=== PATIENT | female | born 1975 | race Hispanic/Latino ===

== ENCOUNTER 2018-05-03 17:24 | Observation (INO) | payer OTHER, SELFPAY ==
--- OUTSIDE RECORDS SUMMARY | 2018-05-03 17:26 | XMS REPORT | Clinical Summary ---
:1975 Author Organization [facility] Address [address] [place] [address] Phone Care Team Providers Name Role Phone Unavailable Primary Care Provider Unavailable Allergies No Known Allergies Current Medications Prescription Sig. Disp. Refills Start Date End Date Status metFORMIN Take 1,000 mg by Active (GLUCOPHAGE) 1000 mouth 2 (two) times MG tablet daily with breakfast and dinner. glyBURIDE (DIABETA) Take 1.25 mg by Active 1.25 MG tablet mouth 2 (two) times daily with breakfast and dinner. lisinopril Take 10 mg by mouth Active (PRINIVIL,ZESTRIL) daily. 10 MG tablet liraglutide 0.6 Inject 1.5 mg Active mg/0.1 mL (18 mg/3 subcutaneously daily mL) PnIj with breakfast. topiramate Take 1 tablet (25 mg 30 tablet 2 09/11/2017 09/11/2018 Active (TOPAMAX) 25 MG total) by mouth tablet nightly. Active Problems Problem Noted Date Left sided numbness 09/10/2017 Diabetes mellitus type 2 in nonobese ([facility]) 09/10/2017 Essential hypertension 09/10/2017 Headache 09/10/2017 Encounters Date Type Specialty Care Team Description 09/10/2017 - Hospital Encounter General Internal [facility], Diabetes mellitus type 09/11/2017 Medicine MD [place] 2 in nonobese [place], ([facility]);Essential Delphine Duenas MD hypertension;Acute nonintractable headache, unspecified headache type;Left sided numbness;Hemiplegic migraine without status migrainosus, not intractable after 05/02/2017 Social History Tobacco Use Types Packs/Day Years Used Date Never Smoker Sex Assigned at Date Recorded Not on file Last Filed Vital Signs Vital Sign Reading Time Taken Blood Pressure 158/72 09/11/2017 11:00 AM [employer] Pulse 87 09/11/2017 11:00 AM [employer] Temperature 36.3 C (97.4 F) 09/11/2017 11:00 AM [employer] Respiratory Rate 18 09/11/2017 11:00 AM [employer] Oxygen Saturation 95% 09/11/2017 11:00 AM [employer] Inhaled Oxygen Concentration - - Weight 81.2 kg (178 lb 15.9 oz) 09/10/2017 3:00 AM [employer] Height 162.6 cm (5' 4") 09/10/2017 3:00 AM [employer] Body Mass Index 30.72 09/10/2017 3:00 AM [employer] Plan of Treatment Not on file Results EKG-SCANNED (09/13/2017 10:10 AM)RHYTHM STRIP - SCAN (09/13/2017 10:10 AM)POC- Glucose meter (09/11/2017 11:28 AM)Only the most recent of6 resultswithin the time period is included. Component Value Ref Range POC-Glucose Meter 330 (H)Comment: TESTED AT [address] 70 - 110 mg/[place] [address] Specimen Performing Laboratory Blood [address] [address] Screen, urine (09/11/2017 10:02 AM) Component Value Ref Range Preg Test, Ur Negative Specimen Performing Laboratory Urine - Urine, Clean Catch [address] [address] ECG 12 lead (09/11/2017 4:26 AM) Specimen Performing Laboratory GE MUSE Narrative Ventricular Rate 81 BPM Atrial Rate 81 BPM P-R Interval 136 ms QRS Duration 88 ms Q-T Interval 384 ms QTC Calculation(Bazett) 446 ms P [place] 55 degrees R [place] 43 degrees T [place] 61 degrees Normal sinus rhythm Normal ECG No previous ECGs available Confirmed by MD STAFFORD YOCHAI ([id number]) on 09/12/2017 6:28:57 AM Procedure Note Interface, External Ris In - 09/12/2017 6:29 AM [employer] Ventricular Rate 81 BPM Atrial Rate 81 BPM P-R Interval 136 ms QRS Duration 88 ms Q-T Interval 384 ms QTC Calculation(Bazett) 446 ms P [place] 55 degrees R [place] 43 degrees T [place] 61 degrees Normal sinus rhythm Normal ECG No previous ECGs available Confirmed by MD STAFFORD YOCHAI ([id number]) on 09/12/2017 6:28:57 AM MR brain without IV contrast (09/10/2017 10:45 AM) Specimen Performing Laboratory RIS Narrative FINAL REPORT MRI brain without contrast INDICATION: Acute onset headache and left hemiparesis, hemianesthesia. TECHNIQUE: Multiplanar, multisequence MR imaging of the brain was performed utilizing the following imaging sequences: Axial T2, FLAIR, GRE, and DWI; sagittal and coronal T1 COMPARISON: None available FINDINGS: There is no acute infarct, hematoma, extra axial collection, hydrocephalus, or mass effect. No suspicious white matter disease pattern is evident. The left [place] A1 segment is likely hypoplastic. The major vascular flow voids are otherwise maintained. The sella and craniocervical junction are unremarkable. There is minimal chronic sinus mucosal disease with well aerated mastoid air cells. Anterior globe region artifacts suggest cosmetics. Diminished marrow T1 signal likely reflects red marrow reconversion. IMPRESSION: No evidence of acute infarct, hemorrhage, or hydrocephalus. Signed: Mark Mathur MD Report Verified Date/Time:09/10/2017 11:17:54 Reading Location: [address] Neuro Reading Room Procedure Note Interface, External Ris In - 09/10/2017 12:09 PM [employer] FINAL REPORT MRI brain without contrast INDICATION: Acute onset headache and left hemiparesis, hemianesthesia. TECHNIQUE: Multiplanar, multisequence MR imaging of the brain was performed utilizing the following imaging sequences: Axial T2, FLAIR, GRE, and DWI; sagittal and coronal T1 COMPARISON: None available FINDINGS: There is no acute infarct, hematoma, extra axial collection, hydrocephalus, or mass effect. No suspicious white matter disease pattern is evident. The left CLARITZA A1 segment is likely hypoplastic. The major vascular flow voids are otherwise maintained. The sella and craniocervical junction are unremarkable. There is minimal chronic sinus mucosal disease with well aerated mastoid air cells. Anterior globe region artifacts suggest cosmetics. Diminished marrow T1 signal likely reflects red marrow reconversion. IMPRESSION: No evidence of acute infarct, hemorrhage, or hydrocephalus. Signed: Mark Mathur MD Report Verified Date/Time: 09/10/2017 11:17:54 Reading Location: [address] Neuro Reading Room neck without IV contrast (09/10/2017 10:45 AM) Specimen Performing Laboratory RIS Narrative FINAL REPORT MRA head and neck without contrast INDICATION: Headache, left hemianesthesia, left sided weakness TECHNIQUE: 2-D and 3-D [id number] MRA images of the intra- and extracranial carotid and vertebral artery circulations were obtained, from which maximal intensity projection reconstructions were generated. COMPARISON: None available FINDINGS: MRA neck: The common and internal carotid arteries demonstrate no significant stenosis. Specifically, no measurable cervical ICA stenosis is seen by NASCET criteria. There is antegrade flow in the cervical vertebral arteries without flow limitation. The proximal common carotid and vertebral arteries are not imaged. MRA [place]: The left CLARITZA A1 segment is hypoplastic. There is no major branch occlusion or significant stenosis in the [place] vessels. There is no specific MRA evidence of saccular aneurysm. IMPRESSION: 1. No hemodynamically significant carotid stenosis by NASCET criteria. 2. No significant stenosis in the imaged cervical vertebral arteries. 3. No major branch occlusion, significant stenosis, or evident aneurysm in the [place] vessels. Signed: Mark Mathur MD Report Verified Date/Time:09/10/2017 11:16:49 Reading Location: [address] Neuro Reading Room Procedure Note Interface, External Ris In - 09/10/2017 12:09 PM [employer] FINAL REPORT MRA head and neck without contrast INDICATION: Headache, left hemianesthesia, left sided weakness TECHNIQUE: 2-D and 3-D [id number] MRA images of the intra- and extracranial carotid and vertebral artery circulations were obtained, from which maximal intensity projection reconstructions were generated. COMPARISON: None available FINDINGS: MRA neck: The common and internal carotid arteries demonstrate no significant stenosis. Specifically, no measurable cervical ICA stenosis is seen by NASCET criteria. There is antegrade flow in the cervical vertebral arteries without flow limitation. The proximal common carotid and vertebral arteries are not imaged. MRA [place]: The left CLARITZA A1 segment is hypoplastic. There is no major branch occlusion or significant stenosis in the [place] vessels. There is no specific MRA evidence of saccular aneurysm. IMPRESSION: 1. No hemodynamically significant carotid stenosis by NASCET criteria. 2. No significant stenosis in the imaged cervical vertebral arteries. 3. No major branch occlusion, significant stenosis, or evident aneurysm in the [place] vessels. Signed: Mark Mathur MD Report Verified Date/Time: 09/10/2017 11:16:49 Reading Location: [address] Neuro Reading Room head without IV contrast (09/10/2017 10:45 AM) Specimen Performing Laboratory GE RIS Narrative FINAL REPORT MRA head and neck without contrast INDICATION: Headache, left hemianesthesia, left sided weakness TECHNIQUE: 2-D and 3-D [id number] MRA images of the intra- and extracranial carotid and vertebral artery circulations were obtained, from which maximal intensity projection reconstructions were generated. COMPARISON: None available FINDINGS: MRA neck: The common and internal carotid arteries demonstrate no significant stenosis. Specifically, no measurable cervical ICA stenosis is seen by NASCET criteria. There is antegrade flow in the cervical vertebral arteries without flow limitation. The proximal common carotid and vertebral arteries are not imaged. MRA [place]: The left CLARITZA A1 segment is hypoplastic. There is no major branch occlusion or significant stenosis in the [place] vessels. There is no specific MRA evidence of saccular aneurysm. IMPRESSION: 1. No hemodynamically significant carotid stenosis by NASCET criteria. 2. No significant stenosis in the imaged cervical vertebral arteries. 3. No major branch occlusion, significant stenosis, or evident aneurysm in the [place] vessels. Signed: Mark Mathur MD Report Verified Date/Time:09/10/2017 11:16:49 Reading Location: [facility] Neuro Reading Room Procedure Note Interface, External Ris In - 09/10/2017 12:09 PM [employer] FINAL REPORT MRA head and neck without contrast INDICATION: Headache, left hemianesthesia, left sided weakness TECHNIQUE: 2-D and 3-D [id number] MRA images of the intra- and extracranial carotid and vertebral artery circulations were obtained, from which maximal intensity projection reconstructions were generated. COMPARISON: None available FINDINGS: MRA neck: The common and internal carotid arteries demonstrate no significant stenosis. Specifically, no measurable cervical ICA stenosis is seen by NASCET criteria. There is antegrade flow in the cervical vertebral arteries without flow limitation. The proximal common carotid and vertebral arteries are not imaged. MRA [place]: The left CLARITZA A1 segment is hypoplastic. There is no major branch occlusion or significant stenosis in the [place] vessels. There is no specific MRA evidence of saccular aneurysm. IMPRESSION: 1. No hemodynamically significant carotid stenosis by NASCET criteria. 2. No significant stenosis in the imaged cervical vertebral arteries. 3. No major branch occlusion, significant stenosis, or evident aneurysm in the [place] vessels. Signed: Mark Mathur MD Report Verified Date/Time: 09/10/2017 11:16:49 Reading Location: [address] Neuro Reading Room Vitamin B12 and Folate (09/10/2017 5:05 AM) Component Value Ref Range Vitamin B12 413 213 - 816 pg/mL Folate 14.8 >=7.0 ng/mL Specimen Performing Laboratory Blood [address] [address] TSH/Free T4 If Indicated (09/10/2017 5:05 AM) Component Value Ref Range TSH 2.42 0.35 - 4.94 uIU/mL Specimen Performing Laboratory Blood [address] [address] C-Reactive Protein (09/10/2017 5:05 AM) Component Value Ref Range CRP 1.82 (H) 0.00 - 0.50 mg/dL Specimen Performing Laboratory Blood [address] [address] Narrative Fasting CBC with platelet count + automated diff (09/10/2017 5:05 AM) Component Value Ref Range WBC 10.5 3.5 - 10.5 K/L RBC 4.13 3.93 - 5.22 M/L Hemoglobin 10.9 (L) 11.2 - 15.7 GM/DL Hematocrit 33.9 (L) 34.1 - 44.9 % MCV 82.1 79.4 - 94.8 fL MCH 26.4 25.6 - 32.2 pg MCHC 32.2 32.2 - 35.5 GM/DL RDW 13.6 11.7 - 14.4 % Platelets 220 150 - 450 K/CU MM MPV 11.5 9.4 - 12.3 fL nRBC 0 0 - 0 /100 WBC % Neutros 56 % % Lymphs 35 % % Monos 6 % % Eos 3 % % Baso 0 % # Neutros 5.87 1.56 - 6.13 K/L # Lymphs 3.71 1.18 - 3.74 K/L # Monos 0.58 (H) 0.24 - 0.36 K/L # Eos 0.28 0.04 - 0.36 K/L # Baso 0.04 0.01 - 0.08 K/L Immature Granulocytes-Relative 0 0 - 1 % Specimen Performing Laboratory [address] [address] Troponin I (09/10/2017 5:05 AM) Component Value Ref Range Troponin I <0.01 0.00 - 0.03 ng/mL Specimen Performing Laboratory [address] [address] Narrative Troponin I (TnI) levels must be interpreted in the context of the presenting symptoms and the clinical findings. Elevated TnI levels indicate myocardial damage, but are not specific for ischemic heart disease. Elevated TnI levels are seen in patients with other cardiac conditions (including myocarditis and congestive heart failure), and slight TnI elevations occur in patients with other conditions, including sepsis, renal failure, acidosis, acute neurological disease, and persistent tachyarrhythmia. Fasting RPR (09/10/2017 5:05 AM) Component Value Ref Range RPR Nonreactive Nonreactive Specimen Performing Laboratory [address] [address] Sedimentation rate (09/10/2017 5:05 AM) Component Value Ref Range Sed Rate 25 (H) 0 - 20 mm/HR Specimen Performing Laboratory Blood [facility] [address] [address] CBC with platelet count + automated diff (09/10/2017 5:05 AM) Specimen Performing Laboratory Blood Narrative The following orders were created for panel order CBC with platelet count + automated diff. Procedure Abnormality Status --------- ------ CBC with platelet count ...[[id number]]AbnormalFinal result Please view results for these tests on the individual orders. Homocysteine (09/10/2017 5:05 AM) Component Value Ref Range Homocysteine 4.1 (L) 5.1 - 15.4 umol/L Specimen Performing Laboratory Blood [address] [address] Hemoglobin A1c (09/10/2017 5:05 AM) Component Value Ref Range Hemoglobin A1C 8.2 (H) 4.3 - 6.1 % Specimen Performing Laboratory Blood [address] [address] Fasting lipid panel (09/10/2017 5:05 AM) Component Value Ref Range Triglycerides 116 mg/dL Cholesterol 99 mg/dL HDL 25 mg/dL LDL Calculated 51 mg/dL Specimen Performing Laboratory Blood [address] [address] Narrative Triglyceride Reference Range: Low Risk <150 [id number] High Risk 200-499 Very High Risk>=500 Cholesterol Reference Range: Low Risk <200 [id number] High Risk>240 HDL Cholesterol Reference Range: Low Risk >=60 High Risk <40 LDL Cholesterol Reference Range: Optimal<100 Near [id number] Very High >=190 Fasting Basic Metabolic Panel (09/10/2017 5:05 AM) Component Value Ref Range Sodium 138 136 - 145 meq/L Potassium 4.0 3.5 - 5.1 meq/L Chloride 109 (H) 98 - 107 meq/L CO2 21 (L) 22 - 29 meq/L BUN 7 7 - 21 mg/dL Creatinine 0.53 (L) 0.57 - 1.25 mg/dL Glucose 161 (H) 70 - 105 mg/dL Calcium 8.0 (L) 8.4 - 10.2 mg/dL EGFR Comment: INSUFFICIENT CLINICAL DATA TO CALCULATE mL/min/1.73 sq m ESTIMATED GFR. Specimen Performing Laboratory Blood [facility] [address] [place] [address] Narrative Fasting after 05/02/2017
--- OUTSIDE RECORDS SUMMARY | 2018-05-03 17:26 | XMS REPORT ---
:1975 [facility] Address [address] [place] [address] [address] [place] [address] Care Team Providers Name Role Phone SAÚL LOMBARDO Unavailable Unavailable Problems This patient has no known problems. Allergies, Adverse Reactions, Alerts This patient has no known allergies or adverse reactions. Medications This patient has no known medications. Results Test Description Test Time Test Comments Text Results Atomic Results Result Comments POCT-GLUCOSE METER 2017-09-11 11:54:00 Test Item Value Reference Range Comments POC-GLUCOSE METER (BEAKER) (test 330 mg/dL 70-110 TESTED AT [address] wvye=3578) [place] [address] SCREEN, [id number] 11:13:00 Test Item Value Reference Range Comments TEST URINE (BEAKER) (test oxtj=488) Negative POCT-GLUCOSE [id number] 08:33:00 Test Item Value Reference Range Comments POC-GLUCOSE METER (BEAKER) 226 mg/dL 70-110 TESTED AT [address] (test nylb=3570) [place] [address] POCT-GLUCOSE [id number] 21:48:00 Test Item Value Reference Range Comments POC-GLUCOSE METER (BEAKER) 219 mg/dL 70-110 TESTED AT [address] (test wfan=3990) [place] [address] POCT-GLUCOSE [id number] 17:48:00 Test Item Value Reference Range Comments POC-GLUCOSE METER (BEAKER) 225 mg/dL 70-110 TESTED AT [address] (test fzuf=0179) [place] [address] [id number] 16:39:00 Test Item Value Reference Range Comments RPR SCREEN (BEAKER) (test isjf=678) Nonreactive Nonreactive SEDIMENTATION [id number] 15:02:00 Test Item Value Reference Range Comments SEDIMENTATION RATE, ERYTHROCYTE (BEAKER) (test 25 mm/HR 0-20 fguc=021) POCT-GLUCOSE [id number] 12:40:00 Test Item Value Reference Range Comments POC-GLUCOSE METER (BEAKER) 188 mg/dL 70-110 TESTED AT [facility] [address] (test wiqm=8271) [facility] [address] HEMOGLOBIN [id number] 11:42:00 Test Item Value Reference Range Comments HEMOGLOBIN A1C (BEAKER) (test snug=263) 8.2 % 4.3-6.1 MR, BRAIN, WITHOUT [id number] 11:17:00Reason for exam:->Ischemic Stroke EvaluationFINAL REPORT MRI brain without contrast INDICATION: Acute onset headache and left hemiparesis, hemianesthesia. TECHNIQUE : Multiplanar, multisequence MR imaging of the brain was performed utilizing the following imaging sequences: Axial T2, FLAIR, GRE, and DWI; sagittal and coronal T1 COMPARISON: None available FINDINGS:There is no acute infarct, hematoma, extra axial collection, hydrocephalus, or mass effect. No suspicious white matter disease pattern is evident. The left CLARITZA A1 segment is likely hypoplastic. The major vascular flow voids are otherwise maintained. The sella and craniocervical junction are unremarkable. There is minimal chronic sinus mucosal disease with wellaerated mastoid air cells. Anterior globe region artifacts suggest cosmetics. Diminished marrow T1 signal likely reflects red marrow reconversion. IMPRESSION: No evidence of acute infarct, hemorrhage, or hydrocephalus. Signed: Mark Mathur [facility] Verified Date/Time: 2016 11:17:54 Reading Location: [address] Neuro Reading Room MR, MRA, BRAIN, WITHOUT [id number] 11:16:00Reason for exam:->Ischemic Stroke EvaluationFINAL REPORT MRA head and neck without contrast INDICATION: Headache, left hemianesthesia, left sided weakness TECHNIQUE: 2-D and 3-D [id number]-rx-nlgctu MRA images of the intra- and extracranial carotid and vertebral artery circulations were obtained, from which maximal intensity projection reconstructions were generated. COMPARISON: None available FINDINGS: MRA neck:The common andinternal carotid arteries demonstrate no significant stenosis. Specifically, no measurable cervical ICA stenosis is seen by NASCET criteria. There is antegrade flow in the cervical vertebral arteries without flow limitation. The proximal common carotid and vertebral arteries are not imaged. MRA [place]:The left CLARITZA A1 segment is hypoplastic. There is no major branch occlusion or significant stenosis in the [place] vessels. There is no specific MRA evidence of saccular aneurysm. IMPRESSION: 1. No hemodynamically significant carotid stenosis by NASCET criteria. 2. No significant stenosis in the imaged cervical vertebral arteries. 3. No major branch occlusion, significant stenosis,or evident aneurysm in the [place] vessels. Signed: Mark Mathur [facility] Verified Date/Time: 09/10 11:16:49 Reading Location: [facility] C013 Neuro Reading Room MR, MRA, NECK, WITHOUT IV [id number] 11:16:00Reason for exam:->Ischemic Stroke EvaluationFINAL REPORT MRA head and neck without contrast INDICATION: Headache, left hemianesthesia, left sided weakness TECHNIQUE: 2-D and 3-D dluj-cy-acdurl MRA images of the intra- and extracranial carotid and vertebral artery circulations were obtained, from which maximal intensity projection reconstructions were generated. COMPARISON: None available FINDINGS: MRA neck:The common andinternal carotid arteries demonstrate no significant stenosis. Specifically, no measurable cervical ICA stenosis is seen by NASCET criteria. There is antegrade flow in the cervical vertebral arteries without flow limitation. The proximal common carotid and vertebral arteries are not imaged. MRA circle[place]:The left CLARITZA A1 segment is hypoplastic. There is no major branch occlusion or significant stenosis in the [place] vessels. There is no specific MRA evidence of saccular aneurysm. IMPRESSION: 1. No hemodynamically significant carotid stenosis by NASCET criteria. 2. No significant stenosis in the imaged cervical vertebral arteries. 3. No major branch occlusion, significant stenosis,or evident aneurysm in the [place] vessels. Signed: Mark Mathur [facility] Verified Date/Time: 09/10 11:16:49 Reading Location: [facility] C013V Neuro Reading Room TSH/ FREE T4 IF [id number] 09:44:00 Test Item Value Reference Range Comments THYROID STIMULATING HORMONE (BEAKER) (test 2.42 uIU/mL 0.35-4.94 iabw=664) VITAMIN B12 AND [id number] 09:44:00 Test Item Value Reference Range Comments VITAMIN B12 (BEAKER) (test kjya=942) 413 pg/mL 213-816 FOLATE (BEAKER) (test plka=939) 14.8 ng/mL >=7.0 POCT-GLUCOSE [id number] 08:35:00 Test Item Value Reference Range Comments POC-GLUCOSE METER (BEAKER) 156 mg/dL 70-110 TESTED AT [facility] [address] [facility] (test mvcf=4393) [facility] [address] [id number] 06:56:00 Test Item Value Reference Range Comments HOMOCYSTEINE (BEAKER) (test lanh=075) 4.1 umol/L 5.1-15.4 BASIC METABOLIC [id number] 06:32:00 Test Item Value Reference Range Comments SODIUM (BEAKER) (test 138 meq/L 136-145 moyx=843) POTASSIUM (BEAKER) (test 4.0 meq/L 3.5-5.1 mzxe=081) CHLORIDE (BEAKER) (test 109 meq/L 98-107 hyjo=819) CO2 (BEAKER) (test 21 meq/L 22-29 xkin=731) BLOOD UREA NITROGEN 7 mg/dL 7-21 (BEAKER) (test sclv=067) CREATININE (BEAKER) (test 0.53 mg/dL 0.57-1.25 zccz=194) GLUCOSE RANDOM (BEAKER) 161 mg/dL 70-105 (test kxuv=020) CALCIUM (BEAKER) (test 8.0 mg/dL 8.4-10.2 wjlb=771) EGFR (BEAKER) (test mL/min/1.73 sq m INSUFFICIENT CLINICAL DATA eqct=2605) TO CALCULATE ESTIMATED GFR. FastingLIPID [id number] 06:31:00 Test Item Value Reference Range Comments TRIGLYCERIDES (BEAKER) (test cjyc=927) 116 mg/dL CHOLESTEROL (BEAKER) (test kxwi=516) 99 mg/dL HDL CHOLESTEROL (BEAKER) (test qskf=447) 25 mg/dL LDL CHOLESTEROL CALCULATED (BEAKER) (test 51 mg/dL wvjk=440) Triglyceride Reference Range: Low Risk <150 Borderline 150- 199 High Risk 200-499 Very High Risk >=500Cholesterol Reference Range: Low Risk <200 Borderline 200-239 High Risk > 240HDL Cholesterol Reference Range: Low Risk >=60 High Risk <40LDL Cholesterol Reference Range: Optimal <100 Near Optimal 100-129 Borderline 130-159 High 160-189 Very High >=190 FastingC-REACTIVE [id number] 06:31:00 Test Item Value Reference Range Comments C-REACTIVE PROTEIN (BEAKER) (test fudj=392) 1.82 mg/dL 0.00-0.50 FastingTROPONIN [id number] 06:29:00 Test Item Value Reference Range Comments TROPONIN I (BEAKER) (test erxj=722) < ng/mL 0.00-0.03 Troponin I (TnI) levels must be interpreted [...] failure, acidosis, acute neurological disease, and persistent tachyarrhythmia.FastingCBC W/PLT COUNT & AUTO [id number] 06:02:00 Test Item Value Reference Range Comments WHITE BLOOD CELL COUNT (BEAKER) (test fqlt=881) 10.5 K/ L 3.5-10.5 RED BLOOD CELL COUNT (BEAKER) (test iacv=821) 4.13 M/ L 3.93-5.22 HEMOGLOBIN (BEAKER) (test ncwu=804) 10.9 GM/DL 11.2-15.7 HEMATOCRIT (BEAKER) (test kmdg=857) 33.9 % 34.1-44.9 MEAN CORPUSCULAR VOLUME (BEAKER) (test zuzc=928) 82.1 fL 79.4-94.8 MEAN CORPUSCULAR HEMOGLOBIN (BEAKER) (test 26.4 pg 25.6-32.2 dirc=612) MEAN CORPUSCULAR HEMOGLOBIN CONC (BEAKER) (test 32.2 GM/DL 32.2-35.5 wrvs=562) RED CELL DISTRIBUTION WIDTH (BEAKER) (test 13.6 % 11.7-14.4 jlns=052) PLATELET COUNT (BEAKER) (test ebpe=346) 220 K/CU MM 150-450 MEAN PLATELET VOLUME (BEAKER) (test fybv=592) 11.5 fL 9.4-12.3 NUCLEATED RED BLOOD CELLS (BEAKER) (test 0 /100 WBC 0-0 ukgg=000) NEUTROPHILS RELATIVE PERCENT (BEAKER) (test 56 % hxgi=910) LYMPHOCYTES RELATIVE PERCENT (BEAKER) (test 35 % ptuo=383) MONOCYTES RELATIVE PERCENT (BEAKER) (test 6 % rmhk=279) EOSINOPHILS RELATIVE PERCENT (BEAKER) (test 3 % tzib=965) BASOPHILS RELATIVE PERCENT (BEAKER) (test 0 % khzc=228) NEUTROPHILS ABSOLUTE COUNT (BEAKER) (test 5.87 K/ L 1.56-6.13 ruez=297) LYMPHOCYTES ABSOLUTE COUNT (BEAKER) (test 3.71 K/ L 1.18-3.74 wggi=257) MONOCYTES ABSOLUTE COUNT (BEAKER) (test 0.58 K/ L 0.24-0.36 pfjn=095) EOSINOPHILS ABSOLUTE COUNT (BEAKER) (test 0.28 K/ L 0.04-0.36 trps=769) BASOPHILS ABSOLUTE COUNT (BEAKER) (test 0.04 K/ L 0.01-0.08 opve=872) IMMATURE GRANULOCYTES-RELATIVE PERCENT (BEAKER) 0 % 0-1 (test ajmq=7246)
[2018-05-03] MEDS ORDERED: NITROGLYCERIN 0.4 MG/TAB SL ONE ×2 (18:24→19:24)
[2018-05-03] MEDS ORDERED: ASPIRIN 81 MG CHEWABLE TABLET ONE ×2 (18:24→19:24)
[2018-05-03] MEDS ORDERED: NA CHLORIDE 0.9% 1,000 ML ONE ×2 (18:25→19:24)
[2018-05-03 18:28] LABS: Absolute Lymphocytes (CBC) 2.5 K/uL (0.7-4.9); Absolute Monocytes 0.6 K/uL (0.1-1.3); Absolute Neutrophil 6.1 K/uL (1.8-8.0); Basophils % 0.9 % (0-1.3); Eosinophils % 2.9 % (0-4.4); Hematocrit 38.1 % (36.0-45.0); Lymphocytes % 26.1 % (15.3-44.8); MCH 25.2 pg (27.0-35.0); MCV 77.1 fL (80-100); MPV 8.9 fL (7.6-11.3); Monocytes % 6.3 % (3.3-12.3); RBC Red Blood Cell Count 4.94 M/uL (3.86-4.86)
[2018-05-03 18:50] LABS: ALT/SGPT 29 U/L (12-78); AST/SGOT 16 U/L (15-37); Albumin 3.2 g/dL (3.4-5.0); Alkaline Phosphatase 86 U/L (45-117); BUN Blood Urea Nitrogen 7 mg/dL (7-18); Bicarbonate 24 mmol/L (21-32); Bilirubin Direct < 0.1 mg/dL (0-0.2); Bilirubin Total 0.2 mg/dL (0.2-1.0); CKMB Creatine Kinase MB 1.1 ng/mL (0.3-3.6); Creatine Phosphokinase 40 U/L (26-192); Glucose Level 314 mg/dL (74-106); Magnesium 1.9 mg/dL (1.8-2.4); NT PRO-BNP 11 pg/mL (<125); Potassium 4.1 mmol/L (3.5-5.1); Protein, Total 7.3 g/dL (6.4-8.2); Protime INR 0.96; Sodium Level 136 mmol/L (136-145)
--- NOTE | 2018-05-03 18:58 | RAD REPORT ---
EXAM DESCRIPTION: RAD - Chest Single View - 05/03/2018 6:46 pm CLINICAL HISTORY: Left-sided chest pain, left arm numbness COMPARISON: November 2017 TECHNIQUE: AP portable chest image was obtained 1834 hours . FINDINGS: Lung volumes are low. No peripheral mass or consolidation. No significant failure or volum e overload. Trachea is midline. Heart and vasculature are normal. No measurable pleural effusion and no pneumothorax. No gross bony abnormality seen. No acute aortic findings suspected. IMPRESSION: Shallow inspiration film showing no acute cardiopulmonary finding. No significant change from comparison.
[2018-05-03] MEDS ORDERED: INSULIN -REGULAR HUMAN 50 UNIT/0.5 ML ML ONE (19:24)
[2018-05-03 20:14] LABS: Urine Blood NEGATIVE (NEG); Urine Glucose 2+ (NEG); Urine Protein NEGATIVE (NEG); Urine pH 5.5 (5.0-7.0)
--- NOTE | 2018-05-03 20:30 | EKG ---
Test Date: 2018-05-03 Test Time: 17:35:18 Chocolate Temperer: DANUTA MEASUREMENT RESULTS: Intervals: Rate: 92 GA: 122 QRSD: 82 QT: 352 QTc: 435 [place]: P: 55 GA: 122 QRS: 48 T: 71 INTERPRETIVE STATEMENTS: Normal sinus rhythm Normal ECG Compared to ECG 11/17/2017 22:40:07 T-wave abnormality no longer present Electronically Signed On 05-03-18 20:29:55 CDT by Nikhil Burrows
[2018-05-03] MEDS ORDERED: MORPHINE 4 MG/ML SYR ONE (20:47)
--- NOTE | 2018-05-03 21:39 | RAD REPORT ---
EXAM DESCRIPTION: CT - Head Brain Wo Cont - 05/03/2018 9:33 pm CLINICAL HISTORY: Left arm numbness COMPARISON: CT head September 2017 TECHNIQUE: Axial 5 mm thick images of the head were obtained without IV contrast. All CT scans are performed using dose optimization technique as appropriate and may include automated exposure control or mA/KV adjustment according to patient size. FINDINGS: No intracranial hemorrhage, mass, edema or shift of mid-line structures. No acute cortical based infarction. No cortical edema or sulcal effacement. No abnormal extra-axial fluid collections. Ventricles are normal. Mastoid air cells and visualized portions of the paranasal sinuses are clear. No acute bony findings. IMPRESSION: Negative non-contrast CT head examination for acute finding. No significant change from September 2017.
--- NOTE | 2018-05-03 21:56 | EDPHYS ---
Physician Documentation [facility] Name: Carol Mclaughlin Age: 43 yrs Sex: Female : 1975 Arrival Date: 05/03/2018 Time: 17:26 Bed 7 Private MD: ED Physician Miguel Angel Aviles HPI: 05/03 18:05 This 43 yrs old Female presents to ER via Ambulatory with complaints of cp Numbness Of Arm. 18:05 The patient or guardian reports chest pain that is located primarily in the anterior cp chest wall, left. Onset: this morning. 18:05 The pain radiates to the left shoulder. Associated signs and symptoms: Pertinent cp positives: paresthesias of left hand, Pertinent negatives: abdominal pain, cough, headache, lower extremity pain, lower extremity swelling. The chest pain is described as constant. 18:05 Duration: The patient or guardian reports a single episode, that is still ongoing, and cp unchanged. Modifying factors: The symptoms are alleviated by nothing. Historical: - Allergies: 17:33 No Known Allergies; sv - Home Meds: 17:33 glipizide 5 mg Oral tab 1 tab 2 times per day [Active]; metformin 1,000 mg Oral tab 1 sv tab 2 times per day [Active]; - PMHx: 17:33 Diabetes - NIDDM; Hypertension; sv - PSHx: 17:33 Cholecystectomy; ; ankle; sv - Immunization history:: Adult Immunizations up to date. - Social history:: Smoking status: Patient/guardian denies using tobacco. - Ebola Screening: : No symptoms or risks identified at this time. ROS: 18:10 Constitutional: Negative for body aches, chills, fever, poor PO intake. cp 18:10 Eyes: Negative for injury, pain, redness, and discharge. cp 18:10 ENT: Negative for drainage from ear(s), ear pain, sore throat, difficulty swallowing, difficulty handling secretions. 18:10 Cardiovascular: Positive for chest pain, Negative for edema, palpitations. 18:10 Respiratory: Negative for cough, shortness of breath, wheezing. 18:10 Abdomen/GI: Negative for abdominal pain, nausea, vomiting, and diarrhea, black/tarry stool, rectal bleeding. 18:10 MS/extremity: Positive for paresthesias, of the left hand. 18:10 Skin: Negative for cellulitis, rash. 18:10 Neuro: Negative for altered mental status, headache, syncope, near syncope, weakness. 18:10 All other systems are negative. Exam: 17:42 ECG was reviewed by the Attending Physician. cp 18:18 Constitutional: The patient appears in no acute distress, alert, awake, non-toxic, well cp developed, well nourished, uncomfortable. 18:18 Head/Face: Normocephalic, atraumatic. Eyes: Pupils equal round and reactive to light, cp extra-ocular motions intact. Lids and lashes normal. Conjunctiva and sclera are non-icteric and not injected. Cornea within normal limits. Periorbital areas with no swelling, redness, or edema. ENT: Nares patent. No nasal discharge, no septal abnormalities noted. Tympanic membranes are normal and external auditory canals are clear. Oropharynx with no redness, swelling, or masses, exudates, or evidence of obstruction, uvula midline. Mucous membranes moist. Neck: Trachea midline, no thyromegaly or masses palpated, and no cervical lymphadenopathy. Supple, full range of motion without nuchal rigidity, or vertebral point tenderness. No Meningismus. Chest/axilla: Normal chest wall appearance and motion. Nontender with no deformity. No lesions are appreciated. Cardiovascular: Regular rate and rhythm with a normal S1 and S2. No gallops, murmurs, or rubs. Normal PMI, no JVD. No pulse deficits. Respiratory: Lungs have equal breath sounds bilaterally, clear to auscultation and percussion. No rales, rhonchi or wheezes noted. No increased work of breathing, no retractions or nasal flaring. Abdomen/GI: Soft, non-tender, with normal bowel sounds. No distension or tympany. No guarding or rebound. No evidence of tenderness throughout. Skin: Warm, dry with normal turgor. Normal color with no rashes, no lesions, and no evidence of cellulitis. 18:18 Neuro: Orientation: to person, place \T\ time. Mentation: lucid, able to follow commands, Cerebellar function: is grossly normal, Motor: moves all fours, strength is normal, Sensation: tingling, that is mild, of the left hand. Vital Signs: 17:33 BP 137 / 84; Pulse 91; Resp 18; Temp 98.4; Pulse Ox 96% ; Weight 81.65 kg; Height 5 ft. sv 4 in. (162.56 cm); Pain 7/10; 19:07 BP 134 / 76; Pulse 82; Resp 18; Pulse Ox 100% on R/A; aa1 19:26 BP 140 / 78 RA; Pulse 92; jw5 19:26 BP 131 / 79 LA; Pulse 92; jw5 20:10 BP 119 / 76; Pulse 82; Resp 16; Pulse Ox 99% on R/A; Pain 7/10; aa1 21:00 BP 125 / 75; Pulse 84; Resp 16; Pulse Ox 98% on R/A; aa1 23:20 BP 147 / 75; Pulse 99; Resp 18; Pulse Ox 100% on R/A; Pain 2/10; aa1 17:33 Body Mass Index 30.90 (81.65 kg, 162.56 cm) sv MDM: 18:08 Patient medically screened. 21:42 Data reviewed: vital signs, nurses notes, lab test result(s), EKG, radiologic studies, cp CT scan, plain films. 21:42 Differential diagnosis: abnormal EKG, acute myocardial infarction, gastroesophageal cp reflux disease (GERD), pleurisy, pneumonia, pneumothorax, pulmonary embolus, stable angina, thoracic aortic disection, unstable angina. The patient was given aspirin in the Emergency Department. Physician consultation: Rosey Davis MD was called at 21:40, was contacted at 21:40, regarding admission, to the telemetry unit. patient's condition. 05/03 18:12 Order name: Basic Metabolic Panel; Complete Time: 19: 05/03 19:08 Interpretation: Normal except: GLUC 314; CRE 0.50; CA 8.4. 05/03 18:12 Order name: CBC with Diff; Complete Time: 19: 05/03 19:09 Interpretation: Normal except: RBC 4.94; MCV 77.1; MCH 25.2; RDW 16.5. 05/03 18:12 Order name: Ckmb; Complete Time: 19: 05/03 18:12 Order name: CPK; Complete Time: 19: 05/03 18:12 Order name: LFT's; Complete Time: 19: 05/03 18:12 Order name: Magnesium; Complete Time: 19: 05/03 18:12 Order name: NT PRO-BNP; Complete Time: 19:08 cp 05/03 18:12 Order name: PT-INR; Complete Time: 19:08 cp 05/03 18:12 Order name: Ptt, Activated; Complete Time: 19:08 cp 05/03 18:12 Order name: Troponin (emerg Dept Use Only); Complete Time: 19:08 05/03 19:08 Interpretation: Within normal limits: TROPED < 0.02. 05/03 18:12 Order name: XRAY Chest (1 view); Complete Time: 19:08 cp 05/03 20:23 Interpretation: Report review. 05/03 19:25 Order name: Urine Dipstick--Ancillary (enter results); Complete Time: 20:21 [email or web address] 05/03 20:21 Interpretation: Normal except: UGLUC 2+. 05/03 19:25 Order name: Urine --Ancillary (enter results); Complete Time: 20:21 [email or web address] 05/03 20:39 Order name: CT Head Brain wo Cont; Complete Time: 21:40 05/03 21:40 Interpretation: Report reviewed. 05/03 17:42 Order name: EKG; Complete Time: 17:43 sv 05/03 17:42 Order name: EKG - Nurse/Tech; Complete Time: 17:42 sv 05/03 18:12 Order name: Urine Dipstick-Ancillary (obtain specimen); Complete Time: 19:30 cp 05/03 18:12 Order name: Urine Test (obtain specimen); Complete Time: 19:30 05/03 18:12 Order name: Cardiac monitoring; Complete Time: 18:15 cp 05/03 18:12 Order name: IV Saline Lock; Complete Time: 18:15 cp 05/03 18:12 Order name: Labs collected and sent; Complete Time: 18:15 cp 05/03 18:12 Order name: O2 Per Protocol; Complete Time: 18:15 cp 05/03 18:12 Order name: O2 Sat Monitoring; Complete Time: 18:15 cp 05/03 19:12 Order name: Blood Pressure Recheck: bilateral upper extremities; Complete Time: 19:24 cp EC:42 Rate is 92 beats/min. Rhythm is regular. HI interval is normal. QRS interval is normal. cp QT interval is normal. T waves are Inverted in lead aVL. Interpreted by me. Reviewed by me. Administered Medications: 18:25 Drug: NS 0.9% 1000 ml Route: IV; Rate: 1 bolus; Site: left antecubital; sg 19:29 Follow up: IV Status: Completed infusion aa1 : Drug: Insulin Regular Human 10 units {Co-Signature: bp (Marciano Mahmood RN).} Route: aa1 Sub-Q; Site: right upper arm; 20:27 Follow up: Response: Blood sugar is lowered aa1 19:30 Drug: Aspirin Chewable Tablet 324 mg Route: PO; aa1 20:27 Follow up: Response: No adverse reaction; No change in condition aa1 19:30 Drug: Nitroglycerin 0.4 mg Route: Sublingual; aa1 : Follow up: Response: No adverse reaction; No change in condition aa1 :30 Drug: NS 0.9% 1000 ml Route: IV; Rate: 125 ml/hr; Site: left antecubital; aa1 05/04 00:00 Follow up: IV Status: Infusion continued upon admission aa1 05/03 20:48 Drug: morphine 2 mg Route: IVP; Site: left antecubital; aa1 21:30 Follow up: Response: No adverse reaction; Pain is decreased aa1 Point of Care Testing: Blood Glucose: 18:23 Blood Glucose: 284 mg/dL; jb1 20:28 Blood Glucose: 151 mg/dL; aa1 Ranges: Critical Glucose Levels:Adult <50 mg/dl or >400 mg/dl <40 mg/dl or >180 mg/dl Disposition: 05/03/18 21:55 Hospitalization ordered by Rosey Davis for Observation. Preliminary diagnosis are Chest pain, unspecified, Paresthesia of skin. - Bed requested for Telemetry/MedSurg (observation). - Status is Observation. aa1 - Condition is Stable. - Problem is new. - Symptoms have improved. UTI on Admission? No Addendum: 05/12/2018 21:11 Co-signature as Attending Physician, Miguel Angel Aviles MD. r n Signatures: Dispatcher [employer] Flaca Monterroso RN RN kl Verde, Stephanie, RN RN sv Gay, Steven, RN RN sg Kern, Alissa, RN RN aa1 Miguel Angel Aviles MD MD rn Page, Vicente, PA PA cp Marciano Mahmood RN bp Corrections: (The following items were deleted from the chart) 05/03 19:08 19:08 Normal except: GLUC 314; CRE 0.50. cp cp 22:44 21:55 Hospitalization Ordered by Rosey Davis MD for Observation. Preliminary cp diagnosis is Chest pain, unspecified. Bed requested for Telemetry/MedSurg (observation). Status is Observation. Condition is Stable. Problem is new. Symptoms have improved. UTI on Admission? No. cp 22:55 22:44 05/03/2018 21:55 Hospitalization Ordered by Rosey Davis MD for Observation. kl Preliminary diagnosis is Chest pain, unspecified; Paresthesia of skin. Bed requested for Telemetry/MedSurg (observation). Status is Observation. Condition is Stable. Problem is new. Symptoms have improved. UTI on Admission? No. cp 05/04 00:06 05/03 22:55 05/03/2018 21:55 Hospitalization Ordered by Rosey Davis MD for aa1 Observation. Preliminary diagnosis is Chest pain, unspecified; Paresthesia of skin. Bed requested for Telemetry/MedSurg (observation). Status is Observation. Condition is Stable. Problem is new. Symptoms have improved. UTI on Admission? No. kl
--- NOTE | 2018-05-03 21:56 | ER ---
Nurse's Notes [facility] Name: Carol Mclaughlin Age: 43 yrs Sex: Female : 1975 Arrival Date: 05/03/2018 Time: 17:26 Bed 7 Private MD: Diagnosis: Chest pain, unspecified;Paresthesia of skin Presentation: 05/03 17:31 Presenting complaint: Patient states: left sided chest pain and left arm numbness that sv started today. Pt also reports right thumb numbness that started 5 days ago. c/o nausea. Transition of care: patient was not received from another setting of care. Onset of symptoms was May 03, 2018. Care prior to arrival: None. 17:31 Method Of Arrival: Ambulatory sv 17:31 Acuity: GORGE 3 sv 19:10 Risk Assessment: Do you want to hurt yourself or someone else? Patient reports no aa1 desire to harm self or others. 19:10 Initial Sepsis Screen: Does the patient meet any 2 criteria? No. Patient's initial aa1 sepsis screen is negative. Does the patient have a suspected source of infection? No. Patient's initial sepsis screen is negative. Historical: - Allergies: 17:33 No Known Allergies; sv - Home Meds: 17:33 glipizide 5 mg Oral tab 1 tab 2 times per day [Active]; metformin 1,000 mg Oral tab 1 sv tab 2 times per day [Active]; - PMHx: 17:33 Diabetes - NIDDM; Hypertension; sv - PSHx: 17:33 Cholecystectomy; ; ankle; sv - Immunization history:: Adult Immunizations up to date. - Social history:: Smoking status: Patient/guardian denies using tobacco. - Ebola Screening: : No symptoms or risks identified at this time. Screenin:00 Abuse screen: Denies threats or abuse. Denies injuries from another. Nutritional sg screening: No deficits noted. Tuberculosis screening: No symptoms or risk factors identified. Never had TB. Fall Risk None identified. Assessment: 18:00 General: Appears in no apparent distress. comfortable, well groomed, well developed, sg well nourished, Behavior is calm, cooperative, appropriate for age. Pain: Denies pain. Neuro: Level of Consciousness is awake, alert, obeys commands, Oriented to person, place, time, situation, Sound Effects Manager are equal bilaterally Moves all extremities. Full function Speech is normal, Facial symmetry appears normal, Reports numbness in right arm began in her right thumb, starting Tuesday. Cardiovascular: Heart tones S1 S2 present Capillary refill is brisk in bilateral fingers Patient's skin is warm and dry. Chest pain is denied. Respiratory: Airway is patent Respiratory effort is even, unlabored, Respiratory pattern is regular, symmetrical, Breath sounds are clear bilaterally. GI: No signs and/or symptoms were reported involving the gastrointestinal system. : No signs and/or symptoms were reported regarding the genitourinary system. EENT: No signs and/or symptoms were reported regarding the EENT system. Derm: Skin is pink, warm \T\ dry. Musculoskeletal: Circulation, motion, and sensation intact. Range of motion: intact in all extremities, Swelling absent. 19:05 Reassessment: Patient appears in no apparent distress at this time. Patient and/or aa1 family updated on plan of care and expected duration. Pain level reassessed. Patient is alert, oriented x 3, equal unlabored respirations, skin warm/dry/pink. Awaiting lab results. 19:45 Reassessment: Patient appears in no apparent distress at this time. Patient and/or aa1 family updated on plan of care and expected duration. Pain level reassessed. Patient is alert, oriented x 3, equal unlabored respirations, skin warm/dry/pink. Awaiting provider reassessment. 20:49 Reassessment: Patient appears in no apparent distress at this time. Patient and/or aa1 family updated on plan of care and expected duration. Pain level reassessed. Patient is alert, oriented x 3, equal unlabored respirations, skin warm/dry/pink. Awaiting CT scan. 21:29 Reassessment: Patient appears in no apparent distress at this time. Patient and/or aa1 family updated on plan of care and expected duration. Pain level reassessed. Patient is alert, oriented x 3, equal unlabored respirations, skin warm/dry/pink. Pt taken to CT at this time. 22:30 Reassessment: Patient appears in no apparent distress at this time. Patient and/or aa1 family updated on plan of care and expected duration. Pain level reassessed. Patient is alert, oriented x 3, equal unlabored respirations, skin warm/dry/pink. Awaiting bed assisgnment. 05/04 00:04 Reassessment: Patient appears in no apparent distress at this time. Patient is alert, aa1 oriented x 3, equal unlabored respirations, skin warm/dry/pink. Report given to Oliver on 2nd floor. Vital Signs: 05/03 17:33 BP 137 / 84; Pulse 91; Resp 18; Temp 98.4; Pulse Ox 96% ; Weight 81.65 kg; Height 5 ft. sv 4 in. (162.56 cm); Pain 7/10; 19:07 BP 134 / 76; Pulse 82; Resp 18; Pulse Ox 100% on R/A; aa1 19:26 BP 140 / 78 RA; Pulse 92; jw5 19:26 BP 131 / 79 LA; Pulse 92; jw5 20:10 BP 119 / 76; Pulse 82; Resp 16; Pulse Ox 99% on R/A; Pain 7/10; aa1 21:00 BP 125 / 75; Pulse 84; Resp 16; Pulse Ox 98% on R/A; aa1 23:20 BP 147 / 75; Pulse 99; Resp 18; Pulse Ox 100% on R/A; Pain 2/10; aa1 17:33 Body Mass Index 30.90 (81.65 kg, 162.56 cm) sv ED Course: 17:26 Patient arrived in ED. mr 17:32 Triage completed. sv 17:33 Arm band placed on right wrist. sv 17:39 Mark Anand, RN is Primary Nurse. sg 17:46 EKG done, by senior technical specialist. reviewed by Miguel Angel Aviles MD. sm3 18:08 Vicente Trotter PA is PHCP. cp 18:08 Miguel Angel Aviles MD is Attending Physician. cp 18:15 Initial lab(s) drawn, by va. Inserted saline lock: 22 gauge in left antecubital area, jb1 using aseptic technique. Blood collected. 18:45 X-ray completed. Portable x-ray completed in exam room. Patient tolerated procedure ml well. 18:46 XRAY Chest (1 view) In Process Unspecified. EDMS 19:05 Patient has correct armband on for positive identification. Bed in low position. Call aa1 light in reach. Pulse ox on. NIBP on. Warm blanket given. 19:16 Primary Nurse role handed off by Mark Anand, MARTIN sg 19:23 Dalia Veras, MARTIN is Primary Nurse. aa1 21:33 CT Head Brain wo Cont In Process Unspecified. EDMS 21:33 CT completed. Patient tolerated procedure well. Patient moved back from CT. wa 21:55 Rosey Davis MD is Hospitalizing Provider. cp 23:57 No provider procedures requiring assistance completed. Patient admitted, IV remains in aa1 place. Administered Medications: 18:25 Drug: NS 0.9% 1000 ml Route: IV; Rate: 1 bolus; Site: left antecubital; 19:29 Follow up: IV Status: Completed infusion aa1 19:29 Drug: Insulin Regular Human 10 units {Co-Signature: bp (Marciano Mahmood RN).} Route: aa1 Sub-Q; Site: right upper arm; 20:27 Follow up: Response: Blood sugar is lowered aa1 19:30 Drug: Aspirin Chewable Tablet 324 mg Route: PO; aa1 20:27 Follow up: Response: No adverse reaction; No change in condition aa1 19:30 Drug: Nitroglycerin 0.4 mg Route: Sublingual; aa1 20:27 Follow up: Response: No adverse reaction; No change in condition aa1 19:30 Drug: NS 0.9% 1000 ml Route: IV; Rate: 125 ml/hr; Site: left antecubital; aa1 05/04 00:00 Follow up: IV Status: Infusion continued upon admission aa1 05/03 20:48 Drug: morphine 2 mg Route: IVP; Site: left antecubital; aa1 21:30 Follow up: Response: No adverse reaction; Pain is decreased aa1 Point of Care Testing: Blood Glucose: 18:23 Blood Glucose: 284 mg/dL; jb1 20:28 Blood Glucose: 151 mg/dL; aa1 Ranges: Outcome: 21:55 Decision to Hospitalize by Provider. cp 05/04 00:04 Admitted to Tele accompanied by tech, family with patient, via wheelchair, room 224, on aa1 monitor, Report called to MARTIN Boyd Condition: stable Instructed on the need for admit, Demonstrated understanding of instructions. 00:06 Patient left the ED. aa1 Signatures: Dispatcher [employer] EDMS Catrachito Oreilly jb Roxy Diggs RN RN sv Gay, Steven, RN RN sg Kern, Alissa, RN RN [facility] Louise Amaral Melissa ml Page Vicente, PA PA cp Juan, Clovis Monahan, Stefanie jw5 Chantal Crockett sm3 Marciano Mahmood RN bp Corrections: (The following items were deleted from the chart) 05/03 17:55 17:53 Inserted saline lock: 22 gauge in left antecubital area, using aseptic technique. jb1 Blood collected. [facility] 17:53 Initial lab(s) drawn, by va, abby jb 05/04 00:09 05/03 23:54 Risk Assessment: Do you want to hurt yourself or someone else? aa1 aa1
--- NOTE | 2018-05-03 22:42 | P.HP ---
Certification for Inpatient Patient admitted to: Observation With expected LOS: <2 Midnights Practitioner: I am a practitioner with admitting privileges, knowledge of patient current condition, hospital course, and medical plan of care. Services: Services provided to patient in accordance with Admission requirements found in Title 42 Section 412.3 of the Code of Federal Regulations Patient History Date of Service: 05/03/18 Reason for admission: chest pain History of Present Illness: Ms Mclaughlin is a 43 years old woman with history of HTN, DM II, tobacco abuse, who about 5 days ago started with numbness in her right tumb. Today she was had chest pain, substernal, radiated to left arm and neck, associated with nausea. Her left and is numb as well. She was not able to describe the pain, just said constant, not worsening with palpation or breathing movements. intensity of the pain 8/10. She denied dizziness or SOB. Initial troponin I negative, EKG SR without ST-T abnormalities. She has never had this kind of pain before. Allergies No Known Drug Allergies Allergy (Unverified 02/14/15 16:29) Unknown No Known Allergies Allergy (Uncoded 02/21/16 00:44) Unknown Home medications list reviewed: Yes - Past Medical/Surgical History -: HTN -: DM II -: tobacco abuse -: cholecystectomy -: -: ankle - Family History Family History: Reviewed- Non-Contributory - Social History Smoking Status: Current every day smoker Counseled patient to stop smoking for: less than 10 minutes CD- Drugs: No Place of Residence: Home Review of Systems 10-point ROS is otherwise unremarkable Physical Examination - Physical Exam General: Alert, In no apparent distress HEENT: Atraumatic, PERRLA, Mucous membr. moist/pink, EOMI, Sclerae nonicteric Neck: Supple, 2+ carotid pulse no bruit, No LAD, Without JVD or thyroid abnormality Respiratory: Clear to auscultation bilaterally, Normal air movement Cardiovascular: Regular rate/rhythm, Normal S1 S2 Gastrointestinal: Normal bowel sounds, No tenderness Musculoskeletal: No tenderness Integumentary: No rashes Neurological: Normal speech, Normal strength at 5/5 x4 extr, Normal tone, Normal affect Lymphatics: No axilla or inguinal lymphadenopathy - Studies Laboratory Data (last 24 hrs) 05/03/18 18:05: PT 11.3, INR 0.96, APTT 26.5 05/03/18 18:05: WBC 9.6, Hgb 12.5, Hct 38.1, Plt Count 247 05/03/18 18:05: Sodium 136, Potassium 4.1, BUN 7, Creatinine 0.50 L, Glucose 314 H, Magnesium 1.9, Total Bilirubin 0.2, AST 16, ALT 29, Alkaline Phosphatase 86 Assessment and Plan - Problems (Diagnosis) (1) Chest pain Current Visit: Yes Status: Acute Qualifiers: Chest pain type: precordial pain Qualified Code(s): R07.2 - Precordial pain (2) Diabetes mellitus Current Visit: Yes Status: Acute Qualifiers: Diabetes mellitus type: type 2 Diabetes mellitus sports photographer insulin use: without mcfp use Diabetes mellitus complication status: with unspecified complications Qualified Code(s): E11.8 - Type 2 diabetes mellitus with unspecified complications (3) HTN (hypertension) Current Visit: Yes Status: Acute Qualifiers: Hypertension type: essential hypertension Qualified Code(s): I10 - Essential (primary) hypertension (4) Tobacco abuse Current Visit: Yes Status: Acute - Plan Ms Mclaughlin will be admitted to the hospital due to chest pain. She young but has several risk factors for CAD. Will order serial troponin I, EKG and consult cardiology for evaluation and recommendations. ECHO ordered as well. - Advance Directives Does patient have a Living Will: No Does patient have a Durable POA for Healthcare: No - Code Status/Comfort Care Code Status Assessed: Yes Code Status: Full Code
[2018-05-04] MEDS: KETOROLAC 30 MG/ML INJ IV PRN ×2 (01:06→07:07)
[2018-05-04 05:14] LABS: Absolute Lymphocytes (CBC) 3.3 K/uL (0.7-4.9); Absolute Monocytes 0.6 K/uL (0.1-1.3); Absolute Neutrophil 8.1 K/uL (1.8-8.0); Basophils % 0.3 % (0-1.3); Eosinophils % 1.7 % (0-4.4); Hematocrit 33.4 % (36.0-45.0); Lymphocytes % 27.1 % (15.3-44.8); MCH 25.7 pg (27.0-35.0); MCV 75.9 fL (80-100); MPV 8.5 fL (7.6-11.3); Monocytes % 4.7 % (3.3-12.3)
[2018-05-04 05:53] LABS: BUN Blood Urea Nitrogen 9 mg/dL (7-18); Bicarbonate 24 mmol/L (21-32); Glucose Level 197 mg/dL (74-106); Potassium 4.1 mmol/L (3.5-5.1); Sodium Level 141 mmol/L (136-145)
[2018-05-04] MEDS: INSULIN -REGULAR HUMAN 50 UNIT/0.5 ML ML SQ SCH ×5 (05:53→23:43)
[2018-05-04] MEDS: ENOXAPARIN 40 MG/0.4 ML SQ SCH (09:28)
[2018-05-04] MEDS: ASPIRIN EC 81 MG TAB PO SCH (09:29)
[2018-05-04] MEDS: ACETAMINOPHEN 500 MG TAB PO PRN ×2 (12:15→18:03)
--- NOTE | 2018-05-04 12:37 | ECHO ---
HEIGHT: 5 ft 4 in WEIGHT: 184 lb 14.4 oz DATE OF STUDY: 05/04/[address]: Rosey Randhawa MD 2-DIMENSIONAL: YES M.MODE: YES DOPPLER: YES COLOR FLOW: YES TDS: NO PORTABLE: NO DEFINITY: NO BUBBLE STUDY: NO DIAGNOSIS: CHEST PAIN CARDIAC HISTORY: CATHERIZATION: NO SURGERY: NO PROSTHETIC VALVE: NO PACEMAKER: NO MEASUREMENTS (cm) DIASTOLIC (NORMALS) SYSTOLIC (NORMALS) IVSd 1.2 (0.6-1.2) LA Diam 3.5 (1.9-4.0) LVEF 60% LVIDd 4.2 (3.5-5.7) LVIDs 2.9 (2.0-3.5) %FS 31% LVPWd 1.2 (0.6-1.2) Ao Diam 2.5 (2.0-3.7) 2 DIMENSIONAL ASSESSMENT: RIGHT ATRIUM: NORMAL LEFT ATRIUM: NORMAL RIGHT VENTRICLE: NORMAL LEFT VENTRICLE: NORMAL TRICUSPID VALVE: NORMAL MITRAL VALVE: NORMAL PULMONIC VALVE: NORMAL AORTIC VALVE: NORMAL PERICARDIAL EFFUSION: NONE AORTIC ROOT: NORMAL LEFT VENTRICULAR WALL MOTION: NORMAL DOPPLER/COLOR FLOW: MILD TRICUSPID REGURGITATION. COMMENTS: MILD TRICUSPID REGURGITATION. NORMAL LEFT VENTRICULAR SIZE AND FUNCTION. NO WALL MOTION ABNORMALITY. NO EFFUSION. TECHNOLOGIST: Luis Fernando SWARTZ
--- NOTE | 2018-05-04 14:43 | P.PN ---
Subjective Date of Service: 05/04/18 Chief Complaint: chest pain Examined at bedside with RN. Chart reviewed. Patient continues to complain about having chest pain and heaviness this morning. Still states that she has been having some numbness and tingling in both her arms. Patient admits with uncontrolled diabetes. Patient was recently all seen at [facility] for CVA and was diagnosed with migraine with aura in head CT and MRI of the brain were negative for any acute abnormalities. No other complaints to offer overnight states that she has been having some stress at home due to her son being in senior living but no other complaints Review of Systems General: As per HPI Physical Examination - Vital Signs Temperature: 98.5 F Blood Pressure: 150/80 Pulse: 86 Respirations: 18 Pulse Ox (%): 96 - Physical Exam General: Alert, In no apparent distress HEENT: Atraumatic, PERRLA, EOMI Neck: Supple, JVD not distended Respiratory: Clear to auscultation bilaterally, Normal air movement Cardiovascular: Regular rate/rhythm, Normal S1 S2 Gastrointestinal: Normal bowel sounds, No tenderness Musculoskeletal: No tenderness Integumentary: No rashes Neurological: Normal speech, Normal tone, Normal affect Lymphatics: No axilla or inguinal lymphadenopathy - Studies Laboratory Data (last 24 hrs) 05/03/18 18:05: PT 11.3, INR 0.96, APTT 26.5 05/03/18 18:05: WBC 9.6, Hgb 12.5, Hct 38.1, Plt Count 247 05/03/18 18:05: Sodium 136, Potassium 4.1, BUN 7, Creatinine 0.50 L, Glucose 314 H, Magnesium 1.9, Total Bilirubin 0.2, AST 16, ALT 29, Alkaline Phosphatase 86 Medications List Reviewed: Yes Assessment & Plan - Problems (Diagnosis) (1) Chest pain Onset Date: 05/04/18 Current Visit: Yes Status: Acute Plan: Atypical chest pain most likely secondary to GERD versus anxiety -cardiology consulted. Appreciated recommendation -echocardiogram pending at this time. Stress test has been ordered for tomorrow morning. -troponin x2 negative EKG with sinus rhythm at this time. Qualifiers: Chest pain type: precordial pain Qualified Code(s): R07.2 - Precordial pain (2) Numbness and tingling in both hands Current Visit: Yes Status: Acute Plan: Most likely secondary to neuropathy from uncontrolled diabetes. -will start patient on gabapentin at this time (3) Diabetes mellitus Onset Date: 05/04/18 Current Visit: Yes Status: Chronic Qualifiers: Diabetes mellitus type: type 2 Diabetes mellitus assisted insulin use: without extermination supervisor use Diabetes mellitus complication status: with unspecified complications Qualified Code(s): E11.8 - Type 2 diabetes mellitus with unspecified complications (4) HTN (hypertension) Onset Date: 05/04/18 Current Visit: Yes Status: Chronic Qualifiers: Hypertension type: essential hypertension Qualified Code(s): I10 - Essential (primary) hypertension (5) Tobacco abuse Onset Date: 05/04/18 Current Visit: Yes Status: Chronic Discharge Plan: Home Plan to discharge in: 24 Hours - Code Status/Comfort Care Code Status Assessed: Yes Critical Care: No
--- NOTE | 2018-05-04 19:03 | EKG ---
Test Date: 2018-05-04 Test Time: 14:27:50 Financial Aid Advisor: NATHANIEL MEASUREMENT RESULTS: Intervals: Rate: 74 UT: 134 QRSD: 80 QT: 372 QTc: 412 [place]: P: 59 UT: 134 QRS: 59 T: 70 INTERPRETIVE STATEMENTS: Normal sinus rhythm Normal ECG Compared to ECG 05/03/2018 17:35:18 No significant changes Electronically Signed On 05-04-18 19:02:40 CDT by Nikhil Burrows
[2018-05-04] MEDS: TOPIRAMATE 25 MG TAB PO SCH (20:31)
[2018-05-04] MEDS: GABAPENTIN 100 MG CAP PO SCH (20:31)
[2018-05-05] MEDS: INSULIN -REGULAR HUMAN 50 UNIT/0.5 ML ML SQ SCH (06:00)
[2018-05-05] MEDS ORDERED: PANTOPRAZOLE 40MG TABLET PO SCH (06:30)
[2018-05-05] MEDS ORDERED: REGADENOSON 0.4 MG/5 ML SYR IV ONE (08:00)
[2018-05-05] MEDS ORDERED: FLUOXETINE 20 MG CAP PO SCH (09:00)
--- NOTE | 2018-05-05 09:29 | TREADPHA ---
DX: CHEST PAIN Date of Study: 05/05/2018 Ht: 5 4 Wt: 184 lb 14.4 oz Consulting Physician: SUHAIL MEDICATIONS: TYLENOL, ASPIRIN, LOVENOX, PROZAC, NEURONTIN, NOVOLIN-R, PROTONIX HISTORY: 43 YEAR OLD FEMALE WITH COMPLAINTS OF CHEST PAIN. HISTORY OF DIABETES MELLITUS AND SMOKES HALF A PACK A DAY. PHYSICIAL EXAMINATION: RESTING B.P.: 134/92 RESTING H.R.: 72 RESTING EKG: VOLTAGE FOR LEFT VENTRICULAR HYPERTROPHY, OTHERWISE NORMAL. PROTOCOL: EXERCISE TIME: 3:30 B.P. AT [place]AK STRESS: 123/64 IMPRESSION: LEXISCAN INJECTED. CARDIOLITE INJECTED PER PROTOCOL, SEE NUCLEAR MEDICINE REPORT. COMPLAINTS OF CHEST PAIN, SIX OUT OF TEN AFTER LEXISCAN ADMINISTRATION. NO VENTRICULAR TACHYCARDIA. NO SUPRAVENTRICULAR TACHYCARDIA. NON-DIAGNOSTIC ELECTROCARDIOGRAM WITH LEXISCAN STRESS.
[2018-05-05] MEDS: ENOXAPARIN 40 MG/0.4 ML SQ SCH (09:51)
[2018-05-05] MEDS: TOPIRAMATE 25 MG TAB PO SCH (09:52)
[2018-05-05] MEDS: ACETAMINOPHEN 500 MG TAB PO PRN (09:53)
[2018-05-05] MEDS: ASPIRIN EC 81 MG TAB PO SCH (09:55)
[2018-05-05] MEDS: GABAPENTIN 100 MG CAP PO SCH (09:59)
--- NOTE | 2018-05-05 10:25 | RAD REPORT ---
EXAM DESCRIPTION: NM - Rest Stress Cardiac Imaging - 05/05/2018 9:34 am CLINICAL HISTORY: Chest pain COMPARISON: None. TECHNIQUE: The patient was administered 10.4 mCi of Tc 99m Sestamibi prior to resting SPECT imaging of the heart. The patient was then administered 31.8 mCi of Tc 99m Sestamibi following exercise or ph armacologic stress. Multiplanar SPECT images were reviewed. FINDINGS: The end diastolic volume is 95 ml, the end systolic volume is 42 ml, and the ejection frac tion is 56 %. No stress-induced ischemic changes identifiable. Slightly decreased activity along the inferior wall has the appearance of diaphragmatic attenuation artifact. Inferior wall scarring is not suspected. IMPRESSION: No stress-induced ischemia or other significant finding. Ventricular volumes and ejection fraction are normal range.
--- NOTE | 2018-05-05 11:52 | P.DS ---
Admission Date: 05/03/18 Discharge Date: 05/05/18 Disposition: ROUTINE DISCHARGE Discharge Condition: GOOD Reason for Admission: chest pain Consultations: Cardiology - Problems (1) Chest pain Onset Date: 05/04/18 Current Visit: Yes Status: Acute Qualifiers: Chest pain type: precordial pain Qualified Code(s): R07.2 - Precordial pain (2) Numbness and tingling in both hands Current Visit: Yes Status: Acute (3) Diabetes mellitus Onset Date: 05/04/18 Current Visit: Yes Status: Chronic Qualifiers: Diabetes mellitus type: type 2 Diabetes mellitus chcf insulin use: without terminal gauger supervisor use Diabetes mellitus complication status: with unspecified complications Qualified Code(s): E11.8 - Type 2 diabetes mellitus with unspecified complications (4) HTN (hypertension) Onset Date: 05/04/18 Current Visit: Yes Status: Chronic Qualifiers: Hypertension type: essential hypertension Qualified Code(s): I10 - Essential (primary) hypertension (5) Tobacco abuse Onset Date: 05/04/18 Current Visit: Yes Status: Chronic Brief History of Present Illness: Ms Mclaughlin is a 43 years old woman with history of HTN, DM II, tobacco abuse, who about 5 days ago started with numbness in her right tumb. Today she was had chest pain, substernal, radiated to left arm and neck, associated with nausea. Her left and is numb as well. She was not able to describe the pain, just said constant, not worsening with palpation or breathing movements. intensity of the pain 8/10. She denied dizziness or SOB. Initial troponin I negative, EKG SR without ST-T abnormalities. She has never had this kind of pain before. Hospital Course: Overall during the hospital stay patient remained stable Patient was initially admitted to the hospital for chest pain on the left side with numbness and tingling in bilateral upper extremity. Patient had cardiology consulted and had extensive workup to rule out ACS. Patient's echocardiogram and stress test were both negative. Patient had to have numbness and tingling on bilateral upper extremity. Patient has uncontrolled diabetes and most likely charting to get peripheral neuropathy from the uncontrolled diabetes and was started on gabapentin. Patient had mild improvement in her numbness and tingling and was asked to follow up with her primary care provider regarding it tighter control for her diabetes and prescription for gabapentin. Patient was offered a prescription of gabapentin here however stated that she will follow up with her primary care doctor discussed the new medication and take it further. Patient also complained of having a lot of stress at the house which is causing her to have emotional distress that her son is not a residential. Stress relief exercises were shown to the patient and patient was asked to participate in stress relief therapy as well to avoid any further adverse effect from anxiety or panic attack. Patient was recently seen at [facility] for similar symptoms and was diagnosed with migraine headaches as well and was prescribed fluoxetine along with Topamax. Patient however had not filled up the prescription and thus was educated extensively on filling of the prescription and importance of taking the medication as prescribed to ensure the patient does not have another migraine attacks or panic attack. Patient was also asked to follow up with a psychiatrist if needed for further care for her anxiety or stress Bethany patient then was discharged home under stable condition was asked to follow up with her primary care doctor. Patient and family at bedside was agreeable with the plan and thus was discharged home under stable condition Vital Signs/Physical Exam: Temp Pulse Resp BP Pulse Ox 98 F 69 20 127/66 97 05/05/18 08:00 05/05/18 08:00 05/05/18 08:00 05/05/18 08:00 05/05/18 08:00 General: Alert, In no apparent distress HEENT: Atraumatic, PERRLA, EOMI Neck: Supple, JVD not distended Respiratory: Clear to auscultation bilaterally, Normal air movement Cardiovascular: Regular rate/rhythm, Normal S1 S2 Gastrointestinal: Normal bowel sounds, No tenderness Musculoskeletal: No tenderness Integumentary: No rashes Neurological: Normal speech, Normal tone, Normal affect Lymphatics: No axilla or inguinal lymphadenopathy Laboratory Data at Discharge: WBC 12.2 K/uL (4.3-10.9) H D 05/04/18 04:45 Hgb 11.3 g/dL (12.0-15.0) L 05/04/18 04:45 Hct 33.4 % (36.0-45.0) L 05/04/18 04:45 Plt Count 211 K/uL (152-406) 05/04/18 04:45 PT 11.3 SECONDS (9.5-12.5) 05/03/18 18:05 INR 0.96 05/03/18 18:05 APTT 26.5 SECONDS (24.3-36.9) 05/03/18 18:05 Sodium 141 mmol/L (136-145) 05/04/18 04:45 Potassium 4.1 mmol/L (3.5-5.1) 05/04/18 04:45 BUN 9 mg/dL (7-18) 05/04/18 04:45 Creatinine 0.40 mg/dL (0.55-1.3) L 05/04/18 04:45 Glucose 197 mg/dL (74-106) H 05/04/18 04:45 Magnesium 1.9 mg/dL (1.8-2.4) 05/03/18 18:05 Total Bilirubin 0.2 mg/dL (0.2-1.0) 05/03/18 18:05 AST 16 U/L (15-37) 05/03/18 18:05 ALT 29 U/L (12-78) 05/03/18 18:05 Alkaline Phosphatase 86 U/L (45-117) 05/03/18 18:05 Troponin I < 0.02 ng/mL (0.0-0.045) 05/04/18 16:07 Triglycerides 141 mg/dL (<150) 05/04/18 00:00 Cholesterol 134 mg/dL (<200) 05/04/18 00:00 HDL Cholesterol 32 mg/dL (40-60) L 05/04/18 00:00 Cholesterol/HDL Ratio 4.19 05/04/18 00:00 Home Medications: Fluoxetine HCl [Prozac] 40 mg PO DAILY 05/04/18 Glipizide [Glucotrol] 5 mg PO BID 05/04/18 Metformin HCl 1,000 mg PO BID 05/04/18 Gabapentin [Neurontin*] 100 mg PO BID #60 cap 05/05/18 Topiramate [Topamax*] 25 mg PO BID #60 tab 05/05/18 New Medications: Gabapentin [Neurontin*] 100 mg PO BID #60 cap Topiramate [Topamax*] 25 mg PO BID #60 tab Patient Discharge Instructions: Please f.u with pcp in 1 to 2 days post discharge. You were seen here in the hospital for Chest Pain and had negative Stress test and ECHO cardiogram. Your chest pain is most likely 2.2 to Stress. Diet: Regular Activity: Ad sima
--- NOTE | 2018-05-07 19:42 | CON ---
Date of Consultation: 05/04/[address] Miranda's service on 05/03/2018. The patient seen on 05/04/2018. Reason For Consultation: Chest pain and arm numbness. History Of Present Illness: Ms. Mclaughlin is a 43-year-old woman without any significa nt past cardiac history. She does take diabetes medicine, Glucotrol, and metformin. Takes anxiety m edicine with Prozac. She has a history of hypertension that is controlled with diet. Came in with b ilateral arm numbness that is from her pain. Her pain feels like pressure and stays 4 hours. No mali sea, vomiting, diaphoresis, PND, orthopnea, pedal edema, palpitations, or syncope. By the time I saw her, she had a normal EKG, normal chest x-ray, normal labs, normal CT of her head. Allergies: NONE. Review of Systems: Negative. Social History: Negative for tobacco, drugs, or alcohol. Family History: Negative for heart disease. Medications: Listed earlier. Physical Examination: Vital Signs: Stable. She was afebrile. HEENT: Negative. Neck: Supple with no bruit, lymphadenopathy, JVD, or thyromegaly. Chest: Clear to auscultation and percussion. Cardiac: Revealed regular rhythm and rate without any murmurs, gallops, or rubs. Abdomen: Benign. Extremities: Revealed no clubbing, cyanosis, or edema. Diagnostic Data: As stated earlier. Impression And Plan: Chest pain, atypical, most likely secondary to gastroesophageal reflux disease. I think her numbness in the arm may be hyperventilation and certainly could be secondary to cervica l spondylosis. Nevertheless, she is 43, diabetic, hypertensive. I do not think a stress test and ec hocardiogram are indicated. She will have pharmacological stress test and echo, and we will see what those shows prior to making final decisions. STARR/GARETH Voice ID: [id number] Report ID: [id number]
== END 2018-05-05 11:50 | disposition home or self-care (01) ==
LOC: ER 17:24 → ERHOLD 22:22 → 2ND 23:02
PROVIDERS: ADMIT Internal Medicine; ATTEND Internal Medicine
DX: R07.2 Precordial pain (principal); R20.0 Anesthesia of skin; E11.65 Type 2 diabetes mellitus with hyperglycemia; I10 Essential (primary) hypertension; F41.9 Anxiety disorder, unspecified; F17.210 Nicotine dependence, cigarettes, uncomplicated
CPT/HCPCS: 36415; 70450; 71045; 78452; 80048; 80061; 80076; 81003; 81025; 82550; 82553; 82962; 83735; 83880; 84484; 85025; 85610; 85730; 93005; 93017; 93306; 96361; 96372; 96374; 99285; A9500; G0378; J1650; J2785; J7030

== ENCOUNTER 2018-05-29 18:52 | Emergency (ER) | payer SELFPAY ==
--- OUTSIDE RECORDS SUMMARY | 2018-05-29 19:58 | XMS REPORT ---
:1975 Author Organization [facility] Address [address] [place] [address] Dr. Lebron [address] [place] [address] Care Team Providers Name Role Phone SAÚL [...] (BEAKER) (test 330 mg/dL 70-110 TESTED AT [address] crrh=[id number]) [place] [address] SCREEN, [id number] 11:13:00 Test Item Value Reference Range Comments TEST URINE (BEAKER) (test yncx=993) Negative POCT-GLUCOSE [id number] 08:33:00 Test Item Value Reference Range Comments POC-GLUCOSE METER (BEAKER) 226 mg/dL 70-110 TESTED AT [address] (test jfvf=7448) [place] [address] POCT-GLUCOSE [id number] 21:48:00 Test Item Value Reference Range Comments POC-GLUCOSE METER (BEAKER) 219 mg/dL 70-110 TESTED AT [address] (test xgwu=0258) [place] [address] POCT-GLUCOSE [id number] 17:48:00 Test Item Value Reference Range Comments POC-GLUCOSE METER (BEAKER) 225 mg/dL 70-110 TESTED AT [address] (test bjvn=9861) [place] [address] [id number] 16:39:00 Test Item Value Reference Range Comments RPR SCREEN (BEAKER) (test ssbt=914) Nonreactive Nonreactive SEDIMENTATION [id number] 15:02:00 Test Item Value Reference Range Comments SEDIMENTATION RATE, ERYTHROCYTE (BEAKER) (test 25 mm/HR 0-20 fnaw=899) POCT-GLUCOSE [id number] 12:40:00 Test Item Value Reference Range Comments POC-GLUCOSE METER (BEAKER) 188 mg/dL 70-110 TESTED AT [facility] [address] (test htci=5820) [facility] [address] HEMOGLOBIN [id number] 11:42:00 Test Item Value Reference Range Comments HEMOGLOBIN A1C (BEAKER) (test atcu=938) 8.2 % 4.3-6.1 MR, BRAIN, WITHOUT [id number] 11:17:00Reason for exam:->Ischemic Stroke EvaluationFINAL REPORT MRI [...] infarct, hemorrhage, or hydrocephalus. Signed: Mark Mathur [facility] Verified Date/Time: 2016 11:17:54 Reading Location: [address] Neuro Reading Room MR, MRA, BRAIN, WITHOUT [id number] 11:16:00Reason for exam:->Ischemic Stroke EvaluationFINAL REPORT MRA head and neck without contrast INDICATION: Headache, left hemianesthesia, left sided weakness TECHNIQUE: 2-D and 3-D [id number] MRA images of the intra- and extracranial [...] branch occlusion or significant stenosis in the [place] vessels. There is no specific MRA evidence of saccular aneurysm. IMPRESSION: 1. No hemodynamically significant carotid stenosis by NASCET criteria. 2. No significant stenosis in the imaged cervical vertebral arteries. 3. No major branch occlusion, significant stenosis,or evident aneurysm in the [place] vessels. Signed: Mark Mathur MDReport Verified Date/Time: 09/10 11:16:49 Reading Location: [facility] C013 Neuro Reading Room MR, MRA, NECK, WITHOUT IV [id number] 11:16:00Reason for exam:->Ischemic Stroke EvaluationFINAL REPORT MRA head and neck without contrast INDICATION: Headache, left hemianesthesia, left sided weakness TECHNIQUE: 2-D and 3-D [id number] MRA images of the intra- and extracranial [...] branch occlusion or significant stenosis in the [place] vessels. There is no specific MRA evidence of saccular aneurysm. IMPRESSION: 1. No hemodynamically significant carotid stenosis by NASCET criteria. 2. No significant stenosis in the imaged cervical vertebral arteries. 3. No major branch occlusion, significant stenosis,or evident aneurysm in the [place] vessels. Signed: Mark Mathur MDReport Verified Date/Time: 09/10 11:16:49 Reading Location: [facility] C013V Neuro Reading Room TSH/ FREE T4 IF [id number] 09:44:00 Test Item Value Reference Range Comments THYROID STIMULATING HORMONE (BEAKER) (test 2.42 uIU/mL 0.35-4.94 gtzn=298) VITAMIN B12 AND [id number] 09:44:00 Test Item Value Reference Range Comments VITAMIN B12 (BEAKER) (test orbr=438) 413 pg/mL 213-816 FOLATE (BEAKER) (test mcdj=645) 14.8 ng/mL >=7.0 POCT-GLUCOSE [id number] 08:35:00 Test Item Value Reference Range Comments POC-GLUCOSE METER (BEAKER) 156 mg/dL 70-110 TESTED AT [facility] [address] [facility] (test psxv=1704) [facility] [address] [id number] 06:56:00 Test Item Value Reference Range Comments HOMOCYSTEINE (BEAKER) (test zaet=143) 4.1 umol/L 5.1-15.4 BASIC METABOLIC [id number] 06:32:00 Test Item Value Reference Range Comments SODIUM (BEAKER) (test 138 meq/L 136-145 fbnp=933) POTASSIUM (BEAKER) (test 4.0 meq/L 3.5-5.1 ofbr=954) CHLORIDE (BEAKER) (test 109 meq/L 98-107 nilr=814) CO2 (BEAKER) (test 21 meq/L 22-29 inho=611) BLOOD UREA NITROGEN 7 mg/dL 7-21 (BEAKER) (test vugy=752) CREATININE (BEAKER) (test 0.53 mg/dL 0.57-1.25 dyml=813) GLUCOSE RANDOM (BEAKER) 161 mg/dL 70-105 (test ncjc=569) CALCIUM (BEAKER) (test 8.0 mg/dL 8.4-10.2 dzef=741) EGFR (BEAKER) (test mL/min/1.73 sq m INSUFFICIENT CLINICAL DATA mxwm=1358) TO CALCULATE ESTIMATED GFR. FastingLIPID [id number] 06:31:00 Test Item Value Reference Range Comments TRIGLYCERIDES (BEAKER) (test dxwh=127) 116 mg/dL CHOLESTEROL (BEAKER) (test apcd=055) 99 mg/dL HDL CHOLESTEROL (BEAKER) (test xwiv=915) 25 mg/dL LDL CHOLESTEROL CALCULATED (BEAKER) (test 51 mg/dL gslq=614) Triglyceride Reference Range: Low Risk <150 Borderline 150- 199 High Risk 200-499 Very High Risk >=500Cholesterol Reference Range: Low Risk <200 Borderline 200-239 High Risk > 240HDL Cholesterol Reference Range: Low Risk >=60 High Risk <40LDL Cholesterol Reference Range: Optimal <100 Near Optimal 100-129 Borderline 130-159 High 160-189 Very High >=190 FastingC-REACTIVE [id number] 06:31:00 Test Item Value Reference Range Comments C-REACTIVE PROTEIN (BEAKER) (test sezz=755) 1.82 mg/dL 0.00-0.50 FastingTROPONIN [id number] 06:29:00 Test Item Value Reference Range Comments TROPONIN I (BEAKER) (test rfvp=207) < ng/mL 0.00-0.03 Troponin I (TnI) levels [...] and persistent tachyarrhythmia.FastingCBC W/PLT COUNT & AUTO [id number] 06:02:00 Test Item Value Reference Range Comments WHITE BLOOD CELL COUNT (BEAKER) (test vnrm=059) 10.5 K/ L 3.5-10.5 RED BLOOD CELL COUNT (BEAKER) (test gquz=378) 4.13 M/ L 3.93-5.22 HEMOGLOBIN (BEAKER) (test jyzu=602) 10.9 GM/DL 11.2-15.7 HEMATOCRIT (BEAKER) (test nsxh=457) 33.9 % 34.1-44.9 MEAN CORPUSCULAR VOLUME (BEAKER) (test izpi=592) 82.1 fL 79.4-94.8 MEAN CORPUSCULAR HEMOGLOBIN (BEAKER) (test 26.4 pg 25.6-32.2 daey=251) MEAN CORPUSCULAR HEMOGLOBIN CONC (BEAKER) (test 32.2 GM/DL 32.2-35.5 nvnf=400) RED CELL DISTRIBUTION WIDTH (BEAKER) (test 13.6 % 11.7-14.4 fugz=865) PLATELET COUNT (BEAKER) (test mnos=788) 220 K/CU MM 150-450 MEAN PLATELET VOLUME (BEAKER) (test xlgc=405) 11.5 fL 9.4-12.3 NUCLEATED RED BLOOD CELLS (BEAKER) (test 0 /100 WBC 0-0 eglj=683) NEUTROPHILS RELATIVE PERCENT (BEAKER) (test 56 % htny=284) LYMPHOCYTES RELATIVE PERCENT (BEAKER) (test 35 % osdq=306) MONOCYTES RELATIVE PERCENT (BEAKER) (test 6 % rijh=221) EOSINOPHILS RELATIVE PERCENT (BEAKER) (test 3 % uuru=311) BASOPHILS RELATIVE PERCENT (BEAKER) (test 0 % uxvi=573) NEUTROPHILS ABSOLUTE COUNT (BEAKER) (test 5.87 K/ L 1.56-6.13 yoqe=891) LYMPHOCYTES ABSOLUTE COUNT (BEAKER) (test 3.71 K/ L 1.18-3.74 qipv=793) MONOCYTES ABSOLUTE COUNT (BEAKER) (test 0.58 K/ L 0.24-0.36 neav=937) EOSINOPHILS ABSOLUTE COUNT (BEAKER) (test 0.28 K/ L 0.04-0.36 orme=781) BASOPHILS ABSOLUTE COUNT (BEAKER) (test 0.04 K/ L 0.01-0.08 snpj=291) IMMATURE GRANULOCYTES-RELATIVE PERCENT (BEAKER) 0 % 0-1 (test xhje=4879)
--- OUTSIDE RECORDS SUMMARY | 2018-05-29 19:58 | XMS REPORT | Clinical Summary ---
:1975 Author Organization [facility] Address [address] [place] [address] Phone Care Team Providers Name Role Phone [...] 09/10/2017 Diabetes mellitus type 2 in nonobese ([facility]) 09/10/2017 Essential hypertension 09/10/2017 Headache 09/10/2017 Encounters Date Type Specialty Care Team Description 09/10/2017 - Hospital Encounter General Internal Hall, Diabetes mellitus type 09/11/2017 Medicine MD [place] 2 in nonobese [place], ([facility]);Essential Delphine Duenas MD hypertension;Acute nonintractable headache, unspecified headache type;Left sided numbness;Hemiplegic migraine without status migrainosus, not intractable after 05/28/2017 Social History Tobacco Use Types Packs/Day Years Used Date Never Smoker Sex Assigned at Date Recorded Not on file Last Filed Vital Signs Vital Sign Reading Time Taken Blood Pressure 158/72 09/11/2017 11:00 AM [employer] Pulse 87 09/11/2017 11:00 AM SEAT [employer]ER Temperature 36.3 C (97.4 F) 09/11/2017 11:00 AM SEAT COVERER Respiratory Rate 18 09/11/2017 11:00 AM SEAT COVERER Oxygen Saturation 95% 09/11/2017 11:00 AM SEAT COVERER Inhaled Oxygen Concentration - - Weight 81.2 kg (178 lb 15.9 oz) 09/10/2017 3:00 AM SEAT COVERER Height 162.6 cm (5' 4") 09/10/2017 3:00 AM SEAT COVERER Body Mass Index 30.72 09/10/2017 3:00 AM SEAT COVERER Plan of Treatment Not on file Results EKG-SCANNED (09/13/2017 10:10 AM)RHYTHM STRIP - SCAN (09/13/2017 10:10 AM)POC- Glucose meter (09/11/2017 11:28 AM)Only the most recent of6 resultswithin the time period is included. Component Value Ref Range POC-Glucose Meter 330 (H)Comment: TESTED AT [address] 70 - 110 mg/[place] [address] Specimen Performing Laboratory Blood [address] [address] Screen, urine (09/11/2017 10:02 AM) Component Value Ref Range Preg Test, Ur Negative Specimen Performing Laboratory Urine - Urine, Clean Catch [address] [address] ECG 12 lead (09/11/2017 4:26 AM) Specimen Performing Laboratory GE MUSE Narrative Ventricular Rate 81 BPM Atrial Rate 81 BPM P-R Interval 136 ms QRS Duration 88 ms Q-T Interval 384 ms QTC Calculation(Bazett) 446 ms P [place] 55 degrees R [place] 43 degrees T [place] 61 degrees Normal sinus rhythm Normal ECG No previous ECGs available Confirmed by MD STAFFORD YOCHAI ([id number]) on 09/12/2017 6:28:57 AM Procedure Note Interface, External Ris In - 09/12/2017 6:29 AM SEAT COVERER Ventricular Rate 81 BPM Atrial Rate 81 BPM P-R Interval 136 ms QRS Duration 88 ms Q-T Interval 384 ms QTC Calculation(Bazett) 446 ms P [place] 55 degrees R [place] 43 degrees T [place] 61 degrees Normal sinus rhythm Normal ECG [...] of acute infarct, hemorrhage, or hydrocephalus. Signed: aMrk Mathur MD Report Verified Date/Time:09/10/2017 11:17:54 Reading Location: [address] Neuro Reading Room Procedure Note Interface, External Ris In - 09/10/2017 12:09 PM SEAT COVERER FINAL REPORT MRI brain without contrast INDICATION: [...] Report Verified Date/Time: 09/10/2017 11:17:54 Reading Location: [address] Neuro Reading Room neck without IV contrast (09/10/2017 10:45 AM) Specimen Performing Laboratory RIS Narrative FINAL REPORT MRA head and neck without contrast INDICATION: Headache, left hemianesthesia, left sided weakness TECHNIQUE: 2-D and 3-D [id number] MRA images of the intra- and extracranial [...] and vertebral arteries are not imaged. 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 There is no major branch occlusion or significant stenosis in the [place] vessels. There is no specific MRA evidence of saccular aneurysm. IMPRESSION: 1. No hemodynamically significant carotid stenosis by NASCET criteria. 2. No significant stenosis in the imaged cervical vertebral arteries. 3. No major branch occlusion, significant stenosis, or evident aneurysm in the [place] vessels. Signed: Mark Mathur MD Report Verified Date/Time:09/10/2017 11:16:49 Reading Location: [address] Neuro Reading Room Procedure Note Interface, External Ris In - 09/10/2017 12:09 PM SEAT COVERER FINAL REPORT MRA head and neck without contrast INDICATION: Headache, left hemianesthesia, left sided weakness TECHNIQUE: 2-D and 3-D [id number] MRA images of the intra- and extracranial [...] and vertebral arteries are not imaged. 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 There is no major branch occlusion or significant stenosis in the [place] vessels. There is no specific MRA evidence of saccular aneurysm. IMPRESSION: 1. No hemodynamically significant carotid stenosis by NASCET criteria. 2. No significant stenosis in the imaged cervical vertebral arteries. 3. No major branch occlusion, significant stenosis, or evident aneurysm in the [place] vessels. Signed: Mark Mathur MD Report Verified Date/Time: 09/10/2017 11:16:49 Reading Location: [address] Neuro Reading Room head without IV contrast (09/10/2017 10:45 AM) Specimen Performing Laboratory GE RIS Narrative FINAL REPORT MRA head and neck without contrast INDICATION: Headache, left hemianesthesia, left sided weakness TECHNIQUE: 2-D and 3-D [id number] MRA images of the intra- and extracranial [...] and vertebral arteries are not imaged. 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 There is no major branch occlusion or significant stenosis in the [place] vessels. There is no specific MRA evidence of saccular aneurysm. IMPRESSION: 1. No hemodynamically significant carotid stenosis by NASCET criteria. 2. No significant stenosis in the imaged cervical vertebral arteries. 3. No major branch occlusion, significant stenosis, or evident aneurysm in the [place] vessels. Signed: Mark Mathur MD Report Verified Date/Time:09/10/2017 11:16:49 Reading Location: [facility] C[facility] Neuro Reading Room Procedure Note Interface, External Ris In - 09/10/2017 12:09 PM SEAT COVERER FINAL REPORT MRA head and neck without contrast INDICATION: Headache, left hemianesthesia, left sided weakness TECHNIQUE: 2-D and 3-D [id number] MRA images of the intra- and extracranial [...] and vertebral arteries are not imaged. 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 There is no major branch occlusion or significant stenosis in the [place] vessels. There is no specific MRA evidence of saccular aneurysm. IMPRESSION: 1. No hemodynamically significant carotid stenosis by NASCET criteria. 2. No significant stenosis in the imaged cervical vertebral arteries. 3. No major branch occlusion, significant stenosis, or evident aneurysm in the [place] vessels. Signed: Mark Mathur MD Report Verified Date/Time: 09/10/2017 11:16:49 Reading Location: [address] Neuro Reading Room Vitamin B12 and Folate (09/10/2017 5:05 AM) Component Value Ref Range Vitamin B12 413 213 - 816 pg/mL Folate 14.8 >=7.0 ng/mL Specimen Performing Laboratory Blood [address] [address] TSH/Free T4 If Indicated (09/10/2017 5:05 AM) Component Value Ref Range TSH 2.42 0.35 - 4.94 uIU/mL Specimen Performing Laboratory Blood [address] [address] C-Reactive Protein (09/10/2017 5:05 AM) Component Value Ref Range CRP 1.82 (H) 0.00 - 0.50 mg/dL Specimen Performing Laboratory Blood [address] [address] Narrative Fasting CBC with platelet count + [...] 0 - 1 % Specimen Performing Laboratory [address] [address] Troponin I (09/10/2017 5:05 AM) Component Value Ref Range Troponin I <0.01 0.00 - 0.03 ng/mL Specimen Performing Laboratory [address] [address] Narrative Troponin I (TnI) levels must be [...] Range RPR Nonreactive Nonreactive Specimen Performing Laboratory [address] [address] Sedimentation rate (09/10/2017 5:05 AM) Component Value Ref Range Sed Rate 25 (H) 0 - 20 mm/HR Specimen Performing Laboratory Blood [facility] [address] CBC with platelet count + automated diff (09/10/2017 5:05 AM) Specimen Performing Laboratory Blood Narrative The following orders were created for panel order CBC with platelet count + automated diff. Procedure Abnormality Status --------- ------ CBC with platelet count ...[[id number]]AbnormalFinal result Please view results for these tests on the individual orders. Homocysteine (09/10/2017 5:05 AM) Component Value Ref Range Homocysteine 4.1 (L) 5.1 - 15.4 umol/L Specimen Performing Laboratory Blood [address] [address] Hemoglobin A1c (09/10/2017 5:05 AM) Component Value Ref Range Hemoglobin A1C 8.2 (H) 4.3 - 6.1 % Specimen Performing Laboratory Blood [address] [address] Fasting lipid panel (09/10/2017 5:05 AM) Component Value Ref Range Triglycerides 116 mg/dL Cholesterol 99 mg/dL HDL 25 mg/dL LDL Calculated 51 mg/dL Specimen Performing Laboratory Blood [address] [address] Narrative Triglyceride Reference Range: Low Risk <150 [id number] High Risk 200-499 Very High Risk>=500 Cholesterol Reference Range: Low Risk <200 [id number] High Risk>240 HDL Cholesterol Reference Range: Low Risk >=60 High Risk <40 LDL Cholesterol Reference Range: Optimal<100 Near Qxiwerj006-402 Oewaxlydhi319-917 Msos986-270 Very High >=190 Fasting Basic Metabolic Panel [...] ESTIMATED GFR. Specimen Performing Laboratory Blood [facility] [address] [place] [address] Narrative Fasting after 05/28/2017
[2018-05-29 20:20] LABS: Absolute Lymphocytes (CBC) 3.2 K/uL (0.7-4.9); Absolute Monocytes 0.6 K/uL (0.1-1.3); Absolute Neutrophil 5.8 K/uL (1.8-8.0); Basophils % 0.3 % (0-1.3); Eosinophils % 3.7 % (0-4.4); Lymphocytes % 32.2 % (15.3-44.8); MCH 25.7 pg (27.0-35.0); MCV 77.7 fL (80-100); MPV 8.7 fL (7.6-11.3); Monocytes % 5.9 % (3.3-12.3); RBC Red Blood Cell Count 4.37 M/uL (3.86-4.86)
[2018-05-29 20:42] LABS: ALT/SGPT 22 U/L (12-78); AST/SGOT 10 U/L (15-37); Albumin 3.1 g/dL (3.4-5.0); Alkaline Phosphatase 88 U/L (45-117); BUN Blood Urea Nitrogen 10 mg/dL (7-18); Bicarbonate 28 mmol/L (21-32); Bilirubin Total 0.1 mg/dL (0.2-1.0); Glucose Level 268 mg/dL (74-106); NT PRO-BNP 21 pg/mL (<125); Protein, Total 6.7 g/dL (6.4-8.2); Sodium Level 139 mmol/L (136-145); T3 Free 1.75 pg/mL (2.18-3.98); T4,Total 7.6 ug/dL (4.8-13.9)
--- NOTE | 2018-05-29 21:24 | ER ---
Nurse's Notes [facility] Name: Carol Mclaughlin Age: 43 yrs Sex: Female : 1975 Arrival Date: 05/29/2018 Time: 18:56 Bed 8 Private MD: out of town, doctor Diagnosis: peripheral edema Presentation: 05/29 19:11 Presenting complaint: Patient states: bilat leg swelling started around 3pm, after sr5 taking "diclofenaco and amoxil for a throat infection". Now also complaining of throat swelling. Clear speech, no drool noted. Normal skin color noted. Transition of care: patient was not received from another setting of care. Onset of symptoms was May 29, 2018. Risk Assessment: Do you want to hurt yourself or someone else? Patient reports no desire to harm self or others. Initial Sepsis Screen: Does the patient meet any 2 criteria? No. Patient's initial sepsis screen is negative. Does the patient have a suspected source of infection? No. Patient's initial sepsis screen is negative. Care prior to arrival: None. 19:11 Method Of Arrival: Wheelchair sr5 19:11 Acuity: GORGE 3 sr5 Triage Assessment: 19:15 General: Appears in no apparent distress. Behavior is calm, cooperative. Pain: Denies sr5 pain. Neuro: No deficits noted. Cardiovascular: Reports swelling bilat lower extremities. Respiratory: Respiratory effort is even, unlabored, Respiratory pattern is regular, symmetrical. 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 - Social history:: Smoking status: Patient uses tobacco products, denies chronic smoking, but will smoke occasionally. - Ebola Screening: : Patient negative for fever greater than or equal to 101.5 degrees Fahrenheit, and additional compatible Ebola Virus Disease symptoms. Screenin:07 Abuse screen: Denies threats or abuse. Denies injuries from another. Nutritional ao screening: No deficits noted. Tuberculosis screening: No symptoms or risk factors identified. Fall Risk None identified. Assessment: 20:04 General: Appears in no apparent distress. comfortable, Behavior is calm, cooperative, ao appropriate for age. Pain: Denies pain. Pain does not radiate. Pain currently is 0 out of 10 on a pain scale. Neuro: Level of Consciousness is awake, alert, obeys commands, Oriented to person, place, time, situation, Appropriate for age Moves all extremities. Full function Speech is normal, Facial symmetry appears normal. Cardiovascular: Capillary refill < 3 seconds Patient's skin is warm and dry. Respiratory: Airway is patent Respiratory effort is even, unlabored, Respiratory pattern is regular, symmetrical, Breath sounds are clear bilaterally. GI: Abdomen is obese, Bowel sounds present X 4 quads. : No signs and/or symptoms were reported regarding the genitourinary system. EENT: Throat is pink Reports Throat pain and swelling. Derm: Skin is intact, Skin is pink, warm \\T\\ dry. normal, Skin temperature is warm. Musculoskeletal: Circulation, motion, and sensation intact. Range of motion:. 21:15 Reassessment: Patient appears in no apparent distress at this time. Patient and/or ao family updated on plan of care and expected duration. Pain level reassessed. Patient is alert, oriented x 3, equal unlabored respirations, skin warm/dry/pink. Waiting on dispo orders. 21:45 Reassessment: DR Ortega at bedside talking to patient. ao 21:56 Reassessment: DC instructions given to patient. Patient agree with POC and to follow up ao with PCP. Patient has no questions at this time. Vital Signs: 19:15 BP 137 / 79; Pulse 87; Resp 18; Temp 98.4; Pulse Ox 99% on R/A; Weight 79.83 kg (R); sr5 Height 5 ft. 4 in. (162.56 cm); Pain 0/10; 20:15 BP 149 / 89; Pulse 87; Resp 16; Pulse Ox 99% on R/A; Pain 0/10; ao 21:50 BP 152 / 91; Pulse 76; Resp 16; Pulse Ox 100% on R/A; ao 19:15 Body Mass Index 30.21 (79.83 kg, 162.56 cm) sr5 ED Course: 18:56 Patient arrived in ED. sb2 18:57 out of town, doctor is Private Physician. sb2 19:14 Triage completed. sr5 19:15 Arm band placed on right wrist. Patient placed in an exam room. sr5 19:22 Zacarias Sanabria MD is Attending Physician. tw4 19:42 Noe Tran, RN is Primary Nurse. ao 20:07 Patient has correct armband on for positive identification. Pulse ox on. NIBP on. ao 20:30 Inserted saline lock: 22 gauge in right forearm, using aseptic technique. Blood ao collected. 21:53 No provider procedures requiring assistance completed. IV discontinued, intact, ao bleeding controlled, No redness/swelling at site. Pressure dressing applied. Administered Medications: 21:35 Drug: TORadol 30 mg Route: IVP; Site: right forearm; ao 22:10 Follow up: Response: No adverse reaction; Temperature is decreased ao Outcome: 21:23 Discharge ordered by . tw4 21:54 Discharged to home ambulatory. ao 21:54 Condition: stable 21:54 Discharge instructions given to patient, family, significant other, Instructed on discharge instructions, follow up and referral plans. Demonstrated understanding of instructions, follow-up care. 21:58 Patient left the ED. ao Signatures: Noe Tran, RN RN Josué Roberson RN RN sr5 Zacarias Sanabria MD MD tw4 Мария Samson sb2 Corrections: (The following items were deleted from the chart) 19:19 19:11 Presenting complaint: Patient states: bilat leg swelling started around 3pm, now sr5 also complaining of throat swelling. Clear speech, no drool noted. No recent trauma to lower extremities, normal color noted sr5
--- NOTE | 2018-05-29 21:24 | EDPHYS ---
Physician Documentation [facility] Name: Carol Mclaughlin Age: 43 yrs Sex: Female : 1975 Arrival Date: 05/29/2018 Time: 18:56 Bed 8 Private MD: out of town, doctor ED Physician Zacarias Sanabria HPI: 05/29 21:24 This 43 yrs old Female presents to ER via Wheelchair with complaints of THROAT tw4 SWELLING, Leg Swelling. 21:24 The patient presents with swelling. The complaints affect the lateral aspect of left tw4 calf, left calf, medial aspect of left calf and left darnell, lateral aspect of right calf, right calf, medial aspect of right calf and right darnell. Context: The problem was sustained at home, resulted from an unknown cause, the patient can fully bear weight, the patient is able to ambulate, Problem is a result from a previous injury: No. Onset: The symptoms/episode began/occurred today. Modifying factors: The symptoms are alleviated by nothing. the symptoms are aggravated by nothing. Associated signs and symptoms: The patient has no apparent associated signs or symptoms. Severity of symptoms: At their worst the symptoms were mild, in the emergency department the symptoms are unchanged. The patient has not experienced similar symptoms in the past. 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 - Social history:: Smoking status: Patient uses tobacco products, denies chronic smoking, but will smoke occasionally. - Ebola Screening: : Patient negative for fever greater than or equal to 101.5 degrees Fahrenheit, and additional compatible Ebola Virus Disease symptoms. ROS: 21:24 Constitutional: Negative for fever, chills, and weight loss, Cardiovascular: Negative tw4 for chest pain, palpitations, and edema, Respiratory: Negative for shortness of breath, cough, wheezing, and pleuritic chest pain, Abdomen/GI: Negative for abdominal pain, nausea, vomiting, diarrhea, and constipation, Back: Negative for injury and pain. 21:24 MS/extremity: Positive for swelling, Negative for deformity. Exam: 21:24 Constitutional: This is a well developed, well nourished patient who is awake, alert, tw4 and in no acute distress. Chest/axilla: Normal chest wall appearance and motion. Nontender with no deformity. No lesions are appreciated. Cardiovascular: Regular rate and rhythm with a normal S1 and S2. No gallops, murmurs, or rubs. Normal PMI, no JVD. No pulse deficits. Respiratory: Lungs have equal breath sounds bilaterally, clear to auscultation and percussion. No rales, rhonchi or wheezes noted. No increased work of breathing, no retractions or nasal flaring. Abdomen/GI: Soft, non-tender, with normal bowel sounds. No distension or tympany. No guarding or rebound. No evidence of tenderness throughout. 21:24 Musculoskeletal/extremity: Extremities: grossly normal except: noted in the lateral aspect of left calf, left calf, medial aspect of left calf and left darnell: swelling, noted in the lateral aspect of right calf, right calf, medial aspect of right calf and right darnell: swelling. Vital Signs: 19:15 BP 137 / 79; Pulse 87; Resp 18; Temp 98.4; Pulse Ox 99% on R/A; Weight 79.83 kg (R); sr5 Height 5 ft. 4 in. (162.56 cm); Pain 0/10; 20:15 BP 149 / 89; Pulse 87; Resp 16; Pulse Ox 99% on R/A; Pain 0/10; ao 21:50 BP 152 / 91; Pulse 76; Resp 16; Pulse Ox 100% on R/A; ao 19:15 Body Mass Index 30.21 (79.83 kg, 162.56 cm) sr5 MDM: 19:22 Patient medically screened. tw4 21:24 Differential diagnosis: contusion, abrasion. Data reviewed: vital signs, nurses notes. tw4 Counseling: I had a detailed discussion with the patient and/or guardian regarding: the historical points, exam findings, and any diagnostic results supporting the discharge/admit diagnosis. Special discussion: I discussed with the patient/guardian in detail that at this point there is no indication for admission to the hospital. It is understood, however, that if the symptoms persist or worsen the patient needs to return immediately for re-evaluation. 05/29 19:40 Order name: CBC with Diff; Complete Time: 20:30 tw4 05/29 21:21 Interpretation: HCT 34.0; MCV 77.7; MCH 25.7; HGB 11.2; RDW 16.3. tw05/29 19:40 Order name: CMP; Complete Time: 21:21 4 05/29 21:21 Interpretation: Abnormal: GLUC 268. 05/29 19:40 Order name: TSH; Complete Time: 21:21 tw4 05/29 21: Interpretation: Within normal limits: TSH 0.860. 05/29 19:40 Order name: BNP; Complete Time: 21:21 tw4 05/29 19:40 Order name: T3 Free; Complete Time: 21:21 tw4 05/29 21:21 Interpretation: Normal except: T3F 1.75. 05/29 19:40 Order name: T4 Free; Complete Time: 21:21 tw4 05/29 21:21 Interpretation: Within normal limits: T4F 0.82. 05/29 19:40 Order name: T4,Total; Complete Time: : tw 05/29 21:21 Interpretation: Within normal limits: T4 7.6. tw05/29 19:40 Order name: Saline Lock; Complete Time: 20:08 4 Administered Medications: 21:35 Drug: TORadol 30 mg Route: IVP; Site: right forearm; ao 22:10 Follow up: Response: No adverse reaction; Temperature is decreased ao Disposition: 05/29/18 21:23 Discharged to Home. Impression: peripheral edema. - Condition is Stable. - Discharge Instructions: Peripheral Edema. - Medication Reconciliation Form, Thank You Letter, Antibiotic Education, Prescription Opioid Use form. - Follow up: Private Physician; When: As needed; Reason: Further diagnostic work-up, Recheck today's complaints, Continuance of care. - Problem is new. - Symptoms have improved. Signatures: [facility] Noe Bowman RN RN ao Resecker, Josué RN RN sr5 Zacarias Sanabria MD MD tw4 Corrections: (The following items were deleted from the chart) 21:58 21:23 05/29/2018 21:23 Discharged to Home. Impression: peripheral edema. Condition is ao Stable. Forms are Medication Reconciliation Form, Thank You Letter, Antibiotic Education, Prescription Opioid Use. Follow up: Private Physician; When: As needed; Reason: Further diagnostic work-up, Recheck today's complaints, Continuance of care. Problem is new. Symptoms have improved. tw4
[2018-05-29] MEDS ORDERED: KETOROLAC 30 MG/ML INJ ONE (21:36)
== END 2018-05-29 21:58 | disposition home or self-care (01) ==
LOC: ER 18:52
DX: R60.9 Edema, unspecified (principal); I10 Essential (primary) hypertension; E11.9 Type 2 diabetes mellitus without complications; Z72.0 Tobacco use
CPT/HCPCS: 36415; 80053; 83880; 84436; 84439; 84443; 84481; 85025; 96374; 99284

== ENCOUNTER 2018-12-22 21:28 | Inpatient (IN) | payer BC, SELFPAY ==
--- OUTSIDE RECORDS SUMMARY | 2018-12-22 21:31 | XMS REPORT ---
:1975 [facility] Address [address] [place] [address] Dr. Lebron [address] [place] [id number] Care Team Providers Name Role Phone SAÚL [...] (BEAKER) (test 330 mg/dL 70-110 TESTED AT [address] yrfs=8504) [place] [address] SCREEN, [id number] 11:13:00 Test Item Value Reference Range Comments TEST URINE (BEAKER) (test umnr=730) Negative POCT-GLUCOSE [id number] 08:33:00 Test Item Value Reference Range Comments POC-GLUCOSE METER (BEAKER) 226 mg/dL 70-110 TESTED AT [address] (test ttpe=2090) [place] [address] POCT-GLUCOSE [id number] 21:48:00 Test Item Value Reference Range Comments POC-GLUCOSE METER (BEAKER) 219 mg/dL 70-110 TESTED AT [address] (test icxb=1462) [place] [address] POCT-GLUCOSE [id number] 17:48:00 Test Item Value Reference Range Comments POC-GLUCOSE METER (BEAKER) 225 mg/dL 70-110 TESTED AT [address] (test mknd=5570) [place] [address] [id number] 16:39:00 Test Item Value Reference Range Comments RPR SCREEN (BEAKER) (test axux=401) Nonreactive Nonreactive SEDIMENTATION [id number] 15:02:00 Test Item Value Reference Range Comments SEDIMENTATION RATE, ERYTHROCYTE (BEAKER) (test 25 mm/HR 0-20 gbuz=369) POCT-GLUCOSE [id number] 12:40:00 Test Item Value Reference Range Comments POC-GLUCOSE METER (BEAKER) 188 mg/dL 70-110 TESTED AT [facility] [address] (test cjxh=7015) [facility] [address] HEMOGLOBIN [id number] 11:42:00 Test Item Value Reference Range Comments HEMOGLOBIN A1C (BEAKER) (test llch=611) 8.2 % 4.3-6.1 MR, BRAIN, WITHOUT [id number] 11:17:00Reason for exam:->Ischemic Stroke EvaluationFINAL REPORT MRI [...] infarct, hemorrhage, or hydrocephalus. Signed: Mark Mathur [facility] Verified Date/Time: 2016 11:17:54 Reading Location: [address] Neuro Reading Room MR, MRA, BRAIN, WITHOUT [id number] 11:16:00Reason for exam:->Ischemic Stroke EvaluationFINAL REPORT MRA head and neck without contrast INDICATION: Headache, left hemianesthesia, left sided weakness TECHNIQUE: 2-D and 3-D [id number] MRA images of the intra- and extracranial [...] branch occlusion or significant stenosis in the [place] vessels. There is no specific MRA evidence of saccular aneurysm. IMPRESSION: 1. No hemodynamically significant carotid stenosis by NASCET criteria. 2. No significant stenosis in the imaged cervical vertebral arteries. 3. No major branch occlusion, significant stenosis,or evident aneurysm in the [place] of Chang vessels. Signed: Mark Mathur [facility] Verified Date/Time: 09/10 11:16:49 Reading Location: [address] Neuro Reading Room MR, MRA, NECK, WITHOUT IV [id number] 11:16:00Reason for exam:->Ischemic Stroke EvaluationFINAL REPORT MRA head and neck without contrast INDICATION: Headache, left hemianesthesia, left sided weakness TECHNIQUE: 2-D and 3-D [id number]-[id number] MRA images of the intra- and extracranial [...] vertebral arteries are not imaged. MRA circleof Hcang:The left CLARITZA A1 segment is hypoplastic. There is no major branch occlusion or significant stenosis in the [place] vessels. There is no specific MRA evidence of saccular aneurysm. IMPRESSION: 1. No hemodynamically significant carotid stenosis by NASCET criteria. 2. No significant stenosis in the imaged cervical vertebral arteries. 3. No major branch occlusion, significant stenosis,or evident aneurysm in the [place] of Chang vessels. Signed: Mark Mathur [facility] Verified Date/Time: 09/10 11:16:49 Reading Location: [address] Neuro Reading Room TSH/ FREE T4 IF [id number] 09:44:00 Test Item Value Reference Range Comments THYROID STIMULATING HORMONE (BEAKER) (test 2.42 uIU/mL 0.35-4.94 faao=067) VITAMIN B12 AND [id number] 09:44:00 Test Item Value Reference Range Comments VITAMIN B12 (BEAKER) (test xzvj=976) 413 pg/mL 213-816 FOLATE (BEAKER) (test kupq=115) 14.8 ng/mL >=7.0 POCT-GLUCOSE [id number] 08:35:00 Test Item Value Reference Range Comments POC-GLUCOSE METER (BEAKER) 156 mg/dL 70-110 TESTED AT [facility] [address] [facility] (test acnf=1712) [facility] [address] [id number] 06:56:00 Test Item Value Reference Range Comments HOMOCYSTEINE (BEAKER) (test gsjt=292) 4.1 umol/L 5.1-15.4 BASIC METABOLIC [id number] 06:32:00 Test Item Value Reference Range Comments SODIUM (BEAKER) (test 138 meq/L 136-145 lauf=573) POTASSIUM (BEAKER) (test 4.0 meq/L 3.5-5.1 ceoh=528) CHLORIDE (BEAKER) (test 109 meq/L 98-107 bunt=929) CO2 (BEAKER) (test 21 meq/L 22-29 vuef=557) BLOOD UREA NITROGEN 7 mg/dL 7-21 (BEAKER) (test gntp=818) CREATININE (BEAKER) (test 0.53 mg/dL 0.57-1.25 pjbr=677) GLUCOSE RANDOM (BEAKER) 161 mg/dL 70-105 (test awsh=579) CALCIUM (BEAKER) (test 8.0 mg/dL 8.4-10.2 woma=858) EGFR (BEAKER) (test mL/min/1.73 sq m INSUFFICIENT CLINICAL DATA gzqp=5151) TO CALCULATE ESTIMATED GFR. FastingLIPID [id number] 06:31:00 Test Item Value Reference Range Comments TRIGLYCERIDES (BEAKER) (test qwey=837) 116 mg/dL CHOLESTEROL (BEAKER) (test ojhj=101) 99 mg/dL HDL CHOLESTEROL (BEAKER) (test wuan=460) 25 mg/dL LDL CHOLESTEROL CALCULATED (BEAKER) (test 51 mg/dL gssp=386) Triglyceride Reference Range: Low Risk <150 Borderline 150- 199 High Risk 200-499 Very High Risk >=500Cholesterol Reference Range: Low Risk <200 Borderline 200-239 High Risk > 240HDL Cholesterol Reference Range: Low Risk >=60 High Risk <40LDL Cholesterol Reference Range: Optimal <100 Near Optimal 100-129 Borderline 130-159 High 160-189 Very High >=190 FastingC-REACTIVE [id number] 06:31:00 Test Item Value Reference Range Comments C-REACTIVE PROTEIN (BEAKER) (test rimf=899) 1.82 mg/dL 0.00-0.50 FastingTROPONIN [id number] 06:29:00 Test Item Value Reference Range Comments TROPONIN I (BEAKER) (test nqkb=774) < ng/mL 0.00-0.03 Troponin I (TnI) levels [...] and persistent tachyarrhythmia.FastingCBC W/PLT COUNT & AUTO [id number] 06:02:00 Test Item Value Reference Range Comments WHITE BLOOD CELL COUNT (BEAKER) (test aktg=857) 10.5 K/ L 3.5-10.5 RED BLOOD CELL COUNT (BEAKER) (test hjmc=010) 4.13 M/ L 3.93-5.22 HEMOGLOBIN (BEAKER) (test xtqe=404) 10.9 GM/DL 11.2-15.7 HEMATOCRIT (BEAKER) (test fvpa=687) 33.9 % 34.1-44.9 MEAN CORPUSCULAR VOLUME (BEAKER) (test atcl=612) 82.1 fL 79.4-94.8 MEAN CORPUSCULAR HEMOGLOBIN (BEAKER) (test 26.4 pg 25.6-32.2 kvgk=610) MEAN CORPUSCULAR HEMOGLOBIN CONC (BEAKER) (test 32.2 GM/DL 32.2-35.5 bywn=684) RED CELL DISTRIBUTION WIDTH (BEAKER) (test 13.6 % 11.7-14.4 blqy=820) PLATELET COUNT (BEAKER) (test pskr=836) 220 K/CU MM 150-450 MEAN PLATELET VOLUME (BEAKER) (test vamd=326) 11.5 fL 9.4-12.3 NUCLEATED RED BLOOD CELLS (BEAKER) (test 0 /100 WBC 0-0 vpka=493) NEUTROPHILS RELATIVE PERCENT (BEAKER) (test 56 % btby=613) LYMPHOCYTES RELATIVE PERCENT (BEAKER) (test 35 % drgp=364) MONOCYTES RELATIVE PERCENT (BEAKER) (test 6 % rwtc=984) EOSINOPHILS RELATIVE PERCENT (BEAKER) (test 3 % dadz=702) BASOPHILS RELATIVE PERCENT (BEAKER) (test 0 % fgej=498) NEUTROPHILS ABSOLUTE COUNT (BEAKER) (test 5.87 K/ L 1.56-6.13 eukf=162) LYMPHOCYTES ABSOLUTE COUNT (BEAKER) (test 3.71 K/ L 1.18-3.74 xncz=051) MONOCYTES ABSOLUTE COUNT (BEAKER) (test 0.58 K/ L 0.24-0.36 jaui=617) EOSINOPHILS ABSOLUTE COUNT (BEAKER) (test 0.28 K/ L 0.04-0.36 ajwm=964) BASOPHILS ABSOLUTE COUNT (BEAKER) (test 0.04 K/ L 0.01-0.08 jlkj=711) IMMATURE GRANULOCYTES-RELATIVE PERCENT (BEAKER) 0 % 0-1 (test kfbj=7546)
--- OUTSIDE RECORDS SUMMARY | 2018-12-22 21:31 | XMS REPORT | Clinical Summary ---
:1975 Author Organization [facility] Address [address] [place] [address] Care Team Providers Name Role Phone Unavailable Primary Care Provider Unavailable Allergies No Known Allergies Medications Medication Sig Dispensed Refills Start Date End Date Status metFORMIN Take 1,000 mg by 0 Active (GLUCOPHAGE) 1000 mouth 2 (two) times MG tablet daily with breakfast and dinner. glyBURIDE Take 1.25 mg by 0 Active (DIABETA) 1.25 MG mouth 2 (two) times tablet daily with breakfast and dinner. lisinopril Take 10 mg by mouth 0 Active (PRINIVIL,ZESTRIL) daily. 10 MG tablet liraglutide 0.6 Inject 1.5 mg 0 Active mg/0.1 mL (18 mg/3 subcutaneously daily mL) PnIj with breakfast. topiramate Take 1 tablet (25 mg 30 tablet 2 09/11/2017 09/11/2018 (TOPAMAX) 25 MG total) by mouth tablet nightly. Active Problems Problem Noted Date Left sided numbness 09/10/2017 Diabetes mellitus type 2 in nonobese 09/10/2017 Essential hypertension 09/10/2017 Headache 09/10/2017 Social History Tobacco Use Types Packs/Day Years Used Date Never Smoker Sex Assigned at Date Recorded Not on file Job Start Date Occupation Industry Not on file Not on file Not on file Travel History Travel Start Travel End No recent travel history available. Last Filed Vital Signs Not on file Plan of Treatment Not on file Results Not on fileafter 12/21/2017 Insurance Payer Benefit Plan / Group Subscriber ID Type Phone Address [employer] - [employer] PPO OPEN [employer] NAP xxxxxxxxxx PPO Advance Directives For more information, please contact:[address] [phone] Code Status Date Activated Date Inactivated Comments Full Code 09/10/2017 4:00 AM 09/11/2017 4:55 PM This code status was determined by: Patient
[2018-12-22] MEDS ORDERED: NA CHLORIDE 0.9% 1,000 ML ONE (22:52)
[2018-12-22 23:09] LABS: Absolute Lymphocytes (CBC) 2.1 K/uL (0.7-4.9); Absolute Monocytes 0.6 K/uL (0.1-1.3); Absolute Neutrophil 7.8 K/uL (1.8-8.0); Basophils % 0.3 % (0-1.3); Eosinophils % 2.6 % (0-4.4); Hematocrit 40.3 % (36.0-45.0); Lymphocytes % 19.3 % (15.3-44.8); MPV 8.3 fL (7.6-11.3); Monocytes % 5.4 % (3.3-12.3); RBC Red Blood Cell Count 4.86 M/uL (3.86-4.86)
[2018-12-22 23:15] LABS: Urine Blood NEGATIVE (NEG); Urine Glucose 2+ (NEG); Urine Protein NEGATIVE (NEG); Urine Specific Gravity <1.005 (1.005-1.030); Urine pH 5.5 (5.0-7.0)
[2018-12-22 23:16] LABS: BUN Blood Urea Nitrogen 9 mg/dL (7-18); Bicarbonate 29 mmol/L (21-32); Glucose Level 233 mg/dL (74-106); Potassium 3.8 mmol/L (3.5-5.1); Sodium Level 137 mmol/L (136-145)
[2018-12-23] MEDS ORDERED: KETOROLAC 30 MG/ML INJ ONE (00:35)
[2018-12-23] MEDS ORDERED: ONDANSETRON 4 MG/2 ML VIAL ONE ×3 (01:35→09:40)
[2018-12-23] MEDS ORDERED: MORPHINE 4 MG/ML SYR ONE ×3 (01:35→09:40)
[2018-12-23] MEDS ORDERED: LIDOCAINE 1% MPF 5 ML VIAL ONE (03:46)
[2018-12-23 04:51] LABS: CSF Glucose 112 mg/dL (40-70)
[2018-12-23 05:23] LABS: Appearance CLEAR (CLEAR); Body Fluid Source CSF; Body Fluid WBC 1 /mm^3; Body Fluid WBC 2 /mm^3; Color of fluid Colorless (COLORLESS); Fluid Total Volume 7 ml
[2018-12-23] MEDS ORDERED: FENTANYL CITR 100 MCG/2 ML ONE (05:39)
--- NOTE | 2018-12-23 05:56 | ER ---
Nurse's Notes [facility] Name: Carol Mclaughlin Age: 43 yrs Sex: Female : 1975 Arrival Date: 12/22/2018 Time: 21:30 Bed 15 Private MD: Kristy Bates C Diagnosis: Headache Presentation: 12/22 21:32 Presenting complaint: Patient states: "I have a migraine for about 3-4 weeks, and I aj1 have a pinching in my chest, and I have a fever, coughing, congestion" Reports that she has been feeling ill for the past 2 to 3 days, and the chest pain has been there for the past 4 days. Transition of care: patient was not received from another setting of care. Onset of symptoms was December 22, 2018. Risk Assessment: Do you want to hurt yourself or someone else? Patient reports no desire to harm self or others. Initial Sepsis Screen: Does the patient meet any 2 criteria? HR > 90 bpm. No. Patient's initial sepsis screen is negative. Does the patient have a suspected source of infection? Yes: Productive cough/pneumonia. Care prior to arrival: None. 21:32 Method Of Arrival: Ambulatory [facility] 21:32 Acuity: GORGE 3 aj1 Triage Assessment: 21:35 Headache History: The patient has had previous headaches and this one is similar to aj1 previous episodes. General: Appears in no apparent distress. comfortable, Behavior is calm, cooperative, appropriate for age. Pain: Complains of pain in face Pain currently is 10 out of 10 on a pain scale. Pain began weeks ago. Neuro: Level of Consciousness is awake, alert, obeys commands. Cardiovascular: Patient's skin is warm and dry. Respiratory: Airway is patent Respiratory effort is even, unlabored, Respiratory pattern is regular, symmetrical. 12/23 07:00 Pain: Also complains of no other associated symptoms. 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 tw2 Historical: - Allergies: 12/22 21:35 No Known Allergies; aj1 - Home Meds: 21:35 metformin 1,000 mg Oral tab 1 tab 2 times per day [Active]; glipizide 5 mg Oral tab 1 aj1 tab 2 times per day [Active]; insulin- patient is unsure what type [Active]; - PMHx: 21:35 Diabetes - NIDDM; Hypertension; aj1 - Immunization history:: Flu vaccine is not up to date. - Social history:: Smoking status: Patient uses tobacco products, denies chronic smoking, but will smoke occasionally. - Ebola Screening: : Patient denies travel to an Ebola-affected area in the 21 days before illness onset. Screenin:03 Abuse screen: Denies threats or abuse. Nutritional screening: No deficits noted. jb4 Tuberculosis screening: No symptoms or risk factors identified. Fall Risk None identified. Assessment: 22:03 General: Appears in no apparent distress. uncomfortable, Behavior is calm, cooperative, jb4 appropriate for age. Pain: Complains of pain in chest, headache Pain does not radiate. Pain currently is 10 out of 10 on a pain scale. Quality of pain is described as pressure, pinching. Neuro: Level of Consciousness is awake, alert, obeys commands, Oriented to person, place, time, situation. Cardiovascular: Reports chest pain, Heart tones S1 S2 present Patient's skin is warm and dry. Rhythm is sinus rhythm. Respiratory: Reports cough that is productive, Airway is patent Respiratory effort is even, unlabored, Respiratory pattern is regular, symmetrical, Breath sounds are clear bilaterally. Denies shortness of breath labored breathing. GI: Reports diarrhea. : No signs and/or symptoms were reported regarding the genitourinary system. EENT: No signs and/or symptoms were reported regarding the EENT system. Derm: Skin is intact, Skin is. Musculoskeletal: Circulation, motion, and sensation intact. 23:00 Reassessment: Patient appears in no apparent distress at this time. Patient and/or jb4 family updated on plan of care and expected duration. Pain level reassessed. Patient is alert, oriented x 3, equal unlabored respirations, skin warm/dry/pink. 12/23 00:00 Reassessment: Patient appears in no apparent distress at this time. Patient and/or jb4 family updated on plan of care and expected duration. Pain level reassessed. Patient is alert, oriented x 3, equal unlabored respirations, skin warm/dry/pink. 01:20 Reassessment: Patient appears in no apparent distress at this time. Patient and/or jb4 family updated on plan of care and expected duration. Pain level reassessed. Patient is alert, oriented x 3, equal unlabored respirations, skin warm/dry/pink. Pain is unchanged after Toradol administration. Provider notified see MAR for order.s. 01:52 Reassessment: Patient appears in no apparent distress at this time. Patient and/or jb4 family updated on plan of care and expected duration. Pain level reassessed. Patient is alert, oriented x 3, equal unlabored respirations, skin warm/dry/pink. Patient states feeling better. 03:00 Reassessment: Patient appears in no apparent distress at this time. Patient and/or jb4 family updated on plan of care and expected duration. Pain level reassessed. Patient is alert, oriented x 3, equal unlabored respirations, skin warm/dry/pink. 04:00 Reassessment: Patient appears in no apparent distress at this time. Patient and/or jb4 family updated on plan of care and expected duration. Pain level reassessed. Patient is alert, oriented x 3, equal unlabored respirations, skin warm/dry/pink. 05:23 Reassessment: Patient appears in no apparent distress at this time. Patient and/or jb4 family updated on plan of care and expected duration. Pain level reassessed. Patient is alert, oriented x 3, equal unlabored respirations, skin warm/dry/pink. Pt reports increase in pain, provider notified, see MAR for orders. 06:24 Reassessment: Patient appears in no apparent distress at this time. Patient and/or jb4 family updated on plan of care and expected duration. Pain level reassessed. Patient is alert, oriented x 3, equal unlabored respirations, skin warm/dry/pink. Patient states feeling better. 06:57 Reassessment: Patient appears in no apparent distress at this time. Patient and/or jb4 family updated on plan of care and expected duration. Pain level reassessed. Patient is alert, oriented x 3, equal unlabored respirations, skin warm/dry/pink. Patient states feeling better. Vital Signs: 12/22 21:35 BP 147 / 78; Pulse 99; Resp 18; Temp 98.3; Pulse Ox 98% on R/A; Weight 89.81 kg (R); aj1 Height 5 ft. 4 in. (162.56 cm) (R); Pain 10/10; 22:30 BP 126 / 77; Pulse 94; Resp 16; Pulse Ox 97% on R/A; jb4 12/23 00:00 BP 129 / 77; Pulse 90; Resp 16; Pulse Ox 99% on R/A; jb4 01:00 BP 122 / 080; Pulse 88; Resp 16; Pulse Ox 98% on R/A; jb4 02:00 BP 124 / 79; Pulse 87; Resp 16; Pulse Ox 98% on R/A; jb4 03:00 BP 128 / 82; Pulse 91; Resp 14; Pulse Ox 98% ; jb4 04:00 BP 103 / 71; Pulse 83; Resp 16; Pulse Ox 97% on R/A; jb4 05:00 BP 103 / 66; Pulse 85; Resp 16; Pulse Ox 96% on R/A; jb4 06:15 BP 107 / 64; Pulse 84; Resp 13; Pulse Ox 95% on R/A; jb4 06:45 BP 104 / 64; Pulse 89; Resp 18; Pulse Ox 97% on R/A; jb4 12/22 21:35 Body Mass Index 33.99 (89.81 kg, 162.56 cm) aj1 ED Course: 12/22 21:30 Patient arrived in ED. am2 21:30 Kristy Bates FNP is Private Physician. am2 21:34 Triage completed. aj1 21:35 Arm band placed on Patient placed in an exam room. aj1 21:37 Paul Holt MD is Attending Physician. kdr 21:45 Jaskaran Lo, MARTIN is Primary Nurse. jb4 22:03 Patient has correct armband on for positive identification. Placed in gown. Bed in low jb4 position. Call light in reach. Pulse ox on. NIBP on. 22:[address] vm2 22:50 Missed attempt(s): 20 gauge Bleeding controlled, band aid applied, catheter tip intact. vd2 22:52 Initial lab(s) drawn, by wi, sent to lab. Inserted saline lock: 22 gauge in left vd2 forearm, using aseptic technique. Blood collected. 22:55 CT completed. Patient tolerated procedure well. Patient moved back from CT. vm2 23:04 CT Head Brain wo Cont In Process Unspecified. EDMS 23:59 Flu Sent. jb4 12/23 04:10 Assist provider with lumbar puncture: Set up LP tray. Performed by Paul Holt MD CSF jb4 is clear. Puncture site dressed with band aid, Procedure was successful. Patient tolerated well. 05:55 Kia Engle MD is Hospitalizing Provider. kdr 06:58 Report given to MARTIN Infante. jb4 07:00 Patient admitted, IV remains in place. tw2 13:14 Awaiting: attempted to call report at this time. tw2 Administered Medications: 12/22 23:11 Drug: NS 0.9% 1000 ml Route: IV; Rate: 1 bolus; Site: right forearm; jb4 12/23 00:00 Follow up: Response: No adverse reaction; IV Status: Completed infusion; IV Intake: jb4 1000ml 00:31 Drug: TORadol 30 mg Route: IVP; Site: right forearm; jb4 01:49 Follow up: Response: No adverse reaction; Pain is unchanged, physician notified jb4 01:33 Drug: Zofran 4 mg Route: IVP; Site: right forearm; jb4 04:30 Follow up: Response: No adverse reaction; Nausea is decreased jb4 01:38 Drug: morphine 4 mg Route: IVP; Site: right forearm; jb4 02:00 Follow up: Response: No adverse reaction; Pain is decreased jb4 02:48 Drug: Zofran 4 mg Route: IVP; Site: right forearm; jb4 03:00 Follow up: Response: No adverse reaction; Nausea is decreased jb4 02:50 Drug: morphine 4 mg Route: IVP; Site: right forearm; jb4 03:00 Follow up: Response: No adverse reaction; Pain is decreased jb4 03:35 Drug: Zofran 4 mg Route: IVP; Site: right forearm; jb4 04:35 Follow up: Response: No adverse reaction; Nausea is decreased jb4 03:35 Drug: Lidocaine (1 %) 1 application {Note: Administered by ER Provider..} Volume: 5 ml; jb4 Route: Infiltration; 04:35 Follow up: Response: No adverse reaction jb4 05:30 Drug: fentaNYL (PF) 50 mcg Route: IVP; Site: right forearm; jb4 06:00 Follow up: Response: No adverse reaction; Pain is decreased jb4 Intake: 00:00 IV: 1000ml; Total: 1000ml. jb4 Outcome: 05:55 Decision to Hospitalize by Provider. kdr 07:00 Admitted to ER Hold. Please see [employer] for further documentation. tw2 07:00 Condition: stable 07:00 Instructed on the need for admit. 13:27 Patient left the ED. tw2 Signatures: Dispatcher [employer] Maria Isabel Dimas, MARTIN RN aj1 Paul Holt MD MD [facility] Fariba Brantley 2 Gagan Crockett em2 Arelis Chandra RN RN tw2 Jaskaran Lo RN RN jb4 Shiela Oakes 2 Radha Leyva 2 Corrections: (The following items were deleted from the chart) 12/22 22:38 22:[address] em2 em2
--- NOTE | 2018-12-23 05:57 | EDPHYS ---
Physician Documentation [facility] Name: Carol Mclaughlin Age: 43 yrs Sex: Female : 1975 Arrival Date: 12/22/2018 Time: 21:30 Bed 15 Private MD: Kristy Bates C ED Physician Paul Holt HPI: 12/22 23:07 This 43 yrs old Female presents to ER via Ambulatory with complaints of kdr Headache, Chest Pain, Flu Symptoms. 23:07 The patient has had a frontal CABALLERO for about three weeks and chest "pinching" pain for kdr about four days. She has also had congestion and non-productive cough. She generally feels poorly. Denies a fever but generally has flu like s/s. Severity of symptoms: At their worst the symptoms were mild moderate just prior to arrival, in the emergency department the symptoms are unchanged. The patient has not experienced similar symptoms in the past. The patient has not experienced similar symptoms in the past. The patient has not recently seen a physician. 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 tw2 Historical: - Allergies: 12/22 21:35 No Known Allergies; aj1 - Home Meds: 21:35 metformin 1,000 mg Oral tab 1 tab 2 times per day [Active]; glipizide 5 mg Oral tab 1 aj1 tab 2 times per day [Active]; insulin- patient is unsure what type [Active]; - PMHx: 21:35 Diabetes - NIDDM; Hypertension; aj1 - Immunization history:: Flu vaccine is not up to date. - Social history:: Smoking status: Patient uses tobacco products, denies chronic smoking, but will smoke occasionally. - Ebola Screening: : Patient denies travel to an Ebola-affected area in the 21 days before illness onset. ROS: 23:07 Constitutional: Negative for fever, chills, and weight loss, Eyes: Negative for injury, kdr pain, redness, and discharge, Neck: Negative for injury, pain, and swelling, Cardiovascular: Negative for chest pain, palpitations, and edema, Abdomen/GI: Negative for abdominal pain, nausea, vomiting, diarrhea, and constipation, Back: Negative for injury and pain, : Negative for injury, bleeding, discharge, and swelling, MS/Extremity: Negative for injury and deformity, Skin: Negative for injury, rash, and discoloration, Psych: Negative for depression, anxiety, suicide ideation, homicidal ideation, and hallucinations, Allergy/Immunology: Negative for hives, rash, and allergies, Endocrine: Negative for neck swelling, polydipsia, polyuria, polyphagia, and marked weight changes, Hematologic/Lymphatic: Negative for swollen nodes, abnormal bleeding, and unusual bruising. 23:07 ENT: Positive for sinus congestion, sinus pain. 23:07 Respiratory: Positive for cough, with no reported sputum, dyspnea on exertion, shortness of breath, on exertion. Negative for hemoptysis, orthopnea, pleurisy. 23:07 Neuro: Positive for headache. Exam: 12/23 00:12 Constitutional: This is a well developed, well nourished patient who is awake, alert, kdr and in no acute distress. Head/Face: Normocephalic, atraumatic. Eyes: Pupils equal round and reactive to light, extra-ocular motions intact. Lids and lashes normal. Conjunctiva and sclera are non-icteric and not injected. Cornea within normal limits. Periorbital areas with no swelling, redness, or edema. Neck: Trachea midline, no thyromegaly or masses palpated, and no cervical lymphadenopathy. Supple, full range of motion without nuchal rigidity, or vertebral point tenderness. No Meningismus. Chest/axilla: Normal chest wall appearance and motion. Nontender with no deformity. No lesions are appreciated. Cardiovascular: Regular rate and rhythm with a normal S1 and S2. No gallops, murmurs, or rubs. Normal PMI, no JVD. No pulse deficits. Respiratory: Lungs have equal breath sounds bilaterally, clear to auscultation and percussion. No rales, rhonchi or wheezes noted. No increased work of breathing, no retractions or nasal flaring. Abdomen/GI: Soft, non-tender, with normal bowel sounds. No distension or tympany. No guarding or rebound. No evidence of tenderness throughout. Back: No spinal tenderness. No costovertebral tenderness. Full range of motion. Skin: Warm, dry with normal turgor. Normal color with no rashes, no lesions, and no evidence of cellulitis. MS/ Extremity: Pulses equal, no cyanosis. Neurovascular intact. Full, normal range of motion. Neuro: Awake and alert, GCS 15, oriented to person, place, time, and situation. Cranial nerves II-XII grossly intact. Motor strength 5/5 in all extremities. Sensory grossly intact. Cerebellar exam normal. Normal gait. Psych: Awake, alert, with orientation to person, place and time. Behavior, mood, and affect are within normal limits. Vital Signs: 12/22 21:35 BP 147 / 78; Pulse 99; Resp 18; Temp 98.3; Pulse Ox 98% on R/A; Weight 89.81 kg (R); aj1 Height 5 ft. 4 in. (162.56 cm) (R); Pain 10/10; 22:30 BP 126 / 77; Pulse 94; Resp 16; Pulse Ox 97% on R/A; jb4 12/23 00:00 BP 129 / 77; Pulse 90; Resp 16; Pulse Ox 99% on R/A; jb4 01:00 BP 122 / 080; Pulse 88; Resp 16; Pulse Ox 98% on R/A; jb4 02:00 BP 124 / 79; Pulse 87; Resp 16; Pulse Ox 98% on R/A; jb4 03:00 BP 128 / 82; Pulse 91; Resp 14; Pulse Ox 98% ; jb4 04:00 BP 103 / 71; Pulse 83; Resp 16; Pulse Ox 97% on R/A; jb4 05:00 BP 103 / 66; Pulse 85; Resp 16; Pulse Ox 96% on R/A; jb4 06:15 BP 107 / 64; Pulse 84; Resp 13; Pulse Ox 95% on R/A; jb4 06:45 BP 104 / 64; Pulse 89; Resp 18; Pulse Ox 97% on R/A; jb4 12/22 21:35 Body Mass Index 33.99 (89.81 kg, 162.56 cm) aj1 MDM: 05:55 Patient medically screened. kdr 05:55 Data reviewed: vital signs, nurses notes, lab test result(s), radiologic studies. kdr Counseling: I had a detailed discussion with the patient and/or guardian regarding: the historical points, exam findings, and any diagnostic results supporting the discharge/admit diagnosis, lab results, radiology results, the need for outpatient follow up. 12/22 22:33 Order name: CBC with Diff; Complete Time: 00:06 kdr 12/22 22:33 Order name: Chem 7; Complete Time: 00:06 kdr 12/22 23:10 Order name: Urine Dipstick--Ancillary (enter results); Complete Time: 00:06 mt 12/22 23:11 Order name: Test, Serum; Complete Time: 00:23 jb4 12/22 23:37 Order name: Flu; Complete Time: 02:00 kdr 12/23 04:34 Order name: CSF Glucose; Complete Time: 05:23 EDMS 12/23 04:34 Order name: CSF Total Protein; Complete Time: 05:23 EDMS 12/23 04:34 Order name: CSF SPECIMEN; Complete Time: 05:45 EDMS 12/23 04:34 Order name: Cell Count Profile; Complete Time: 05:45 EDMS 12/23 04:34 Order name: Body Fluid Cell Count; Complete Time: 05:45 EDMS 12/23 04:34 Order name: CSF Culture EDMS 12/23 04:34 Order name: CSF Bacterial Antigens (Tube 1 EDMS 12/23 06:17 Order name: CBC with Automated Diff EDMS 12/23 06:17 Order name: CBC with Automated Diff EDMS 12/22 22:33 Order name: CT Head Brain wo Cont kdr 12/22 22:33 Order name: Urine Dipstick-Ancillary (obtain specimen); Complete Time: 23:12 kdr 12/22 22:33 Order name: Urine Test (obtain specimen); Complete Time: 00:34 kdr 12/23 06:17 Order name: CONS Pharmacy Consult EDMS 12/23 06:17 Order name: Regular EDMS 12/23 06:17 Order name: Comprehensive Metabolic Panel EDFL 12/23 06:17 Order name: Comprehensive Metabolic Panel EDFL Administered Medications: 12/22 23:11 Drug: NS 0.9% 1000 ml Route: IV; Rate: 1 bolus; Site: right forearm; jb4 12/23 00:00 Follow up: Response: No adverse reaction; IV Status: Completed infusion; IV Intake: jb4 1000ml 00:31 Drug: TORadol 30 mg Route: IVP; Site: right forearm; jb4 01:49 Follow up: Response: No adverse reaction; Pain is unchanged, physician notified jb4 01:33 Drug: Zofran 4 mg Route: IVP; Site: right forearm; jb4 04:30 Follow up: Response: No adverse reaction; Nausea is decreased jb4 01:38 Drug: morphine 4 mg Route: IVP; Site: right forearm; jb4 02:00 Follow up: Response: No adverse reaction; Pain is decreased jb4 02:48 Drug: Zofran 4 mg Route: IVP; Site: right forearm; jb4 03:00 Follow up: Response: No adverse reaction; Nausea is decreased jb4 02:50 Drug: morphine 4 mg Route: IVP; Site: right forearm; jb4 03:00 Follow up: Response: No adverse reaction; Pain is decreased jb4 03:35 Drug: Zofran 4 mg Route: IVP; Site: right forearm; jb4 04:35 Follow up: Response: No adverse reaction; Nausea is decreased jb4 03:35 Drug: Lidocaine (1 %) 1 application {Note: Administered by ER Provider..} Volume: 5 ml; jb4 Route: Infiltration; 04:35 Follow up: Response: No adverse reaction jb4 05:30 Drug: fentaNYL (PF) 50 mcg Route: IVP; Site: right forearm; jb4 06:00 Follow up: Response: No adverse reaction; Pain is decreased jb4 Disposition: 12/23/18 05:55 Hospitalization ordered by Kia Engle for Observation. Preliminary diagnosis is Headache. - Bed requested for Telemetry/MedSurg (observation). - Status is Observation. tw2 - Condition is Fair. - Problem is an ongoing problem. - Symptoms have improved. UTI on Admission? No Signatures: Dispatcher [employer] EDMS Maria Isabel Jurado RN RN aj1 Coby Venegas RN RN mw Woody, Diana RN Paul Grant MD MD kdr Wise, Tara, RN RN tw2 Jaskaran Lo RN RN jb4 Corrections: (The following items were deleted from the chart) 06:44 05:55 Hospitalization Ordered by Kia Engle MD for Observation. Preliminary diagnosis is Headache. Bed requested for Telemetry/MedSurg (observation). Status is Observation. Condition is Fair. Problem is an ongoing problem. Symptoms have improved. UTI on Admission? No. kdr 13:14 06:44 12/23/2018 05:55 Hospitalization Ordered by Kia Engle MD for Observation. josr Preliminary diagnosis is Headache. Bed requested for [facility] ER HOLD. Status is Observation. Condition is Fair. Problem is an ongoing problem. Symptoms have improved. UTI on Admission? No. mw 13:27 13:14 12/23/2018 05:55 Hospitalization Ordered by Kia Engle MD for Observation. tw2 Preliminary diagnosis is Headache. Bed requested for Telemetry/MedSurg (observation). Status is Observation. Condition is Fair. Problem is an ongoing problem. Symptoms have improved. UTI on Admission? No. dw
[2018-12-23] MEDS ORDERED: ONDANSETRON 4 MG/2 ML VIAL IV PRN (06:13)
[2018-12-23] MEDS ORDERED: ACETAMINOPHEN 500 MG TAB PO PRN (06:13)
[2018-12-23] MEDS: NA CHLORIDE 0.9% 1,000 ML IV SCH ×2 (07:00→17:51)
[2018-12-23] MEDS ORDERED: ACETAMIN/CAFFEINE/BUTALB TAB PO ONE ×2 (07:48→08:00)
[2018-12-23] MEDS ORDERED: PROMETHAZINE 25 MG TABLET ONE (07:48)
[2018-12-23] MEDS ORDERED: NA CHLORIDE 0.9% 1,000 ML ONE (07:48)
[2018-12-23] MEDS: TOPIRAMATE 25 MG TAB PO SCH ×3 (08:00→20:15)
[2018-12-23] MEDS ORDERED: PROMETHAZINE 25 MG TABLET PO ONE (08:00)
[2018-12-23] MEDS ORDERED: HOME MED 1 EA UNK (Fluoxetine Hcl [Prozac] 40 MG) PO SCH (09:00)
[2018-12-23] MEDS ORDERED: GABAPENTIN 100 MG CAP PO SCH ×2 (09:00)
[2018-12-23] MEDS ORDERED: HOME MED 1 EA UNK (Metformin Hcl [Metformin Hcl] 1,000 MG) PO SCH (09:00)
[2018-12-23] MEDS ORDERED: TOPIRAMATE 25 MG TAB PO SCH (09:00)
--- NOTE | 2018-12-23 09:22 | EKG ---
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
[2018-12-23] MEDS: METFORMIN HCL 500 MG TAB PO SCH ×2 (09:35→20:15)
[2018-12-23] MEDS: GABAPENTIN 300 MG CAP PO SCH ×2 (09:35→20:16)
[2018-12-23] MEDS: glipiZIDE 5 MG TAB PO SCH ×2 (09:35→20:15)
[2018-12-23] MEDS: MORPHINE 2 MG/ML SYR IV PRN ×4 (09:36→23:27)
[2018-12-23] MEDS ORDERED: GABAPENTIN 300 MG CAP ONE (09:40)
[2018-12-23] MEDS ORDERED: METFORMIN HCL 500 MG TAB ONE (09:40)
[2018-12-23] MEDS: FLUOXETINE 20 MG CAP PO SCH (09:54)
--- NOTE | 2018-12-23 12:14 | RAD REPORT ---
EXAM DESCRIPTION: Head Brain Wo Cont CLINICAL HISTORY: 43 years Female Fever;Headache COMPARISON: None TECHNIQUE: Images were obtained in axial, sagittal, and coronal planes. This exam was performed according to our departmental dose-optimization program which includes use of Automated Exposure Control, adjustment of the mA and/or kV according to patient size and/or use of i terative reconstruction technique. FINDINGS: Ventricular system appears normal. No abnormal areas of increased or decreased attenuation are seen involving the brain parenchyma. No e xtra-axial fluid collections noted. No evidence for skull fracture. Symmetric aeration of mastoid air cells bilaterally. Mild mucosal thi ckening ethmoid sinuses bilaterally. IMPRESSION: No acute intracranial abnormality. No evidence for hemorrhage, mass lesion, or large acu te infarction. Electronically signed by: Tangela Mg MD 12/22/2018 11:09 PM CDT Due to temporary technical issues with the PACS/Fluency reporting system, reports are being signed by the in house radiologist as a courtesy to ensure prompt reporting. The interpreting radiologist is f ully responsible for the content of the report.
--- NOTE | 2018-12-23 17:18 | HP ---
Date of Admission: 12/23/2018 Chief Complaint: Headache. History Of Present Illness: The patient is a 43-year-old female with past medical history of diabete s mellitus type 2, hypertension, nicotine dependence, who comes in with sudden onset of headache and chest pinching type pain that has been ongoing for 4 days. Her headache started about 3 weeks ago. The patient denies any blurry vision. No loss of consciousness. No trauma. The patient does have h istory of migraines from previous stay in the hospital. The patient does report some congestion and nonproductive cough and some generalized weakness. The patient's symptoms are constant, moderate, pr ogressively worsening. The patient came into the ER for further evaluation. Upon arrival, her vital signs were stable, she was afebrile. Head CT scan was done, which was negative for any acute change s. The patient had an LP done, which was negative. The patient was also given Imitrex and referred for admission. When seen in the ER, she was awake, alert, oriented x3, somewhat drowsy. Past Medical History: Diabetes mellitus type 2, insulin requiring; hypertension. Past Surgical History: Cholecystectomy, , ankle surgery on the left. Allergies: NO KNOWN DRUG ALLERGIES. Medications: List reviewed. Social History: The patient smokes cigarettes, about 3 cigarettes per day. Denies any significant a lcohol use. No illicit drug use. The patient is . Family History: Denies any premature coronary artery disease in the family. Review of Systems: An 11-point system reviewed, negative except as per HPI. Physical Examination: Vital Signs: Blood pressure 147/78, respirations 18, O2 98% on room air, temperature 98.3, respirati ons 18, pulse 99, BMI 33.99. HEENT: Normocephalic, atraumatic. PERRLA. EOMI. Moist mucous membranes. Oropharynx is clear. Co njunctivae anicteric. Neck: Supple. No JVD. Trachea midline. No nuchal rigidity. CV: S1, S2. Regular rate and rhythm. Peripheral pulses present. No murmurs. Respiratory: Clear to auscultation bilaterally. No wheezing or stridor. No use of accessory muscle s. Gastrointestinal: Abdomen is soft, nontender, nondistended. Positive bowel sounds. No guarding or rigidity. Extremities: No clubbing, cyanosis, or edema. No calf tenderness. Neurologic: Cranial nerves II through XII intact grossly. No focal neurological deficits. Speech i s normal. Strength is 5/5 bilateral upper and lower extremities. Sensation intact to light touch. Skin: No rashes. Normal skin turgor. Psychiatric: Mood is okay. Affect is flat. Insight and judgment are good. Laboratory Data: CSF fluid is colorless, not xanthochromic, 1 WBC, no RBCs, no neutrophils. Glucose is 112. Total protein is 27. UA is negative. Sodium 137, potassium 3.8, chloride 102, CO2 29, BUN 9, creatinine 0.62, glucose 233, calcium 8.5. Serum test is negative. WBC 10.8, H and H 13.3/40.3, platelets 289, neutrophils 72%. Head CT scan personally reviewed, shows no acute intracra nial abnormality no hemorrhage, mass lesion or large acute infarction. Assessment: A 43-year-old female with: 1.Headache, unclear etiology. Head CT scan is negative for any acute hemorrhage or mass. Lumbar pu ncture has been done to rule out meningitis, is negative. It may be migraine. The patient has recei ramesh subcu Imitrex. We will continue to monitor. We will provide analgesia. Consider neurology eval uation. 2.Diabetes mellitus type 2 with long-term use of insulin with hyperglycemia. We will continue slidi ng scale insulin and monitor Accu-Cheks. 3.Essential hypertension, stable. 4.Nicotine dependence with cigarette smoking. Counseled. 5.Obesity with BMI 33. Plan: Admit the patient to Med-Surg, place as observation. We will follow up with CSF culture. Flu screen was negative. If the patient continues to improve, we will discharge in a.m. /MODL Voice ID: [id number]
[2018-12-24] MEDS: MORPHINE 2 MG/ML SYR IV PRN ×4 (04:08→21:43)
[2018-12-24] MEDS: NA CHLORIDE 0.9% 1,000 ML IV SCH ×3 (04:09→21:42)
[2018-12-24 06:35] LABS: Absolute Lymphocytes (CBC) 2.6 K/uL (0.7-4.9); Absolute Monocytes 0.5 K/uL (0.1-1.3); Basophils % 0.5 % (0-1.3); Eosinophils % 3.9 % (0-4.4); Hematocrit 33.8 % (36.0-45.0); Lymphocytes % 41.2 % (15.3-44.8); MPV 8.3 fL (7.6-11.3); Monocytes % 7.5 % (3.3-12.3); RBC Red Blood Cell Count 4.01 M/uL (3.86-4.86)
[2018-12-24 06:50] LABS: ALT/SGPT 22 U/L (12-78); AST/SGOT 15 U/L (15-37); Albumin 2.7 g/dL (3.4-5.0); Alkaline Phosphatase 73 U/L (45-117); BUN Blood Urea Nitrogen 10 mg/dL (7-18); Bicarbonate 27 mmol/L (21-32); Bilirubin Total 0.1 mg/dL (0.2-1.0); Glucose Level 102 mg/dL (74-106); Potassium 3.9 mmol/L (3.5-5.1); Sodium Level 143 mmol/L (136-145)
[2018-12-24] MEDS: TOPIRAMATE 25 MG TAB PO SCH ×2 (08:42→21:42)
[2018-12-24] MEDS: METFORMIN HCL 500 MG TAB PO SCH ×2 (08:43→21:42)
[2018-12-24] MEDS: FLUOXETINE 20 MG CAP PO SCH (08:43)
[2018-12-24] MEDS: glipiZIDE 5 MG TAB PO SCH ×2 (08:44→21:42)
[2018-12-24] MEDS: GABAPENTIN 300 MG CAP PO SCH ×2 (08:44→21:42)
[2018-12-24] MEDS: SUMATRIPTAN SUCCI 50 MG TAB PO PRN ×2 (11:30→15:12)
--- NOTE | 2018-12-24 18:14 | PN ---
Date of Progress Note: 12/24/2018 Subjective: The patient is seen and examined, chart reviewed and case discussed with RN. The patien t is still having significant amount of headache, sensitive to light and loud noises, appears to be i n status migrainosus. Medications have not helped, requiring IV pain medications around the clock. Physical Examination: Vital Signs: Temperature 98.4, heart rate 88, blood pressure 136/75, respirations 18, O2 95% on room air. General: Awake, alert, oriented x3. Some mild distress due to pain. Obese female. BMI 32. CV: S1, S2. Regular rate and rhythm. Peripheral pulses present. Respiratory: Moving air well bilaterally. No wheezing or stridor. Gastrointestinal: Abdomen is soft, nontender, nondistended. Positive bowel sounds. Extremities: No clubbing, cyanosis, or edema. Neurologic: Nonfocal. Neck: No nuchal rigidity. Laboratory Data: Sodium 143, potassium 3.9, chloride 110, CO2 of 27, BUN 10, creatinine 0.43, glucos e 102, calcium 7.3, albumin 2.7. WBC 6.4, H and H 10.9 and 33.8, platelets 236. CSF; Gram stain neg ative. Antigens, bacterial antigens are also negative. Culture shows no growth. Assessment: A 43-year-old female with: 1.Status migrainosus. We will continue with IV analgesia. The patient has been started on Topamax. We will add Imitrex as needed. The patient will need Neurology consultation, currently unavailable . 2.Diabetes mellitus type 2 with long-term use of insulin with hyperglycemia. Continue sliding scale insulin and monitor blood glucose levels. 3.Essential hypertension, stable. Resume home medications as appropriate. 4.Nicotine dependence with cigarette smoking. Counseled. We will provide nicotine patch. 5.Obesity. Body mass index 33. Plan: We will continue with medications. Neurology consultation. Add Imitrex. Plan, discharge onc e migraine has resolved. SA/MODL Voice ID: [id number] Report ID: [id number]
[2018-12-25] MEDS: MORPHINE 2 MG/ML SYR IV PRN ×2 (02:03→05:27)
[2018-12-25] MEDS: NA CHLORIDE 0.9% 1,000 ML IV SCH (04:45)
[2018-12-25 04:53] LABS: Absolute Lymphocytes (CBC) 3.1 K/uL (0.7-4.9); Absolute Monocytes 0.5 K/uL (0.1-1.3); Absolute Neutrophil 3.5 K/uL (1.8-8.0); Basophils % 0.4 % (0-1.3); Eosinophils % 3.4 % (0-4.4); Hematocrit 34.6 % (36.0-45.0); Lymphocytes % 42.1 % (15.3-44.8); MPV 8.6 fL (7.6-11.3); Monocytes % 6.2 % (3.3-12.3); RBC Red Blood Cell Count 4.13 M/uL (3.86-4.86)
[2018-12-25 05:36] LABS: BUN Blood Urea Nitrogen 9 mg/dL (7-18); Bicarbonate 29 mmol/L (21-32); Glucose Level 95 mg/dL (74-106); Magnesium 1.9 mg/dL (1.8-2.4); Potassium 3.9 mmol/L (3.5-5.1); Sodium Level 143 mmol/L (136-145)
--- NOTE | 2018-12-25 08:00 | RAD REPORT ---
EXAM DESCRIPTION: USCarotid Artery Bilateral12/24/2018 11:16 pm CLINICAL HISTORY: TIA COMPARISON: None FINDINGS: The velocity of the right internal carotid artery equals 67 cm/sec. The right ICA/CCA rati o 0.9 The velocity of the left internal carotid artery equals 69 cm/sec. The left ICA/CCA ratio 0.9 Plaque is not visualized within the carotid arteries The vertebral arteries demonstrate antegrade flow IMPRESSION: Unremarkable exam NASCET criteria used. Mild 0-49% stenosis Moderate 50-69% stenosis Severe 70-99% stenosis
[2018-12-25] MEDS: glipiZIDE 5 MG TAB PO SCH (09:00)
[2018-12-25] MEDS ORDERED: TRAMADOL HCL 50 MG TAB PO PRN (09:08)
[2018-12-25] MEDS ORDERED: SUMATRIPTAN SUCCI 50 MG TAB PO PRN (09:09)
[2018-12-25] MEDS: METFORMIN HCL 500 MG TAB PO SCH (09:28)
[2018-12-25] MEDS: GABAPENTIN 300 MG CAP PO SCH (09:28)
[2018-12-25] MEDS: TOPIRAMATE 25 MG TAB PO SCH (09:28)
[2018-12-25] MEDS: FLUOXETINE 20 MG CAP PO SCH (09:28)
[2018-12-25] MEDS: HYDROCODONE/APAP 7.5/325 MG TAB PO PRN ×2 (09:42→16:00)
--- NOTE | 2018-12-25 10:06 | RAD REPORT ---
EXAM DESCRIPTION: MRI - Brain W/Wo Cont - 12/25/2018 8:39 am CLINICAL HISTORY: TIA COMPARISON: December 22, [address] TECHNIQUE: Axial, sagittal, and coronal magnetic images of the brain were obtained. Nineteen cc Mult iHance administered intravenously FINDINGS: No abnormal signal within the brain is noted. The ventricles are normal in caliber. Diffusion-weighted sequences do not demonstrate evidence of an acute infarction. No abnormal enhancement within the brain is seen. An extra-axial fluid collection is not noted. Fluid within the sinuses/mastoids is not seen. Moderate chronic ethmoid sinusitis is present Adenoids are mildly prominent IMPRESSION: No acute intracranial abnormality is seen Moderate chronic ethmoid sinusitis Mildly prominent adenoids
--- NOTE | 2018-12-25 10:08 | RAD REPORT ---
EXAM DESCRIPTION: MRI - MRA Head Wo Cont - 12/25/2018 8:39 am CLINICAL HISTORY: TIA COMPARISON: None. TECHNIQUE: Magnetic resonance angiogram was performed. 3D MIPS reconstruction performed FINDINGS: The anterior cerebral, middle cerebral, posterior cerebral, distal internal carotid and ba silar arteries do not demonstrate a significant stenosis. A1 segment of the left anterior cerebral ar [place]asta is hypoplastic which is a normal variant An aneurysm is not displayed. IMPRESSION: Unremarkable MRA brain.
--- NOTE | 2018-12-25 10:11 | RAD REPORT ---
EXAM DESCRIPTION: MRI - MRA Neck W/Wo Cont - 12/25/2018 8:39 am CLINICAL HISTORY: TIA COMPARISON: None. TECHNIQUE: Magnetic resonance angiogram of the neck was performed. 19 cc MultiHance was administered intravenously. 3D MIPS reconstruction performed FINDINGS: The common carotid, internal carotid and external carotid arteries do not demonstrate a si gnificant stenosis. An aneurysm is not seen. The left vertebral artery is little bit more dominant than the right. No abnormality is seen. IMPRESSION: Unremarkable MRA neck NASCET criteria used. Mild 0-49% stenosis Moderate 50-69% stenosis Severe 70-99% stenosis
[2018-12-25] MEDS ORDERED: METHYLPREDNISOLONE 125 MG INJ IV ONE (12:22)
--- NOTE | 2018-12-25 16:03 | ECHO ---
HEIGHT: 5 ft 4 in WEIGHT: 190 lb 0 oz DATE OF STUDY: 12/25/[address]: Joe Gr DO 2-DIMENSIONAL: YES M.MODE: YES DOPPLER: YES COLOR FLOW: YES TDS: PORTABLE: DEFINITY: BUBBLE STUDY: DIAGNOSIS: MIGRAINE CARDIAC HISTORY: CATHERIZATION: NO SURGERY: NO PROSTHETIC VALVE: NO PACEMAKER: NO MEASUREMENTS (cm) DIASTOLIC (NORMALS) SYSTOLIC (NORMALS) IVSd 1.0 (0.6-1.2) LA Diam 3.9 (1.9-4.0) LVEF 69% LVIDd 4.6 (3.5-5.7) LVIDs 2.8 (2.0-3.5) %FS 38% LVPWd 0.8 (0.6-1.2) Ao Diam 2.2 (2.0-3.7) 2 DIMENSIONAL ASSESSMENT: RIGHT ATRIUM: NORMAL LEFT ATRIUM: NORMAL RIGHT VENTRICLE: NORMAL LEFT VENTRICLE: NORMAL TRICUSPID VALVE: NORMAL MITRAL VALVE: NORMAL PULMONIC VALVE: NORMAL AORTIC VALVE: NORMAL PERICARDIAL EFFUSION: NONE AORTIC ROOT: NORMAL LEFT VENTRICULAR WALL MOTION: NORMAL DOPPLER/COLOR FLOW: MILD MITRAL REGURGITATION. COMMENTS: NORMAL TWO DIMENSIONAL ECHOCARDIOGRAM. MILD MITRAL REGURGITATION. TECHNOLOGIST: RODERICK ZACARIAS
--- NOTE | 2018-12-25 17:36 | P.DS ---
Admission Date: 12/23/18 Discharge Date: 12/25/18 Primary Care Provider: Jaswant Bates NP Disposition: ROUTINE DISCHARGE Discharge Condition: GOOD Reason for Admission: Headache Consultations: Neurology-Dr. Albright Procedures: CT head: FINDINGS: Ventricular system appears normal. No abnormal areas of increased or decreased attenuation are seen involving the brain parenchyma. No extra-axial fluid collections noted. No evidence for skull fracture. Symmetric aeration of mastoid air cells bilaterally. Mild mucosal thickening ethmoid sinuses bilaterally. IMPRESSION: No acute intracranial abnormality. No evidence for hemorrhage, mass lesion, or large acute infarction. MRI Brain: FINDINGS: No abnormal signal within the brain is noted. The ventricles are normal in caliber. Diffusion-weighted sequences do not demonstrate evidence of an acute infarction. No abnormal enhancement within the brain is seen. An extra-axial fluid collection is not noted. Fluid within the sinuses/mastoids is not seen. Moderate chronic ethmoid sinusitis is present Adenoids are mildly prominent IMPRESSION: No acute intracranial abnormality is seen Moderate chronic ethmoid sinusitis Mildly prominent adenoids MRA Brain: FINDINGS: The anterior cerebral, middle cerebral, posterior cerebral, distal internal carotid and basilar arteries do not demonstrate a significant stenosis. A1 segment of the left anterior cerebral artery is hypoplastic which is a normal variant An aneurysm is not displayed. IMPRESSION: Unremarkable MRA brain. MRA Neck: FINDINGS: The common carotid, internal carotid and external carotid arteries do not demonstrate a significant stenosis. An aneurysm is not seen. The left vertebral artery is little bit more dominant than the right. No abnormality is seen. IMPRESSION: Unremarkable MRA neck ECHO: EF 69% LEFT VENTRICULAR WALL MOTION: NORMAL DOPPLER/COLOR FLOW: MILD MITRAL REGURGITATION. COMMENTS: NORMAL TWO DIMENSIONAL ECHOCARDIOGRAM. MILD MITRAL REGURGITATION. Carotid doppler: FINDINGS: The velocity of the right internal carotid artery equals 67 cm/sec. The right ICA/CCA ratio 0.9 The velocity of the left internal carotid artery equals 69 cm/sec. The left ICA/ CCA ratio 0.9 Plaque is not visualized within the carotid arteries The vertebral arteries demonstrate antegrade flow IMPRESSION: Unremarkable exam Medical Problem list: Acute on chronic headache likely migraine complicated with moderate chronic ethmoid sinusitis Diabetes mellitus type 2 Elevated blood pressure without hypertension Depression Brief History of Present Illness: 43-year-old female presented to the emergency room with severe headache. This has been ongoing for several days. Headache started about a month ago. Patient with history of migraines. Patient reports some congestion and nonproductive cough. Patient came to the ER for further evaluation. CT head unremarkable. Lumbar puncture done which was unremarkable as well. Patient admitted for treatment. Hospital Course: Patient presents with acute on chronic headache likely migraine type complicated with chronic moderate ethmoid sinusitis. Patient was admitted for evaluation and treatment. This included MRI brain, MRA brain/neck, carotid Doppler, echocardiogram. All unremarkable except MRI showing chronic moderate ethmoid sinusitis. Patient was given Solu-Medrol x1. At discharge patient will continue with Augmentin 875 mg 1 pill twice daily for 10 days along with Flonase 1 spray per nostril twice daily. Recommend to follow up with ENT to further monitor and address. Case discussed at length with Neurology. Patient has had multiple CT scans of the head. She has had over 7 CT scans of the head over the past 5 years. All negative. Patient likely has chronic migraines. Education on chronic migraines will be provided. She is to keep a migraine diary. Patient may continue with Topamax 25 mg 1 pill twice daily and Neurontin 100 mg 1 pill twice daily as needed for pain. Patient may also take Imitrex 25 mg upon onset of migraine. Recommend to follow up with neurology within 1-2 weeks to further address. Patient may require new were injectable medication for her migraines. Patient with diabetes mellitus type 2. Patient will continue with metformin at 1000 mg 1 pill twice daily and glipizide 5 mg 1 pill twice daily. Patient with depression. Patient will continue with Prozac 40 mg daily. Patient with elevated blood pressure without hypertension. Recommend to monitor blood pressure daily. If blood pressure remains above 140/90 consistently patient may require medication. This can be further addressed by her PCP. Vital Signs/Physical Exam: Temp Pulse Resp BP Pulse Ox 97.7 F 84 20 152/75 H 99 12/25/18 16:00 12/25/18 16:00 12/25/18 16:00 12/25/18 16:00 12/25/18 16:00 General: Alert, In no apparent distress, Oriented x3, Cooperative HEENT: Atraumatic, Normocephalic, Mucous membr. moist/pink Neck: Supple Respiratory: Clear to auscultation bilaterally, Normal air movement Cardiovascular: Normal pulses, Regular rate/rhythm Gastrointestinal: Normal bowel sounds, Soft and benign, Non-distended, No tenderness, No masses, No rebound, No guarding Musculoskeletal: No erythema, No tenderness, No warmth Integumentary: No tenderness/swelling, No erythema, No warmth, No cyanosis Neurological: Normal speech, Normal strength at 5/5 x4 extr, Normal tone, Normal affect Laboratory Data at Discharge: WBC 7.3 K/uL (4.3-10.9) D 12/25/18 03:41 Hgb 11.4 g/dL (12.0-15.0) L 12/25/18 03:41 Hct 34.6 % (36.0-45.0) L 12/25/18 03:41 Plt Count 235 K/uL (152-406) 12/25/18 03:41 Sodium 143 mmol/L (136-145) 12/25/18 03:41 Potassium 3.9 mmol/L (3.5-5.1) 12/25/18 03:41 BUN 9 mg/dL (7-18) 12/25/18 03:41 Creatinine 0.48 mg/dL (0.55-1.3) L 12/25/18 03:41 Glucose 95 mg/dL (74-106) 12/25/18 03:41 Magnesium 1.9 mg/dL (1.8-2.4) 12/25/18 03:41 Total Bilirubin 0.1 mg/dL (0.2-1.0) L 12/24/18 05:57 AST 15 U/L (15-37) 12/24/18 05:57 ALT 22 U/L (12-78) 12/24/18 05:57 Alkaline Phosphatase 73 U/L (45-117) 12/24/18 05:57 Home Medications: Fluoxetine HCl [Prozac] 40 mg PO DAILY 05/04/18 Glipizide [Glucotrol] 5 mg PO BID 05/04/18 Metformin HCl 1,000 mg PO BID 05/04/18 Gabapentin [Neurontin*] 100 mg PO BID #60 cap 05/05/18 Topiramate [Topamax*] 25 mg PO BID #60 tab 05/05/18 Amox/Clavulanate [Augmentin 875-125 Tab*] 875 mg PO BID #20 tab 12/25/18 Fluticasone [Flonase 50MCG Nasal [place]*] 1 sprays FEMI BID #1 btl 12/25/18 Sumatriptan [Imitrex*] 50 mg PO PRN PRN #10 tab 12/25/18 traMADol HCL [Ultram*] 50 mg PO TID PRN #10 tab 12/25/18 New Medications: Amox/Clavulanate [Augmentin 875-125 Tab*] 875 mg PO BID #20 tab Fluticasone [Flonase 50MCG Nasal [place]*] 1 sprays FEMI BID #1 btl Sumatriptan [Imitrex*] 50 mg PO PRN PRN #10 tab PRN Reason: MIGRAINE HEADHACHE traMADol HCL [Ultram*] 50 mg PO TID PRN #10 tab PRN Reason: Pain Scale 2-4 (Mild) Patient Discharge Instructions: 1. Follow up with her PCP within 1 week. 2. Patient presents with acute on chronic headache likely migraine type complicated with chronic moderate ethmoid sinusitis. Patient was admitted for evaluation and treatment. This included MRI brain, MRA brain/neck, carotid Doppler, echocardiogram. All unremarkable except MRI showing chronic moderate ethmoid sinusitis. Patient was given Solu-Medrol x1. At discharge patient will continue with Augmentin 875 mg 1 pill twice daily for 10 days along with Flonase 1 spray per nostril twice daily. Recommend to follow up with ENT to further monitor and address. Case discussed at length with Neurology. Patient has had multiple CT scans of the head. She has had over 7 CT scans of the head over the past 5 years. All negative. Patient likely has chronic migraines. Education on chronic migraines will be provided. She is to keep a migraine diary. Patient may continue with Topamax 25 mg 1 pill twice daily and Neurontin 100 mg 1 pill twice daily as needed for pain. Patient may also take Imitrex 25 mg upon onset of migraine. Recommend to follow up with neurology within 1-2 weeks to further address. Patient may require new were injectable medication for her migraines. 3. Patient with diabetes mellitus type 2. Patient will continue with metformin at 1000 mg 1 pill twice daily and glipizide 5 mg 1 pill twice daily. 4. Patient with depression. Patient will continue with Prozac 40 mg daily. 5. Patient with elevated blood pressure without hypertension. Recommend to monitor blood pressure daily. If blood pressure remains above 140/90 consistently patient may require medication. This can be further addressed by her PCP. Diet: ADA Activity: Fall precautions Time spent managing pt's care (in minutes): 55
[2018-12-25] MEDS ORDERED: AMOX/K CLAV 875 MG TAB PO SCH (21:00)
[2018-12-25] MEDS ORDERED: FLUTICASONE 50MCG NASAL SPRAY NAS SCH (21:00)
[2018-12-25] MEDS ORDERED: predniSONE 20 MG TAB PO SCH (21:00)
== END 2018-12-25 19:40 | disposition home or self-care (01) | DRG 103 ==
LOC: ER 21:28 → ERHOLD 12-23 06:13 → OBSVTOIN 12-23 06:13 → 4TH 12-23 13:19
PROVIDERS: ADMIT Hospitalist; ATTEND Family Medicine
PROC: 009U3ZX Drainage of Spinal Canal, Percutaneous Approach, Diagnostic (ICD-10-PCS; principal; 2018-12-23)
DX: G43.001 Migraine without aura, not intractable, with status migrainosus (principal); J32.2 Chronic ethmoidal sinusitis; F32.9 Major depressive disorder, single episode, unspecified; Z79.84 Long term (current) use of oral hypoglycemic drugs; F17.210 Nicotine dependence, cigarettes, uncomplicated; E11.65 Type 2 diabetes mellitus with hyperglycemia; Z79.4 Long term (current) use of insulin; I10 Essential (primary) hypertension; E66.9 Obesity, unspecified; Z68.33 Body mass index [BMI] 33.0-33.9, adult
CPT/HCPCS: 36415; 62270; 70450; 70544; 70549; 70553; 80048; 80053; 81003; 82945; 82962; 83735; 84157; 84439; 84443; 84703; 85025; 86403; 87070; 87804; 89050; 93005; 93306; 93880; 96361; 96374; 96375; 99285; A9577; J2270; J2405; J2930; J3010; J7030

== ENCOUNTER 2019-04-02 05:00 | Emergency (ER) | payer BC ==
--- OUTSIDE RECORDS SUMMARY | 2019-04-02 05:03 | XMS REPORT ---
:1975 [facility] Address [address] [place] [address] Dr. Lebron [address] [place] [id number] Care Team Providers Name Role Phone SAÚL [...] (BEAKER) (test 330 mg/dL 70-110 TESTED AT [address] zxil=0330) [place] [address] SCREEN, [id number] 11:13:00 Test Item Value Reference Range Comments TEST URINE (BEAKER) (test gkef=972) Negative POCT-GLUCOSE [id number] 08:33:00 Test Item Value Reference Range Comments POC-GLUCOSE METER (BEAKER) 226 mg/dL 70-110 TESTED AT [address] (test etxl=1003) [place] [address] POCT-GLUCOSE [id number] 21:48:00 Test Item Value Reference Range Comments POC-GLUCOSE METER (BEAKER) 219 mg/dL 70-110 TESTED AT [address] (test dxsw=1273) [place] [address] POCT-GLUCOSE [id number] 17:48:00 Test Item Value Reference Range Comments POC-GLUCOSE METER (BEAKER) 225 mg/dL 70-110 TESTED AT [address] (test rxnb=9262) [place] [address] [id number] 16:39:00 Test Item Value Reference Range Comments RPR SCREEN (BEAKER) (test oscp=246) Nonreactive Nonreactive SEDIMENTATION [id number] 15:02:00 Test Item Value Reference Range Comments SEDIMENTATION RATE, ERYTHROCYTE (BEAKER) (test 25 mm/HR 0-20 pmjk=572) POCT-GLUCOSE [id number] 12:40:00 Test Item Value Reference Range Comments POC-GLUCOSE METER (BEAKER) 188 mg/dL 70-[address] [facility] [address] (test ntry=3897) [facility] [address] HEMOGLOBIN [id number] 11:42:00 Test Item Value Reference Range Comments HEMOGLOBIN A1C (BEAKER) (test aiys=264) 8.2 % 4.3-6.1 MR, BRAIN, WITHOUT [id number] 11:17:00Reason for exam:->Ischemic Stroke EvaluationFINAL REPORT MRI [...] infarct, hemorrhage, or hydrocephalus. Signed: Mark Mathur [facility] Verified Date/Time: 2016 11:17:54 Reading Location: [address] Neuro Reading Room MR, MRA, BRAIN, WITHOUT [id number] 11:16:00Reason for exam:->Ischemic Stroke EvaluationFINAL REPORT MRA head and neck without contrast INDICATION: Headache, left hemianesthesia, left sided weakness TECHNIQUE: 2-D and 3-D [id number] MRA images of the intra- and extracranial [...] branch occlusion or significant stenosis in the [place] vessels. There is no specific MRA evidence of saccular aneurysm. IMPRESSION: 1. No hemodynamically significant carotid stenosis by NASCET criteria. 2. No significant stenosis in the imaged cervical vertebral arteries. 3. No major branch occlusion, significant stenosis,or evident aneurysm in the [place] vessels. Signed: Mark Mathur [facility] Verified Date/Time: 09/10 11:16:49 Reading Location: [address] Neuro Reading Room MR, MRA, NECK, WITHOUT IV [id number] 11:16:00Reason for exam:->Ischemic Stroke EvaluationFINAL REPORT MRA head and neck without contrast INDICATION: Headache, left hemianesthesia, left sided weakness TECHNIQUE: 2-D and 3-D [id number] MRA images of the intra- and extracranial [...] branch occlusion or significant stenosis in the [place] vessels. There is no specific MRA evidence of saccular aneurysm. IMPRESSION: 1. No hemodynamically significant carotid stenosis by NASCET criteria. 2. No significant stenosis in the imaged cervical vertebral arteries. 3. No major branch occlusion, significant stenosis,or evident aneurysm in the [place] vessels. Signed: Mark Mathur [facility] Verified Date/Time: 09/10 11:16:49 Reading Location: [address] Neuro Reading Room TSH/ FREE T4 IF [id number] 09:44:00 Test Item Value Reference Range Comments THYROID STIMULATING HORMONE (BEAKER) (test 2.42 uIU/mL 0.35-4.94 qwfm=769) VITAMIN B12 AND [id number] 09:44:00 Test Item Value Reference Range Comments VITAMIN B12 (BEAKER) (test lpqj=490) 413 pg/mL 213-816 FOLATE (BEAKER) (test jiah=847) 14.8 ng/mL >=7.0 POCT-GLUCOSE [id number] 08:35:00 Test Item Value Reference Range Comments POC-GLUCOSE METER (BEAKER) 156 mg/dL 70-[address] [facility] [address] [facility] (test ppwt=9277) [facility] [address] [id number] 06:56:00 Test Item Value Reference Range Comments HOMOCYSTEINE (BEAKER) (test vpso=149) 4.1 umol/L 5.1-15.4 BASIC METABOLIC [id number] 06:32:00 Test Item Value Reference Range Comments SODIUM (BEAKER) (test 138 meq/L 136-145 naql=491) POTASSIUM (BEAKER) (test 4.0 meq/L 3.5-5.1 lsom=551) CHLORIDE (BEAKER) (test 109 meq/L 98-107 hsvv=270) CO2 (BEAKER) (test 21 meq/L 22-29 liui=763) BLOOD UREA NITROGEN 7 mg/dL 7-21 (BEAKER) (test fude=343) CREATININE (BEAKER) (test 0.53 mg/dL 0.57-1.25 fhhv=384) GLUCOSE RANDOM (BEAKER) 161 mg/dL 70-105 (test gycs=866) CALCIUM (BEAKER) (test 8.0 mg/dL 8.4-10.2 ftfu=890) EGFR (BEAKER) (test mL/min/1.73 sq m INSUFFICIENT CLINICAL DATA xcwz=5369) TO CALCULATE ESTIMATED GFR. FastingLIPID [id number] 06:31:00 Test Item Value Reference Range Comments TRIGLYCERIDES (BEAKER) (test tofb=371) 116 mg/dL CHOLESTEROL (BEAKER) (test drch=547) 99 mg/dL HDL CHOLESTEROL (BEAKER) (test ehix=741) 25 mg/dL LDL CHOLESTEROL CALCULATED (BEAKER) (test 51 mg/dL rhdd=325) Triglyceride Reference Range: Low Risk <150 Borderline 150- 199 High Risk 200-499 Very High Risk >=500Cholesterol Reference Range: Low Risk <200 Borderline 200-239 High Risk > 240HDL Cholesterol Reference Range: Low Risk >=60 High Risk <40LDL Cholesterol Reference Range: Optimal <100 Near Optimal 100-129 Borderline 130-159 High 160-189 Very High >=190 FastingC-REACTIVE [id number] 06:31:00 Test Item Value Reference Range Comments C-REACTIVE PROTEIN (BEAKER) (test iqoa=604) 1.82 mg/dL 0.00-0.50 FastingTROPONIN [id number] 06:29:00 Test Item Value Reference Range Comments TROPONIN I (BEAKER) (test ekqi=196) < ng/mL 0.00-0.03 Troponin I (TnI) levels [...] and persistent tachyarrhythmia.FastingCBC W/PLT COUNT & AUTO [id number] 06:02:00 Test Item Value Reference Range Comments WHITE BLOOD CELL COUNT (BEAKER) (test ztsq=332) 10.5 K/ L 3.5-10.5 RED BLOOD CELL COUNT (BEAKER) (test mshu=080) 4.13 M/ L 3.93-5.22 HEMOGLOBIN (BEAKER) (test tayo=289) 10.9 GM/DL 11.2-15.7 HEMATOCRIT (BEAKER) (test qrtg=141) 33.9 % 34.1-44.9 MEAN CORPUSCULAR VOLUME (BEAKER) (test ntpc=850) 82.1 fL 79.4-94.8 MEAN CORPUSCULAR HEMOGLOBIN (BEAKER) (test 26.4 pg 25.6-32.2 ufny=028) MEAN CORPUSCULAR HEMOGLOBIN CONC (BEAKER) (test 32.2 GM/DL 32.2-35.5 xzva=976) RED CELL DISTRIBUTION WIDTH (BEAKER) (test 13.6 % 11.7-14.4 ruir=040) PLATELET COUNT (BEAKER) (test dzge=735) 220 K/CU MM 150-450 MEAN PLATELET VOLUME (BEAKER) (test ephs=131) 11.5 fL 9.4-12.3 NUCLEATED RED BLOOD CELLS (BEAKER) (test 0 /100 WBC 0-0 gsul=265) NEUTROPHILS RELATIVE PERCENT (BEAKER) (test 56 % izef=620) LYMPHOCYTES RELATIVE PERCENT (BEAKER) (test 35 % sioy=826) MONOCYTES RELATIVE PERCENT (BEAKER) (test 6 % oizs=976) EOSINOPHILS RELATIVE PERCENT (BEAKER) (test 3 % illw=990) BASOPHILS RELATIVE PERCENT (BEAKER) (test 0 % ujqe=692) NEUTROPHILS ABSOLUTE COUNT (BEAKER) (test 5.87 K/ L 1.56-6.13 jmkk=027) LYMPHOCYTES ABSOLUTE COUNT (BEAKER) (test 3.71 K/ L 1.18-3.74 tmxy=001) MONOCYTES ABSOLUTE COUNT (BEAKER) (test 0.58 K/ L 0.24-0.36 gttq=231) EOSINOPHILS ABSOLUTE COUNT (BEAKER) (test 0.28 K/ L 0.04-0.36 locs=842) BASOPHILS ABSOLUTE COUNT (BEAKER) (test 0.04 K/ L 0.01-0.08 wezn=573) IMMATURE GRANULOCYTES-RELATIVE PERCENT (BEAKER) 0 % 0-1 (test visx=9675)
--- OUTSIDE RECORDS SUMMARY | 2019-04-02 05:03 | XMS REPORT | Clinical Summary ---
:1975 Author Organization [facility] Address [address] [place] [address] Care Team Providers Name Role Phone Unavailable [...] Not on file Results Not on fileafter 04/01/2018 Insurance Payer Benefit Plan / Group Subscriber ID Type Phone Address [employer] - [employer] C[employer] PPO OPEN [employer] xxxxxxxxxx PPO Advance Directives For more information, please contact:[address] [phone] Code Status Date Activated Date Inactivated Comments Full Code 09/10/2017 4:00 AM 09/11/2017 4:55 PM This code status was determined by: Patient
[2019-04-02] MEDS ORDERED: DIAZEPAM 5 MG TABLET ONE (06:28)
[2019-04-02] MEDS ORDERED: IBUPROFEN 200 MG TAB PO ONE (06:28)
[2019-04-02] MEDS ORDERED: IBUPROFEN 400 MG TAB ONE (06:28)
--- NOTE | 2019-04-02 07:11 | ER ---
Nurse's Notes [facility] Name: Carol Mclaughlin Age: 43 yrs Sex: Female : 1975 Arrival Date: 04/02/2019 Time: 05:03 Bed 3 Private MD: Diagnosis: Right arm pain ;acute radiculopathy Presentation: 04/02 05:08 Presenting complaint: Patient states: R arm pain x 2 weeks, limited ROM. Transition of tl2 care: patient was not received from another setting of care. Onset of symptoms was March 19, 2019. Risk Assessment: Do you want to hurt yourself or someone else? Patient reports no desire to harm self or others. Initial Sepsis Screen: Does the patient meet any 2 criteria? No. Patient's initial sepsis screen is negative. Does the patient have a suspected source of infection? No. Patient's initial sepsis screen is negative. Care prior to arrival: None. 05:08 Method Of Arrival: Ambulatory tl2 05:08 Acuity: GORGE 4 tl2 Triage Assessment: 05:10 General: Appears in no apparent distress. Behavior is calm, cooperative, appropriate tl2 for age. Pain: Complains of pain in right arm. Neuro: Level of Consciousness is awake, alert, obeys commands, Oriented to person, place, time, situation. Cardiovascular: Denies chest pain. Respiratory: Airway is patent Respiratory effort is even, unlabored, Respiratory pattern is regular, symmetrical. GI: No signs and/or symptoms were reported involving the gastrointestinal system. : No signs and/or symptoms were reported regarding the genitourinary system. Musculoskeletal: Circulation, motion, and sensation intact. Range of motion: limited in right shoulder and right elbow. Historical: - Allergies: 05:10 No Known Allergies; tl2 - Home Meds: 05:10 glipizide 5 mg Oral tab 1 tab 2 times per day [Active]; metformin 1,000 mg Oral tab 1 tl2 tab 2 times per day [Active]; insulin- patient is unsure what type [Active]; - PMHx: 05:10 Diabetes - NIDDM; Hypertension; tl2 - PSHx: 05:10 ; Cholecystectomy; tl2 - Immunization history:: Adult Immunizations up to date. - Social history:: Smoking status: Patient/guardian denies using tobacco. - Ebola Screening: : No symptoms or risks identified at this time. - Family history:: not pertinent. - Hospitalizations: : No recent hospitalization is reported. Screenin:12 Abuse screen: Denies threats or abuse. Nutritional screening: No deficits noted. tl2 Tuberculosis screening: No symptoms or risk factors identified. Fall Risk None identified. Assessment: 05:10 General: see triage assessment. tl2 06:53 Reassessment: Patient appears in no apparent distress at this time. Patient and/or tl2 family updated on plan of care and expected duration. Pain level reassessed. Patient is alert, oriented x 3, equal unlabored respirations, skin warm/dry/pink. Vital Signs: 05:10 BP 121 / 68; Pulse 85; Resp 18; Temp 98.4(A); Pulse Ox 98% on R/A; Weight 89.36 kg; tl2 Height 5 ft. 4 in. (162.56 cm); Pain 4/10; 06:40 BP 122 / 69; Pulse 82; Resp 16; Pulse Ox 99% on R/A; rr5 05:10 Body Mass Index 33.81 (89.36 kg, 162.56 cm) tl2 ED Course: 05:03 Patient arrived in ED. do 05:08 Roula Zaidi, MARTIN is Primary Nurse. tl2 05:09 Triage completed. tl2 05:10 Arm band placed on right wrist. tl2 05:12 Patient has correct armband on for positive identification. Bed in low position. Call tl2 light in reach. Side rails up X 1. Adult w/ patient. 05:48 Cuauhtemoc Urbano MD is Attending Physician. wa 06:34 X-ray completed. Patient tolerated procedure well. kw 06:48 Shoulder Right (2 View) XRAY In Process Unspecified. EDMS 07:07 Primary Nurse role handed off by Roula Zaidi RN sg 07:07 Mark Anand, MARTIN is Primary Nurse. sg 07:09 Loi Albright MD is Referral Physician. wa Administered Medications: 06:18 Drug: Motrin 600 mg Route: PO; rr5 07:07 Follow up: Response: No adverse reaction rr5 06:18 Drug: Valium 5 mg Route: PO; rr5 07:07 Follow up: Response: No adverse reaction rr5 Outcome: 07:10 Discharge ordered by . wa 07:28 Patient left the ED. ss Signatures: Dispatcher [employer] EDMS Mark Anand, RN RN Marti Brenner RN RN Peggy Draper Danielle do Knox, Taylor, RN RN tl2 Cuauhtemoc Urbano MD MD wa Roque, Raymond, RN RN rr5
--- NOTE | 2019-04-02 07:11 | EDPHYS ---
Physician Documentation [facility] Name: Carol Mclaughlin Age: 43 yrs Sex: Female : 1975 Arrival Date: 04/02/2019 Time: 05:03 Bed 3 Private MD: ED Physician Cuauhtemoc Urbano HPI: 04/02 07:19 This 43 yrs old Female presents to ER via Ambulatory with complaints of Arm wa Pain. 07:19 The patient or guardian complains of pain, that is acute. The complaints affect the wa right shoulder. Context: The problem was sustained at an unknown location, resulted from unknown cause. Onset: The symptoms/episode began/occurred 3 week(s) ago. Treatment prior to arrival includes: no previous treatment. Modifying factors: The symptoms are alleviated by nothing. the symptoms are aggravated by movement, lifting weight, bending arm. Associated signs and symptoms: The patient has no apparent associated signs or symptoms. Severity of symptoms: At their worst the symptoms were moderate, in the emergency department the symptoms are unchanged. The patient has not experienced similar symptoms in the past. The patient has not recently seen a physician. Historical: - Allergies: 05:10 No Known Allergies; tl2 - Home Meds: 05:10 glipizide 5 mg Oral tab 1 tab 2 times per day [Active]; metformin 1,000 mg Oral tab 1 tl2 tab 2 times per day [Active]; insulin- patient is unsure what type [Active]; - PMHx: 05:10 Diabetes - NIDDM; Hypertension; tl2 - PSHx: 05:10 ; Cholecystectomy; tl2 - Immunization history:: Adult Immunizations up to date. - Social history:: Smoking status: Patient/guardian denies using tobacco. - Ebola Screening: : No symptoms or risks identified at this time. - Family history:: not pertinent. - Hospitalizations: : No recent hospitalization is reported. ROS: 07:21 Constitutional: Negative for fever, chills, and weight loss, Eyes: Negative for injury, wa pain, redness, and discharge, ENT: Negative for injury, pain, and discharge, Neck: Negative for injury, pain, and swelling, Cardiovascular: Negative for chest pain, palpitations, and edema, Respiratory: Negative for shortness of breath, cough, wheezing, and pleuritic chest pain, Abdomen/GI: Negative for abdominal pain, nausea, vomiting, diarrhea, and constipation, Back: Negative for injury and pain, : Negative for injury, bleeding, discharge, and swelling, Skin: Negative for injury, rash, and discoloration, Neuro: Negative for headache, weakness, numbness, tingling, and seizure, Psych: Negative for depression, anxiety, suicide ideation, homicidal ideation, and hallucinations. 07:21 MS/extremity: Positive for pain, tenderness, of the right shoulder. 07:21 All other systems are negative. Exam: 07:21 Constitutional: This is a well developed, well nourished patient who is awake, alert, wa and in no acute distress. Head/Face: Normocephalic, atraumatic. Eyes: Pupils equal round and reactive to light, extra-ocular motions intact. Lids and lashes normal. Conjunctiva and sclera are non-icteric and not injected. Cornea within normal limits. Periorbital areas with no swelling, redness, or edema. ENT: Nares patent. No nasal discharge, no septal abnormalities noted. Tympanic membranes are normal and external auditory canals are clear. Oropharynx with no redness, swelling, or masses, exudates, or evidence of obstruction, uvula midline. Mucous membranes moist. Neck: Trachea midline, no thyromegaly or masses palpated, and no cervical lymphadenopathy. Supple, full range of motion without nuchal rigidity, or vertebral point tenderness. No Meningismus. Chest/axilla: Normal chest wall appearance and motion. Nontender with no deformity. No lesions are appreciated. Cardiovascular: Regular rate and rhythm with a normal S1 and S2. No gallops, murmurs, or rubs. Normal PMI, no JVD. No pulse deficits. Respiratory: Lungs have equal breath sounds bilaterally, clear to auscultation and percussion. No rales, rhonchi or wheezes noted. No increased work of breathing, no retractions or nasal flaring. Abdomen/GI: Soft, non-tender, with normal bowel sounds. No distension or tympany. No guarding or rebound. No evidence of tenderness throughout. Back: No spinal tenderness. No costovertebral tenderness. Full range of motion. Skin: Warm, dry with normal turgor. Normal color with no rashes, no lesions, and no evidence of cellulitis. Neuro: Awake and alert, GCS 15, oriented to person, place, time, and situation. Cranial nerves II-XII grossly intact. Motor strength 5/5 in all extremities. Sensory grossly intact. Cerebellar exam normal. Normal gait. Psych: Awake, alert, with orientation to person, place and time. Behavior, mood, and affect are within normal limits. 07:21 Musculoskeletal/extremity: Extremities: grossly normal except: tenderness, diffuse tender over trapezius and area of scapular. mild tender over c-spine. no crepitus or step-offs. non-tender Shoulder joint. Vital Signs: 05:10 BP 121 / 68; Pulse 85; Resp 18; Temp 98.4(A); Pulse Ox 98% on R/A; Weight 89.36 kg; tl2 Height 5 ft. 4 in. (162.56 cm); Pain 4/10; 06:40 BP 122 / 69; Pulse 82; Resp 16; Pulse Ox 99% on R/A; rr5 05:10 Body Mass Index 33.81 (89.36 kg, 162.56 cm) tl2 MDM: 05:48 Patient medically screened. wa 07:23 Differential diagnosis: contusion, tendonitis, suspect radiculopathy. will check x-ray wa r/o alternative dx. Data reviewed: vital signs, nurses notes. Test interpretation: by ED physician or midlevel provider: R shoulder x-ray: no acute process. Response to treatment: the patient's symptoms have markedly improved after treatment. 04/02 06:08 Order name: Shoulder Right (2 View) XRAY az Administered Medications: 06:18 Drug: Motrin 600 mg Route: PO; rr5 07:07 Follow up: Response: No adverse reaction rr5 06:18 Drug: Valium 5 mg Route: PO; rr5 07:07 Follow up: Response: No adverse reaction rr5 Disposition: 04/02/19 07:10 Discharged to Home. Impression: Right arm pain , acute radiculopathy. - Condition is Stable. - Discharge Instructions: Radicular Pain. - Prescriptions for Ibuprofen 600 mg Oral Tablet - take 1 tablet by ORAL route every 8 hours As needed take with food; 30 tablet. Valium 2 mg Oral Tablet - take 1 tablet by ORAL route At bedtime As needed; 4 tablet. - Medication Reconciliation Form, Thank You Letter, Antibiotic Education, Prescription Opioid Use form. - Follow up: Natalee, England, MD; When: 2 - 3 days; Reason: Recheck today's complaints. - Problem is new. - Symptoms have improved. - Notes: take medication as prescribed. follow up for MRI of your spine as your pain could be related to a pinch nerve Signatures: Dispatcher [employer] EDMS Marti Brenner RN RN ss Roula Zaidi RN RN tl2 Cuauhtemoc Urbano MD MD wa Roque, Raymond RN RN rr5 Corrections: (The following items were deleted from the chart) 07:28 07:10 04/02/2019 07:10 Discharged to Home. Impression: Right arm pain ; acute ss radiculopathy. Condition is Stable. Forms are Medication Reconciliation Form, Thank You Letter, Antibiotic Education, Prescription Opioid Use. Follow up: Loi Albright; When: 2 - 3 days; Reason: Recheck today's complaints. Problem is new. Symptoms have improved. wa
--- NOTE | 2019-04-02 08:49 | RAD REPORT ---
EXAM DESCRIPTION: RAD - Shoulder Right 2 View - 04/02/2019 6:47 am CLINICAL HISTORY: PAIN COMPARISON: No comparisons FINDINGS: No bone or joint abnormality is detected.
== END 2019-04-02 07:28 | disposition home or self-care (01) ==
LOC: ER 05:00
DX: M54.10 Radiculopathy, site unspecified (principal); I10 Essential (primary) hypertension; E11.9 Type 2 diabetes mellitus without complications; Z79.4 Long term (current) use of insulin
CPT/HCPCS: 99283

== ENCOUNTER 2019-04-17 19:12 | Inpatient (IN) | payer BC ==
--- OUTSIDE RECORDS SUMMARY | 2019-04-17 19:15 | XMS REPORT | Clinical Summary ---
:1975 Author Organization [facility] Address [address] [place] [address] Care Team Providers Name Role Phone Unavailable [...] Not on file Results Not on fileafter 04/16/2018 Insurance Payer Benefit Plan / Group Subscriber ID Type Phone Address [employer] - [place] PPO OPEN [employer] [place] xxxxxxxxxx PPO Advance Directives For more information, please contact:[address] [phone] Code Status Date Activated Date Inactivated Comments Full Code 09/10/2017 4:00 AM 09/11/2017 4:55 PM This code status was determined by: Patient
--- OUTSIDE RECORDS SUMMARY | 2019-04-17 19:16 | XMS REPORT ---
:1975 [facility] Address [address] [place] [address] Dr. Lebron [address] [place] [id number] Care Team Providers Name Role Phone SAÚL [...] (BEAKER) (test 330 mg/dL 70-110 TESTED AT [address] trpa=[id number]) [place] [address] SCREEN, [id number] 11:13:00 Test Item Value Reference Range Comments TEST URINE (BEAKER) (test ibgq=370) Negative POCT-GLUCOSE [id number] 08:33:00 Test Item Value Reference Range Comments POC-GLUCOSE METER (BEAKER) 226 mg/dL 70-110 TESTED AT [address] (test tmij=4237) [place] [address] POCT-GLUCOSE [id number] 21:48:00 Test Item Value Reference Range Comments POC-GLUCOSE METER (BEAKER) 219 mg/dL 70-110 TESTED AT [address] (test drgv=6370) [place] [address] POCT-GLUCOSE [id number] 17:48:00 Test Item Value Reference Range Comments POC-GLUCOSE METER (BEAKER) 225 mg/dL 70-110 TESTED AT [address] (test bemc=3148) [place] [address] [id number] 16:39:00 Test Item Value Reference Range Comments RPR SCREEN (BEAKER) (test tlkp=932) Nonreactive Nonreactive SEDIMENTATION [id number] 15:02:00 Test Item Value Reference Range Comments SEDIMENTATION RATE, ERYTHROCYTE (BEAKER) (test 25 mm/HR 0-20 wzal=895) POCT-GLUCOSE [id number] 12:40:00 Test Item Value Reference Range Comments POC-GLUCOSE METER (BEAKER) 188 mg/dL 70-110 TESTED AT [facility] [address] (test bkrx=9588) [facility] [address] HEMOGLOBIN [id number] 11:42:00 Test Item Value Reference Range Comments HEMOGLOBIN A1C (BEAKER) (test dubz=955) 8.2 % 4.3-6.1 MR, BRAIN, WITHOUT [id number] 11:17:00Reason for exam:->Ischemic Stroke EvaluationFINAL REPORT MRI [...] infarct, hemorrhage, or hydrocephalus. Signed: Mark Mathur [facility] Verified Date/Time: 2016 11:17:54 Reading Location: [address] Neuro Reading Room MR, MRA, BRAIN, WITHOUT [id number] 11:16:00Reason for exam:->Ischemic Stroke EvaluationFINAL REPORT MRA head and neck without contrast INDICATION: Headache, left hemianesthesia, left sided weakness TECHNIQUE: 2-D and 3-D [id number] MRA images of the intra- and extracranial [...] occlusion or significant stenosis in the [place] vessels. There is no specific MRA evidence of saccular aneurysm. IMPRESSION: 1. No hemodynamically significant carotid stenosis by NASCET criteria. 2. No significant stenosis in the imaged cervical vertebral arteries. 3. No major branch occlusion, significant stenosis,or evident aneurysm in the [place] vessels. Signed: Mark Mathur [facility] Verified Date/Time: 09/10 11:16:49 Reading Location: [address] Neuro Reading Room MR, MRA, NECK, WITHOUT IV [id number] 11:16:00Reason for exam:->Ischemic Stroke EvaluationFINAL REPORT MRA head and neck without contrast INDICATION: Headache, left hemianesthesia, left sided weakness TECHNIQUE: 2-D and 3-D [id number] MRA images of the intra- and extracranial [...] occlusion or significant stenosis in the [place] vessels. There is no specific MRA evidence of saccular aneurysm. IMPRESSION: 1. No hemodynamically significant carotid stenosis by NASCET criteria. 2. No significant stenosis in the imaged cervical vertebral arteries. 3. No major branch occlusion, significant stenosis,or evident aneurysm in the [place] vessels. Signed: Mark Mathur [facility] Verified Date/Time: 09/10 11:16:49 Reading Location: [address] Neuro Reading Room TSH/ FREE T4 IF [id number] 09:44:00 Test Item Value Reference Range Comments THYROID STIMULATING HORMONE (BEAKER) (test 2.42 uIU/mL 0.35-4.94 tvzv=857) VITAMIN B12 AND [id number] 09:44:00 Test Item Value Reference Range Comments VITAMIN B12 (BEAKER) (test pslz=520) 413 pg/mL 213-816 FOLATE (BEAKER) (test tuni=410) 14.8 ng/mL >=7.0 POCT-GLUCOSE [id number] 08:35:00 Test Item Value Reference Range Comments POC-GLUCOSE METER (BEAKER) 156 mg/dL 70-110 TESTED AT [facility] [address] [facility] (test tjvd=5603) [facility] [address] [id number] 06:56:00 Test Item Value Reference Range Comments HOMOCYSTEINE (BEAKER) (test etck=102) 4.1 umol/L 5.1-15.4 BASIC METABOLIC [id number] 06:32:00 Test Item Value Reference Range Comments SODIUM (BEAKER) (test 138 meq/L 136-145 hlmi=188) POTASSIUM (BEAKER) (test 4.0 meq/L 3.5-5.1 atsz=502) CHLORIDE (BEAKER) (test 109 meq/L 98-107 mvfn=465) CO2 (BEAKER) (test 21 meq/L 22-29 csnf=809) BLOOD UREA NITROGEN 7 mg/dL 7-21 (BEAKER) (test xplw=413) CREATININE (BEAKER) (test 0.53 mg/dL 0.57-1.25 ifvt=198) GLUCOSE RANDOM (BEAKER) 161 mg/dL 70-105 (test mygc=105) CALCIUM (BEAKER) (test 8.0 mg/dL 8.4-10.2 wwaa=352) EGFR (BEAKER) (test mL/min/1.73 sq m INSUFFICIENT CLINICAL DATA togf=5890) TO CALCULATE ESTIMATED GFR. FastingLIPID [id number] 06:31:00 Test Item Value Reference Range Comments TRIGLYCERIDES (BEAKER) (test bfeb=801) 116 mg/dL CHOLESTEROL (BEAKER) (test klik=771) 99 mg/dL HDL CHOLESTEROL (BEAKER) (test plvo=303) 25 mg/dL LDL CHOLESTEROL CALCULATED (BEAKER) (test 51 mg/dL kcln=338) Triglyceride Reference Range: Low Risk <150 Borderline 150- 199 High Risk 200-499 Very High Risk >=500Cholesterol Reference Range: Low Risk <200 Borderline 200-239 High Risk > 240HDL Cholesterol Reference Range: Low Risk >=60 High Risk <40LDL Cholesterol Reference Range: Optimal <100 Near Optimal 100-129 Borderline 130-159 High 160-189 Very High >=190 FastingC-REACTIVE [id number] 06:31:00 Test Item Value Reference Range Comments C-REACTIVE PROTEIN (BEAKER) (test sbjm=822) 1.82 mg/dL 0.00-0.50 FastingTROPONIN [id number] 06:29:00 Test Item Value Reference Range Comments TROPONIN I (BEAKER) (test ytyk=505) < ng/mL 0.00-0.03 Troponin I (TnI) levels [...] and persistent tachyarrhythmia.FastingCBC W/PLT COUNT & AUTO [id number] 06:02:00 Test Item Value Reference Range Comments WHITE BLOOD CELL COUNT (BEAKER) (test ymfa=775) 10.5 K/ L 3.5-10.5 RED BLOOD CELL COUNT (BEAKER) (test oztu=985) 4.13 M/ L 3.93-5.22 HEMOGLOBIN (BEAKER) (test vgjr=938) 10.9 GM/DL 11.2-15.7 HEMATOCRIT (BEAKER) (test cnum=764) 33.9 % 34.1-44.9 MEAN CORPUSCULAR VOLUME (BEAKER) (test ckiu=144) 82.1 fL 79.4-94.8 MEAN CORPUSCULAR HEMOGLOBIN (BEAKER) (test 26.4 pg 25.6-32.2 inzb=968) MEAN CORPUSCULAR HEMOGLOBIN CONC (BEAKER) (test 32.2 GM/DL 32.2-35.5 fhba=910) RED CELL DISTRIBUTION WIDTH (BEAKER) (test 13.6 % 11.7-14.4 voys=261) PLATELET COUNT (BEAKER) (test yoyy=345) 220 K/CU MM 150-450 MEAN PLATELET VOLUME (BEAKER) (test ovuv=897) 11.5 fL 9.4-12.3 NUCLEATED RED BLOOD CELLS (BEAKER) (test 0 /100 WBC 0-0 mwwn=458) NEUTROPHILS RELATIVE PERCENT (BEAKER) (test 56 % hyoz=010) LYMPHOCYTES RELATIVE PERCENT (BEAKER) (test 35 % xnnn=704) MONOCYTES RELATIVE PERCENT (BEAKER) (test 6 % xenm=041) EOSINOPHILS RELATIVE PERCENT (BEAKER) (test 3 % bzww=871) BASOPHILS RELATIVE PERCENT (BEAKER) (test 0 % vhjf=827) NEUTROPHILS ABSOLUTE COUNT (BEAKER) (test 5.87 K/ L 1.56-6.13 scmd=354) LYMPHOCYTES ABSOLUTE COUNT (BEAKER) (test 3.71 K/ L 1.18-3.74 oant=599) MONOCYTES ABSOLUTE COUNT (BEAKER) (test 0.58 K/ L 0.24-0.36 myuw=242) EOSINOPHILS ABSOLUTE COUNT (BEAKER) (test 0.28 K/ L 0.04-0.36 seoc=249) BASOPHILS ABSOLUTE COUNT (BEAKER) (test 0.04 K/ L 0.01-0.08 ohjf=533) IMMATURE GRANULOCYTES-RELATIVE PERCENT (BEAKER) 0 % 0-1 (test azbg=4735)
[2019-04-17 19:59] LABS: Absolute Lymphocytes (CBC) 3.1 K/uL (0.7-4.9); Basophils % 0.7 % (0-1.3); Eosinophils % 1.4 % (0-4.4); Hematocrit 40.7 % (36.0-45.0); MPV 8.5 fL (7.6-11.3); Monocytes % 3.7 % (3.3-12.3); RBC Red Blood Cell Count 5.13 M/uL (3.86-4.86)
[2019-04-17 20:18] LABS: ALT/SGPT 37 U/L (12-78); AST/SGOT 22 U/L (15-37); Albumin 3.4 g/dL (3.4-5.0); Alkaline Phosphatase 96 U/L (45-117); BUN Blood Urea Nitrogen 10 mg/dL (7-18); Bicarbonate 23 mmol/L (21-32); Bilirubin Direct < 0.1 mg/dL (0-0.2); Bilirubin Total 0.3 mg/dL (0.2-1.0); Glucose Level 241 mg/dL (74-106); Lipase 94 U/L (73-393); Potassium 3.5 mmol/L (3.5-5.1); Protein, Total 7.6 g/dL (6.4-8.2); Sodium Level 139 mmol/L (136-145)
[2019-04-17] MEDS ORDERED: METOCLOPRAMIDE 10 MG/2mL INJ ONE (20:32)
[2019-04-17] MEDS ORDERED: DIPHENHYDRAMINE 50 MG/ML VIAL ONE (20:33)
[2019-04-17] MEDS ORDERED: NA CHLORIDE 0.9% 1,000 ML ONE ×2 (20:33→23:16)
[2019-04-17] MEDS ORDERED: METRONIDAZOLE 500mg IVPB 500 MG/100 ML BAG IV ONE (22:35)
[2019-04-17] MEDS ORDERED: CIPROFLOXACIN 400mg IV 400 MG/200 ML BAG IV ONE (22:35)
--- NOTE | 2019-04-17 22:59 | EDPHYS ---
Physician Documentation [facility] Name: Carol Mclaughlin Age: 43 yrs Sex: Female : 1975 Arrival Date: 04/17/2019 Time: 19:17 Bed 7 Private MD: ED Physician Miguel Angel Aviles HPI: 04/17 19:43 This 43 yrs old Female presents to ER via Ambulatory with complaints of Rectal jr8 Bleeding, Headache, R half body numbness. 19:43 The patient presents to the emergency department with bleeding from the rectum/anus, jr8 that is moderate. Onset: The symptoms/episode began/occurred acutely, today. Context: the patient has no known special context relating to the rectal area complaint(s). Modifying factors: The symptoms are alleviated by nothing, The symptoms are aggravated by nothing. Associate signs and symptoms: Pertinent positives: headache, Pertinent negatives: abdominal pain, constipation, dysuria, fever, vomiting. The patient has not experienced similar symptoms in the past. The patient has not recently seen a physician. reports 2 episodes of rectal bleeding today with generalized abdominal cramping and headache. Reports numbness to right side yesterday that has resolved.. 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 - Social history:: Smoking status: Patient/guardian denies using tobacco. - Ebola Screening: : No symptoms or risks identified at this time. ROS: 19:43 Constitutional: Negative for fever, chills, and weight loss, Eyes: Negative for injury, jr8 pain, redness, and discharge, ENT: Negative for injury, pain, and discharge, Neck: Negative for injury, pain, and swelling, Cardiovascular: Negative for chest pain, palpitations, and edema, Respiratory: Negative for shortness of breath, cough, wheezing, and pleuritic chest pain, Back: Negative for injury and pain, MS/Extremity: Negative for injury and deformity, Skin: Negative for injury, rash, and discoloration. 19:43 Abdomen/GI: Positive for diarrhea, abdominal cramps, rectal bleeding, Negative for abdominal pain, nausea and vomiting, constipation, abdominal distension, anorexia, black/tarry stool, rectal pain, bowel incontinence. 19:43 Neuro: Positive for headache, Negative for altered mental status, dizziness, gait disturbance, syncope, visual changes, weakness. Exam: 19:43 Constitutional: This is a well developed, well nourished patient who is awake, alert, jr8 and in no acute distress. Head/Face: Normocephalic, atraumatic. Eyes: Pupils equal round and reactive to light, extra-ocular motions intact. Lids and lashes normal. Conjunctiva and sclera are non-icteric and not injected. Cornea within normal limits. Periorbital areas with no swelling, redness, or edema. ENT: Nares patent. No nasal discharge, no septal abnormalities noted. Tympanic membranes are normal and external auditory canals are clear. Oropharynx with no redness, swelling, or masses, exudates, or evidence of obstruction, uvula midline. Mucous membranes moist. Neck: Trachea midline, no thyromegaly or masses palpated, and no cervical lymphadenopathy. Supple, full range of motion without nuchal rigidity, or vertebral point tenderness. No Meningismus. Chest/axilla: Normal chest wall appearance and motion. Nontender with no deformity. No lesions are appreciated. Cardiovascular: Regular rate and rhythm with a normal S1 and S2. No gallops, murmurs, or rubs. Normal PMI, no JVD. No pulse deficits. Respiratory: Lungs have equal breath sounds bilaterally, clear to auscultation and percussion. No rales, rhonchi or wheezes noted. No increased work of breathing, no retractions or nasal flaring. Back: No spinal tenderness. No costovertebral tenderness. Full range of motion. Skin: Warm, dry with normal turgor. Normal color with no rashes, no lesions, and no evidence of cellulitis. MS/ Extremity: Pulses equal, no cyanosis. Neurovascular intact. Full, normal range of motion. Neuro: Awake and alert, GCS 15, oriented to person, place, time, and situation. Cranial nerves II-XII grossly intact. Motor strength 5/5 in all extremities. Sensory grossly intact. Cerebellar exam normal. Normal gait. 19:43 Abdomen/GI: Inspection: abdomen appears normal, Bowel sounds: normal, Palpation: abdomen is soft and non-tender, in all quadrants, no appreciated organomegaly. 19:49 Cardiovascular: Rate: tachycardic, actual rate is 115 bpm, Rhythm: regular, Pulses: jr8 Pulses are 2+ in right radial artery and left radial artery. Heart sounds: normal, normal S1and S2, Edema: is not appreciated, JVD: is not appreciated. 20:06 Abdomen/GI: Rectal exam: rectal tone normal, Stool: brown, guaiac negative, jr8 hemorrhoid(s), external, without bleeding, without inflammation, without thrombosis, without pain, mass, is not appreciated, swelling, is not appreciated, tenderness, is not appreciated, fecal impaction, is not appreciated, the exam is chaperoned by the nurse. Vital Signs: 19:22 BP 155 / 88 RA Sitting (auto/lg); Pulse 116; Resp 16; Temp 98; Pulse Ox 97% on R/A; ak1 Weight 86.18 kg (R); Height 5 ft. 4 in. (162.56 cm) (R); Pain 10/10; 19:27 BP 153 / 86 RA Standing (auto/lg); Pulse 120; Resp 16; Temp 98; Pulse Ox 98% on R/A; ak1 20:22 BP 148 / 88; Pulse 104; Resp 18; Pulse Ox 99% on R/A; tl2 21:32 BP 150 / 85; Pulse 106; Resp 18; Pulse Ox 96% on R/A; tl2 22:27 BP 148 / 80; Pulse 114; Resp 16 S; Temp 99.3; Pulse Ox 97% on R/A; Pain 10/10; bb 23:07 BP 136 / 87; Pulse 108; Resp 18; Temp 98.8(O); Pulse Ox 99% on R/A; tl2 19:22 Body Mass Index 32.61 (86.18 kg, 162.56 cm) ak1 MDM: 19:35 Patient medically screened. jr8 22:56 Data reviewed: vital signs, nurses notes, lab test result(s), radiologic studies, CT jr8 scan, and as a result, I will admit patient. Data interpreted: Pulse oximetry: on room air is 97 %. Interpretation: normal. Counseling: I had a detailed discussion with the patient and/or guardian regarding: the historical points, exam findings, and any diagnostic results supporting the discharge/admit diagnosis, lab results, radiology results, the need for further work-up and treatment in the hospital. Physician consultation: Rosey Davis MD was called at 22:57, was contacted at 22:57, regarding admission, to the medical/surgical unit. consult, patient's condition, and will see patient in ED. 04/17 19:35 Order name: Basic Metabolic Panel; Complete Time: 20:41 04/17 19:35 Order name: CBC with Diff; Complete Time: 20:07 [facility] 04/17 19:35 Order name: Creatinine for Radiology; Complete Time: 20:41 [facility] 04/17 19:35 Order name: Hepatic Function; Complete Time: 20:41 [facility] 04/17 19:35 Order name: Lipase; Complete Time: 20:41 [facility] 04/17 23:33 Order name: Clostridium difficile DNA [facility] 04/17 20:08 Order name: CT Abd/Pelvis - IV Contrast Only [facility] 04/17 19:35 Order name: IV Saline Lock; Complete Time: 20:05 [facility] 04/17 19:35 Order name: Labs collected and sent; Complete Time: 20:05 Administered Medications: 20:23 Drug: NS 0.9% 1000 ml Route: IV; Rate: 1000 ml; Site: right wrist; tl2 22:34 Follow up: IV Status: Completed infusion; IV Intake: 1000ml bb 20:23 Drug: Reglan 10 mg Route: IVP; Site: right wrist; tl2 21:00 Follow up: Response: No adverse reaction; No change in condition tl2 20:23 Drug: Benadryl 25 mg Route: IVP; Site: right wrist; tl2 21:00 Follow up: Response: No adverse reaction; No change in condition tl2 22:25 Drug: Flagyl 500 mg Volume: 100 ml; Route: IVPB; Rate: 200 ml/hr; Infused Over: 30 bb mins; Site: right forearm; 22:58 Follow up: IV Status: Completed infusion; IV Intake: 100ml tl2 22:58 Drug: Cipro 400 mg Volume: 200 ml; Route: IVPB; Infused Over: 60 mins; Site: right tl2 wrist; 04/18 00:00 Follow up: IV Status: Completed infusion; IV Intake: 200ml tl2 04/17 23:07 Drug: Decadron - Dexamethasone 10 mg Route: IVP; Site: right wrist; tl2 04/18 00:00 Follow up: Response: No adverse reaction; Pain is decreased tl2 04/17 23:07 Drug: NS 0.9% 1000 ml Route: IV; Rate: 100 ml/hr; Site: right wrist; tl2 04/18 00:19 Follow up: IV Status: Infusion continued upon admission tl2 04/17 23:08 Drug: Demerol 25 mg Route: IVP; Site: right wrist; tl2 04/18 00:00 Follow up: Response: No adverse reaction; Pain is decreased tl2 Disposition: 02:53 Co-signature as Attending Physician, Miguel Angel Aviles MD. rn Disposition: 04/17/19 22:58 Hospitalization ordered by Rosey Davis for Inpatient Admission. Preliminary diagnosis are Colitis, Elevated white blood cell count. - Bed requested for Telemetry/MedSurg (Inpatient). - Status is Inpatient Admission. bb - Condition is Stable. - Problem is new. - Symptoms have improved. UTI on Admission? No Signatures: Dispatcher [employer] EDMS Coby Venegas RN RN Lisandra Fonseca RN RN Miguel Angel Hobbs MD MD rn Roszak, Josh, PA PA jr8 Chloé Jacobs RN RN ak1 Roula Zaidi RN RN tl2 Corrections: (The following items were deleted from the chart) 04/17 23:32 22:58 Hospitalization Ordered by Rosey Davis MD for Inpatient Admission. Preliminary diagnosis is Colitis; Elevated white blood cell count. Bed requested for Telemetry/MedSurg (Inpatient). Status is Inpatient Admission. Condition is Stable. Problem is new. Symptoms have improved. UTI on Admission? No. jr8 04/18 00:47 04/17 23:32 04/17/2019 22:58 Hospitalization Ordered by Rosey Davis MD for Inpatient bb Admission. Preliminary diagnosis is Colitis; Elevated white blood cell count. Bed requested for Telemetry/MedSurg (Inpatient). Status is Inpatient Admission. Condition is Stable. Problem is new. Symptoms have improved. UTI on Admission? No. mw
--- NOTE | 2019-04-17 22:59 | ER ---
Nurse's Notes [facility] Name: Carol Mclaughlin Age: 43 yrs Sex: Female : 1975 Arrival Date: 04/17/2019 Time: 19:17 Bed 7 Private MD: Diagnosis: Colitis;Elevated white blood cell count Presentation: 04/17 19:27 Presenting complaint: Patient states: abd pain with diarrhea since 0900 today, pt c/o ak1 bright red blood in her BM. pt c/o dizziness, nausea. pt c/o headache, stated she "always has a headache" pt stated FSBG at home at 0900 140. Transition of care: patient was not received from another setting of care. Onset of symptoms was April 17, 2019. Risk Assessment: Do you want to hurt yourself or someone else? Patient reports no desire to harm self or others. Initial Sepsis Screen: Does the patient meet any 2 criteria? No. Patient's initial sepsis screen is negative. Does the patient have a suspected source of infection? No. Patient's initial sepsis screen is negative. Care prior to arrival: None. 19:27 Method Of Arrival: Ambulatory ak1 19:27 Acuity: GORGE 3 ak1 Triage Assessment: 19:45 Headache History: The patient has had previous headaches and this one is more severe tl2 than previous episodes. 22:29 Pain: Pain currently is 10 out of 10 on a pain scale. 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 - Social history:: Smoking status: Patient/guardian denies using tobacco. - Ebola Screening: : No symptoms or risks identified at this time. Screenin:42 Abuse screen: Denies threats or abuse. Nutritional screening: No deficits noted. tl2 Tuberculosis screening: No symptoms or risk factors identified. Fall Risk Gait- Weak (10 pts.). Assessment: 19:42 General: Appears in no apparent distress. uncomfortable, Behavior is cooperative, tl2 appropriate for age, anxious. Pain: Complains of pain in headache, abdomen. Neuro: Level of Consciousness is awake, alert, obeys commands, Oriented to person, place, time, situation, Speech is normal, Facial symmetry appears normal, Reports headache numbness right side of body that started yesterday, has improved but is still present. Cardiovascular: Denies chest pain. Respiratory: Airway is patent Respiratory effort is even, unlabored, Respiratory pattern is regular, symmetrical. GI: Reports cramping, rectal bleeding, Patient currently denies vomiting. : No signs and/or symptoms were reported regarding the genitourinary system. Derm: Skin is pink, warm \\T\\ dry. 21:34 Reassessment: Patient appears in no apparent distress at this time. Patient and/or tl2 family updated on plan of care and expected duration. Pain level reassessed. Patient is alert, oriented x 3, equal unlabored respirations, skin warm/dry/pink. pt was ambulatory to restroom without assistance Patient states feeling better. 22:05 Reassessment: pt c/o headache pain returning, will notify PA. tl2 22:26 Reassessment: Natali THOMAS at bedside for discussion of findings and recommendations pt bb to be admitted for further evaluation and treatment pt verbalized understanding of and agrees to plan of care. IV site intact, patent with fluids infusing, family at bedside. 23:07 Reassessment: Patient appears in no apparent distress at this time. Patient and/or tl2 family updated on plan of care and expected duration. Pain level reassessed. Patient is alert, oriented x 3, equal unlabored respirations, skin warm/dry/pink. awaiting admission orders. 04/18 00:17 Reassessment: Patient appears in no apparent distress at this time. Patient and/or tl2 family updated on plan of care and expected duration. Pain level reassessed. Patient is alert, oriented x 3, equal unlabored respirations, skin warm/dry/pink. Patient states feeling better. Vital Signs: 04/17 19:22 BP 155 / 88 RA Sitting (auto/lg); Pulse 116; Resp 16; Temp 98; Pulse Ox 97% on R/A; ak1 Weight 86.18 kg (R); Height 5 ft. 4 in. (162.56 cm) (R); Pain 10/10; 19:27 BP 153 / 86 RA Standing (auto/lg); Pulse 120; Resp 16; Temp 98; Pulse Ox 98% on R/A; ak1 20:22 BP 148 / 88; Pulse 104; Resp 18; Pulse Ox 99% on R/A; tl2 21:32 BP 150 / 85; Pulse 106; Resp 18; Pulse Ox 96% on R/A; tl2 22:27 BP 148 / 80; Pulse 114; Resp 16 S; Temp 99.3; Pulse Ox 97% on R/A; Pain 10/10; bb 23:07 BP 136 / 87; Pulse 108; Resp 18; Temp 98.8(O); Pulse Ox 99% on R/A; tl2 19:22 Body Mass Index 32.61 (86.18 kg, 162.56 cm) ak1 ED Course: 19:17 Patient arrived in ED. do 19:28 Triage completed. ak1 19:29 Arm band placed on Patient placed in an exam room, on a stretcher, Patient notified of ak1 wait time. 19:35 Shmuel Boswell PA is PHCP. jr8 19:35 Miguel Angel Aviles MD is Attending Physician. jr8 19:38 Roula Zaidi, MARTIN is Primary Nurse. tl2 19:42 Patient has correct armband on for positive identification. Placed in gown. Bed in low tl2 position. Call light in reach. Side rails up X2. Adult w/ patient. 19:51 Inserted saline lock: 22 gauge in right wrist, using aseptic technique. Blood collected.tl2 20:11 Radiology exam delayed due to lab results not completed at this time. (BUN/Creatinine). sj 20:12 Radiology exam delayed due to test not completed at this time. sj 20:24 Radiology exam delayed due to test not completed at this time. sj 21:18 CT Abd/Pelvis - IV Contrast Only In Process Unspecified. EDMS 22:29 No provider procedures requiring assistance completed. bb 22:57 Rosey Davis MD is Hospitalizing Provider. jr8 04/18 00:17 Patient admitted, IV remains in place. tl2 Administered Medications: 04/17 20:23 Drug: NS 0.9% 1000 ml Route: IV; Rate: 1000 ml; Site: right wrist; tl2 22:34 Follow up: IV Status: Completed infusion; IV Intake: 1000ml bb 20:23 Drug: Reglan 10 mg Route: IVP; Site: right wrist; tl2 21:00 Follow up: Response: No adverse reaction; No change in condition tl2 20:23 Drug: Benadryl 25 mg Route: IVP; Site: right wrist; tl2 21:00 Follow up: Response: No adverse reaction; No change in condition tl2 22:25 Drug: Flagyl 500 mg Volume: 100 ml; Route: IVPB; Rate: 200 ml/hr; Infused Over: 30 bb mins; Site: right forearm; 22:58 Follow up: IV Status: Completed infusion; IV Intake: 100ml tl2 22:58 Drug: Cipro 400 mg Volume: 200 ml; Route: IVPB; Infused Over: 60 mins; Site: right tl2 wrist; 04/18 00:00 Follow up: IV Status: Completed infusion; IV Intake: 200ml tl2 04/17 23:07 Drug: Decadron - Dexamethasone 10 mg Route: IVP; Site: right wrist; tl2 04/18 00:00 Follow up: Response: No adverse reaction; Pain is decreased tl2 04/17 23:07 Drug: NS 0.9% 1000 ml Route: IV; Rate: 100 ml/hr; Site: right wrist; tl2 04/18 00:19 Follow up: IV Status: Infusion continued upon admission tl2 04/17 23:08 Drug: Demerol 25 mg Route: IVP; Site: right wrist; tl2 04/18 00:00 Follow up: Response: No adverse reaction; Pain is decreased tl2 Intake: 04/17 22:34 IV: 1000ml; Total: 1000ml. bb 22:58 IV: 100ml; Total: 1100ml. tl2 04/18 00:00 IV: 200ml; Total: 1300ml. tl2 Outcome: 04/17 22:29 Instructed on the need for admit. bb 22:58 Decision to Hospitalize by Provider. jr8 04/18 00:17 Admitted to Tele accompanied by nurse, family with patient, via stretcher, room 418, tl2 with chart, Report called to MARTIN Jimenez Condition: stable 00:47 Patient left the ED. bb Signatures: Dispatcher [employer] Jennifer Giordano Brenda RN RN bb Shmuel Boswell PA PA jr8 Chloé Jacobs RN RN ak1 Lisa Gutierrez Taylor RN RN tl2
[2019-04-17] MEDS ORDERED: dexAMETHasone 10 MG/ML VIAL ONE (23:16)
[2019-04-17] MEDS ORDERED: MEPERIDINE HCL 25 MG/0.5 ML ONE (23:16)
--- NOTE | 2019-04-17 23:39 | P.HP ---
Certification for Inpatient Patient admitted to: Inpatient With expected LOS: >2 Midnights Practitioner: I am a practitioner with admitting privileges, knowledge of patient current condition, hospital course, and medical plan of care. Services: Services provided to patient in accordance with Admission requirements found in Title 42 Section 412.3 of the Code of Federal Regulations Patient History Date of Service: 04/17/19 Reason for admission: colitis History of Present Illness: Ms Mclaughlin is a 43 years old woman with history of DM II, HTN, who start this morning with abdominal pain, diffuse, constant, 8/10 of intensity, associated with nausea but not vomiting. She has had diarrhea as well, some episodes were bloody. She has never had similar symptoms in the past. Lab work, remarkable for leukocytosis, 19.1K, no fever or chills. At arrival she was tachycardic, afebrile, BP 155/88. CT abdomen and pelvis shows sigmoid colitis. Allergies No Known Drug Allergies Allergy (Verified 12/23/18 14:27) Unknown Home Medications: Fluoxetine HCl [Prozac] 40 mg PO DAILY 05/04/18 Glipizide [Glucotrol] 5 mg PO BID 05/04/18 Metformin HCl 1,000 mg PO BID 05/04/18 Gabapentin [Neurontin*] 100 mg PO BID #60 cap 05/05/18 Topiramate [Topamax*] 25 mg PO BID #60 tab 05/05/18 Amox/Clavulanate [Augmentin 875-125 Tab*] 875 mg PO BID #20 tab 12/25/18 Fluticasone [Flonase 50MCG Nasal [place]*] 1 sprays FEMI BID #1 btl 12/25/18 Sumatriptan [Imitrex*] 50 mg PO PRN PRN #10 tab 12/25/18 traMADol HCL [Ultram*] 50 mg PO TID PRN #10 tab 12/25/18 - Past Medical/Surgical History Diabetic: Yes -: HTN -: DM II -: cholecystectomy -: -: ankle, left - Family History Father -: Heart disease Mother -: Diabetes Brother -: Diabetes - Social History Smoking Status: Former smoker Alcohol use: No CD- Drugs: No Caffeine use: No Place of Residence: Home Review of Systems 10-point ROS is otherwise unremarkable Physical Examination - Physical Exam General: Alert, In no apparent distress HEENT: Atraumatic, PERRLA, Mucous membr. moist/pink, EOMI, Sclerae nonicteric Neck: Supple, 2+ carotid pulse no bruit, No LAD, Without JVD or thyroid abnormality Respiratory: Clear to auscultation bilaterally, Normal air movement Cardiovascular: Regular rate/rhythm, Normal S1 S2 Gastrointestinal: Normal bowel sounds, Tenderness (diffuse) Musculoskeletal: No tenderness Integumentary: No rashes Neurological: Normal speech, Normal strength at 5/5 x4 extr, Normal tone, Normal affect Lymphatics: No axilla or inguinal lymphadenopathy - Studies Laboratory Data (last 24 hrs) 04/17/19 19:51: Creatinine 0.57 04/17/19 19:51: WBC 19.1 H, Hgb 13.6, Hct 40.7, Plt Count 307 04/17/19 19:51: Sodium 139, Potassium 3.5, BUN 10, Creatinine 0.54 L, Glucose 241 H, Total Bilirubin 0.3, AST 22, ALT 37, Alkaline Phosphatase 96, Lipase 94 Assessment and Plan - Problems (Diagnosis) (1) Colitis Current Visit: Yes Status: Acute (2) Diabetes mellitus Onset Date: 05/04/18 Current Visit: No Status: Chronic Qualifiers: Diabetes mellitus type: type 2 Diabetes mellitus moth exterminator insulin use: without moth exterminator use Diabetes mellitus complication status: with unspecified complications (3) HTN (hypertension) Onset Date: 05/04/18 Current Visit: No Status: Chronic Qualifiers: Hypertension type: essential hypertension Qualified Code(s): I10 - Essential (primary) hypertension - Plan Will admit the patient due to sigmoid colitis. Differential diagnosis, include diverticulitis, infectious or inflammatory etiology. Will start empiric IV antibiotics. She will need a colonoscopy done once acute process resolved. C.diff screening pending. - Advance Directives Does patient have a Living Will: Yes Does patient have a Durable POA for Healthcare: No - Code Status/Comfort Care Code Status Assessed: Yes Code Status: Full Code
[2019-04-18] MEDS: NA CHLORIDE 0.9% 1,000 ML IV SCH ×3 (02:00→20:45)
[2019-04-18] MEDS ORDERED: MORPHINE 2 MG/ML SYR ONE (03:33)
[2019-04-18] MEDS ORDERED: MORPHINE 2 MG/ML SYR IV PRN (04:33)
[2019-04-18 05:10] LABS: Absolute Lymphocytes (CBC) 1.2 K/uL (0.7-4.9); Basophils % 0.1 % (0-1.3); Eosinophils % 0.1 % (0-4.4); Hematocrit 40.4 % (36.0-45.0); Lymphocytes % 8.6 % (15.3-44.8); MPV 8.8 fL (7.6-11.3)
[2019-04-18 05:25] LABS: BUN Blood Urea Nitrogen 8 mg/dL (7-18); Bicarbonate 26 mmol/L (21-32); Glucose Level 375 mg/dL (74-106); Potassium 4.4 mmol/L (3.5-5.1); Sodium Level 138 mmol/L (136-145)
[2019-04-18 05:30] LABS: Blood Morphology Comment NOT SEEN (NOT SEEN); Platelet Estimate ADEQ; Urine White Blood Cell Casts OK
[2019-04-18] MEDS: METRONIDAZOLE 500mg IVPB 500 MG/100 ML BAG IV SCH ×3 (06:39→21:45)
[2019-04-18 06:42] LABS: Magnesium 1.8 mg/dL (1.8-2.4)
[2019-04-18 08:52] LABS: Urine Appearance CLEAR; Urine Bilirubin NEGATIVE (NEG); Urine Blood NEGATIVE (NEG); Urine Color YELLOW; Urine Glucose 3+ (NEG); Urine Protein NEGATIVE (NEG); Urine Specific Gravity 1.025 (1.005-1.030); Urine Urobilinogen 0.2 mg/dL (0.2-1.0); Urine pH 5.5 (5.0-7.0)
[2019-04-18] MEDS: INSULIN -REGULAR HUMAN 50 UNIT/0.5 ML ML SQ SCH ×5 (08:55→20:46)
[2019-04-18] MEDS: CIPROFLOXACIN 400mg IV 400 MG/200 ML BAG IV SCH ×2 (08:55→20:45)
[2019-04-18 08:58] LABS: Urine Microscopic Reflex NO UMIC
[2019-04-18] MEDS: MORPHINE 2 MG/ML SYR IV PRN ×3 (09:03→20:45)
--- NOTE | 2019-04-18 11:16 | RAD REPORT ---
EXAM DESCRIPTION: CT Abdomen Pelvis W Contrast CLINICAL HISTORY: 43 years Female ABD PAIN TECHNIQUE: Contiguous axial images obtained through the abdomen and pelvis following IV contrast. Coronal and sagittal reformatted images provided. This CT exam was performed according to our departmental dose-optimization program, which includes on e or more of the following dose reduction techniques: automated exposure control, adjustment of the m A and/or kV according to patient size, and/or use of iterative reconstruction technique. COMPARISON: No prior exams provided for comparison. FINDINGS: There is moderate diffuse inflammation of the sigmoid colon without inflamed diverticulum, visualized mass, or obstruction. No other bowel inflammation. No bowel obstruction, pneumatosis, pelon e intraperitoneal air, or abscess. Normal appendix. Minimal bibasilar atelectasis. Steatosis of the liver, which is enlarged without focal lesion. Mild s plenomegaly without focal lesion. Prior cholecystectomy without biliary dilatation. The pancreas, adrenal glands, kidneys, uterus, adnexa, and urinary bladder are normal. Chronic bilateral spondylolysis at L5. No acute fracture or aggressive osseous lesion. IMPRESSION: Moderate diffuse inflammation of the sigmoid colon could be infectious or inflammatory. No bowel obstruction or perforation. Steatosis of the liver, which is enlarged. Mild splenomegaly. Chronic bilateral spondylolysis at L5. Electronically signed by: Payton Lewis MD 04/17/2019 9:37 PM CDT Due to temporary technical issues with the PACS/Fluency reporting system, reports are being signed by the in house radiologist as a courtesy to ensure prompt reporting. The interpreting radiologist is f ully responsible for the content of the report.
[2019-04-18] MEDS ORDERED: PNEUMOCOCCAL VACCINE 0.5 ML IMVAC ONE (13:00)
--- NOTE | 2019-04-18 20:51 | PN ---
Date of Progress Note: 04/18/2019 Subjective: The patient seen and examined. Chart reviewed and case discussed with RN. The patient complaining of pain, appears ill. Did report some episodes of diarrhea. Medications: List reviewed. Physical Examination: Vital Signs: Temperature 97.9, heart rate 86, blood pressure 139/77, respirations 19, and O2 of 96% on room air. General: Awake, alert, oriented x3, ill-appearing, obese female. CV: S1 and S2. Regular rate and rhythm. Peripheral pulses present. Respiratory: Moving air well bilaterally. No wheezing or stridor. Gastrointestinal: Abdomen is soft. Tenderness to palpation. No rebound or guarding. Positive mey l sounds. Extremities: No clubbing, cyanosis, or edema. Neurologic: Nonfocal. Laboratory Data: Sodium 138, potassium 4.4, chloride 106, CO2 26, BUN 8, creatinine 0.6, glucose 375 , calcium 8.3, magnesium 1.8. CRP 42.6. Blood glucose levels ranging from 405 to 255. WBC 14.2, H and H 13.3 and 40.4, platelets 264, neutrophils 90%. C diff assay is pending. Assessment And Plan: A 43-year-old female with: 1.Acute colitis. We will continue with IV antibiotics. Keep n.p.o. and continue IV fluids. C. dif f is pending. CT scan reviewed personally. 2.Diabetes mellitus type 2 without long-term use of insulin with hyperglycemia. We will adjust slid ing scale insulin. Continue monitoring Accu-Cheks. 3.Essential hypertension, stable. We will resume home medications as appropriate. 4.Diabetic neuropathy, on gabapentin. 5.History of migraine headaches. Imitrex as needed. 6.Obesity, BMI 33. 7.Fatty liver disease. Plan: Continue above treatment and likely discharge in the next 24-48 hours depending on clinical response. The patient will need outpatient GI workup including colonosco py. /GARETH Voice ID: [id number] Report ID: [id number]
[2019-04-18] MEDS: ONDANSETRON 4 MG/2 ML VIAL IV PRN (21:52)
[2019-04-19] MEDS: METRONIDAZOLE 500mg IVPB 500 MG/100 ML BAG IV SCH ×3 (05:12→21:54)
[2019-04-19] MEDS: NA CHLORIDE 0.9% 1,000 ML IV SCH ×5 (05:13→23:53)
[2019-04-19] MEDS: MORPHINE 2 MG/ML SYR IV PRN ×4 (05:29→20:07)
[2019-04-19] MEDS: ONDANSETRON 4 MG/2 ML VIAL IV PRN (05:29)
[2019-04-19] MEDS: CIPROFLOXACIN 400mg IV 400 MG/200 ML BAG IV SCH ×2 (09:39→20:06)
[2019-04-19] MEDS: INSULIN -REGULAR HUMAN 50 UNIT/0.5 ML ML SQ SCH ×4 (09:40→21:54)
--- NOTE | 2019-04-19 16:18 | PN ---
Date of Progress Note: 04/19/2019 Subjective: The patient seen and examined. Chart reviewed and case discussed with RN. The patient states she is doing better, abdominal pain has improved, still having multiple episodes of diarrhea. Medications: List reviewed. Physical Examination: Vital Signs: Temperature 98, heart rate 87, blood pressure 118/57, respirations 18, O2 95% on room a ir. General: Awake, alert, and oriented x3, not in any acute distress, obese female. CV: S1 and S2. Regular rate and rhythm. Peripheral pulses present. Respiratory: Moving air well bilaterally. No wheezing or stridor. Gastrointestinal: Abdomen is soft. Tenderness to palpation. No rebound or guarding. Positive mey l sounds. Extremities: No clubbing, cyanosis, or edema. Neurologic: Nonfocal. Laboratory Data: Blood sugar levels 356, magnesium 2. Assessment And Plan: A 43-year-old female with: 1.Acute colitis, improving, still having diarrhea. We will continue with IV antibiotics. C. diff a ssay is pending. 2.Diabetes mellitus type 2 without long-term use of insulin with hyperglycemia. We will continue Accu-Cheks. 3.Essential hypertension, stable. 4.Diabetic neuropathy. Continue gabapentin. 5.History of migraine headaches. No acute episode currently. 6.Obesity, BMI 33. 7.Fatty liver disease. Plan: Advance diet as tolerated. Follow up on C diff results. /GARETH Voice ID: [id number] Report ID: [id number]
[2019-04-20] MEDS: MORPHINE 2 MG/ML SYR IV PRN ×5 (01:07→21:22)
[2019-04-20] MEDS: NA CHLORIDE 0.9% 1,000 ML IV SCH ×3 (04:33→12:54)
[2019-04-20] MEDS: METRONIDAZOLE 500mg IVPB 500 MG/100 ML BAG IV SCH ×3 (05:20→21:21)
[2019-04-20 07:06] LABS: Absolute Lymphocytes (CBC) 2.6 K/uL (0.7-4.9); Basophils % 0.5 % (0-1.3); Eosinophils % 2.1 % (0-4.4); Hematocrit 36.5 % (36.0-45.0); Lymphocytes % 27.7 % (15.3-44.8); MPV 8.6 fL (7.6-11.3); Monocytes % 5.6 % (3.3-12.3); RBC Red Blood Cell Count 4.58 M/uL (3.86-4.86)
[2019-04-20 07:15] LABS: BUN Blood Urea Nitrogen 2 mg/dL (7-18); Bicarbonate 27 mmol/L (21-32); Glucose Level 218 mg/dL (74-106); Sodium Level 141 mmol/L (136-145)
[2019-04-20] MEDS ORDERED: POTASSIUM 25 MEQ EFFERV TAB PO ONE ×2 (09:00→21:00)
[2019-04-20] MEDS: INSULIN -REGULAR HUMAN 50 UNIT/0.5 ML ML SQ SCH ×4 (10:12→21:22)
[2019-04-20] MEDS: CIPROFLOXACIN 400mg IV 400 MG/200 ML BAG IV SCH ×2 (10:12→21:20)
--- NOTE | 2019-04-20 15:56 | PN ---
Date of Progress Note: 04/20/2019 Subjective: The patient seen and examined. Chart reviewed and case discussed with RN. The patient was started on GI soft diet yesterday. The patient states her abdominal pain worsened slightly and h ad loose watery stool afterwards. Medications: Reviewed. Physical Examination: Vital Signs: Temperature 98.5, heart rate 94, blood pressure 130/72, respirations 18, O2 97% on room air. General: Awake, alert, oriented x3. Some mild distress. Obese female. CV: S1, S2. No murmurs. Respiratory: Moving air well bilaterally. Abdomen: Soft. Mild tenderness to palpation. No rebound or guarding. No distention. Extremities: No clubbing, cyanosis, or edema. Neurologic: Nonfocal. Laboratory Data: Sodium 141, potassium 3, chloride 107, CO2 27, BUN 2, creatinine 0.38, glucose 218, calcium 7.3. WBC 9.5, H and H 12.2 and 36.5, platelets 215, neutrophils 64%. Assessment And Plan: A 43-year-old female with: 1.Acute colitis. Continues to have diarrhea, was able to tolerate the GI soft diet, no nausea but c ontinues to have abdominal pain. 2.Diabetes mellitus type 2 without long-term use of insulin with hyperglycemia. Continue Accu-Cheks and sliding scale insulin, not well controlled. 3.Hypokalemia. We will replace and monitor. 4.Essential hypertension, stable. 5.Diabetic neuropathy. Continue gabapentin. 6.History of migraine headaches, stable. 7.Obesity, BMI 33. 8.Fatty liver disease. 9.Deep venous thrombosis prophylaxis with Lovenox. Plan: Follow up on C. diff results. /GARETH Voice ID: [id number] Report ID: [id number]
[2019-04-20] MEDS ORDERED: ENOXAPARIN 40 MG/0.4 ML SQ SCH (17:00)
[2019-04-21] MEDS: NA CHLORIDE 0.9% 1,000 ML IV SCH ×2 (01:20→04:45)
[2019-04-21] MEDS: MORPHINE 2 MG/ML SYR IV PRN ×2 (04:41→08:49)
[2019-04-21] MEDS: METRONIDAZOLE 500mg IVPB 500 MG/100 ML BAG IV SCH ×2 (05:08→13:59)
[2019-04-21 06:06] LABS: Absolute Lymphocytes (CBC) 2.7 K/uL (0.7-4.9); Basophils % 0.4 % (0-1.3); Eosinophils % 2.5 % (0-4.4); Hematocrit 37.8 % (36.0-45.0); Lymphocytes % 26.9 % (15.3-44.8); MPV 8.6 fL (7.6-11.3); Monocytes % 4.6 % (3.3-12.3); RBC Red Blood Cell Count 4.73 M/uL (3.86-4.86)
[2019-04-21 06:17] LABS: BUN Blood Urea Nitrogen 4 mg/dL (7-18); Bicarbonate 28 mmol/L (21-32); Glucose Level 252 mg/dL (74-106); Potassium 3.3 mmol/L (3.5-5.1); Sodium Level 139 mmol/L (136-145)
[2019-04-21] MEDS: INSULIN -REGULAR HUMAN 50 UNIT/0.5 ML ML SQ SCH ×2 (08:30→12:13)
[2019-04-21] MEDS: CIPROFLOXACIN 400mg IV 400 MG/200 ML BAG IV SCH (08:32)
[2019-04-21] MEDS ORDERED: POTASSIUM CL SA 10 MEQ TAB PO ONE (09:00)
--- NOTE | 2019-04-21 11:37 | RAD REPORT ---
EXAM DESCRIPTION: RAD - Abdomen Acute Series - 04/21/2019 9:32 am CLINICAL HISTORY: abdominal pain COMPARISON: Chest Single View dated 05/03/2018; Chest Single View dated 11/17/2017; Chest Single View d ated 09/09/2017; Chest Single View dated 08/30/2017; Abdomen Pelvis W Contrast dated 04/17/2019 FINDINGS: The lungs are clear. The heart is normal in size. No subdiaphragmatic free air. Multiple n onobstructive bowel loops are present. Moderate stool is present in the colon. No pathologic calcific ations are seen.
[2019-04-21] MEDS ORDERED: PNEUMOCOCCAL VACCINE 0.5 ML IMVAC ONE (15:00)
--- NOTE | 2019-04-21 21:57 | DS ---
Date of Discharge: 04/21/2019 Consultants: None. Admitting Diagnoses: 1.Colitis. 2.Diabetes mellitus type 2 without long-term use of insulin. 3.Essential hypertension. Discharge Diagnoses: 1.Acute sigmoid colitis, improved. 2.Diabetes mellitus type 2 without long-term use of insulin with hyperglycemia. 3.Hypokalemia, replaced. 4.Essential hypertension, stable. 5.Diabetic neuropathy. 6.History of migraine headaches, stable. 7.Obesity, BMI 33. 8.Fatty liver disease. Hospital Course: The patient is a 43-year-old female with past medical history of diabetes, hyperten rachael, comes in with abdominal pain, loose stools. The patient was found to have elevated white blood cell count, tachycardic. CT scan was done, which showed sigmoid colitis. The patient was started o n IV antibiotics. She was made n.p.o. and IV fluids were continued. C. diff was checked, which was negative. The patient responded well to IV antibiotics. Her WBC count normalized. Her pain improve d. She still has some residual pain, which improved over the course of the hospital stay. Her blood sugars were not well controlled. Her insulin was adjusted. She did have some mild electrolyte abno rmalities, which were corrected. Repeat abdominal series was done, which did not show any acute muse ges. The patient was unable to ambulate. She was able to tolerate a GI soft diet. Her pain had sub sided. Her diarrhea also resolved. She was then discharged home in a stable condition. She is to f ollow up with her primary care physician in 2-3 days. She is to establish care with GI doctor in 4-6 weeks for outpatient colonoscopy once her diverticulitis has resolved to rule out any sort of malign lori, however, she is to return to ER for worsening condition. Medications: As per medication reconciliation list. Physical Examination: General: Awake, alert, oriented x3. No acute distress. Obese female. CV: S1, S2. No murmurs. Respiratory: Moving air well bilaterally. No wheezing or stridor. Gastrointestinal: Abdomen is soft. No tenderness. No distention. Positive bowel sounds. Extremities: No clubbing, cyanosis, or edema. Neurologic: Nonfocal. Total time spent discharging the patient was 33 minutes. MITZI Voice ID: [id number] Report ID: [id number]
== END 2019-04-21 15:31 | disposition home or self-care (01) | DRG 392 ==
LOC: ER 19:12 → ERHOLD 23:59 → 4TH 04-18 04:03
PROVIDERS: ADMIT Internal Medicine; ATTEND Internal Medicine
DX: K52.9 Noninfective gastroenteritis and colitis, unspecified (principal); E11.65 Type 2 diabetes mellitus with hyperglycemia; E11.40 Type 2 diabetes mellitus with diabetic neuropathy, unspecified; E87.6 Hypokalemia; I10 Essential (primary) hypertension; E66.9 Obesity, unspecified; Z68.33 Body mass index [BMI] 33.0-33.9, adult; K76.0 Fatty (change of) liver, not elsewhere classified; Z23 Encounter for immunization
CPT/HCPCS: 36415; 74022; 74177; 80048; 80076; 81003; 82962; 83690; 83735; 84132; 85025; 85652; 86140; 87493; 90471; 90670; 99285; J0744; J1100; J1650; J2175; J2270; J2405; J2765; J7030; Q9967

== ENCOUNTER 2019-06-20 18:40 | Emergency (ER) | payer BC, SELFPAY ==
--- OUTSIDE RECORDS SUMMARY | 2019-06-20 18:42 | XMS REPORT | Clinical Summary ---
:1975 Author Organization [facility] Address [address] [place] [address] Care Team Providers Name Role Phone Unavailable [...] Not on file Results Not on fileafter 06/19/2018 Insurance Payer Benefit Plan / Group Subscriber ID Type Phone Address [employer] - [employer] PPO OPEN [employer] xxxxxxxxxx PPO Advance Directives For more information, please contact:[address] [phone] Code Status Date Activated Date Inactivated Comments Full Code 09/10/2017 4:00 AM 09/11/2017 4:55 PM This code status was determined by: Patient
--- OUTSIDE RECORDS SUMMARY | 2019-06-20 18:42 | XMS REPORT ---
:1975 Author Organization [facility] Address [address] [place] [address] Dr. Lebron [address] [place] [id number] Care Team Providers Name Role Phone SAÚL [...] (BEAKER) (test 330 mg/dL 70-110 TESTED AT [address] epzo=0733) [place] [address] SCREEN, [id number] 11:13:00 Test Item Value Reference Range Comments TEST URINE (BEAKER) (test eggu=804) Negative POCT-GLUCOSE [id number] 08:33:00 Test Item Value Reference Range Comments POC-GLUCOSE METER (BEAKER) 226 mg/dL 70-110 TESTED AT [address] (test cdyg=5895) [place] [address] POCT-GLUCOSE [id number] 21:48:00 Test Item Value Reference Range Comments POC-GLUCOSE METER (BEAKER) 219 mg/dL 70-110 TESTED AT [address] (test chdg=4298) [place] [address] POCT-GLUCOSE [id number] 17:48:00 Test Item Value Reference Range Comments POC-GLUCOSE METER (BEAKER) 225 mg/dL 70-110 TESTED AT [address] (test sytg=9416) [place] [address] [id number] 16:39:00 Test Item Value Reference Range Comments RPR SCREEN (BEAKER) (test lqzj=790) Nonreactive Nonreactive SEDIMENTATION [id number] 15:02:00 Test Item Value Reference Range Comments SEDIMENTATION RATE, ERYTHROCYTE (BEAKER) (test 25 mm/HR 0-20 edxy=686) POCT-GLUCOSE [id number] 12:40:00 Test Item Value Reference Range Comments POC-GLUCOSE METER (BEAKER) 188 mg/dL 70-110 TESTED AT [facility] [address] (test rxsu=2518) [facility] [address] HEMOGLOBIN [id number] 11:42:00 Test Item Value Reference Range Comments HEMOGLOBIN A1C (BEAKER) (test xezd=081) 8.2 % 4.3-6.1 MR, BRAIN, WITHOUT [id number] 11:17:00Reason for exam:->Ischemic Stroke EvaluationFINAL REPORT MRI [...] infarct, hemorrhage, or hydrocephalus. Signed: Mark Mathur [facility] Verified Date/Time: 2016 11:17:54 Reading Location: [address] Neuro Reading Room MR, MRA, BRAIN, WITHOUT [id number] 11:16:00Reason for exam:->Ischemic Stroke EvaluationFINAL REPORT MRA head and neck without contrast INDICATION: Headache, left hemianesthesia, left sided weakness TECHNIQUE: 2-D and 3-D [id number] MRA images of the intra- and extracranial [...] branch occlusion or significant stenosis in the [place] vessels. There is no specific MRA evidence of saccular aneurysm. IMPRESSION: 1. No hemodynamically significant carotid stenosis by NASCET criteria. 2. No significant stenosis in the imaged cervical vertebral arteries. 3. No major branch occlusion, significant stenosis,or evident aneurysm in the [place] vessels. Signed: Mark Mathur [facility] Verified Date/Time: 09/10 11:16:49 Reading Location: [address] Neuro Reading Room MR, MRA, NECK, WITHOUT IV [id number] 11:16:00Reason for exam:->Ischemic Stroke EvaluationFINAL REPORT MRA head and neck without contrast INDICATION: Headache, left hemianesthesia, left sided weakness TECHNIQUE: 2-D and 3-D [id number]-[id number] MRA images of the intra- and extracranial [...] branch occlusion or significant stenosis in the [place] vessels. There is no specific MRA evidence of saccular aneurysm. IMPRESSION: 1. No hemodynamically significant carotid stenosis by NASCET criteria. 2. No significant stenosis in the imaged cervical vertebral arteries. 3. No major branch occlusion, significant stenosis,or evident aneurysm in the [place] vessels. Signed: Mark Mathur [facility] Verified Date/Time: 09/10 11:16:49 Reading Location: [address] Neuro Reading Room TSH/ FREE T4 IF [id number] 09:44:00 Test Item Value Reference Range Comments THYROID STIMULATING HORMONE (BEAKER) (test 2.42 uIU/mL 0.35-4.94 oapc=632) VITAMIN B12 AND [id number] 09:44:00 Test Item Value Reference Range Comments VITAMIN B12 (BEAKER) (test uyua=418) 413 pg/mL 213-816 FOLATE (BEAKER) (test trsx=635) 14.8 ng/mL >=7.0 POCT-GLUCOSE [id number] 08:35:00 Test Item Value Reference Range Comments POC-GLUCOSE METER (BEAKER) 156 mg/dL 70-110 TESTED AT [facility] [address] [facility] (test qyid=4298) [facility] [address] [id number] 06:56:00 Test Item Value Reference Range Comments HOMOCYSTEINE (BEAKER) (test mspm=037) 4.1 umol/L 5.1-15.4 BASIC METABOLIC [id number] 06:32:00 Test Item Value Reference Range Comments SODIUM (BEAKER) (test 138 meq/L 136-145 aytv=361) POTASSIUM (BEAKER) (test 4.0 meq/L 3.5-5.1 tqtj=731) CHLORIDE (BEAKER) (test 109 meq/L 98-107 zbqa=771) CO2 (BEAKER) (test 21 meq/L 22-29 nyqa=278) BLOOD UREA NITROGEN 7 mg/dL 7-21 (BEAKER) (test dycr=577) CREATININE (BEAKER) (test 0.53 mg/dL 0.57-1.25 tfnc=768) GLUCOSE RANDOM (BEAKER) 161 mg/dL 70-105 (test yqrg=174) CALCIUM (BEAKER) (test 8.0 mg/dL 8.4-10.2 xfyc=057) EGFR (BEAKER) (test mL/min/1.73 sq m INSUFFICIENT CLINICAL DATA wktr=0158) TO CALCULATE ESTIMATED GFR. FastingLIPID [id number] 06:31:00 Test Item Value Reference Range Comments TRIGLYCERIDES (BEAKER) (test hlev=991) 116 mg/dL CHOLESTEROL (BEAKER) (test hjuq=031) 99 mg/dL HDL CHOLESTEROL (BEAKER) (test rutp=685) 25 mg/dL LDL CHOLESTEROL CALCULATED (BEAKER) (test 51 mg/dL mved=536) Triglyceride Reference Range: Low Risk <150 Borderline 150- 199 High Risk 200-499 Very High Risk >=500Cholesterol Reference Range: Low Risk <200 Borderline 200-239 High Risk > 240HDL Cholesterol Reference Range: Low Risk >=60 High Risk <40LDL Cholesterol Reference Range: Optimal <100 Near Optimal 100-129 Borderline 130-159 High 160-189 Very High >=190 FastingC-REACTIVE [id number] 06:31:00 Test Item Value Reference Range Comments C-REACTIVE PROTEIN (BEAKER) (test pdsf=005) 1.82 mg/dL 0.00-0.50 FastingTROPONIN [id number] 06:29:00 Test Item Value Reference Range Comments TROPONIN I (BEAKER) (test bbas=350) < ng/mL 0.00-0.03 Troponin I (TnI) levels [...] and persistent tachyarrhythmia.FastingCBC W/PLT COUNT & AUTO [id number] 06:02:00 Test Item Value Reference Range Comments WHITE BLOOD CELL COUNT (BEAKER) (test wcyh=126) 10.5 K/ L 3.5-10.5 RED BLOOD CELL COUNT (BEAKER) (test jgze=267) 4.13 M/ L 3.93-5.22 HEMOGLOBIN (BEAKER) (test qbno=893) 10.9 GM/DL 11.2-15.7 HEMATOCRIT (BEAKER) (test fsgg=522) 33.9 % 34.1-44.9 MEAN CORPUSCULAR VOLUME (BEAKER) (test yutr=770) 82.1 fL 79.4-94.8 MEAN CORPUSCULAR HEMOGLOBIN (BEAKER) (test 26.4 pg 25.6-32.2 azwh=910) MEAN CORPUSCULAR HEMOGLOBIN CONC (BEAKER) (test 32.2 GM/DL 32.2-35.5 sfsw=698) RED CELL DISTRIBUTION WIDTH (BEAKER) (test 13.6 % 11.7-14.4 oqfh=993) PLATELET COUNT (BEAKER) (test xxbu=517) 220 K/CU MM 150-450 MEAN PLATELET VOLUME (BEAKER) (test qhkt=720) 11.5 fL 9.4-12.3 NUCLEATED RED BLOOD CELLS (BEAKER) (test 0 /100 WBC 0-0 nids=439) NEUTROPHILS RELATIVE PERCENT (BEAKER) (test 56 % rvdq=183) LYMPHOCYTES RELATIVE PERCENT (BEAKER) (test 35 % aozw=239) MONOCYTES RELATIVE PERCENT (BEAKER) (test 6 % kpbj=330) EOSINOPHILS RELATIVE PERCENT (BEAKER) (test 3 % duzx=466) BASOPHILS RELATIVE PERCENT (BEAKER) (test 0 % dhin=123) NEUTROPHILS ABSOLUTE COUNT (BEAKER) (test 5.87 K/ L 1.56-6.13 jgay=514) LYMPHOCYTES ABSOLUTE COUNT (BEAKER) (test 3.71 K/ L 1.18-3.74 onep=370) MONOCYTES ABSOLUTE COUNT (BEAKER) (test 0.58 K/ L 0.24-0.36 qgdy=539) EOSINOPHILS ABSOLUTE COUNT (BEAKER) (test 0.28 K/ L 0.04-0.36 wixz=350) BASOPHILS ABSOLUTE COUNT (BEAKER) (test 0.04 K/ L 0.01-0.08 jcai=130) IMMATURE GRANULOCYTES-RELATIVE PERCENT (BEAKER) 0 % 0-1 (test mizi=6143)
--- NOTE | 2019-06-20 20:50 | RAD REPORT ---
EXAM DESCRIPTION: CT - CTHCSPWOC - 06/20/2019 8:39 pm CLINICAL HISTORY: Trauma, head and neck injury. PAIN COMPARISON: <Comparisons> TECHNIQUE: Axial 5 mm thick images of the head were obtained. Axial 2 mm thick images of the cervical spine were obtained with sagittal and coronal reconstruction images generated and reviewed. All CT scans are performed using dose optimization technique as appropriate and may include automated exposure control or mA/KV adjustment according to patient size. FINDINGS: CT HEAD WITHOUT CONTRAST: No acute hemorrhage, hydrocephalus or extra-axial collection is identified.No areas of brain edema or midline shift. The paranasal sinuses and mastoids are clear.The calvarium is intact. CT CERVICAL SPINE WITHOUT CONTRAST: No fracture or subluxation.No prevertebral soft tissues swelling is identified. IMPRESSION: No acute intracranial or cervical spine findings.
--- NOTE | 2019-06-20 20:53 | RAD REPORT ---
EXAM DESCRIPTION: RAD - Chest Single View - 06/20/2019 8:46 pm CLINICAL HISTORY: COUGH Chest pain. COMPARISON: Abdomen Acute Series dated 04/21/2019; Chest Single View dated 05/03/2018; Chest Single Vi ew dated 11/17/2017; Chest Single View dated 09/09/2017 FINDINGS: Portable technique limits examination quality. The lungs are grossly clear. The heart is normal in size. No displaced fractures. IMPRESSION: No acute intrathoracic process suspected.
[2019-06-20] MEDS ORDERED: TOBRAMYCIN SULF 0.3% OPTH OINT ONE (21:10)
[2019-06-20] MEDS ORDERED: NA CHLORIDE 0.9% 1,000 ML ONE (21:10)
[2019-06-20 21:25] LABS: Absolute Lymphocytes (CBC) 3.3 K/uL (0.7-4.9); Hematocrit 40.2 % (36.0-45.0); Lymphocytes % 28.8 % (15.3-44.8); MPV 8.7 fL (7.6-11.3); RBC Red Blood Cell Count 5.07 M/uL (3.86-4.86)
[2019-06-20 21:36] LABS: Protime INR 1.01
[2019-06-20 21:47] LABS: ALT/SGPT 36 U/L (12-78); AST/SGOT 16 U/L (15-37); Albumin 3.5 g/dL (3.4-5.0); Alkaline Phosphatase 114 U/L (45-117); BUN Blood Urea Nitrogen 12 mg/dL (7-18); Bicarbonate 25 mmol/L (21-32); Bilirubin Direct < 0.1 mg/dL (0-0.2); Bilirubin Total 0.2 mg/dL (0.2-1.0); Glucose Level 331 mg/dL (74-106); Lipase 151 U/L (73-393); Magnesium 1.9 mg/dL (1.8-2.4); NT PRO-BNP 13 pg/mL (<125); Potassium 3.7 mmol/L (3.5-5.1); Protein, Total 7.5 g/dL (6.4-8.2); Sodium Level 138 mmol/L (136-145); Troponin (Emerg Dept Use Only) < 0.02 ng/mL (0.0-0.045)
[2019-06-20] MEDS ORDERED: MORPHINE 4 MG/ML SYR ONE (21:59)
[2019-06-20] MEDS ORDERED: ONDANSETRON 4 MG/2 ML VIAL ONE (21:59)
[2019-06-20] MEDS ORDERED: INSULIN -REGULAR HUMAN 50 UNIT/0.5 ML ML ONE (22:01)
[2019-06-20] MEDS ORDERED: INSULIN GLARGINE 100 UNITS/ML SQ ONE (22:15)
--- NOTE | 2019-06-20 22:18 | ER ---
Nurse's Notes [facility] Name: Carol Mclaughlin Age: 44 yrs Sex: Female : 1975 Arrival Date: 06/20/2019 Time: 18:42 Bed 20 Private MD: Diagnosis: Strain of muscle, fascia and tendon at neck level;Episcleritis;Type 2 diabetes mellitus Presentation: 06/20 19:04 Presenting complaint: Patient states: "I ran out of my metformin and victoza yesterday aa5 so I think my blood sugar is high". Pt states "I also have a headache on the right side of my head radiating down my right shoulder and right arm that started months ago" . Pt also c/o burning with urination and reports redness to right eye. 19:04 Transition of care: patient was not received from another setting of care. Onset of aa5 symptoms was 2019. Risk Assessment: Do you want to hurt yourself or someone else? Patient reports no desire to harm self or others. Initial Sepsis Screen: Does the patient meet any 2 criteria? No. Patient's initial sepsis screen is negative. Does the patient have a suspected source of infection? No. Patient's initial sepsis screen is negative. Care prior to arrival: None. 19:04 Acuity: GORGE 3 aa5 19:04 Method Of Arrival: Ambulatory aa5 Triage Assessment: 19:32 Headache History: Denies prior headaches. 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 - Social history:: Smoking status: Patient/guardian denies using tobacco. - Ebola Screening: : No symptoms or risks identified at this time. Screenin:31 Abuse screen: Denies threats or abuse. Nutritional screening: No deficits noted. jd3 Tuberculosis screening: No symptoms or risk factors identified. Fall Risk Ambulatory Aid- None/Bed Rest/Nurse Assist (0 pts). Gait- Normal/Bed Rest/Wheelchair (0 pts) Mental Status- Oriented to own ability (0 pts). Total Barton Fall Scale indicates No Risk (0-24 pts). Assessment: 19:28 General: Appears in no apparent distress. uncomfortable, Behavior is calm, cooperative, jd3 appropriate for age. Pain: Complains of pain in head, anterior aspect of right shoulder, back of neck and right eye Quality of pain is described as aching, pressure. Neuro: Level of Consciousness is awake, alert, obeys commands, Oriented to person, place, time, situation, Reports headache Denies weakness blurred vision diplopia. Cardiovascular: Denies chest pain, Capillary refill < 3 seconds Patient's skin is warm and dry. Respiratory: Airway is patent Respiratory effort is even, unlabored, Respiratory pattern is regular, symmetrical, Denies cough, shortness of breath. GI: Abdomen is round non-distended, Patient currently denies nausea, vomiting. : Reports burning with urination. EENT: Sclera/Cornea are reddened in right eye. Derm: Skin is intact, Skin is dry, Skin is normal, Skin temperature is warm. Musculoskeletal: Circulation, motion, and sensation intact. Range of motion: limited in right shoulder. 20:18 Reassessment: Patient appears in no apparent distress at this time. No changes from jd3 previously documented assessment. Patient and/or family updated on plan of care and expected duration. Pain level reassessed. Patient is alert, oriented x 3, equal unlabored respirations, skin warm/dry/pink. provider at bedside. 22:22 Reassessment: Patient appears in no apparent distress at this time. Patient and/or jd3 family updated on plan of care and expected duration. Pain level reassessed. Patient is alert, oriented x 3, equal unlabored respirations, skin warm/dry/pink. 23:18 Reassessment: Patient appears in no apparent distress at this time. Patient and/or jd3 family updated on plan of care and expected duration. Pain level reassessed. Patient is alert, oriented x 3, equal unlabored respirations, skin warm/dry/pink. awaiting provider followup before discharge. Patient states feeling better. Vital Signs: 19:10 BP 160 / 97; Pulse 110; Resp 18 S; Temp 98.6(O); Pulse Ox 96% on R/A; Weight 81.65 kg aa5 (R); Height 5 ft. 4 in. (162.56 cm) (R); Pain 10/10; 22:22 BP 131 / 67; Pulse 67; Resp 18 S; Pulse Ox 99% on R/A; jd3 23:17 BP 137 / 68; Pulse 69; Resp 18 S; Pulse Ox 100% on R/A; jd3 19:10 Body Mass Index 30.90 (81.65 kg, 162.56 cm) aa5 ED Course: 18:42 Patient arrived in ED. as 19:05 Arm band placed on. aa5 19:10 Triage completed. aa5 19:15 Kelvin Ramsey, RN is Primary Nurse. jd3 19:31 Patient has correct armband on for positive identification. Bed in low position. Call jd3 light in reach. Side rails up X 1. Adult w/ patient. 19:45 Vicente Ratliff MD is Attending Physician. nay 20:39 CT completed. Patient tolerated procedure well. Patient moved to CT via wheelchair. eh Patient moved to radiology via wheelchair. 21:06 EKG done, by ED staff, reviewed by Vicente Ratliff MD. em1 21:14 Inserted saline lock: 22 gauge in right forearm, using aseptic technique. Blood jd3 collected. 22:18 Maxime Slade MD is Referral Physician. nay 23:30 No provider procedures requiring assistance completed. IV discontinued, intact, jd3 bleeding controlled, No redness/swelling at site. Pressure dressing applied. Administered Medications: 21:13 Drug: NS 0.9% 1000 ml Route: IV; Rate: 1 bolus; Site: right forearm; jd3 22:00 Follow up: Response: No adverse reaction; IV Status: Completed infusion; IV Intake: jd3 1000ml 21:14 Drug: Tobramycin Ointment (0.3 %) 1 application Route: Ophthalmic; Site: right eye; jd3 22:10 Follow up: Response: No adverse reaction jd3 22:07 Drug: morphine 4 mg Route: IVP; Site: right forearm; jd3 23:00 Follow up: Response: No adverse reaction jd3 22:07 Drug: Zofran 4 mg Route: IVP; Site: right forearm; jd3 23:00 Follow up: Response: No adverse reaction jd3 22:08 Drug: Insulin Regular Human 8 units {Co-Signature: jb4 (Jaskaran Lo RN).} Route: IVP; jd3 Site: right forearm; 23:00 Follow up: Response: No adverse reaction jd3 22:30 Drug: LanTUS 20 units Route: Sub-Q; Site: abdomen; jd3 23:21 Follow up: Response: No adverse reaction jd3 Point of Care Testing: Blood Glucose: 19:10 Blood Glucose: 330 mg/dL; aa5 22:44 Blood Glucose: 267 mg/dL; jd3 Ranges: Intake: 22:00 IV: 1000ml; Total: 1000ml. jd3 Outcome: 22:18 Discharge ordered by MD. tee 23:30 Discharged to home via wheelchair, with family. jd3 23:30 Condition: stable 23:30 Discharge instructions given to patient, family, Instructed on discharge instructions, follow up and referral plans. medication usage, Demonstrated understanding of instructions, follow-up care, medications, Prescriptions given X 4. 23:31 Patient left the ED. jd3 Signatures: Vicente Ratliff MD MD cha Hagler, Wilian Love, Caleb Read em1 Fiordaliza Cervantes RN RN aa5 Kelvin Ramsey RN RN jd3 Jaskaran Lo RN jb4 Corrections: (The following items were deleted from the chart) 19:31 19:28 Musculoskeletal: Circulation, motion, and sensation intact. Range of motion: jd3 intact in all extremities, jd3 19:32 19:32 Pain: Pain jd3 jd3
--- NOTE | 2019-06-20 22:19 | EDPHYS ---
Physician Documentation [facility] Name: Carol Mclaughlin Age: 44 yrs Sex: Female : 1975 Arrival Date: 06/20/2019 Time: 18:42 Bed 20 Private MD: ED Physician Vicente Ratliff HPI: 06/20 20:25 This 44 yrs old Female presents to ER via Ambulatory with complaints of High nay Blood Sugar, Redness of Eye, Headache. 20:25 The patient or guardian reports hyperglycemia. 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 - Social history:: Smoking status: Patient/guardian denies using tobacco. - Ebola Screening: : No symptoms or risks identified at this time. ROS: 20:25 Constitutional: Negative for fever, chills, and weight loss, ENT: Negative for injury, nay pain, and discharge, Neck: Negative for injury, pain, and swelling, Cardiovascular: Negative for chest pain, palpitations, and edema, Respiratory: Negative for shortness of breath, cough, wheezing, and pleuritic chest pain, Back: Negative for injury and pain, MS/Extremity: Negative for injury and deformity, Skin: Negative for injury, rash, and discoloration, Neuro: Negative for headache, weakness, numbness, tingling, and seizure, Psych: Negative for depression, anxiety, suicide ideation, homicidal ideation, and hallucinations, Allergy/Immunology: Negative for hives, rash, and allergies, Endocrine: Negative for neck swelling, polydipsia, polyuria, polyphagia, and marked weight changes, Hematologic/Lymphatic: Negative for swollen nodes, abnormal bleeding, and unusual bruising. 20:25 Eyes: Positive for redness, of the inner aspect of conjuctiva of right eye. Exam: 20:25 Constitutional: This is a well developed, well nourished patient who is awake, alert, nay and in no acute distress. Head/Face: Normocephalic, atraumatic. ENT: Nares patent. No nasal discharge, no septal abnormalities noted. Tympanic membranes are normal and external auditory canals are clear. Oropharynx with no redness, swelling, or masses, exudates, or evidence of obstruction, uvula midline. Mucous membranes moist. Neck: Trachea midline, no thyromegaly or masses palpated, and no cervical lymphadenopathy. Supple, full range of motion without nuchal rigidity, or vertebral point tenderness. No Meningismus. Chest/axilla: Normal chest wall appearance and motion. Nontender with no deformity. No lesions are appreciated. Cardiovascular: Regular rate and rhythm with a normal S1 and S2. No gallops, murmurs, or rubs. Normal PMI, no JVD. No pulse deficits. Respiratory: Lungs have equal breath sounds bilaterally, clear to auscultation and percussion. No rales, rhonchi or wheezes noted. No increased work of breathing, no retractions or nasal flaring. Abdomen/GI: Soft, non-tender, with normal bowel sounds. No distension or tympany. No guarding or rebound. No evidence of tenderness throughout. Back: No spinal tenderness. No costovertebral tenderness. Full range of motion. Skin: Warm, dry with normal turgor. Normal color with no rashes, no lesions, and no evidence of cellulitis. MS/ Extremity: Pulses equal, no cyanosis. Neurovascular intact. Full, normal range of motion. Neuro: Awake and alert, GCS 15, oriented to person, place, time, and situation. Cranial nerves II-XII grossly intact. Motor strength 5/5 in all extremities. Sensory grossly intact. Cerebellar exam normal. Normal gait. Psych: Awake, alert, with orientation to person, place and time. Behavior, mood, and affect are within normal limits. 20:25 Eyes: Periorbital structures: appear normal, no acute changes, Pupils: no acute changes, equal, round, and reactive to light and accomodation, Extraocular movements: no acute changes, Conjunctiva: normal, Corneas: are normal, Sclera: no appreciated abnormality, Nystagmus: is not appreciated. 21:46 Neck: ROM/movement: is normal, no range of motions limitations, no meningismus, no nay nuchal rigidity, negative Brudzinski's sign, negative Kernig's sign, Meningeal signs: are not present, Kernig's sign is negative, Brudzinski's sign is negative. Vital Signs: 19:10 BP 160 / 97; Pulse 110; Resp 18 S; Temp 98.6(O); Pulse Ox 96% on R/A; Weight 81.65 kg aa5 (R); Height 5 ft. 4 in. (162.56 cm) (R); Pain 10/10; 22:22 BP 131 / 67; Pulse 67; Resp 18 S; Pulse Ox 99% on R/A; jd3 23:17 BP 137 / 68; Pulse 69; Resp 18 S; Pulse Ox 100% on R/A; jd3 19:10 Body Mass Index 30.90 (81.65 kg, 162.56 cm) aa5 MDM: 19:45 Patient medically screened. [facility] 20:26 Data reviewed: vital signs, nurses notes, lab test result(s), EKG, radiologic studies, [facility] CT scan, plain films. 06/20 20:24 Order name: Basic Metabolic Panel; Complete Time: 21:52 [facility] 06/20 20:24 Order name: CBC with Diff; Complete Time: 21:46 [facility] 06/20 20:24 Order name: LFT's; Complete Time: 21:52 [facility] 06/20 20:24 Order name: Magnesium; Complete Time: 21:52 [facility] 06/20 20:24 Order name: NT PRO-BNP; Complete Time: 21:52 [facility] 06/20 20:24 Order name: PT-INR; Complete Time: 21:52 [facility] 06/20 20:24 Order name: Troponin (emerg Dept Use Only); Complete Time: 21:52 [facility] 06/20 20:24 Order name: XRAY Chest (1 view) [facility] 06/20 20:25 Order name: Lipase; Complete Time: 21:52 [facility] 06/20 20:25 Order name: CT Head C Spine [facility] 06/20 20:25 Order name: Urine Culture [facility] 06/20 21:23 Order name: CT; Complete Time: 21:46 EDMS 06/20 21:23 Order name: RAD; Complete Time: 21:46 EDWY 06/20 21:59 Order name: D-Dimer; Complete Time: 22:17 [facility] 06/20 20:24 Order name: EKG; Complete Time: 20:29 [facility] 06/20 20:24 Order name: Cardiac monitoring; Complete Time: 21:13 [facility] 06/20 20:24 Order name: EKG - Nurse/Tech; Complete Time: 21:06 [facility] 06/20 20:24 Order name: IV Saline Lock; Complete Time: 21:13 [facility] 06/20 20:24 Order name: Labs collected and sent; Complete Time: 21:13 [facility] 06/20 20:24 Order name: O2 Per Protocol; Complete Time: 20:54 [facility] 06/20 20:25 Order name: O2 Sat Monitoring; Complete Time: 20:54 [facility] 06/20 20:25 Order name: Urine Dipstick-Ancillary (obtain specimen); Complete Time: 20:29 [facility] 06/20 20:25 Order name: Urine Test (obtain specimen); Complete Time: 20:29 [facility] Administered Medications: 21:13 Drug: NS 0.9% 1000 ml Route: IV; Rate: 1 bolus; Site: right forearm; jd3 22:00 Follow up: Response: No adverse reaction; IV Status: Completed infusion; IV Intake: jd3 1000ml 21:14 Drug: Tobramycin Ointment (0.3 %) 1 application Route: Ophthalmic; Site: right eye; jd3 22:10 Follow up: Response: No adverse reaction jd3 22:07 Drug: morphine 4 mg Route: IVP; Site: right forearm; jd3 23:00 Follow up: Response: No adverse reaction jd3 22:07 Drug: Zofran 4 mg Route: IVP; Site: right forearm; jd3 23:00 Follow up: Response: No adverse reaction jd3 22:08 Drug: Insulin Regular Human 8 units {Co-Signature: jb4 (Jaskaran Lo RN).} Route: IVP; jd3 Site: right forearm; 23:00 Follow up: Response: No adverse reaction jd3 22:30 Drug: LanTUS 20 units Route: Sub-Q; Site: abdomen; jd3 23:21 Follow up: Response: No adverse reaction jd3 Point of Care Testing: Blood Glucose: 19:10 Blood Glucose: 330 mg/dL; aa5 22:44 Blood Glucose: 267 mg/dL; jd3 Ranges: Critical Glucose Levels:Adult <50 mg/dl or >400 mg/dl <40 mg/dl or >180 mg/dl Disposition: 06/20/19 22:18 Discharged to Home. Impression: Strain of muscle, fascia and tendon at neck level, Episcleritis, Type 2 diabetes mellitus. - Condition is Stable. - Discharge Instructions: Type 2 Diabetes Mellitus, Diagnosis, Adult, Muscle Strain, Cervical Sprain, [id number], Type 2 Diabetes Mellitus, Diagnosis, Adult, Nyok-fn-[id number], Type 2 Diabetes Mellitus, Self Care, Adult. - Prescriptions for Tobrex 0.3 % Ophthalmic ointment - apply 1 inch ribbon by OPHTHALMIC route 3 times per day; 3.5 gram. Tylenol- Codeine #3 300-30 mg Oral Tablet - take 2 tablet by ORAL route every 6 hours As needed; 30 tablet. Motrin IB 200 mg Oral Tablet - take 2 tablet by ORAL route every 6 hours As needed as needed with food; 30 tablet. Cyclobenzaprine 5 mg Oral Tablet - take 1 tablet by ORAL route 3 times per day As needed; 15 tablet. - Medication Reconciliation Form, Thank You Letter, Antibiotic Education, Prescription Opioid Use form. - Follow up: Private Physician; When: 2 - 3 days; Reason: Recheck today's complaints, Continuance of care, Re-evaluation by your physician. Follow up: Maxime Slade; When: 2 - 3 days; Reason: Recheck today's complaints, Continuance of care, Re-evaluation by your physician. - Problem is new. - Symptoms have improved. Signatures: Dispatcher [employer] EDMS Vicente Ratliff MD MD cha Calderon, Audri, RN RN aa5 Kelvin Ramsey RN RN jd3 Jaskaran Lo RN jb4 Corrections: (The following items were deleted from the chart) 23:31 22:18 06/20/2019 22:18 Discharged to Home. Impression: Strain of muscle, fascia and jd3 tendon at neck level; Episcleritis; Type 2 diabetes mellitus. Condition is Stable. Discharge Instructions: Type 2 Diabetes Mellitus, Diagnosis, Adult, Muscle Strain, Cervical Sprain, Xmma-rn-[id number], Type 2 Diabetes Mellitus, Diagnosis, Adult, Fcmi-wa-Zwvf, Type 2 Diabetes Mellitus, Self Care, Adult. Prescriptions for Tobrex 0.3 % Ophthalmic ointment - apply 1 inch ribbon by OPHTHALMIC route 3 times per day; 3.5 gram, Tylenol-Codeine #3 300-30 mg Oral Tablet - take 2 tablet by ORAL route every 6 hours As needed; 30 tablet, Motrin IB 200 mg Oral Tablet - take 2 tablet by ORAL route every 6 hours As needed as needed with food; 30 tablet, Cyclobenzaprine 5 mg Oral Tablet - take 1 tablet by ORAL route 3 times per day As needed; 15 tablet. and Forms are Medication Reconciliation Form, Thank You Letter, Antibiotic Education, Prescription Opioid Use. Follow up: Private Physician; When: 2 - 3 days; Reason: Recheck today's complaints, Continuance of care, Re-evaluation by your physician. Follow up: Maxime Slade; When: 2 - 3 days; Reason: Recheck today's complaints, Continuance of care, Re-evaluation by your physician. Problem is new. Symptoms have improved. nay
[2019-06-20 23:37] VITALS: TEMP 98.6
[2019-06-20 23:39] VITALS: BP 137/68; O2SAT 100
--- NOTE | 2019-06-21 11:09 | EKG ---
Test Date: 2019-06-20 Test Time: 20:56:19 End User Consultant: AJ MEASUREMENT RESULTS: Intervals: Rate: 103 OK: 122 QRSD: 80 QT: 342 QTc: 448 [place]: P: 61 OK: 122 QRS: 52 T: 72 INTERPRETIVE STATEMENTS: Sinus tachycardia Otherwise normal ECG Compared to ECG 12/22/2018 21:57:49 Sinus rhythm no longer present Electronically Signed On 06-21-19 11:06:17 CDT by Carlos Alberto Cuadra
== END 2019-06-20 23:31 | disposition home or self-care (01) ==
LOC: ER 18:40
DX: H15.109 Unspecified episcleritis, unspecified eye (principal); S16.1XXA Strain of muscle, fascia and tendon at neck level, initial encounter; E11.9 Type 2 diabetes mellitus without complications; I10 Essential (primary) hypertension
CPT/HCPCS: 36415; 70450; 71045; 72125; 80048; 80076; 82962; 83690; 83735; 83880; 84484; 85025; 85379; 85610; 87077; 87086; 87088; 87186; 93005; 96361; 96372; 96374; 96375; 99284; J2405; J7030

== ENCOUNTER 2019-09-20 09:44 | Emergency (ER) | payer SELFPAY ==
--- OUTSIDE RECORDS SUMMARY | 2019-09-20 10:59 | XMS REPORT ---
:1975 Author Organization [facility] Address [address] [place] [address] Dr. Lebron [address] [place] [id number] Care Team Providers Name Role Phone SAÚL [...] (BEAKER) (test 330 mg/dL 70-110 TESTED AT [address] auig=[id number]) [place] [address] SCREEN, [id number] 11:13:00 Test Item Value Reference Range Comments TEST URINE (BEAKER) (test ffrq=950) Negative POCT-GLUCOSE [id number] 08:33:00 Test Item Value Reference Range Comments POC-GLUCOSE METER (BEAKER) 226 mg/dL 70-110 TESTED AT [address] (test uauh=3931) [place] [address] POCT-GLUCOSE [id number] 21:48:00 Test Item Value Reference Range Comments POC-GLUCOSE METER (BEAKER) 219 mg/dL 70-110 TESTED AT [address] (test xbdl=1302) [place] [address] POCT-GLUCOSE [id number] 17:48:00 Test Item Value Reference Range Comments POC-GLUCOSE METER (BEAKER) 225 mg/dL 70-110 TESTED AT [address] (test xwkj=9229) [place] [address] [id number] 16:39:00 Test Item Value Reference Range Comments RPR SCREEN (BEAKER) (test bpku=067) Nonreactive Nonreactive SEDIMENTATION [id number] 15:02:00 Test Item Value Reference Range Comments SEDIMENTATION RATE, ERYTHROCYTE (BEAKER) (test 25 mm/HR 0-20 llui=367) POCT-GLUCOSE [id number] 12:40:00 Test Item Value Reference Range Comments POC-GLUCOSE METER (BEAKER) 188 mg/dL 70-110 TESTED AT [facility] [address] (test qslv=8841) [facility] [address] HEMOGLOBIN [id number] 11:42:00 Test Item Value Reference Range Comments HEMOGLOBIN A1C (BEAKER) (test tdos=075) 8.2 % 4.3-6.1 MR, BRAIN, WITHOUT [id number] 11:17:00Reason for exam:->Ischemic Stroke EvaluationFINAL REPORT MRI [...] infarct, hemorrhage, or hydrocephalus. Signed: Mark Mathur [facility] Verified Date/Time: 2016 11:17:54 Reading Location: [address] Neuro Reading Room MR, MRA, BRAIN, WITHOUT [id number] 11:16:00Reason for exam:->Ischemic Stroke EvaluationFINAL REPORT MRA head and neck without contrast INDICATION: Headache, left hemianesthesia, left sided weakness TECHNIQUE: 2-D and 3-D [id number] MRA images of the intra- and extracranial [...] branch occlusion or significant stenosis in the [place] vessels. There is no specific MRA evidence of saccular aneurysm. IMPRESSION: 1. No hemodynamically significant carotid stenosis by NASCET criteria. 2. No significant stenosis in the imaged cervical vertebral arteries. 3. No major branch occlusion, significant stenosis,or evident aneurysm in the [place] vessels. Signed: Mark Mathur [facility] Verified Date/Time: 09/10 11:16:49 Reading Location: [address] Neuro Reading Room MR, MRA, NECK, WITHOUT IV [id number] 11:16:00Reason for exam:->Ischemic Stroke EvaluationFINAL REPORT MRA head and neck without contrast INDICATION: Headache, left hemianesthesia, left sided weakness TECHNIQUE: 2-D and 3-D [id number] MRA images of the intra- and extracranial [...] branch occlusion or significant stenosis in the [place] vessels. There is no specific MRA evidence of saccular aneurysm. IMPRESSION: 1. No hemodynamically significant carotid stenosis by NASCET criteria. 2. No significant stenosis in the imaged cervical vertebral arteries. 3. No major branch occlusion, significant stenosis,or evident aneurysm in the [place] vessels. Signed: Mark Mathur [facility] Verified Date/Time: 09/10 11:16:49 Reading Location: [address] Neuro Reading Room TSH/ FREE T4 IF [id number] 09:44:00 Test Item Value Reference Range Comments THYROID STIMULATING HORMONE (BEAKER) (test 2.42 uIU/mL 0.35-4.94 ofio=958) VITAMIN B12 AND [id number] 09:44:00 Test Item Value Reference Range Comments VITAMIN B12 (BEAKER) (test dkwv=038) 413 pg/mL 213-816 FOLATE (BEAKER) (test yshn=126) 14.8 ng/mL >=7.0 POCT-GLUCOSE [id number] 08:35:00 Test Item Value Reference Range Comments POC-GLUCOSE METER (BEAKER) 156 mg/dL 70-110 TESTED AT [facility] [address] (test gahk=4160) [facility] [address] [id number] 06:56:00 Test Item Value Reference Range Comments HOMOCYSTEINE (BEAKER) (test mcau=453) 4.1 umol/L 5.1-15.4 BASIC METABOLIC [id number] 06:32:00 Test Item Value Reference Range Comments SODIUM (BEAKER) (test 138 meq/L 136-145 zzyl=242) POTASSIUM (BEAKER) (test 4.0 meq/L 3.5-5.1 fkbc=974) CHLORIDE (BEAKER) (test 109 meq/L 98-107 ejzp=573) CO2 (BEAKER) (test 21 meq/L 22-29 yzms=429) BLOOD UREA NITROGEN 7 mg/dL 7-21 (BEAKER) (test hvys=367) CREATININE (BEAKER) (test 0.53 mg/dL 0.57-1.25 avvm=951) GLUCOSE RANDOM (BEAKER) 161 mg/dL 70-105 (test hbxc=438) CALCIUM (BEAKER) (test 8.0 mg/dL 8.4-10.2 jbbj=108) EGFR (BEAKER) (test mL/min/1.73 sq m INSUFFICIENT CLINICAL DATA ivnl=1813) TO CALCULATE ESTIMATED GFR. FastingLIPID [id number] 06:31:00 Test Item Value Reference Range Comments TRIGLYCERIDES (BEAKER) (test wuvc=242) 116 mg/dL CHOLESTEROL (BEAKER) (test nhwk=860) 99 mg/dL HDL CHOLESTEROL (BEAKER) (test tdhr=047) 25 mg/dL LDL CHOLESTEROL CALCULATED (BEAKER) (test 51 mg/dL nblr=807) Triglyceride Reference Range: Low Risk <150 Borderline 150- 199 High Risk 200-499 Very High Risk >=500Cholesterol Reference Range: Low Risk <200 Borderline 200-239 High Risk > 240HDL Cholesterol Reference Range: Low Risk >=60 High Risk <40LDL Cholesterol Reference Range: Optimal <100 Near Optimal 100-129 Borderline 130-159 High 160-189 Very High >=190 FastingC-REACTIVE [id number] 06:31:00 Test Item Value Reference Range Comments C-REACTIVE PROTEIN (BEAKER) (test qqyb=100) 1.82 mg/dL 0.00-0.50 FastingTROPONIN [id number] 06:29:00 Test Item Value Reference Range Comments TROPONIN I (BEAKER) (test ziun=989) < ng/mL 0.00-0.03 Troponin I (TnI) levels [...] and persistent tachyarrhythmia.FastingCBC W/PLT COUNT & AUTO [id number] 06:02:00 Test Item Value Reference Range Comments WHITE BLOOD CELL COUNT (BEAKER) (test xuhg=309) 10.5 K/ L 3.5-10.5 RED BLOOD CELL COUNT (BEAKER) (test ipyb=116) 4.13 M/ L 3.93-5.22 HEMOGLOBIN (BEAKER) (test ajut=817) 10.9 GM/DL 11.2-15.7 HEMATOCRIT (BEAKER) (test zaub=063) 33.9 % 34.1-44.9 MEAN CORPUSCULAR VOLUME (BEAKER) (test kmxc=420) 82.1 fL 79.4-94.8 MEAN CORPUSCULAR HEMOGLOBIN (BEAKER) (test 26.4 pg 25.6-32.2 qvti=900) MEAN CORPUSCULAR HEMOGLOBIN CONC (BEAKER) (test 32.2 GM/DL 32.2-35.5 lroi=574) RED CELL DISTRIBUTION WIDTH (BEAKER) (test 13.6 % 11.7-14.4 lgap=518) PLATELET COUNT (BEAKER) (test wqan=797) 220 K/CU MM 150-450 MEAN PLATELET VOLUME (BEAKER) (test xyij=709) 11.5 fL 9.4-12.3 NUCLEATED RED BLOOD CELLS (BEAKER) (test 0 /100 WBC 0-0 mznw=262) NEUTROPHILS RELATIVE PERCENT (BEAKER) (test 56 % xixx=052) LYMPHOCYTES RELATIVE PERCENT (BEAKER) (test 35 % hmgv=728) MONOCYTES RELATIVE PERCENT (BEAKER) (test 6 % vihz=767) EOSINOPHILS RELATIVE PERCENT (BEAKER) (test 3 % axww=039) BASOPHILS RELATIVE PERCENT (BEAKER) (test 0 % soth=068) NEUTROPHILS ABSOLUTE COUNT (BEAKER) (test 5.87 K/ L 1.56-6.13 ngrr=866) LYMPHOCYTES ABSOLUTE COUNT (BEAKER) (test 3.71 K/ L 1.18-3.74 drtl=489) MONOCYTES ABSOLUTE COUNT (BEAKER) (test 0.58 K/ L 0.24-0.36 oluh=730) EOSINOPHILS ABSOLUTE COUNT (BEAKER) (test 0.28 K/ L 0.04-0.36 qejn=014) BASOPHILS ABSOLUTE COUNT (BEAKER) (test 0.04 K/ L 0.01-0.08 rjse=017) IMMATURE GRANULOCYTES-RELATIVE PERCENT (BEAKER) 0 % 0-1 (test xqnn=9317)
[2019-09-20] MEDS ORDERED: HYDROCODONE/APAP 5/325 MG TAB ONE (11:19)
[2019-09-20] MEDS ORDERED: IBUPROFEN 200 MG TAB PO ONE (11:19)
--- NOTE | 2019-09-20 11:55 | RAD REPORT ---
EXAM DESCRIPTION: RAD - Shoulder Right 2 View - 09/20/2019 11:40 am CLINICAL HISTORY: PAIN COMPARISON: Shoulder Right 2 View dated 04/02/2019 FINDINGS: No bone or joint abnormality is seen.
--- NOTE | 2019-09-20 12:19 | ER ---
Nurse's Notes [facility] Name: Carol Mclaughlin Age: 44 yrs Sex: Female : 1975 Arrival Date: 09/20/2019 Time: 09:46 Bed DIS1 Private MD: Diagnosis: Pain in right shoulder Presentation: 09/20 09:58 Presenting complaint: Patient states: i have high blood sugar, it was 400 something, tw2 and my face feels numb and pain from my neck to my right shoulder into elbow for 2 months now, its too much pain and i cant take it anymore. Transition of care: patient was not received from another setting of care. Onset of symptoms was September 20, 2019. Risk Assessment: Do you want to hurt yourself or someone else? Patient reports no desire to harm self or others. Initial Sepsis Screen: Does the patient meet any 2 criteria? No. Patient's initial sepsis screen is negative. Does the patient have a suspected source of infection? No. Patient's initial sepsis screen is negative. Care prior to arrival: None. 09:58 Method Of Arrival: Ambulatory tw2 09:58 Acuity: GORGE 3 tw2 Triage Assessment: 09:59 General: Appears in no apparent distress. Behavior is calm, cooperative, appropriate tw2 for age. Pain: Complains of pain in neck, face, and right arm. 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 - Social history:: Smoking status: . - Ebola Screening: : Patient denies travel to an Ebola-affected area in the 21 days before illness onset. Screenin:50 Abuse screen: Denies threats or abuse. Denies injuries from another. Nutritional aj1 screening: No deficits noted. Tuberculosis screening: No symptoms or risk factors identified. Assessment: 10:50 General: Appears in no apparent distress. comfortable, Behavior is calm, cooperative, aj1 appropriate for age. Pain: Complains of pain in anterior aspect of right shoulder, posterior aspect of right shoulder and right side of neck. Neuro: Level of Consciousness is awake, alert, obeys commands, Oriented to person, place, time, situation. Cardiovascular: Patient's skin is warm and dry. Respiratory: Airway is patent Respiratory effort is even, unlabored, Respiratory pattern is regular, symmetrical. GI: No signs and/or symptoms were reported involving the gastrointestinal system. : No signs and/or symptoms were reported regarding the genitourinary system. EENT: No signs and/or symptoms were reported regarding the EENT system. Derm: No signs and/or symptoms reported regarding the dermatologic system. Skin is flushed. Musculoskeletal: No signs and/or symptoms reported regarding the musculoskeletal system. Circulation, motion, and sensation intact. 11:50 Reassessment: Patient appears in no apparent distress at this time. No changes from aj1 previously documented assessment. Patient and/or family updated on plan of care and expected duration. Pain level reassessed. Patient is alert, oriented x 3, equal unlabored respirations, skin warm/dry/pink. 12:51 Reassessment: Patient appears in no apparent distress at this time. No changes from aj1 previously documented assessment. Patient and/or family updated on plan of care and expected duration. Pain level reassessed. Patient is alert, oriented x 3, equal unlabored respirations, skin warm/dry/pink. Vital Signs: 10:00 BP 135 / 87; Pulse 89; Resp 17; Temp 98.3(TE); Pulse Ox 97% on R/A; Weight 81.65 kg tw2 (R); Height 5 ft. 4 in. (162.56 cm); Pain 10/10; 12:52 BP 133 / 87; Pulse 92; Resp 18; Pulse Ox 97% on R/A; aj1 10:00 Body Mass Index 30.90 (81.65 kg, 162.56 cm) tw2 ED Course: 09:46 Patient arrived in ED. mr 09:59 Triage completed. tw2 09:59 Arm band placed on. tw2 10:46 Shmuel Boswell PA is PHCP. jr8 10:46 Paul Holt MD is Attending Physician. jr8 10:50 Patient has correct armband on for positive identification. Bed in low position. Call aj1 light in reach. 10:50 No provider procedures requiring assistance completed. aj1 11:13 Maria Isabel Jurado, RN is Primary Nurse. aj1 11:42 XRAY Shoulder RIGHT 2 view In Process Unspecified. EDMS 12:17 Mark Justin MD is Referral Physician. jr8 12:51 Patient did not have IV access during this emergency room visit. aj1 Administered Medications: 11:24 Drug: [place] (7.5 mg-325 mg) 1 tabs Route: PO; aj1 12:52 Follow up: Response: No adverse reaction; Pain is decreased; RASS: Alert and Calm (0) aj1 11:24 Drug: Ibuprofen 600 mg Route: PO; aj1 12:52 Follow up: Response: No adverse reaction; Pain is decreased aj1 Point of Care Testing: Blood Glucose: 10:04 Blood Glucose: 281 mg/dL; tw2 Ranges: Outcome: 12:18 Discharge ordered by . jr8 12:53 Patient left the ED. aj1 Signatures: Dispatcher [employer] EDMI Maria Isabel Jurado, RN RN aj1 Leti Amaral mr Shmuel Boswell PA PA jr8 Arelis Chandra RN RN tw2
--- NOTE | 2019-09-20 12:20 | EDPHYS ---
Physician Documentation [facility] Name: Carol Mclaughlin Age: 44 yrs Sex: Female : 1975 Arrival Date: 09/20/2019 Time: 09:46 Bed DIS1 Private MD: ED Physician Paul Holt HPI: 09/20 11:42 This 44 yrs old Female presents to ER via Ambulatory with complaints of jr8 Shoulder Pain, High Blood Sugar. 11:42 The patient or guardian complains of decreased range of motion, pain, tenderness. right jr8 shoulder. Onset: The symptoms/episode began/occurred Chronic over past year but getting worse . Modifying factors: the symptoms are alleviated by nothing. The symptoms are aggravated by movement. Associated signs and symptoms: The patient has no apparent associated signs or symptoms. Severity of symptoms: At their worst the symptoms were moderate, in the emergency department the symptoms are unchanged. The patient has not recently seen a physician. Stated that her blood sugar had also been elevated this morning in the 400s. POLE SETTER: 10:00 LMP 09/17/2019 tw2 Historical: - Allergies: 10:01 No Known Drug Allergies; tw2 - Home Meds: 10:01 metformin 1,000 mg Oral tab 1 tab 2 times per day [Active]; Victoza 2-Jack 1.8 tw2 subcutaneous pnij once daily [Active]; - PMHx: 10:01 Diabetes - NIDDM; Hypertension; tw2 - PSHx: 10:01 ; Cholecystectomy; left ankle sx; tw2 - Immunization history:: Adult Immunizations. - Social history:: Smoking status: . - Ebola Screening: : Patient denies travel to an Ebola-affected area in the 21 days before illness onset. ROS: 11:42 Eyes: Negative for injury, pain, redness, and discharge, ENT: Negative for injury, jr8 pain, and discharge, Neck: Negative for injury, pain, and swelling, Cardiovascular: Negative for chest pain, palpitations, and edema, Respiratory: Negative for shortness of breath, cough, wheezing, and pleuritic chest pain, Abdomen/GI: Negative for abdominal pain, nausea, vomiting, diarrhea, and constipation, Back: Negative for injury and pain, Skin: Negative for injury, rash, and discoloration, Neuro: Negative for headache, weakness, numbness, tingling, and seizure. 11:42 MS/extremity: Positive for decreased range of motion, pain, tenderness, of the right shoulder. Exam: 11:42 Eyes: Pupils equal round and reactive to light, extra-ocular motions intact. Lids and jr8 lashes normal. Conjunctiva and sclera are non-icteric and not injected. Cornea within normal limits. Periorbital areas with no swelling, redness, or edema. ENT: Nares patent. No nasal discharge, no septal abnormalities noted. Tympanic membranes are normal and external auditory canals are clear. Oropharynx with no redness, swelling, or masses, exudates, or evidence of obstruction, uvula midline. Mucous membranes moist. Neck: Trachea midline, no thyromegaly or masses palpated, and no cervical lymphadenopathy. Supple, full range of motion without nuchal rigidity, or vertebral point tenderness. No Meningismus. Cardiovascular: Regular rate and rhythm with a normal S1 and S2. No gallops, murmurs, or rubs. Normal PMI, no JVD. No pulse deficits. Respiratory: Lungs have equal breath sounds bilaterally, clear to auscultation and percussion. No rales, rhonchi or wheezes noted. No increased work of breathing, no retractions or nasal flaring. Abdomen/GI: Soft, non-tender, with normal bowel sounds. No distension or tympany. No guarding or rebound. No evidence of tenderness throughout. Back: No spinal tenderness. No costovertebral tenderness. Full range of motion. Skin: Warm, dry with normal turgor. Normal color with no rashes, no lesions, and no evidence of cellulitis. Neuro: Awake and alert, GCS 15, oriented to person, place, time, and situation. Cranial nerves II-XII grossly intact. Motor strength 5/5 in all extremities. Sensory grossly intact. Cerebellar exam normal. Normal gait. 11:42 Musculoskeletal/extremity: Extremities: grossly normal except: noted in the right shoulder: pain, tenderness, right posterior shoulder and trapezius , ROM: limited active range of motion, in the right shoulder, limited passive range of motion, in the right shoulder, limited active range of motion due to pain, in the right shoulder, limited passive range of motion due to pain, in the right shoulder, Circulation is intact in all extremities. Sensation intact. Vital Signs: 10:00 BP 135 / 87; Pulse 89; Resp 17; Temp 98.3(TE); Pulse Ox 97% on R/A; Weight 81.65 kg tw2 (R); Height 5 ft. 4 in. (162.56 cm); Pain 10/10; 12:52 BP 133 / 87; Pulse 92; Resp 18; Pulse Ox 97% on R/A; aj1 10:00 Body Mass Index 30.90 (81.65 kg, 162.56 cm) tw2 MDM: 10:48 Patient medically screened. jr8 12:17 Data reviewed: vital signs, nurses notes, radiologic studies, plain films, and as a jr8 result, I will discharge patient. Data interpreted: Pulse oximetry: on room air is 97 %. Interpretation: normal. Counseling: I had a detailed discussion with the patient and/or guardian regarding: the historical points, exam findings, and any diagnostic results supporting the discharge/admit diagnosis, radiology results, the need for outpatient follow up, a orthopedic surgeon, to return to the emergency department if symptoms worsen or persist or if there are any questions or concerns that arise at home. 09/20 10:17 Order name: Glucose, Ancillary Testing; Complete Time: 10:48 EDMS 09/20 11:09 Order name: XRAY Shoulder RIGHT 2 view; Complete Time: 12:38 jr8 Administered Medications: 11:24 Drug: [place] (7.5 mg-325 mg) 1 tabs Route: PO; aj1 12:52 Follow up: Response: No adverse reaction; Pain is decreased; RASS: Alert and Calm (0) aj1 11:24 Drug: Ibuprofen 600 mg Route: PO; aj1 12:52 Follow up: Response: No adverse reaction; Pain is decreased aj1 Point of Care Testing: Blood Glucose: 10:04 Blood Glucose: 281 mg/dL; tw2 Ranges: Critical Glucose Levels:Adult <50 mg/dl or >400 mg/dl <40 mg/dl or >180 mg/dl Disposition: 13:40 Co-signature as Attending Physician, Paul Holt MD I agree with the assessment and kdr plan of care. Disposition: 09/20/19 12:18 Discharged to Home. Impression: Pain in right shoulder. - Condition is Stable. - Discharge Instructions: Rotator Cuff Injury, Shoulder Pain. - Prescriptions for meloxicam 15 mg Oral tablet - take 1 tablet by ORAL route once daily As needed; 20 tablet. - Medication Reconciliation Form, Thank You Letter, Antibiotic Education, Prescription Opioid Use form. - Follow up: Mark Justin MD; When: 5 - 6 days; Reason: Recheck today's complaints, Continuance of care, Re-evaluation by your physician. - Problem is new. - Symptoms have improved. Signatures: Dispatcher [employer] EDMS Maria Isabel Jurado RN RN aj1 Paul Holt MD MD [facility] Shmuel Boswell PA PA jr8 Arelis Chandra RN RN tw2 Corrections: (The following items were deleted from the chart) 12:53 12:18 09/20/2019 12:18 Discharged to Home. Impression: Pain in right shoulder. aj1 Condition is Stable. Forms are Medication Reconciliation Form, Thank You Letter, Antibiotic Education, Prescription Opioid Use. Follow up: Mark Justin; When: 5 - 6 days; Reason: Recheck today's complaints, Continuance of care, Re-evaluation by your physician. Problem is new. Symptoms have improved. jr8
[2019-09-20 13:27] VITALS: TEMP 98.3; O2SAT 97
[2019-09-20 13:29] VITALS: BP 133/87
== END 2019-09-20 12:53 | disposition home or self-care (01) ==
LOC: ER 09:44
DX: M25.511 Pain in right shoulder (principal); E11.9 Type 2 diabetes mellitus without complications; I10 Essential (primary) hypertension
CPT/HCPCS: 82947; 99283

== ENCOUNTER 2019-12-28 13:42 | Emergency (ER) | payer SELFPAY ==
--- OUTSIDE RECORDS SUMMARY | 2019-12-28 13:45 | XMS REPORT ---
:1975 [facility] Address [address] [place] [address] Dr. Lebron [address] [place] [id number] Care Team Providers Name Role Phone SAÚL [...] (BEAKER) (test 330 mg/dL 70-110 TESTED AT [address] aqkb=2853) [place] [address] SCREEN, [id number] 11:13:00 Test Item Value Reference Range Comments TEST URINE (BEAKER) (test jzdc=787) Negative POCT-GLUCOSE [id number] 08:33:00 Test Item Value Reference Range Comments POC-GLUCOSE METER (BEAKER) 226 mg/dL 70-110 TESTED AT [address] (test vffr=4196) [place] [address] POCT-GLUCOSE [id number] 21:48:00 Test Item Value Reference Range Comments POC-GLUCOSE METER (BEAKER) 219 mg/dL 70-110 TESTED AT [address] (test afnk=4667) [place] [address] POCT-GLUCOSE [id number] 17:48:00 Test Item Value Reference Range Comments POC-GLUCOSE METER (BEAKER) 225 mg/dL 70-110 TESTED AT [address] (test duag=3155) [place] [address] [id number] 16:39:00 Test Item Value Reference Range Comments RPR SCREEN (BEAKER) (test jaag=045) Nonreactive Nonreactive SEDIMENTATION [id number] 15:02:00 Test Item Value Reference Range Comments SEDIMENTATION RATE, ERYTHROCYTE (BEAKER) (test 25 mm/HR 0-20 sdqa=463) POCT-GLUCOSE [id number] 12:40:00 Test Item Value Reference Range Comments POC-GLUCOSE METER (BEAKER) 188 mg/dL 70-110 TESTED AT [facility] [address] (test sntq=2969) [facility] [address] HEMOGLOBIN [id number] 11:42:00 Test Item Value Reference Range Comments HEMOGLOBIN A1C (BEAKER) (test ljcr=970) 8.2 % 4.3-6.1 MR, BRAIN, WITHOUT [id number] 11:17:00Reason for exam:->Ischemic Stroke EvaluationFINAL REPORT MRI [...] infarct, hemorrhage, or hydrocephalus. Signed: Mark Mathur [facility] Verified Date/Time: 2016 11:17:54 Reading Location: [address] Neuro Reading Room MR, MRA, BRAIN, WITHOUT [id number] 11:16:00Reason for exam:->Ischemic Stroke EvaluationFINAL REPORT MRA head and neck without contrast INDICATION: Headache, left hemianesthesia, left sided weakness TECHNIQUE: 2-D and 3-D [id number] MRA images of the intra- and extracranial [...] branch occlusion or significant stenosis in the [place] vessels. There is no specific MRA evidence of saccular aneurysm. IMPRESSION: 1. No hemodynamically significant carotid stenosis by NASCET criteria. 2. No significant stenosis in the imaged cervical vertebral arteries. 3. No major branch occlusion, significant stenosis,or evident aneurysm in the [place] vessels. Signed: Mark Mathur [facility] Verified Date/Time: 09/10 11:16:49 Reading Location: [address] Neuro Reading Room MR, MRA, NECK, WITHOUT IV [id number] 11:16:00Reason for exam:->Ischemic Stroke EvaluationFINAL REPORT MRA head and neck without contrast INDICATION: Headache, left hemianesthesia, left sided weakness TECHNIQUE: 2-D and 3-D [id number] MRA images of the intra- and extracranial [...] branch occlusion or significant stenosis in the [place] vessels. There is no specific MRA evidence of saccular aneurysm. IMPRESSION: 1. No hemodynamically significant carotid stenosis by NASCET criteria. 2. No significant stenosis in the imaged cervical vertebral arteries. 3. No major branch occlusion, significant stenosis,or evident aneurysm in the [place] vessels. Signed: Mark Mathur [facility] Verified Date/Time: 09/10 11:16:49 Reading Location: [address] Neuro Reading Room TSH/ FREE T4 IF [id number] 09:44:00 Test Item Value Reference Range Comments THYROID STIMULATING HORMONE (BEAKER) (test 2.42 uIU/mL 0.35-4.94 zcnd=810) VITAMIN B12 AND [id number] 09:44:00 Test Item Value Reference Range Comments VITAMIN B12 (BEAKER) (test gssr=090) 413 pg/mL 213-816 FOLATE (BEAKER) (test yygk=853) 14.8 ng/mL >=7.0 POCT-GLUCOSE [id number] 08:35:00 Test Item Value Reference Range Comments POC-GLUCOSE METER (BEAKER) 156 mg/dL 70-110 TESTED AT [facility] [address] [facility] (test kgks=6255) [facility] [address] [id number] 06:56:00 Test Item Value Reference Range Comments HOMOCYSTEINE (BEAKER) (test quul=094) 4.1 umol/L 5.1-15.4 BASIC METABOLIC [id number] 06:32:00 Test Item Value Reference Range Comments SODIUM (BEAKER) (test 138 meq/L 136-145 imxr=478) POTASSIUM (BEAKER) (test 4.0 meq/L 3.5-5.1 tapz=308) CHLORIDE (BEAKER) (test 109 meq/L 98-107 lwmr=806) CO2 (BEAKER) (test 21 meq/L 22-29 uzhb=357) BLOOD UREA NITROGEN 7 mg/dL 7-21 (BEAKER) (test gqhx=744) CREATININE (BEAKER) (test 0.53 mg/dL 0.57-1.25 fdki=956) GLUCOSE RANDOM (BEAKER) 161 mg/dL 70-105 (test wvoq=810) CALCIUM (BEAKER) (test 8.0 mg/dL 8.4-10.2 masq=920) EGFR (BEAKER) (test mL/min/1.73 sq m INSUFFICIENT CLINICAL DATA obig=6297) TO CALCULATE ESTIMATED GFR. FastingLIPID [id number] 06:31:00 Test Item Value Reference Range Comments TRIGLYCERIDES (BEAKER) (test xydn=771) 116 mg/dL CHOLESTEROL (BEAKER) (test wpaw=316) 99 mg/dL HDL CHOLESTEROL (BEAKER) (test wkyn=439) 25 mg/dL LDL CHOLESTEROL CALCULATED (BEAKER) (test 51 mg/dL zeas=615) Triglyceride Reference Range: Low Risk <150 Borderline 150- 199 High Risk 200-499 Very High Risk >=500Cholesterol Reference Range: Low Risk <200 Borderline 200-239 High Risk > 240HDL Cholesterol Reference Range: Low Risk >=60 High Risk <40LDL Cholesterol Reference Range: Optimal <100 Near Optimal 100-129 Borderline 130-159 High 160-189 Very High >=190 FastingC-REACTIVE [id number] 06:31:00 Test Item Value Reference Range Comments C-REACTIVE PROTEIN (BEAKER) (test adyv=045) 1.82 mg/dL 0.00-0.50 FastingTROPONIN [id number] 06:29:00 Test Item Value Reference Range Comments TROPONIN I (BEAKER) (test pjtv=065) < ng/mL 0.00-0.03 Troponin I (TnI) levels [...] and persistent tachyarrhythmia.FastingCBC W/PLT COUNT & AUTO [id number] 06:02:00 Test Item Value Reference Range Comments WHITE BLOOD CELL COUNT (BEAKER) (test uyhw=610) 10.5 K/ L 3.5-10.5 RED BLOOD CELL COUNT (BEAKER) (test kdbh=991) 4.13 M/ L 3.93-5.22 HEMOGLOBIN (BEAKER) (test dkup=732) 10.9 GM/DL 11.2-15.7 HEMATOCRIT (BEAKER) (test wdxh=543) 33.9 % 34.1-44.9 MEAN CORPUSCULAR VOLUME (BEAKER) (test gilt=448) 82.1 fL 79.4-94.8 MEAN CORPUSCULAR HEMOGLOBIN (BEAKER) (test 26.4 pg 25.6-32.2 guak=643) MEAN CORPUSCULAR HEMOGLOBIN CONC (BEAKER) (test 32.2 GM/DL 32.2-35.5 allk=802) RED CELL DISTRIBUTION WIDTH (BEAKER) (test 13.6 % 11.7-14.4 atnl=601) PLATELET COUNT (BEAKER) (test ptoq=149) 220 K/CU MM 150-450 MEAN PLATELET VOLUME (BEAKER) (test oksv=139) 11.5 fL 9.4-12.3 NUCLEATED RED BLOOD CELLS (BEAKER) (test 0 /100 WBC 0-0 lnlr=134) NEUTROPHILS RELATIVE PERCENT (BEAKER) (test 56 % rron=912) LYMPHOCYTES RELATIVE PERCENT (BEAKER) (test 35 % mjwi=731) MONOCYTES RELATIVE PERCENT (BEAKER) (test 6 % kvfn=450) EOSINOPHILS RELATIVE PERCENT (BEAKER) (test 3 % vkto=603) BASOPHILS RELATIVE PERCENT (BEAKER) (test 0 % spbf=123) NEUTROPHILS ABSOLUTE COUNT (BEAKER) (test 5.87 K/ L 1.56-6.13 gtym=233) LYMPHOCYTES ABSOLUTE COUNT (BEAKER) (test 3.71 K/ L 1.18-3.74 vngr=755) MONOCYTES ABSOLUTE COUNT (BEAKER) (test 0.58 K/ L 0.24-0.36 tmui=088) EOSINOPHILS ABSOLUTE COUNT (BEAKER) (test 0.28 K/ L 0.04-0.36 pafr=949) BASOPHILS ABSOLUTE COUNT (BEAKER) (test 0.04 K/ L 0.01-0.08 aicb=542) IMMATURE GRANULOCYTES-RELATIVE PERCENT (BEAKER) 0 % 0-1 (test afyh=1491)
[2019-12-28] MEDS ORDERED: NA CHLORIDE 0.9% 1,000 ML ONE (14:44)
[2019-12-28] MEDS ORDERED: ACETAMINOPHEN 325 MG TABLET ONE (15:06)
[2019-12-28 15:11] LABS: Absolute Lymphocytes (CBC) 1.5 K/uL (0.7-4.9); Basophils % 0.7 % (0-1.3); Hematocrit 39.9 % (36.0-45.0); Lymphocytes % 13.5 % (15.3-44.8); MPV 9.1 fL (7.6-11.3); RBC Red Blood Cell Count 4.81 M/uL (3.86-4.86)
[2019-12-28 15:40] LABS: ALT/SGPT 19 U/L (12-78); AST/SGOT 13 U/L (15-37); Albumin 2.9 g/dL (3.4-5.0); Alkaline Phosphatase 101 U/L (45-117); BUN Blood Urea Nitrogen 10 mg/dL (7-18); Bicarbonate 27 mmol/L (21-32); Bilirubin Total 0.3 mg/dL (0.2-1.0); Magnesium 2.1 mg/dL (1.8-2.4); Potassium 4.4 mmol/L (3.5-5.1); Protein, Total 7.3 g/dL (6.4-8.2); Sodium Level 134 mmol/L (136-145)
[2019-12-28 15:42] LABS: Glucose Level 537 mg/dL (74-106)
[2019-12-28 15:52] LABS: Urine Blood NEGATIVE (NEG); Urine Glucose 2+ (NEG); Urine Protein NEGATIVE (NEG); Urine pH 5.5 (5.0-7.0)
[2019-12-28] MEDS ORDERED: INSULIN -REGULAR HUMAN 50 UNIT/0.5 ML ML ONE (16:33)
--- NOTE | 2019-12-28 18:13 | EDPHYS ---
Physician Documentation [facility] Name: Carol Mclaughlin Age: 44 yrs Sex: Female : 1975 Arrival Date: 12/28/2019 Time: 13:45 Bed 25 Private MD: ED Physician Shawn Murillo HPI: 12/27 15:57 This 44 yrs old Female presents to ER via Wheelchair with complaints of jr8 Breathing Difficulty, Headache, Numbness. 18:05 Patient stated that she has had numbness, headache, fatigue for past few days. Glucose jr8 over 500 upon arrival. Stated that she has been out of her medications . Onset: The symptoms/episode began/occurred gradually, 1 week(s) ago. Severity of symptoms: At their worst the symptoms were moderate in the emergency department the symptoms are unchanged. It is unknown whether or not the patient has had similar symptoms in the past. The patient has not recently seen a physician. Historical: - Allergies: 14:46 No Known Allergies; iw - Home Meds: 14:46 metformin 1,000 mg Oral tab 1 tab 2 times per day [Active]; Glipizide Oral [Active]; iw - PMHx: 14:46 Diabetes - NIDDM; Hypertension; iw - PSHx: 14:46 ; Cholecystectomy; left ankle sx; iw - Immunization history:: Adult Immunizations up to date. - Social history:: Smoking status: Patient denies any tobacco usage or history of. ROS: 18:05 Eyes: Negative for injury, pain, redness, and discharge, ENT: Negative for injury, jr8 pain, and discharge, Neck: Negative for injury, pain, and swelling, Cardiovascular: Negative for chest pain, palpitations, and edema, Respiratory: Negative for shortness of breath, cough, wheezing, and pleuritic chest pain, Abdomen/GI: Negative for abdominal pain, nausea, vomiting, diarrhea, and constipation, Back: Negative for injury and pain, MS/Extremity: Negative for injury and deformity. 18:05 Constitutional: Positive for fever, malaise. 18:05 Neuro: Positive for dizziness, headache, numbness. Exam: 18:05 Eyes: Pupils equal round and reactive to light, extra-ocular motions intact. Lids and jr8 lashes normal. Conjunctiva and sclera are non-icteric and not injected. Cornea within normal limits. Periorbital areas with no swelling, redness, or edema. ENT: Nares patent. No nasal discharge, no septal abnormalities noted. Tympanic membranes are normal and external auditory canals are clear. Oropharynx with no redness, swelling, or masses, exudates, or evidence of obstruction, uvula midline. Mucous membranes moist. Neck: Trachea midline, no thyromegaly or masses palpated, and no cervical lymphadenopathy. Supple, full range of motion without nuchal rigidity, or vertebral point tenderness. No Meningismus. Cardiovascular: Regular rate and rhythm with a normal S1 and S2. No gallops, murmurs, or rubs. Normal PMI, no JVD. No pulse deficits. Respiratory: Lungs have equal breath sounds bilaterally, clear to auscultation and percussion. No rales, rhonchi or wheezes noted. No increased work of breathing, no retractions or nasal flaring. Abdomen/GI: Soft, non-tender, with normal bowel sounds. No distension or tympany. No guarding or rebound. No evidence of tenderness throughout. Back: No spinal tenderness. No costovertebral tenderness. Full range of motion. Skin: Warm, dry with normal turgor. Normal color with no rashes, no lesions, and no evidence of cellulitis. MS/ Extremity: Pulses equal, no cyanosis. Neurovascular intact. Full, normal range of motion. Neuro: Awake and alert, GCS 15, oriented to person, place, time, and situation. Cranial nerves II-XII grossly intact. Motor strength 5/5 in all extremities. Sensory grossly intact. Cerebellar exam normal. Normal gait. Vital Signs: 14:24 BP 144 / 93; Pulse 104; Resp 18; Temp 98.1; Pulse Ox 99% on R/A; Weight 73.94 kg; iw Height 5 ft. 4 in. (162.56 cm); 15:00 BP 144 / 71; Pulse 99; Resp 18; Pulse Ox 98% on R/A; vc 16:00 BP 142 / 70; Pulse 80; Resp 18; Pulse Ox 95% on R/A; vc 17:00 BP 138 / 86; Pulse 96; Pulse Ox 100% on R/A; vc 18:00 BP 134 / 75; Pulse 95; Pulse Ox 98% on R/A; vc 14:24 Body Mass Index 27.98 (73.94 kg, 162.56 cm) iw MDM: 14:43 Patient medically screened. 8 18:05 Data reviewed: vital signs, nurses notes, lab test result(s), and as a result, I will jr8 discharge patient. Data interpreted: Pulse oximetry: on room air is 95 %. Interpretation: normal. Counseling: I had a detailed discussion with the patient and/or guardian regarding: the historical points, exam findings, and any diagnostic results supporting the discharge/admit diagnosis, lab results, the need for outpatient follow up, a family practitioner, to return to the emergency department if symptoms worsen or persist or if there are any questions or concerns that arise at home. 12/27 14:32 Order name: CBC with Diff; Complete Time: 15:25 [facility] 12/27 14:32 Order name: CMP; Complete Time: 15:55 [facility] 12/27 14:32 Order name: Magnesium; Complete Time: 15:55 [facility] 12/27 14:32 Order name: Ketone, Serum; Complete Time: 15:55 [facility] 12/27 14:32 Order name: Osmolality, Serum; Complete Time: 15:55 [facility] 12/27 14:38 Order name: Glucose, Ancillary Testing; Complete Time: 14:59 EDMS 12/27 14:32 Order name: Urine Dipstick-Ancillary (obtain specimen); Complete Time: 15:09 [facility] 12/27 14:32 Order name: Glucose Level; Complete Time: 14:36 [facility] 12/27 14:32 Order name: IV; Complete Time: 15:09 [facility] 12/27 15:07 Order name: Urine Dipstick--Ancillary (enter results); Complete Time: 15:55 eb 12/27 15:07 Order name: Urine --Ancillary (enter results); Complete Time: 15:55 12/27 17:35 Order name: Glucose, Ancillary Testing; Complete Time: 17:53 EDMS Administered Medications: 15:09 Drug: NS 0.9% 1000 ml Route: IV; Rate: 1000 ml; Site: left forearm; vc 16:44 Follow up: IV Status: Completed infusion; IV Intake: 1000ml vc 16:43 Drug: Insulin Regular Human 10 units {Co-Signature: (Yanet Marie RN).} Route: IVP; vc Site: left forearm; Disposition: 19:00 Co-signature as Attending Physician, Shmuel THOMAS Did not see or evaluate patient. ps1 Signature for administrative purposes. . Disposition: 12/28/19 18:11 Discharged to Home. Impression: Hyperglycemia, unspecified. - Condition is Stable. - Discharge Instructions: Hyperglycemia, Blood Glucose Monitoring, Adult. - Prescriptions for Glipizide 5 mg Oral Tablet - take 1 tablet by ORAL route 2 times per day before a meal; 60 tablet. Metformin 1,000 mg Oral Tablet - take 1 tablet by ORAL route every 12 hours with morning and evening meals; 60 tablet. - Medication Reconciliation Form, Thank You Letter, Antibiotic Education, Prescription Opioid Use form. - Follow up: Private Physician; When: 2 - 3 days; Reason: Recheck today's complaints, Continuance of care, Re-evaluation by your physician. - Problem is new. - Symptoms have improved. Signatures: Dispatcher [employer] EDMS Kaylan Beltran RN RN iw Shmuel Boswell PA PA jr8 Shawn Murillo MD MD ps1 Asya West RN RN vc Yanet Marie RN ph Corrections: (The following items were deleted from the chart) 18:37 18:11 12/28/2019 18:11 Discharged to Home. Impression: Hyperglycemia, unspecified. vc Condition is Stable. Forms are Medication Reconciliation Form, Thank You Letter, Antibiotic Education, Prescription Opioid Use. Follow up: Private Physician; When: 2 - 3 days; Reason: Recheck today's complaints, Continuance of care, Re-evaluation by your physician. Problem is new. Symptoms have improved. jr8
--- NOTE | 2019-12-28 18:13 | ER ---
Nurse's Notes [facility] Name: Carol Mclaughlin Age: 44 yrs Sex: Female : 1975 Arrival Date: 12/28/2019 Time: 13:45 Bed 25 Private MD: Diagnosis: Hyperglycemia, unspecified Presentation: 12/27 14:24 Chief complaint: Patient states: has been feeling woozy and tired, legs have started iw swelling, hands are tingling since yesterday, also has SOB and headache , also has pain in right shoulder for 6 months. Coronavirus screen: The patient has NOT traveled to a country currently being monitored by the [facility] within the last 14 days. Proceed with normal triage procedures. The patient has NOT had contact with any known and/or suspected case of coronavirus. Proceed with normal triage procedures. Ebola Screen: Patient negative for fever greater than or equal to 101.5 degrees Fahrenheit, and additional compatible Ebola Virus Disease symptoms Patient denies exposure to infectious person. Patient denies travel to an Ebola-affected area in the 21 days before illness onset. No symptoms or risks identified at this time. Initial Sepsis Screen: Does the patient meet any 2 criteria? No. Patient's initial sepsis screen is negative. Does the patient have a suspected source of infection? No. Patient's initial sepsis screen is negative. Risk Assessment: Do you want to hurt yourself or someone else? Patient reports no desire to harm self or others. 14:24 Method Of Arrival: Wheelchair iw 14:25 Acuity: GORGE 2 iw 16:55 Onset of symptoms is unknown. vc Historical: - Allergies: 14:46 No Known Allergies; iw - Home Meds: 14:46 metformin 1,000 mg Oral tab 1 tab 2 times per day [Active]; Glipizide Oral [Active]; iw - PMHx: 14:46 Diabetes - NIDDM; Hypertension; iw - PSHx: 14:46 ; Cholecystectomy; left ankle sx; iw - Immunization history:: Adult Immunizations up to date. - Social history:: Smoking status: Patient denies any tobacco usage or history of. Screenin:30 Abuse screen: Denies threats or abuse. Nutritional screening: No deficits noted. vc Tuberculosis screening: No symptoms or risk factors identified. 16:52 Fall Risk None identified. vc Assessment: 15:00 Respiratory: Airway is patent Respiratory effort is even, unlabored, Respiratory vc pattern is regular, symmetrical. 15:00 General: Appears in no apparent distress. uncomfortable, ill, Behavior is calm, vc cooperative, appropriate for age. Pain: Complains of pain in head. Neuro: Level of Consciousness is awake, alert, obeys commands, Oriented to person, place, time, situation, Appropriate for age. Cardiovascular: Rhythm is regular. 15:00 Respiratory: Breath sounds are clear. vc 16:00 Reassessment: Patient and/or family updated on plan of care and expected duration. Pain vc level reassessed. Patient is alert, oriented x 3, equal unlabored respirations, skin warm/dry/pink. Patient states symptoms have not improved. 17:00 Reassessment: Patient and/or family updated on plan of care and expected duration. Pain vc level reassessed. Patient is alert, oriented x 3, equal unlabored respirations, skin warm/dry/pink. Patient states feeling better. Patient states symptoms have improved. 17:30 Reassessment: Patient states she stopped taking her prescriptions at the end of vc June because she couldn't afford them. Patient informed of the $4.00 prescription plan at [facility]. 18:00 Reassessment: Patient and/or family updated on plan of care and expected duration. Pain vc level reassessed. Patient is alert, oriented x 3, equal unlabored respirations, skin warm/dry/pink. Patient states her headache has returned, provider notified, new orders given. Patient states feeling better. Patient states symptoms have improved. Vital Signs: 14:24 BP 144 / 93; Pulse 104; Resp 18; Temp 98.1; Pulse Ox 99% on R/A; Weight 73.94 kg; iw Height 5 ft. 4 in. (162.56 cm); 15:00 BP 144 / 71; Pulse 99; Resp 18; Pulse Ox 98% on R/A; vc 16:00 BP 142 / 70; Pulse 80; Resp 18; Pulse Ox 95% on R/A; vc 17:00 BP 138 / 86; Pulse 96; Pulse Ox 100% on R/A; vc 18:00 BP 134 / 75; Pulse 95; Pulse Ox 98% on R/A; vc 14:24 Body Mass Index 27.98 (73.94 kg, 162.56 cm) iw ED Course: 13:45 Patient arrived in ED. ag5 14:20 Asya West, RN is Primary Nurse. vc 14:30 No provider procedures requiring assistance completed. vc 14:31 Shmuel Boswell PA is PHCP. jr8 14:31 Shawn Murillo MD is Attending Physician. jr8 14:37 Triage completed. iw 14:46 Arm band placed on. iw 15:00 Inserted saline lock: 20 gauge in left forearm, using aseptic technique. vc 16:55 Patient has correct armband on for positive identification. Call light in reach. vc equipment monitor phototypesetting on. Pulse ox on. 18:36 IV discontinued, intact, bleeding controlled, No redness/swelling at site. Pressure vc dressing applied. Administered Medications: 15:09 Drug: NS 0.9% 1000 ml Route: IV; Rate: 1000 ml; Site: left forearm; vc 16:44 Follow up: IV Status: Completed infusion; IV Intake: 1000ml vc 16:43 Drug: Insulin Regular Human 10 units {Co-Signature: ph (Yanet Marie RN).} Route: IVP; vc Site: left forearm; Intake: 16:44 IV: 1000ml; Total: 1000ml. vc Outcome: 16:52 Condition: good vc 18:11 Discharge ordered by . jr8 18:34 Discharged to home via ambulance, with significant other. vc 18:34 Condition: improved 18:34 Discharge instructions given to patient, significant other, Instructed on discharge instructions, follow up and referral plans. medication usage. 18:37 Patient left the ED. vc Signatures: Kaylan Beltran RN RN Shmuel Boswell PA PA jr8 Keisha Archuleta ag5 Asya West, RN RN vc Yanet Marie RN ph Corrections: (The following items were deleted from the chart) 16:49 16:39 General: Appears in no apparent distress. uncomfortable, ill, Behavior is calm, vc cooperative, appropriate for age, vc 16:49 16:39 Pain: Complains of pain in head vc vc 16:49 16:39 Neuro: Level of Consciousness is awake, alert, obeys commands, Oriented to vc person, place, time, situation, Appropriate for age vc 16:49 16:39 Cardiovascular: Rhythm is regular vc vc 16:49 16:39 Respiratory: Airway is patent Respiratory effort is even, unlabored, Respiratory vc pattern is regular, symmetrical, vc
[2019-12-28] MEDS ORDERED: KETOROLAC 30 MG/ML INJ ONE (18:31)
== END 2019-12-28 18:37 | disposition home or self-care (01) ==
LOC: ER 13:42
DX: E11.65 Type 2 diabetes mellitus with hyperglycemia (principal); I10 Essential (primary) hypertension
CPT/HCPCS: 36415; 80053; 81003; 81025; 82010; 82947; 83735; 83930; 85025; 96361; 96374; 99284; J7030

== ENCOUNTER 2020-03-14 16:09 | Emergency (ER) | payer SELFPAY ==
--- OUTSIDE RECORDS SUMMARY | 2020-03-14 16:13 | XMS REPORT | Clinical Summary ---
:1975 Author Organization Formerly [facility] Address [address] [place] [address] Care Team Providers Name Role Phone Unavailable Primary Care Provider Unavailable Allergies No Known Allergies Medications Medication Sig Dispensed Refills Start Date End Date Status metFORMIN Take 1,000 mg by 0 Act elver (GLUCOPHAGE) 1000 mouth 2 (two) times MG tablet daily with breakfast and dinner. glyBURIDE (DIABETA) Take 1.25 mg by mouth 0 Active 1.25 MG tablet 2 (two) times daily with breakfast and dinner. lisinopril Take 10 mg by mouth 0 Active (PRINIVIL,ZESTRIL) daily. 10 MG tablet liraglutide 0.6 Inject 1.5 mg 0 Active mg/0.1 mL (18 mg/3 subcutaneously daily mL) PnIj with breakfast. Active Problems Problem Noted Date Left sided [...] Not on file Results Not on fileafter 03/14/2019 Insurance Payer Benefit Plan / Group Subscriber ID Type Phone A ddress [employer] - [employer] PPO [facility] xxxxxxxxxx PPO Advance Directives For more information, please contact:[place] [address] [place], [place] [phone] Code Status Date Activated Date Inactivated Comments Full Code 09/10/2017 4:00 AM 09/11/2017 4:55 PM This code status was determined by: Patient
--- OUTSIDE RECORDS SUMMARY | 2020-03-14 16:13 | XMS REPORT | Continuity of Care Document ---
:[address] [facility] [place], [place] t Address [address] [place] [address] [address]. [address] [place] [address] Care Team Providers Name Role Phone LOMBARDO Attending Clinician Unavailable LOMBARDO Admitting Clinician Unavailable Problems Condition Condition Condition Status Onset Resolution Last Treating Co mments Source Name Details Category Date Date Treatment Clinician Date Left sided Left sided Disease Active 2016-[address] numbness [facility]ness 2[facility]02 [facility] 00 [place] Diabetes Diabetes Disease [facility] - type 2 in type 2 in 00:00: Medi juanito nonobese nonobese 00 [place] Essential Essential Disease Active 2016-[address] [facility] [address] hypertensi hypertensi 2-02 Lorie kes - on on 00:00: Medical 00 [place] Headache Headache Disease Active 2016-10 [facility] 00 [place] Allergies, Adverse Reactions, Alerts This patient has no known allergies or adverse reactions. Social History Social Habit Start Date Stop Date Quantity Comments Source Sex Assigned At [facility] Smoking Status Start Date Stop Date Source Never smoker [facility] Medications Ordered Filled Start Stop Current Ordering Indication Dosage Frequency Signature Comments Components Source Medication Medication Date Date Medication? Clinician (SIG) Name Name liraglutide 2016-10 Yes 1.5mg Inject 1.[address] 0.6 mg/0.1 2-02 mg [facility] - mL (18 mg/3 03:23: subcutaneo Medical mL) PnIj 46 usly daily Cente r with breakfast. metFORMIN 2016-10 Yes 1000mg Take 1,[address] [facility] (GLUCOPHAGE 2-02 mg by [facility] - ) 1000 MG 03:23: mouth 2 Medic al tablet 45 (two) Center times daily with breakfast and dinner. glyBURIDE 2016-10 Yes 1.25mg Take 1.[address] (DIABETA) 2-02 mg by [facility] - 1.25 MG 03:23: mouth 2 Medical tablet 45 (two) Center times daily with breakfast and dinner. lisinopril 2016-10 Yes 10mg QD Take [address] (PRINIVIL,Z 2-02 by mouth [facility] - ESTRIL) 10 03:23: daily. Medic al MG tablet 45 Center Procedures This patient has no known procedures. Results Test Description Test Time Test Comments Results Result Comments Source POCT-GLUCOSE METER 2017-09-11 11:54:00 Test Item Value Reference Range Interpretation Comme nts POC-GLUCOSE METER ([facility]) (test 330 mg/dL 70-110 H TESTED AT [address] code = 1538) [facility] 7703 0 SCREEN, [id number] 11:13:00 Test Item Value Reference Range Interpretation Comments TEST URINE ([facility]) (test Negative code = 583) POCT-GLUCOSE [id number] 08:33:00 Test Item Value Reference Range Interpretation Comments POC-GLUCOSE METER 226 mg/dL 70-110 H TESTED AT [place] [address] ([facility]) (test code = JASMEET Zapata [facility] 1538) [id number] POCT-GLUCOSE [id number] 21:48:00 Test Item Value Reference Range Interpretation Comments POC-GLUCOSE METER 219 mg/dL 70-110 H TESTED AT [place] [address] ([facility]) (test code = JASMEET Zapata [facility] 1538) [id number] POCT-GLUCOSE [id number] 17:48:00 Test Item Value Reference Range Interpretation Comments POC-GLUCOSE METER 225 mg/dL 70-110 H TESTED AT [place] [address] ([facility]) (test code = JASMEET Zapata [facility] 1538) [id number] 16:39:00 Test Item Value Reference Range Interpretation Comments RPR SCREEN ([facility]) (test code = Nonreactive Nonreactive 420) SEDIMENTATION [id number] 15:02:00 Test Item Value Reference Range Interpretation Comments SEDIMENTATION RATE, ERYTHROCYTE 25 mm/HR 0-20 H ([facility]) (test code = 766) POCT-GLUCOSE [id number] 12:40:00 Test Item Value Reference Range Interpretation Comments POC-GLUCOSE METER 188 mg/dL 70-110 H TESTED AT [facility] 6720 ([place]) (test code = [place] 1538) [id number] HEMOGLOBIN [id number] 11:42:00 Test Item Value Reference Range Interpretation Comments HEMOGLOBIN A1C ([place]) (test code = 8.2 % 4.3-6.1 H 368) MR, BRAIN, WITHOUT [id number] 11:17:00Reason for exam:->Ischemic Stroke EvaluationFINAL REPORT MRI [...] hemorrhage, or hydrocephalus. Signed: Mark Mathur [place] Verified Date/Time: 09/10/2017 11:17:54 Reading Location: [address] Neuro Reading Room MR, MRA, BRAIN, WITHOUT [id number] 11:16:00Reason for exam:->Ischemic Stroke EvaluationFINAL REPORT MRA head and neck without contrast INDICATION: Headache, left hemianesthesia, left sided weakness TECHNIQUE: 2-D and 3-D [id number] MRA images of the intra- and extracranial [...] branch occlusion or significant stenosis in the [place] vessels. There is no specific MRA evidence of saccular aneurysm. IMPRESSION: 1. No hemodynamically significant carotid stenosis by NASCET criteria. 2. No significant stenosis in the imaged cervical vertebral arteries. 3. No major branch occlusion, significant stenosis,or evident aneurysm in the [place] vessels. Signed: Mark Mathur [place] Verified Date/Time: 09/10/2017 11:16:49 Reading Location: [address] Neuro Reading Room MR, MRA, NECK, WITHOUT IV [id number] 11:16:00Reason for exam:->Ischemic Stroke EvaluationFINAL REPORT MRA head and neck without contrast INDICATION: Headache, left hemianesthesia, left sided weakness TECHNIQUE: 2-D and 3-D [id number] MRA images of the intra- and extracranial [...] branch occlusion or significant stenosis in the [place] vessels. There is no specific MRA evidence of saccular aneurysm. IMPRESSION: 1. No hemodynamically significant carotid stenosis by NASCET criteria. 2. No significant stenosis in the imaged cervical vertebral arteries. 3. No major branch occlusion, significant stenosis,or evident aneurysm in the [place] vessels. Signed: Mark Mathur [place] Verified Date/Time: 09/10/2017 11:16:49 Reading Location: [address] Neuro Reading Room /FREE T4 IF [id number] 09:44:00 Test Item Value Reference Range Interpretation Comments THYROID STIMULATING HORMONE 2.42 uIU/mL 0.35-4.94 (BEAKER) (test code = 772) VITAMIN B12 AND [id number] 09:44:00 Test Item Value Reference Range Interpretation Comments VITAMIN B12 (BEAKER) (test code = 413 pg/mL 213-816 774) FOLATE (BEAKER) (test code = 362) 14.8 ng/mL >=7.0 POCT-GLUCOSE [id number] 08:35:00 Test Item Value Reference Range Interpretation Comments POC-GLUCOSE METER 156 mg/dL 70-110 H TESTED AT [facility] 6720 (BEAKER) (test code = [place]AS[place]ET [place] 1538) [id number] 06:56:00 Test Item Value Reference Range Interpretation Comments HOMOCYSTEINE (BEAKER) (test code = 4.1 umol/L 5.1-15.4 L 642) BASIC METABOLIC [id number] 06:32:00 Test Item Value Reference Range Interpretation Comments SODIUM (BEAKER) 138 meq/L 136-145 (test code = 381) POTASSIUM (BEAKER) 4.0 meq/L 3.5-5.1 (test code = 379) CHLORIDE (BEAKER) 109 meq/L 98-107 H (test code = 382) CO2 (BEAKER) (test 21 meq/L 22-29 L code = 355) BLOOD UREA NITROGEN 7 mg/dL 7-21 (BEAKER) (test code = 354) CREATININE (BEAKER) 0.53 mg/dL 0.57-1.25 L (test code = 358) GLUCOSE RANDOM 161 mg/dL 70-105 H (BEAKER) (test code = 652) CALCIUM (BEAKER) 8.0 mg/dL 8.4-10.2 L (test code = 697) EGFR (BEAKER) (test mL/min/1.73 INSUFFIC IENT CLINICAL code = 1092) sq m DATA TO CALCULA TE ESTIMATED GFR. FastingLIPID [id number] 06:31:00 Test Item Value Reference Range Interpretation Comments TRIGLYCERIDES (BEAKER) (test code = 116 mg/dL 540) CHOLESTEROL (BEAKER) (test code = 99 mg/dL 631) HDL CHOLESTEROL (BEAKER) (test code 25 mg/dL = 976) LDL CHOLESTEROL CALCULATED (BEAKER) 51 mg/dL (test code = 633) Triglyceride Reference Range: Low Risk <150 Borderline 150-199 High Risk 200-499 Very High Risk >=500Cholesterol Reference Range: Low Risk <200 Borderline 200-239 High Risk >240HDL Cholesterol Reference Range: Low Risk >=60 High Risk <40LDL Cholesterol Reference Range: Optimal <100 Near Optimal 100-129 Borderline 130-159 High 160-189 Very High >=190 FastingC-REACTIVE [id number] 06:31:00 Test Item Value Reference Range Interpretation Comments C-REACTIVE PROTEIN (BEAKER) (test 1.82 mg/dL 0.00-0.50 H code = 676) FastingTROPONIN [id number] 06:29:00 Test Item Value Reference Range Interpretation Comments TROPONIN I (BEAKER) (test code = 397) < ng/mL 0.00-0.03 Troponin I (TnI) levels [...] and persistent tachyarrhythmia.FastingCBC W/PLT COUNT & AUTO [id number] 06:02:00 Test Item Value Reference Range Interpretation Comments WHITE BLOOD CELL COUNT (BEAKER) 10.5 K/ L 3.5-10.5 (test code = 775) RED BLOOD CELL COUNT (BEAKER) 4.13 M/ L 3.93-5.22 (test code = 761) HEMOGLOBIN (BEAKER) (test code = 10.9 GM/DL 11.2-15.7 L 410) HEMATOCRIT (BEAKER) (test code = 33.9 % 34.1-44.9 L 411) MEAN CORPUSCULAR VOLUME (BEAKER) 82.1 fL 79.4-94.8 (test code = 753) MEAN CORPUSCULAR HEMOGLOBIN 26.4 pg 25.6-32.2 (BEAKER) (test code = 751) MEAN CORPUSCULAR HEMOGLOBIN CONC 32.2 GM/DL 32.2-35.5 (BEAKER) (test code = 752) RED CELL DISTRIBUTION WIDTH 13.6 % 11.7-14.4 (BEAKER) (test code = 412) PLATELET COUNT (BEAKER) (test 220 K/CU MM 150-450 code = 756) MEAN PLATELET VOLUME (BEAKER) 11.5 fL 9.4-12.3 (test code = 754) NUCLEATED RED BLOOD CELLS 0 /100 WBC 0-0 (BEAKER) (test code = 413) NEUTROPHILS RELATIVE PERCENT 56 % (BEAKER) (test code = 429) LYMPHOCYTES RELATIVE PERCENT 35 % (BEAKER) (test code = 430) MONOCYTES RELATIVE PERCENT 6 % (BEAKER) (test code = 431) EOSINOPHILS RELATIVE PERCENT 3 % (BEAKER) (test code = 432) BASOPHILS RELATIVE PERCENT 0 % (BEAKER) (test code = 437) NEUTROPHILS ABSOLUTE COUNT 5.87 K/ L 1.56-6.13 (BEAKER) (test code = 670) LYMPHOCYTES ABSOLUTE COUNT 3.71 K/ L 1.18-3.74 (BEAKER) (test code = 414) MONOCYTES ABSOLUTE COUNT (BEAKER) 0.58 K/ L 0.24-0.36 H (test code = 415) EOSINOPHILS ABSOLUTE COUNT 0.28 K/ L 0.04-0.36 (BEAKER) (test code = 416) BASOPHILS ABSOLUTE COUNT (BEAKER) 0.04 K/ L 0.01-0.08 (test code = 417) IMMATURE GRANULOCYTES-RELATIVE 0 % 0-1 PERCENT (BEAKER) (test code = 2642)
[2020-03-14] MEDS ORDERED: DIPHENHYDRAMINE 50 MG/ML VIAL ONE (18:55)
[2020-03-14] MEDS ORDERED: METOCLOPRAMIDE 10 MG/2mL INJ ONE (18:55)
[2020-03-14] MEDS ORDERED: KETOROLAC 30 MG/ML INJ ONE (18:56)
[2020-03-14] MEDS ORDERED: NA CHLORIDE 0.9% 1,000 ML ONE (18:56)
--- NOTE | 2020-03-14 19:57 | ER ---
Nurse's Notes [facility] Name: Carol Mclaughlin Age: 44 yrs Sex: Female : 1975 Arrival Date: 03/14/2020 Time: 16:13 Bed 19 Private MD: Diagnosis: Migraine Presentation: 03/14 16:17 Chief complaint: Patient states: Migraine [place] for 1 day. Pain to lower face/jaw area. ll1 N/V at home. No fever. Coronavirus screen: Proceed with normal triage. Patient denies a cough. Patient denies shortness of breath or difficulty breathing. Patient denies measured and/or subjective temperature greater than 100.4F prior to today's visit. Patient denies travel on a cruise ship or to a country the [facility] currently lists as an affected area. Patient denies contact with known and/or suspected case of COVID-19. Ebola Screen: Patient denies travel to an Ebola-affected area in the 21 days before illness onset. Initial Sepsis Screen: Does the patient meet any 2 criteria? HR > 90 bpm. No. Patient's initial sepsis screen is negative. Does the patient have a suspected source of infection? No. Patient's initial sepsis screen is negative. Risk Assessment: Do you want to hurt yourself or someone else? Patient reports no desire to harm self or others. Onset of symptoms was March 14, 2020. 16:17 Method Of Arrival: Ambulatory 1 16:17 Acuity: GORGE 3 ll1 Triage Assessment: 19:45 Headache History: The patient has had previous headaches and this one is similar to previous episodes. General: Behavior is cooperative. Pain: Also complains of. Pain: Pain currently is 10 out of 10 on a pain scale. Pain began 1 day ago. 22:09 General: Appears. Historical: - Allergies: 16:19 No Known Drug Allergies; ll1 - PMHx: 16:19 Diabetes - NIDDM; Hypertension; ll1 - PSHx: 16:19 ; Cholecystectomy; left ankle sx; ll1 - Immunization history:: Flu vaccine is not up to date. - Social history:: Smoking status: Patient denies any tobacco usage or history of. Patient/guardian denies using alcohol, street drugs, tobacco products. Screenin:30 Abuse screen: Denies threats or abuse. Nutritional screening: No deficits noted. Tuberculosis screening: No symptoms or risk factors identified. Fall Risk None identified. Assessment: 18:30 General: Appears in no apparent distress. Behavior is calm, cooperative. Pain: ah Complains of pain in head Pain currently is 10 out of 10 on a pain scale. Quality of pain is described as dull, Pain began 1 day ago. Neuro: Level of Consciousness is awake, alert, Oriented to person, place, time, situation, Denies blurred vision dizziness, numbness. Cardiovascular: Capillary refill < 3 seconds Patient's skin is warm and dry. Respiratory: Airway is patent Respiratory effort is even, unlabored. GI: Patient currently denies nausea, vomiting. Derm: Skin is intact, is healthy with good turgor. 19:45 Reassessment: Pt resting with eyes closed and resp even and unlabored. Pt states that ah she is feeling better now. Vital Signs: 16:17 BP 163 / 85; Pulse 112; Resp 16; Pulse Ox 95% ; Weight 66.22 kg; Height 5 ft. 4 in. ll1 (162.56 cm); Pain 10/10; 16:21 Temp 98.0; ll1 16:17 Body Mass Index 25.06 (66.22 kg, 162.56 cm) ll1 [place] Coma Score: 20:05 Eye Response: spontaneous(4). Verbal Response: oriented(5). Motor Response: obeys kb commands(6). Total: 15. ED Course: 16:13 Patient arrived in ED. fj1 16:18 Triage completed. ll1 16:19 Arm band placed on. ll1 18:03 Rizwana Young FNP-C [facility]. kb 18:03 Miguel Angel Aviles MD is Attending Physician. kb 18:09 Janice Burrows, MARTIN is Primary Nurse. 18:29 Inserted saline lock: 22 gauge in left forearm, using aseptic technique. Missed em1 attempt(s): 20 gauge in right forearm. Bleeding controlled, band aid applied, catheter tip intact. 20:00 Patient has correct armband on for positive identification. Placed in gown. Bed in low ah position. Call light in reach. Side rails up X 1. Pulse ox on. NIBP on. 20:00 No provider procedures requiring assistance completed. IV discontinued, intact, ah bleeding controlled, No redness/swelling at site. Pressure dressing applied. Administered Medications: 19:00 Drug: NS 0.9% 1000 ml Route: IV; Rate: 1000 ml; Site: left antecubital; 22:05 Follow up: Response: No adverse reaction; IV Status: Completed infusion 19:00 Drug: TORadol - Ketorolac 15 mg Route: IVP; Site: left antecubital; 20:00 Follow up: Response: No adverse reaction 19:00 Drug: Reglan 10 mg Route: IVP; Site: left antecubital; 20:00 Follow up: Response: No adverse reaction 19:00 Drug: Benadryl 12.5 mg Route: IVP; Site: left antecubital; 20:00 Follow up: Response: No adverse reaction Outcome: 19:56 Discharge ordered by . rosemarie 20:00 Discharged to home ambulatory. 20:00 Condition: good 20:00 Discharge instructions given to patient, Instructed on discharge instructions, follow up and referral plans. 20:37 Patient left the ED. lp1 Signatures: Rizwana Young FNP-C FNP-Caleb Grimm em1 Marta Cardona, RN RN lp1 Phil Jessica fj1 Janice Burrows, RN RN Ysabel Bliss, RN RN ll1
--- NOTE | 2020-03-14 19:57 | EDPHYS ---
Physician Documentation [facility] Name: Carol Mclaughlin Age: 44 yrs Sex: Female : 1975 Arrival Date: 03/14/2020 Time: 16:13 Bed 19 Private MD: ED Physician Miguel Angel Aviles HPI: 03/14 20:03 This 44 yrs old Female presents to ER via Ambulatory with complaints of kb Headache. 20:03 The patient complains of pain to the left side of head. The patient describes the kb headache as constant, throbbing. Onset: The symptoms/episode began/occurred this morning. Associated signs and symptoms: Pertinent positives: nausea, Photophobia. Severity of symptoms: At its worst the pain was moderate, in the emergency department the pain is unchanged. Headache History: The patient has had previous headaches and this one is similar to previous episodes. The symptoms are alleviated by nothing. the symptoms are aggravated by lights. The patient has experienced similar episodes in the past, a few times. The patient has not recently seen a physician. 20:06 Pt reports migraine to left side of head that started this morning. STates it is making kb all of her teeth hurt now. Reports history of migraines.. Historical: - Allergies: 16:19 No Known Drug Allergies; ll1 - PMHx: 16:19 Diabetes - NIDDM; Hypertension; ll1 - PSHx: 16:19 ; Cholecystectomy; left ankle sx; ll1 - Immunization history:: Flu vaccine is not up to date. - Social history:: Smoking status: Patient denies any tobacco usage or history of. Patient/guardian denies using alcohol, street drugs, tobacco products. ROS: 20:03 Constitutional: Negative for fever, chills, and weight loss, Eyes: Negative for injury, kb pain, redness, and discharge, ENT: Negative for injury, pain, and discharge, Neck: Negative for injury, pain, and swelling, Cardiovascular: Negative for chest pain, palpitations, and edema, Respiratory: Negative for shortness of breath, cough, wheezing, and pleuritic chest pain, Back: Negative for injury and pain, : Negative for injury, bleeding, discharge, and swelling, MS/Extremity: Negative for injury and deformity, Skin: Negative for injury, rash, and discoloration. 20:03 Abdomen/GI: Positive for nausea, Negative for abdominal pain, vomiting, diarrhea, constipation. 20:03 Neuro: Positive for headache. Exam: 20:06 Constitutional: This is a well developed, well nourished patient who is awake, alert, kb and in no acute distress. Head/Face: Normocephalic, atraumatic. Eyes: Pupils equal round and reactive to light, extra-ocular motions intact. Lids and lashes normal. Conjunctiva and sclera are non-icteric and not injected. Cornea within normal limits. Periorbital areas with no swelling, redness, or edema. ENT: Nares patent. No nasal discharge, no septal abnormalities noted. Tympanic membranes are normal and external auditory canals are clear. Oropharynx with no redness, swelling, or masses, exudates, or evidence of obstruction, uvula midline. Mucous membranes moist. Neck: Trachea midline, no thyromegaly or masses palpated, and no cervical lymphadenopathy. Supple, full range of motion without nuchal rigidity, or vertebral point tenderness. No Meningismus. Chest/axilla: Normal chest wall appearance and motion. Nontender with no deformity. No lesions are appreciated. Cardiovascular: Regular rate and rhythm with a normal S1 and S2. No gallops, murmurs, or rubs. Normal PMI, no JVD. No pulse deficits. Respiratory: Lungs have equal breath sounds bilaterally, clear to auscultation and percussion. No rales, rhonchi or wheezes noted. No increased work of breathing, no retractions or nasal flaring. Abdomen/GI: Soft, non-tender, with normal bowel sounds. No distension or tympany. No guarding or rebound. No evidence of tenderness throughout. Skin: Warm, dry with normal turgor. Normal color with no rashes, no lesions, and no evidence of cellulitis. MS/ Extremity: Pulses equal, no cyanosis. Neurovascular intact. Full, normal range of motion. Neuro: Awake and alert, GCS 15, oriented to person, place, time, and situation. Cranial nerves II-XII grossly intact. Motor strength 5/5 in all extremities. Sensory grossly intact. Cerebellar exam normal. Normal gait. Vital Signs: 16:17 BP 163 / 85; Pulse 112; Resp 16; Pulse Ox 95% ; Weight 66.22 kg; Height 5 ft. 4 in. ll1 (162.56 cm); Pain 10/10; 16:21 Temp 98.0; ll1 16:17 Body Mass Index 25.06 (66.22 kg, 162.56 cm) ll1 [place] Coma Score: 20:05 Eye Response: spontaneous(4). Verbal Response: oriented(5). Motor Response: obeys kb commands(6). Total: 15. MDM: 18:04 Patient medically screened. kb 20:05 Data reviewed: vital signs, nurses notes. Data interpreted: Pulse oximetry: on room air kb is 98 %. Interpretation: normal. Counseling: I had a detailed discussion with the patient and/or guardian regarding: the historical points, exam findings, and any diagnostic results supporting the discharge/admit diagnosis, the need for outpatient follow up, a neurologist, to return to the emergency department if symptoms worsen or persist or if there are any questions or concerns that arise at home. Response to treatment: the patient's symptoms have resolved after treatment, the patient's pain is gone. 03/14 18:24 Order name: IV Start; Complete Time: 18:29 kb Administered Medications: 19:00 Drug: NS 0.9% 1000 ml Route: IV; Rate: 1000 ml; Site: left antecubital; 22:05 Follow up: Response: No adverse reaction; IV Status: Completed infusion 19:00 Drug: TORadol - Ketorolac 15 mg Route: IVP; Site: left antecubital; 20:00 Follow up: Response: No adverse reaction 19:00 Drug: Reglan 10 mg Route: IVP; Site: left antecubital; 20:00 Follow up: Response: No adverse reaction 19:00 Drug: Benadryl 12.5 mg Route: IVP; Site: left antecubital; 20:00 Follow up: Response: No adverse reaction Disposition: 03/15 07:08 Co-signature as Attending Physician, Miguel Angel Aviles MD. rn Disposition: 03/14/20 19:56 Discharged to Home. Impression: Migraine. - Condition is Stable. - Discharge Instructions: Migraine Headache, [id number]. - Medication Reconciliation Form, Thank You Letter, Antibiotic Education, Prescription Opioid Use form. - Follow up: Emergency Department; When: As needed; Reason: Worsening of condition. Follow up: Private Physician; When: 2 - 3 days; Reason: Recheck today's complaints, Continuance of care, Re-evaluation by your physician. Signatures: Rizwana Young, BILL-C REED FIXER-CkMiguel Angel Sanabria MD MD rn Pena, Laura, RN RN lp1 Janice Burrows RN Ysabel Kang RN RN ll1 Corrections: (The following items were deleted from the chart) 03/14 20:37 19:56 03/14/2020 19:56 Discharged to Home. Impression: Migraine. Condition is Stable. lp1 Forms are Medication Reconciliation Form, Thank You Letter, Antibiotic Education, Prescription Opioid Use. Follow up: Emergency Department; When: As needed; Reason: Worsening of condition. Follow up: Private Physician; When: 2 - 3 days; Reason: Recheck today's complaints, Continuance of care, Re-evaluation by your physician. kb
[2020-03-14 20:45] VITALS: BP 163/85; O2SAT 95
[2020-03-14 20:46] VITALS: TEMP 98
== END 2020-03-14 20:37 | disposition home or self-care (01) ==
LOC: ER 16:09
DX: G43.909 Migraine, unspecified, not intractable, without status migrainosus (principal)
CPT/HCPCS: 96361; 96374; 96375; 99283; J1200; J2765; J7030

== ENCOUNTER 2020-04-17 20:06 | Emergency (ER) | payer SELFPAY ==
--- NOTE | 2020-04-17 23:48 | ER ---
Nurse's Notes [facility] Name: Carol Mclaughlin Age: 44 yrs Sex: Female : 1975 Arrival Date: 04/17/2020 Time: 20:08 Bed Waiting Private MD: Diagnosis: Presentation: 04/17 20:24 Chief complaint: Patient states: sick for about a week, cough, headache, fever, chest dm5 tightness, medication does not help headache. Coronavirus screen: Patient reports a cough. Patient reports shortness of breath or difficulty breathing. Patient reports a measured and/or subjective temperature greater than 100.4F. Patient denies travel on a cruise ship or to a country the [facility] currently lists as an affected area. Patient reports contact with known and/or suspected case of COVID-19. Ebola Screen: Patient negative for fever greater than or equal to 101.5 degrees Fahrenheit, and additional compatible Ebola Virus Disease symptoms Patient denies exposure to infectious person. Patient denies travel to an Ebola-affected area in the 21 days before illness onset. No symptoms or risks identified at this time. Initial Sepsis Screen: Does the patient meet any 2 criteria? No. Patient's initial sepsis screen is negative. Does the patient have a suspected source of infection? Yes: Other: COVID. Risk Assessment: Do you want to hurt yourself or someone else? Patient reports no desire to harm self or others. Onset of symptoms was April 10, 2020. 20:24 Method Of Arrival: Ambulatory dm5 20:24 Acuity: GORGE 4 dm5 Historical: - Allergies: 20:26 No Known Allergies; dm5 - PMHx: 20:27 Diabetes - NIDDM; Hypertension; dm5 Vital Signs: 20:24 BP 129 / 79; Pulse 94; Resp 20; Temp 98.9; Pulse Ox 99% on R/A; Weight 65.32 kg (R); dm5 Height 5 ft. 4 in. (162.56 cm); Pain 10/10; 20:24 Body Mass Index 24.72 (65.32 kg, 162.56 cm) dm5 ED Course: 20:08 Patient arrived in ED. cl3 20:26 Triage completed. dm5 Administered Medications: No medications were administered Outcome: 23:48 Patient left the ED. dm5 Signatures: Lisa More RN RN bob Harden Constantin cl3
[2020-04-18 00:50] VITALS: BP 129/79; TEMP 98.9; O2SAT 99
== END 2020-04-17 23:48 | disposition left against medical advice (07) ==
LOC: ER 20:06
DX: R50.9 Fever, unspecified (principal); Z53.21 Procedure and treatment not carried out due to patient leaving prior to being seen by health care provider
CPT/HCPCS: 99281

== ENCOUNTER 2020-08-31 22:52 | Emergency (ER) | payer SELFPAY ==
--- OUTSIDE RECORDS SUMMARY | 2020-08-31 22:55 | XMS REPORT | Clinical Summary ---
:1975 Author Organization [facility] Address [address] [place] [address] Care Team Providers Name Role Phone Unavailable [...] Not on file Last Filed Vital Signs Not on file Plan of Treatment Health Maintenance Due Date Last Done Comments PNEUMOCOCCAL VACCINE 0-64 YRS (1 of 1 - PPSV23) 1980 DIABETIC EYE EXAM 1984 DIABETIC FOOT EXAM 1984 URINE MICROALBUMIN 1984 CERVICAL CANCER SCREENING PAP ONLY (Age 21-65) 1995 HEMOGLOBIN A1C 03/11/2018 09/10/2017 INFLUENZA VACCINE (#1) 2020 LIPID PANEL 09/10/2020 09/10/2017 Results Not on fileafter 08/31/2019 Insurance Payer Benefit Plan / Subscriber ID Effective Dates Phone Addre ss Type Group AETNA - MGD CARE AETNA PPO OPEN [facility] [id number] 2017-Present PPO NAP Advance Directives For more information, please contact: [phone] Code Status Date Activated Date Inactivated Comments Full Code 09/10/2017 4:00 AM 09/11/2017 4:55 PM This code status was determined by: Patient
--- OUTSIDE RECORDS SUMMARY | 2020-08-31 22:55 | XMS REPORT | Continuity of Care Document ---
:1975 Author Organization [facility] t Address [address] [place] [address] Dr. Lebron [address] [place] [id number] Care Team Providers Name Role Phone LOMBARDO Attending Clinician Unavailable LOMBARDO Admitting Clinician Unavailable Problems Condition Condition Condition Status Onset Resolution Last Treating Co mments Source Name Details Category Date Date Treatment Clinician Date Left sided Left sided Disease Active 2016-[address] numbness numbness 2[facility]02 [facility] 00 [place] Diabetes Diabetes Disease [facility] - type 2 in type 2 in 00:00: Medi juanito nonobese nonobese 00 [place] Essential Essential Disease Active 2016-[address] hypertensi hypertensi 2-02 [facility] - on on 00:00: Medical 00 [place] Headache Headache Disease Active 2016-10 [facility] 00 [place] Allergies, Adverse Reactions, Alerts This patient has no known allergies or adverse reactions. Social History Social Habit Start Date Stop Date Quantity Comments Source Sex Assigned At [facility] Smoking Status Start Date Stop Date Source Never smoker [facility] Medications Ordered Filled Start Stop Current Ordering Indication Dosage Frequency Signature Comments Components Source Medication Medication Date Date Medication? Clinician (SIG) Name Name metFORMIN 2016-10 Yes 1000mg Take 1,[address] (GLUCOPHAGE 2-03 mg by [facility] - ) 1000 MG 14:55: mouth 2 Medic al tablet 26 (two) Center times daily with breakfast and dinner. glyBURIDE 2016-10 Yes 1.25mg Take 1.[address] (DIABETA) 2-03 mg by [facility] - 1.25 MG 14:55: mouth 2 Medical tablet 26 (two) Center times daily with breakfast and dinner. lisinopril 2016-10 Yes 10mg QD Take [address] (PRINIVIL,Z 2-03 by mouth Luke s - ESTRIL) 10 14:55: daily. Medic al MG tablet 26 Center liraglutide 2016-10 Yes 1.5mg Inject 1.[address] 0.6 mg/0.1 2-03 mg [facility] - mL (18 mg/3 14:55: subcutaneo Medical mL) PnIj 26 usly daily Cente r with breakfast. Procedures This patient has no known procedures. Plan of Care Planned Activity Planned Date Details Comments Source Future Scheduled 2020-09-[address] [facility] - Test 00:00[facility]00 (procedure) [code = Medical Center 05811936] Future Scheduled 2020-06-10 INFLUENZA VACCINE (#1) [facility] Test 00:00[facility]00 [code = INFLUENZA Medical Ce nter VACCINE (#1)] Future Scheduled 2018-03-[address] [facility] - Test 00:00:00 measurement [facility] (procedure) [code = 28332020] Future Scheduled [address] [facility] - Test 00:00:00 malignant neoplasm of Medica l Center cervix (procedure) [code = 211235900] Future Scheduled [address] DI[address] EYE EXAM [facility] - Test 00:00:00 [code = DIABETIC EYE Medical Center EXAM] Future Scheduled [address] [facility] - Test 00:00:00 examination Medical Center (regime/therapy) [code = 153655968] Future Scheduled 1984 Urine screening for [facility] - Test 00:00:00 protein (procedure) Medical Center [code = 615658794] Future Scheduled [address] [facility] - Test 00:00:00 0-64 YRS (1 of 1 - Medical C enter PPSV23) [code = PNEUMOCOCCAL VACCINE 0-64 YRS (1 of 1 - PPSV23)] Results Test Description Test Time Test Comments Results Result Comments Source POCT-GLUCOSE METER 2017-09-11 11:54:00 Test Item Value Reference Range Interpretation Comme nts POC-GLUCOSE METER (BEAKER) (test 330 mg/dL 70-[address] [facility] [address] [facility] code = 1538) [place] [address] SCREEN, [id number] 11:13:00 Test Item Value Reference Range Interpretation Comments TEST URINE ([facility]) (test Negative code = 583) POCT-GLUCOSE [id number] 08:33:00 Test Item Value Reference Range Interpretation Comments POC-GLUCOSE METER 226 mg/dL 70-110 H TESTED AT [place] [address] ([facility]) (test code = JASMEET Zapata [facility] 1538) [id number] POCT-GLUCOSE [id number] 21:48:00 Test Item Value Reference Range Interpretation Comments POC-GLUCOSE METER 219 mg/dL 70-110 H TESTED AT [place] [address] ([facility]) (test code = CRISTHIANWY Benny [facility] 1538) [address] POCT-GLUCOSE [id number] 17:48:00 Test Item Value Reference Range Interpretation Comments POC-GLUCOSE METER 225 mg/dL 70-110 H TESTED AT [place] [address] ([facility]) (test code = CRISTHIANWY Benny [facility] 1538) [id number] 16:39:00 Test Item Value Reference Range Interpretation Comments RPR SCREEN ([facility]) (test code = Nonreactive Nonreactive 420) SEDIMENTATION [id number] 15:02:00 Test Item Value Reference Range Interpretation Comments SEDIMENTATION RATE, ERYTHROCYTE 25 mm/HR 0-20 H ([facility]) (test code = 766) POCT-GLUCOSE [id number] 12:40:00 Test Item Value Reference Range Interpretation Comments POC-GLUCOSE METER 188 mg/dL 70-110 H TESTED AT [place] [address] ([facility]) (test code = [facility] 1538) [address] HEMOGLOBIN [id number] 11:42:00 Test Item Value Reference Range Interpretation Comments HEMOGLOBIN A1C ([facility]) (test code = 8.2 % 4.3-6.1 H 368) MR, BRAIN, WITHOUT [id number] 11:17:00Reason for exam:->Ischemic Stroke EvaluationFINAL REPORT MRI [...] infarct, hemorrhage, or hydrocephalus. Signed: Mark Mathur MDReport Verified Date/Time: 09/10/2017 11:17:54 Reading Location: [address] Neuro Reading Room MR, MRA, BRAIN, WITHOUT [id number] 11:16:00Reason for exam:->Ischemic Stroke EvaluationFINAL REPORT MRA head and neck without contrast INDICATION: Headache, left hemianesthesia, left sided weakness TECHNIQUE: 2-D and 3-D [id number] MRA images of the intra- and extracranial [...] branch occlusion or significant stenosis in the [place] vessels. There is no specific MRA evidence of saccular aneurysm. IMPRESSION: 1. No hemodynamically significant carotid stenosis by NASCET criteria. 2. No significant stenosis in the imaged cervical vertebral arteries. 3. No major branch occlusion, significant stenosis,or evident aneurysm in the [place] vessels. Signed: Mark Mathur MDReport Verified Date/Time: 09/10/2017 11:16:49 Reading Location: [facility] C013 Neuro Reading Room MR, MRA, NECK, WITHOUT IV [id number] 11:16:00Reason for exam:->Ischemic Stroke EvaluationFINAL REPORT MRA head and neck without contrast INDICATION: Headache, left hemianesthesia, left sided weakness TECHNIQUE: 2-D and 3-D [id number] MRA images of the intra- and extracranial [...] branch occlusion or significant stenosis in the [place] vessels. There is no specific MRA evidence of saccular aneurysm. IMPRESSION: 1. No hemodynamically significant carotid stenosis by NASCET criteria. 2. No significant stenosis in the imaged cervical vertebral arteries. 3. No major branch occlusion, significant stenosis,or evident aneurysm in the [place] vessels. Signed: Mark Mathur MDRort Verified Date/Time: 09/10/2017 11:16:49 Reading Location: [address] Neuro Reading Room /FREE T4 IF [id number] 09:44:00 Test Item Value Reference Range Interpretation Comments THYROID STIMULATING HORMONE 2.42 uIU/mL 0.35-4.94 ([employer] (test code = 772) VITAMIN B12 AND [id number] 09:44:00 Test Item Value Reference Range Interpretation Comments VITAMIN B12 ([employer] (test code = 413 pg/mL 213816 914) FOLATE ([employer] (test code = 362) 14.8 ng/mL >=7.0 POCT-GLUCOSE [id number] 08:35:00 Test Item Value Reference Range Interpretation Comments POC-GLUCOSE METER 156 mg/dL 70-[address] [facility] 6720 ([employer] (test code = JASMEET NAVAS 1538) [address] [id number] 06:56:00 Test Item Value Reference Range Interpretation Comments HOMOCYSTEINE (BEAKER) (test code = 4.1 umol/L 5.1-15.4 L 642) BASIC METABOLIC [id number] 06:32:00 Test Item Value Reference Range Interpretation [...] DATA TO CALCULA TE ESTIMATED GFR. FastingLIPID [id number] 06:31:00 Test Item Value Reference Range Interpretation [...] 130-159 High 160-189 Very High >=190 FastingC-REACTIVE [id number] 06:31:00 Test Item Value Reference Range Interpretation Comments C-REACTIVE PROTEIN (BEAKER) (test 1.82 mg/dL 0.00-0.50 H code = 676) FastingTROPONIN [id number] 06:29:00 Test Item Value Reference Range Interpretation [...] and persistent tachyarrhythmia.FastingCBC W/PLT COUNT & AUTO [id number] 06:02:00 Test Item Value Reference Range Interpretation [...] % 0-1 PERCENT (BEAKER) (test code = 2801)
[2020-08-31 23:56] LABS: Absolute Lymphocytes (CBC) 4.3 K/uL (0.7-4.9); Basophils % 0.7 % (0-1.3); Hematocrit 36.7 % (36.0-45.0); Lymphocytes % 38.5 % (15.3-44.8); RBC Red Blood Cell Count 4.35 M/uL (3.86-4.86)
[2020-08-31 23:57] LABS: Protime INR 0.93
[2020-09-01] MEDS ORDERED: FUROSEMIDE 20 MG/ 2ML VIAL ONE
[2020-09-01 00:15] LABS: ALT/SGPT 27 U/L (12-78); AST/SGOT 12 U/L (15-37); Albumin 3.3 g/dL (3.4-5.0); Alkaline Phosphatase 82 U/L (45-117); BUN Blood Urea Nitrogen 16 mg/dL (7-18); Bicarbonate 29 mmol/L (21-32); Bilirubin Direct < 0.1 mg/dL (0-0.2); Bilirubin Total 0.2 mg/dL (0.2-1.0); Glucose Level 270 mg/dL (74-106); Magnesium 1.7 mg/dL (1.8-2.4); NT PRO-BNP 33 pg/mL (<125); Potassium 4.1 mmol/L (3.5-5.1); Protein, Total 6.8 g/dL (6.4-8.2); Sodium Level 136 mmol/L (136-145); Troponin (Emerg Dept Use Only) < 0.02 ng/mL (0.0-0.045)
[2020-09-01] MEDS ORDERED: MORPHINE 4 MG/ML SYR ONE (00:45)
--- NOTE | 2020-09-01 03:18 | EDPHYS ---
Physician Documentation [facility] Name: Carol Mclaughlin Age: 45 yrs Sex: Female : 1975 Arrival Date: 08/31/2020 Time: 22:55 Bed 8 Private MD: ED Physician Marcin Blandon HPI: 08/31 23:59 This 45 yrs old Female presents to ER via Ambulatory with complaints of pm1 Swelling of Lower Extremity, Dizziness, Breathing Difficulty. 23:59 The patient presents with swelling. The complaints affect the right leg and left leg. pm1 Context: The problem was sustained at home, resulted from an unknown cause, the patient can fully bear weight, the patient is able to ambulate. Onset: The symptoms/episode began/occurred this morning, at 05:30. Modifying factors: The symptoms are alleviated by nothing. the symptoms are aggravated by nothing. Associated signs and symptoms: Pertinent positives: dizziness, shortness of breath. Treatment prior to arrival includes: no previous treatment. Severity of symptoms: in the emergency department the symptoms are unchanged. The patient has not experienced similar symptoms in the past. The patient has not recently seen a physician. SODA DIALYZER: 09/01 00:30 LMP N/A - Unknown wh Historical: - Allergies: 08/31 23:10 No Known Allergies; dm5 - Home Meds: 23:10 lisinopril 5 mg Oral tab 1 tab once daily [Active]; metformin 1,000 mg Oral tab 1 tab 2 dm5 times per day [Active]; unknown insulin [Active]; - PMHx: 23:10 Diabetes - NIDDM; Hypertension; dm5 - Immunization history:: Adult Immunizations unknown. - Social history:: Smoking status: Patient/guardian denies using. ROS: 23:59 Constitutional: Negative for fever, chills, and weight loss. pm1 23:59 Abdomen/GI: Negative for abdominal pain, nausea, vomiting, diarrhea, and constipation, Back: Negative for injury and pain, MS/Extremity: Negative for injury and deformity, Skin: Negative for injury, rash, and discoloration, Neuro: Negative for headache, weakness, numbness, tingling, and seizure. 23:59 Cardiovascular: Positive for edema, Negative for chest pain, palpitations. 23:59 Respiratory: Positive for shortness of breath. Exam: 23:59 Constitutional: This is a well developed, well nourished patient who is awake, alert, pm1 and in no acute distress. Head/Face: Normocephalic, atraumatic. Chest/axilla: Normal chest wall appearance and motion. Nontender with no deformity. No lesions are appreciated. 23:59 Back: No spinal tenderness. No costovertebral tenderness. Full range of motion. Skin: Warm, dry with normal turgor. Normal color with no rashes, no lesions, and no evidence of cellulitis. MS/ Extremity: Pulses equal, no cyanosis. Neurovascular intact. Full, normal range of motion. 23:59 Cardiovascular: Rate: normal, Rhythm: regular, Pulses: no pulse deficits are appreciated, Edema: pedal edema, that is mild, bilateral. 23:59 Respiratory: Exam negative for acute changes, respiratory distress, shortness of breath, Breath sounds: are clear throughout. 23:59 Abdomen/GI: Exam negative for acute changes, Inspection: abdomen appears normal, Palpation: abdomen is soft and non-tender, in all quadrants. 23:59 Neuro: Exam negative for acute changes, Orientation: is normal, Mentation: is normal, Motor: is normal, moves all fours. Vital Signs: 23:07 BP 145 / 81; Pulse 83; Resp 18; Temp 98.1; Pulse Ox 100% on R/A; Weight 63.5 kg; Height dm5 5 ft. 4 in. (162.56 cm); Pain 10/10; 09/01 00:11 BP 147 / 76; Pulse 68; Resp 18; Pulse Ox 99% ; wh 01:30 BP 134 / 79; Pulse 75; Resp 18; Pulse Ox 99% on R/A; wh 02:30 BP 145 / 74; Pulse 72; Resp 18; Pulse Ox 100% on R/A; wh 03:30 BP 131 / 67; Pulse 73; Resp 18; Pulse Ox 98% on R/A; wh 08/31 23:07 Body Mass Index 24.03 (63.50 kg, 162.56 cm) dm5 MDM: 08/31 23:12 Patient medically screened. pm1 09/01 01:54 Data reviewed: vital signs. Data interpreted: Pulse oximetry: on room air is 99 %. pm1 Interpretation: normal. Counseling: I had a detailed discussion with the patient and/or guardian regarding: the historical points, exam findings, and any diagnostic results supporting the discharge/admit diagnosis, lab results, pending u/s. 08/31 23:19 Order name: Basic Metabolic Panel pm1 08/31 23:19 Order name: CBC with Diff pm1 08/31 23:19 Order name: LFT's; Complete Time: 00:16 pm1 08/31 23:19 Order name: Magnesium; Complete Time: 00:16 pm1 08/31 23:19 Order name: NT PRO-BNP; Complete Time: 00:16 pm1 08/31 23:19 Order name: PT-INR; Complete Time: 00:07 pm1 08/31 23:19 Order name: Troponin (emerg Dept Use Only); Complete Time: 00:16 pm1 08/31 23:19 Order name: XRAY Chest (1 view) pm1 08/31 23:19 Order name: EKG; Complete Time: 23:21 pm1 08/31 23:20 Order name: Extrem Venous W Compression Marvel US pm1 08/31 23:21 Order name: Basic Metabolic Panel; Complete Time: 00:16 EDMS 08/31 23:21 Order name: CBC with Automated Diff; Complete Time: 00:07 EDMS 08/31 23:19 Order name: Cardiac monitoring; Complete Time: 23:43 pm1 08/31 23:19 Order name: EKG - Nurse/Tech; Complete Time: 23:43 pm1 08/31 23:19 Order name: IV Saline Lock; Complete Time: 23:43 pm1 08/31 23:19 Order name: Labs collected and sent; Complete Time: 23:43 pm1 08/31 23:19 Order name: O2 Per Protocol; Complete Time: 23:43 pm1 08/31 23:19 Order name: O2 Sat Monitoring; Complete Time: 23:43 pm1 Administered Medications: 08/31 23:54 Drug: Lasix 20 mg Route: IVP; Site: right forearm; 09/01 00:35 Follow up: Response: No adverse reaction 00:35 Drug: morphine 4 mg {Note: RASS 0.} Route: IVP; Site: right forearm; 03:43 Follow up: Response: No adverse reaction; Pain is decreased; RASS: Alert and Calm (0) Disposition: 06:07 Co-signature as Attending Physician, Marcin Blandon MD. 7 Disposition: 09/01/20 03:17 Discharged to Home. Impression: Edema, unspecified - dependent. - Condition is Stable. - Discharge Instructions: Peripheral Edema. - Medication Reconciliation Form, Thank You Letter, Antibiotic Education, Prescription Opioid Use form. - Follow up: Emergency Department; When: As needed; Reason: Worsening of condition. Follow up: Private Physician; When: 2 - 3 days; Reason: Recheck today's complaints, Continuance of care, Re-evaluation by your physician. - Problem is new. - Symptoms have improved. Signatures: Dispatcher [employer] EDMS Lisa More, RN RN dm5 Dillon Doshi, COMMUNICATIONS PROJECT MANAGER COMMUNICATIONS PROJECT MANAGER pm1 Jeremy Macdonald Maurice, MD MD mh7 Corrections: (The following items were deleted from the chart) 03:43 03:17 09/01/2020 03:17 Discharged to Home. Impression: Edema, unspecified - dependent. Condition is Stable. Discharge Instructions: Peripheral Edema. Forms are Medication Reconciliation Form, Thank You Letter, Antibiotic Education, Prescription Opioid Use. Follow up: Emergency Department; When: As needed; Reason: Worsening of condition. Follow up: Private Physician; When: 2 - 3 days; Reason: Recheck today's complaints, Continuance of care, Re-evaluation by your physician. Problem is new. Symptoms have improved. mh7
--- NOTE | 2020-09-01 03:18 | ER ---
Nurse's Notes [facility] [place] [place] Name: Carol Mclaughlin Age: 45 yrs Sex: Female : 1975 Arrival Date: 08/31/2020 Time: 22:55 Bed 8 Private MD: Diagnosis: Edema, unspecified-dependent Presentation: 08/31 23:07 Chief complaint: Patient states: pain and swelling of bilateral lower extremity started dm5 this morning around 0530. Pt denies previous episodes of feet swelling. Coronavirus screen: Client denies travel out of the [place] in the last 14 days. shortness of breath, Client presents with at least one sign or symptom that may indicate coronavirus-19. Standard/surgical mask placed on the client. Ebola Screen: Patient negative for fever greater than or equal to 101.5 degrees Fahrenheit, and additional compatible Ebola Virus Disease symptoms Patient denies exposure to infectious person. Patient denies travel to an Ebola-affected area in the 21 days before illness onset. No symptoms or risks identified at this time. Initial Sepsis Screen: Does the patient meet any 2 criteria? No. Patient's initial sepsis screen is negative. Does the patient have a suspected source of infection? No. Patient's initial sepsis screen is negative. Risk Assessment: Do you want to hurt yourself or someone else? Patient reports no desire to harm self or others. Onset of symptoms was August 31, 2020. 23:07 Method Of Arrival: Ambulatory dm5 23:07 Acuity: GORGE 3 dm5 Triage Assessment: 23:15 Respiratory: Onset: The symptoms/episode began/occurred this morning, the patient wh reports symptoms have resolved. NO BAKE MOLDER: 09/01 00:30 LMP N/A - Unknown Historical: - Allergies: 08/31 23:10 No Known Allergies; dm5 - Home Meds: 23:10 lisinopril 5 mg Oral tab 1 tab once daily [Active]; metformin 1,000 mg Oral tab 1 tab 2 dm5 times per day [Active]; unknown insulin [Active]; - PMHx: 23:10 Diabetes - NIDDM; Hypertension; dm5 - Immunization history:: Adult Immunizations unknown. - Social history:: Smoking status: Patient/guardian denies using. Screenin:15 Abuse screen: Denies threats or abuse. Denies injuries from another. Nutritional screening: No deficits noted. Tuberculosis screening: No symptoms or risk factors identified. Fall Risk None identified. Assessment: 23:15 General: Appears in no apparent distress. Behavior is calm, cooperative, appropriate wh for age. Pain: Complains of pain in right leg and left leg. Neuro: Level of Consciousness is awake, alert, obeys commands, Oriented to person, place, time, situation, Appropriate for age. Neuro: Reports dizziness, headache. Cardiovascular: Heart tones S1 S2 Rhythm is sinus rhythm. Cardiovascular: Edema is 2+ to left ankle and right ankle pitting to left ankle, left foot, right ankle and right foot. Respiratory: Reports shortness of breath Airway is patent Respiratory effort is even, unlabored, Respiratory pattern is regular, symmetrical, Breath sounds are clear bilaterally. GI: Abdomen is flat, non-distended. : No signs and/or symptoms were reported regarding the genitourinary system. EENT: No signs and/or symptoms were reported regarding the EENT system. Derm: Skin is intact, is healthy with good turgor, Skin is pink, warm \T\ dry. normal. Musculoskeletal: Circulation, motion, and sensation intact. 09/01 00:09 Reassessment: Patient appears in no apparent distress at this time. No changes from previously documented assessment. Patient and/or family updated on plan of care and expected duration. Pain level reassessed. Patient is alert, oriented x 3, equal unlabored respirations, skin warm/dry/pink. 01:30 Reassessment: Patient appears in no apparent distress at this time. No changes from previously documented assessment. Patient and/or family updated on plan of care and expected duration. Pain level reassessed. Patient is alert, oriented x 3, equal unlabored respirations, skin warm/dry/pink. Awaiting ultrasound. 03:00 Reassessment: Ultrasound at bedside getting Pt for Imaging. 03:30 Reassessment: Patient appears in no apparent distress at this time. Patient and/or family updated on plan of care and expected duration. Pain level reassessed. Patient is alert, oriented x 3, equal unlabored respirations, skin warm/dry/pink. Vital Signs: 08/31 23:07 BP 145 / 81; Pulse 83; Resp 18; Temp 98.1; Pulse Ox 100% on R/A; Weight 63.5 kg; Height dm5 5 ft. 4 in. (162.56 cm); Pain 10/10; 09/01 00:11 BP 147 / 76; Pulse 68; Resp 18; Pulse Ox 99% ; wh 01:30 BP 134 / 79; Pulse 75; Resp 18; Pulse Ox 99% on R/A; wh 02:30 BP 145 / 74; Pulse 72; Resp 18; Pulse Ox 100% on R/A; wh 03:30 BP 131 / 67; Pulse 73; Resp 18; Pulse Ox 98% on R/A; wh 08/31 23:07 Body Mass Index 24.03 (63.50 kg, 162.56 cm) 5 ED Course: 08/31 22:55 Patient arrived in ED. cf2 23:09 Triage completed. 5 23:11 Marcin Blandon MD is Attending Physician. [facility] 23:11 Dillon Doshi NP is PHCP. pm1 23:15 Arm band placed on right wrist. wh 23:15 Patient has correct armband on for positive identification. Placed in gown. Bed in low wh position. Call light in reach. Side rails up X 1. cafeteria monitor on. Pulse ox on. NIBP on. 23:20 Inserted saline lock: 20 gauge in right forearm, using aseptic technique. Blood wh collected. 23:24 Jeremy Macdonald is Primary Nurse. 23:41 XRAY Chest (1 view) In Process Unspecified. EDMS 09/01 03:14 Extrem Venous W Compression Marvel US In Process Unspecified. EDMS 03:42 No provider procedures requiring assistance completed. IV discontinued, intact, bleeding controlled, No redness/swelling at site. Administered Medications: 08/31 23:54 Drug: Lasix 20 mg Route: IVP; Site: right forearm; 09/01 00:35 Follow up: Response: No adverse reaction 00:35 Drug: morphine 4 mg {Note: RASS 0.} Route: IVP; Site: right forearm; 03:43 Follow up: Response: No adverse reaction; Pain is decreased; RASS: Alert and Calm (0) Outcome: 03:17 Discharge ordered by . 7 03:42 Discharged to home ambulatory, with family. 03:42 Condition: stable 03:42 Discharge instructions given to patient, family, Instructed on discharge instructions, follow up and referral plans. POC Demonstrated understanding of instructions, follow-up care, POC 03:43 Patient left the ED. wh Signatures: Dispatcher [employer] Lisa Evans, RN RN dm5 Dillon Doshi, CARTON FILLER CARTON FILLER pm1 Jeremy Macdonald Sandra Nolasco cf2 Marcin Blandon MD MD mh7 Corrections: (The following items were deleted from the chart) 00:10 08/31 23:15 Respiratory: Airway is patent Respiratory effort is even, unlabored, wh Respiratory pattern is regular, symmetrical, Breath sounds are clear bilaterally. wh
--- NOTE | 2020-09-01 08:43 | RAD REPORT ---
EXAM DESCRIPTION: US - Extrem Venous W Compress Marvel - 09/01/2020 3:14 am CLINICAL HISTORY: SWELLING Bilateral leg edema and swelling. COMPARISON: No comparisons TECHNIQUE: Real-time sonographic interrogation of the left and right lower extremity deep venous sys tems was performed. FINDINGS: Normal compressibility, flow augmentation, phasic flow and spontaneous flow is identified in both the left and right lower extremity deep venous systems. IMPRESSION: No sonographic evidence of left or right lower extremity deep venous thrombosis.
--- NOTE | 2020-09-01 08:54 | RAD REPORT ---
EXAM DESCRIPTION: RAD - Chest Single View - 08/31/2020 11:40 pm CLINICAL HISTORY: SOB Chest pain. COMPARISON: Chest Single View dated 06/20/2019; Abdomen Acute Series dated 04/21/2019; Chest Single Vi ew dated 05/03/2018; Chest Single View dated 11/17/2017 FINDINGS: Portable technique limits examination quality. The lungs are grossly clear. The heart is normal in size. No displaced fractures. IMPRESSION: No acute intrathoracic process suspected.
[2020-09-01 09:50] VITALS: TEMP 98.1
[2020-09-01 09:57] VITALS: BP 131/67; O2SAT 98
== END 2020-09-01 03:43 | disposition home or self-care (01) ==
LOC: ER 22:52
DX: R60.9 Edema, unspecified (principal); I10 Essential (primary) hypertension; E11.9 Type 2 diabetes mellitus without complications; Z79.4 Long term (current) use of insulin
CPT/HCPCS: 36415; 71045; 80048; 80076; 83735; 83880; 84484; 85025; 85610; 93005; 93970; 96374; 96375; 99284

== ENCOUNTER 2020-10-15 14:30 | Emergency (ER) | payer SELFPAY ==
--- OUTSIDE RECORDS SUMMARY | 2020-10-15 14:32 | XMS REPORT | Clinical Summary ---
:1975 Author Organization [facility] Address [address] [place] [address] Care Team Providers Name Role Phone Unavailable [...] Not on file Results Not on fileafter 10/15/2019 Insurance Payer Benefit Plan / Subscriber ID Effective Dates Phone Addre ss Type Group AETNA - MGD CARE AETNA PPO OPEN [facility] [id number] 2017-Present PPO NAP Advance Directives For more information, please contact: [phone] Code Status Date Activated Date Inactivated Comments Full Code 09/10/2017 4:00 AM 09/11/2017 4:55 PM This code status was determined by: Patient
--- OUTSIDE RECORDS SUMMARY | 2020-10-15 14:33 | XMS REPORT | Continuity of Care Document ---
:1975 Author Organization [facility] t Address [address] [place] [address] Dr. Lebron [address] [place] [id number] Care Team Providers Name Role Phone LOMBARDO Attending Clinician Unavailable LOMBARDO Admitting Clinician Unavailable Problems Condition Condition Condition Status Onset Resolution Last Treating Co mments Source Name Details Category Date Date Treatment Clinician Date Left sided Left sided Disease Active 2016-[address] numbness [facility] 2[facility] [place] Diabetes Diabetes Disease [facility] - type 2 in type 2 in 00:00: Medi juanito nonobese nonobese 00 [place] Essential Essential Disease Active 2016-[address] [facility] hypertensi hypertensi 2-02 L[facility] k[facility] - on on 00:00: Medical 00 [place] Headache Headache Disease [facility] 2016[facility] [place] Allergies, Adverse Reactions, Alerts This patient has no known allergies or adverse reactions. Social History Social Habit Start Date Stop Date Quantity Comments Source Sex Assigned At [facility] Smoking Status Start Date Stop Date [...] Reference Range Interpretation Comme nts POC-GLUCOSE METER ([facility]) (test 330 mg/dL 70-110 H TESTED AT [address] code = 1538) [facility] 7703 0 SCREEN, [id number] 11:13:00 Test Item Value Reference Range Interpretation Comments TEST URINE ([facility]) (test Negative code = 583) POCT-GLUCOSE [id number] 08:33:00 Test Item Value Reference Range Interpretation Comments POC-GLUCOSE METER 226 mg/dL 70-110 H TESTED AT [place] [address] ([facility]) (test code = JASMEET Zapata [facility] 1538) [id number] POCT-GLUCOSE [id number] 21:48:00 Test Item Value Reference Range Interpretation Comments POC-GLUCOSE METER 219 mg/dL 70-110 H TESTED AT [place] [address] ([facility]) (test code = JASMEET Zapata [facility] 1538) [address] POCT-GLUCOSE [id number] 17:48:00 Test Item Value Reference Range Interpretation Comments POC-GLUCOSE METER 225 mg/dL 70-110 H TESTED AT [place] [address] ([facility]) (test code = JASMETE Zapata [facility] 1538) [address] [id number] 16:39:00 Test Item Value Reference Range Interpretation Comments RPR SCREEN ([facility]) (test code = Nonreactive Nonreactive 420) SEDIMENTATION [id number] 15:02:00 Test Item Value Reference Range Interpretation Comments SEDIMENTATION RATE, ERYTHROCYTE 25 mm/HR 0-20 H ([facility]) (test code = 766) POCT-GLUCOSE [id number] 12:40:00 Test Item Value Reference Range Interpretation Comments POC-GLUCOSE METER 188 mg/dL 70-110 H TESTED AT [facility] 67[facility] ([place]) (test code = [place] 1538) [address] HEMOGLOBIN [id number] 11:42:00 Test Item Value Reference Range Interpretation Comments HEMOGLOBIN A1C ([place]) (test code = 8.2 % 4.3-6.1 H 368) MR, BRAIN, WITHOUT [id number] 11:17:00Reason for exam:->Ischemic Stroke EvaluationFINAL REPORT MRI [...] acute infarct, hemorrhage, or hydrocephalus. Signed: [facility] Verified Date/Time: 09/10/2017 11:17:54 Reading Location: [address] Neuro Reading Room MR, MRA, BRAIN, WITHOUT [id number] 11:16:00Reason for exam:->Ischemic Stroke EvaluationFINAL REPORT MRA head and neck without contrast INDICATION: Headache, left hemianesthesia, left sided weakness TECHNIQUE: 2-D and 3-D [id number]-nq-[id number] MRA images of the intra- and extracranial [...] branch occlusion or significant stenosis in the [place] vessels. There is no specific MRA evidence of saccular aneurysm. IMPRESSION: 1. No hemodynamically significant carotid stenosis by NASCET criteria. 2. No significant stenosis in the imaged cervical vertebral arteries. 3. No major branch occlusion, significant stenosis,or evident aneurysm in the [place] of [place] vessels. Signed: Mark Mathur MDReport Verified Date/Time: 09/10/2017 11:16:49 Reading Location: [address] Neuro Reading Room MR, MRA, NECK, WITHOUT IV [id number] 11:16:00Reason for exam:->Ischemic Stroke EvaluationFINAL REPORT MRA head and neck without contrast INDICATION: Headache, left hemianesthesia, left sided weakness TECHNIQUE: 2-D and 3-D [id number]-[id number] MRA images of the intra- and extracranial [...] branch occlusion or significant stenosis in the [place] vessels. There is no specific MRA evidence of saccular aneurysm. IMPRESSION: 1. No hemodynamically significant carotid stenosis by NASCET criteria. 2. No significant stenosis in the imaged cervical vertebral arteries. 3. No major branch occlusion, significant stenosis,or evident aneurysm in the ka[place] of Chang vessels. Signed: Mark Mathur MDReport Verified Date/Time: 09/10/2017 11:16:49 Reading Location: [address] Neuro Reading Room /FREE T4 IF [id number] 09:44:00 Test Item Value Reference Range Interpretation Comments THYROID STIMULATING HORMONE 2.42 uIU/mL 0.35-4.94 (BEAKER) (test code = 772) VITAMIN B12 AND [id number] 09:44:00 Test Item Value Reference Range Interpretation Comments VITAMIN B12 (BEAKER) (test code = 413 pg/mL 213-816 774) FOLATE (BEAKER) (test code = 362) 14.8 ng/mL >=7.0 POCT-GLUCOSE [id number] 08:35:00 Test Item Value Reference Range Interpretation Comments POC-GLUCOSE METER 156 mg/dL 70-110 H TESTED AT [facility] [address] (BEAKER) (test code = [place]ET [place]ap[place] 1538) [address] [id number] 06:56:00 Test Item Value Reference Range Interpretation Comments HOMOCYSTEINE (BEAKER) (test code = 4.1 umol/L 5.1-15.4 L 642) BASIC METABOLIC [id number] 06:32:00 Test Item Value Reference Range Interpretation [...] DATA TO CALCULA TE ESTIMATED GFR. FastingLIPID [id number] 06:31:00 Test Item Value Reference Range Interpretation [...] 130-159 High 160-189 Very High >=190 FastingC-REACTIVE [id number] 06:31:00 Test Item Value Reference Range Interpretation Comments C-REACTIVE PROTEIN (BEAKER) (test 1.82 mg/dL 0.00-0.50 H code = 676) FastingTROPONIN [id number] 06:29:00 Test Item Value Reference Range Interpretation [...] and persistent tachyarrhythmia.FastingCBC W/PLT COUNT & AUTO [id number] 06:02:00 Test Item Value Reference Range Interpretation [...] % 0-1 PERCENT (BEAKER) (test code = 3441)
[2020-10-15 19:55] LABS: Absolute Lymphocytes (CBC) 3.3 K/uL (0.7-4.9); Basophils % 0.8 % (0-1.3); Hematocrit 41.7 % (36.0-45.0); Lymphocytes % 25.6 % (15.3-44.8); RBC Red Blood Cell Count 5.12 M/uL (3.86-4.86)
[2020-10-15] MEDS ORDERED: MORPHINE 2 MG/ML SYR ONE (19:57)
[2020-10-15] MEDS ORDERED: KETOROLAC 30 MG/ML INJ ONE (19:58)
[2020-10-15] MEDS ORDERED: NA CHLORIDE 0.9% 1,000 ML ONE (19:58)
[2020-10-15] MEDS ORDERED: ONDANSETRON 4 MG/2 ML VIAL ONE (19:58)
[2020-10-15 20:13] LABS: ALT/SGPT 22 U/L (12-78); AST/SGOT 7 U/L (15-37); Albumin 3.8 g/dL (3.4-5.0); Alkaline Phosphatase 86 U/L (45-117); BUN Blood Urea Nitrogen 14 mg/dL (7-18); Bicarbonate 31 mmol/L (21-32); Bilirubin Total 0.4 mg/dL (0.2-1.0); Glucose Level 231 mg/dL (74-106); Potassium 3.9 mmol/L (3.5-5.1); Protein, Total 8.1 g/dL (6.4-8.2); Sodium Level 138 mmol/L (136-145)
[2020-10-15 20:50] LABS: Troponin (Emerg Dept Use Only) < 0.02 ng/mL (0.0-0.045)
--- NOTE | 2020-10-15 21:00 | RAD REPORT ---
EXAM DESCRIPTION: CT - Head Brain Wo Cont - 10/15/2020 8:45 pm CLINICAL HISTORY: PAIN Headache, drowsiness COMPARISON: Head Brain Wo Cont dated 12/22/2018; Head Brain Wo Cont dated 05/03/2018 TECHNIQUE: All CT scans are performed using dose optimization technique as appropriate and may inclu de automated exposure control or mA/KV adjustment according to patient size. FINDINGS: No intracranial hemorrhage, hydrocephalus or extra-axial fluid collection.No areas of brai n edema or evidence of midline shift. The paranasal sinuses and mastoids are clear. The calvarium is intact. IMPRESSION: No acute intracranial abnormality.
--- NOTE | 2020-10-15 21:03 | RAD REPORT ---
EXAM DESCRIPTION: CT - Soft Tissue Neck W/Contr CLINICAL HISTORY: PAIN Left-sided head and neck pain COMPARISON: Head C Spine Mpr Wo Con dated 06/20/2019; Soft Tissue Neck W/Contr dated 02/06/2017; Head Brain Wo Cont dated 10/15/[address] scans are performed using dose optimization technique as appropriate and may includ e automated exposure control or mA/KV adjustment according to patient size. FINDINGS: Nasopharyngeal tissues are normal in appearance. Fossa Rosenmller are normal. Mildly prominent lymph nodes are seen along both jugular chain. Tongue base structures are normal. Pa latine tonsils are mildly enlarged. Epiglottis and aryepiglottic folds are normal. Piriform sinuses are well aerated. Thyroid gland is no rmal in size. The vocal cords are normal in appearance. Salivary glands are normal in appearance. Upper lung almodovar are clear. Included intracranial contents are unremarkable. Mild cervical kyphosis. IMPRESSION: No acute finding is demonstrated.
[2020-10-15] MEDS ORDERED: CEFTRIAXONE/SWI 1gm 1 GM/10 ML SYR ONE (21:13)
--- NOTE | 2020-10-15 21:58 | EDPHYS ---
Physician Documentation [facility] Name: Carol Mclaughlin Age: 45 yrs Sex: Female : 1975 Arrival Date: 10/15/2020 Time: 14:32 Bed 17 Private MD: ED Physician Vicente Ratliff HPI: 10/15 19:31 This 45 yrs old Female presents to ER via Ambulatory with complaints of Facial nay Pain. 19:31 The patient or guardian reports pain, tenderness. The complaints affect the top of nay head, forehead, left ear, left cheek, chin, left rastafarian, right jaw, left jaw, right mandible and left mandible. Context of injury: The problem was sustained at an unknown location. Onset: The symptoms/episode began/occurred 2 week(s) ago. Associated signs and symptoms: The patient has no apparent associated signs or symptoms. pain, no trauma, ears, neck, left side of head. Severity of symptoms: At their worst the symptoms were mild, moderate, in the emergency department the symptoms are unchanged. Severity of symptoms: At their worst the symptoms were mild moderate in the emergency department the symptoms are unchanged. Historical: - Allergies: 14:39 No Known Allergies; ll1 - PMHx: 14:39 Diabetes - NIDDM; Hypertension; ll1 - PSHx: 14:39 Cholecystectomy; ; ankle/knee sx; ll1 - Immunization history:: Flu vaccine is not up to date. - Social history:: Smoking status: Patient denies any tobacco usage or history of. - Family history:: not pertinent. ROS: 19:31 Constitutional: Negative for fever, chills, and weight loss, Eyes: Negative for injury, nay pain, redness, and discharge, Cardiovascular: Negative for chest pain, palpitations, and edema, Respiratory: Negative for shortness of breath, cough, wheezing, and pleuritic chest pain, Abdomen/GI: Negative for abdominal pain, nausea, vomiting, diarrhea, and constipation, Back: Negative for injury and pain, : Negative for injury, bleeding, discharge, and swelling, MS/Extremity: Negative for injury and deformity, Skin: Negative for injury, rash, and discoloration, Neuro: Negative for headache, weakness, numbness, tingling, and seizure, Psych: Negative for depression, anxiety, suicide ideation, homicidal ideation, and hallucinations, Allergy/Immunology: Negative for hives, rash, and allergies, Endocrine: Negative for neck swelling, polydipsia, polyuria, polyphagia, and marked weight changes, Hematologic/Lymphatic: Negative for swollen nodes, abnormal bleeding, and unusual bruising. 19:31 ENT: Positive for dental pain, difficulty swallowing, foreign body sensation, Gum pain 19:31 Neck: Positive for pain with movement, pain at rest, tenderness. 19:31 Cardiovascular: Negative for chest pain. Exam: 19:31 Constitutional: This is a well developed, well nourished patient who is awake, alert, nay and in no acute distress. Eyes: Pupils equal round and reactive to light, extra-ocular motions intact. Lids and lashes normal. Conjunctiva and sclera are non-icteric and not injected. Cornea within normal limits. Periorbital areas with no swelling, redness, or edema. ENT: Nares patent. No nasal discharge, no septal abnormalities noted. Tympanic membranes are normal and external auditory canals are clear. Oropharynx with no redness, swelling, or masses, exudates, or evidence of obstruction, uvula midline. Mucous membranes moist. Neck: Trachea midline, no thyromegaly or masses palpated, and no cervical lymphadenopathy. Supple, full range of motion without nuchal rigidity, or vertebral point tenderness. No Meningismus. Chest/axilla: Normal chest wall appearance and motion. Nontender with no deformity. No lesions are appreciated. Cardiovascular: Regular rate and rhythm with a normal S1 and S2. No gallops, murmurs, or rubs. Normal PMI, no JVD. No pulse deficits. Respiratory: Lungs have equal breath sounds bilaterally, clear to auscultation and percussion. No rales, rhonchi or wheezes noted. No increased work of breathing, no retractions or nasal flaring. Abdomen/GI: Soft, non-tender, with normal bowel sounds. No distension or tympany. No guarding or rebound. No evidence of tenderness throughout. Back: No spinal tenderness. No costovertebral tenderness. Full range of motion. Skin: Warm, dry with normal turgor. Normal color with no rashes, no lesions, and no evidence of cellulitis. MS/ Extremity: Pulses equal, no cyanosis. Neurovascular intact. Full, normal range of motion. Neuro: Awake and alert, GCS 15, oriented to person, place, time, and situation. Cranial nerves II-XII grossly intact. Motor strength 5/5 in all extremities. Sensory grossly intact. Cerebellar exam normal. Normal gait. Psych: Awake, alert, with orientation to person, place and time. Behavior, mood, and affect are within normal limits. 19:31 Head/face: Noted is tenderness, that is mild, of the right cheek, right ear, left ear, left cheek, chin, right jaw, left jaw and left mandible. Vital Signs: 14:36 BP 149 / 95; Pulse 92; Resp 17; Temp 98.3; Pulse Ox 96% ; Weight 58.97 kg; Height 5 ft. ll1 4 in. (162.56 cm); Pain 10/10; 20:00 BP 130 / 67; Pulse 90; Resp 18; Pulse Ox 100% on R/A; vg1 21:00 BP 135 / 74; Pulse 86; Resp 18; Pulse Ox 99% on R/A; vg1 22:00 BP 120 / 72; Pulse 85; Resp 16; Pulse Ox 100% on R/A; vg1 14:36 Body Mass Index 22.31 (58.97 kg, 162.56 cm) ll1 Dozier Coma Score: 19:31 Eye Response: spontaneous(4). Verbal Response: oriented(5). Motor Response: obeys nay commands(6). Total: 15. 19:37 Eye Response: spontaneous(4). Verbal Response: oriented(5). Motor Response: obeys nay commands(6). Total: 15. MDM: 19:20 Patient medically screened. [facility] 19:37 Differential diagnosis: Contusion of head, face. Data reviewed: vital signs, nurses [facility] notes, lab test result(s), radiologic studies, CT scan. 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 Test interpretation: by ED physician or midlevel provider: ECG. Counseling: I had a detailed discussion with the patient and/or guardian regarding: the presence of at least one elevated blood pressure reading (>120/80) during this emergency department visit, lab results, radiology results. 10/15 19:30 Order name: CBC with Diff; Complete Time: 20:10 nay 10/15 19:30 Order name: Comprehensive Metabolic Panel; Complete Time: 20:52 [facility] 10/15 19:30 Order name: CT Head Brain wo Cont; Complete Time: 21:55 [facility] 10/15 19:31 Order name: Sed Rate; Complete Time: 20:10 [facility] 10/15 20:28 Order name: Troponin (Emerg Dept Use Only); Complete Time: 20:52 EDMS 10/15 19:31 Order name: CT Soft Tissue Neck W/contr; Complete Time: 21:55 [facility] 10/15 19:31 Order name: EKG; Complete Time: 19:32 [facility] 10/15 19:31 Order name: EKG - Nurse/Tech; Complete Time: 20:10 [facility] Administered Medications: 20:10 Drug: NS 0.9% 1000 ml Route: IV; Rate: 1 bolus; Site: left antecubital; vg1 22:52 Follow up: IV Status: Completed infusion; IV Intake: 1000ml vg1 20:10 Drug: TORadol 30 mg Route: IVP; Site: left antecubital; vg1 22:39 Follow up: Response: No adverse reaction vg1 20:11 Drug: morphine 2 mg Route: IVP; Site: left antecubital; vg1 22:40 Follow up: Response: Pain is decreased vg1 20:11 Drug: Zofran (Ondansetron) 4 mg Route: IVP; Site: left antecubital; vg1 22:39 Follow up: Response: No adverse reaction vg1 21:01 Drug: Rocephin 1 grams Route: IV; Rate: per protocol; Site: left antecubital; vg1 22:39 Follow up: Response: No adverse reaction; IV Status: Completed infusion vg1 Disposition: 10/15/20 21:56 Discharged to Home. Impression: Atypical facial pain, Essential (primary) hypertension, Type 2 diabetes mellitus. - Condition is Stable. - Discharge Instructions: Type 2 Diabetes Mellitus, Diagnosis, Adult, Hypertension, Hypertension, Bkyb-cm-Hrlv, Aspirin and Your Heart, Type 2 Diabetes Mellitus, Diagnosis, Adult, Gbub-ro-Iogk. - Prescriptions for gabapentin 100 mg Oral capsule - take 2 capsule by ORAL route 2 times per day; 80 capsule. Augmentin 875- 125 mg Oral Tablet - take 1 tablet by ORAL route every 12 hours for 10 days; 14 tablet. - Medication Reconciliation Form, Thank You Letter, Antibiotic Education, Prescription Opioid Use form. - Follow up: Private Physician; When: 2 - 3 days; Reason: Recheck today's complaints, Continuance of care, Re-evaluation by your physician. Follow up: Roxy Gotti MD; When: 2 - 3 days; Reason: Recheck today's complaints, Re-evaluation by your physician. - Problem is new. - Symptoms have improved. Signatures: Dispatcher [employer] [facility] Vicente Ratliff MD MD cha Garcia, Victoria, RN RN vg1 Ysabel Harden RN RN ll1 Corrections: (The following items were deleted from the chart) 20:28 20:11 TROPONIN (EMERG DEPT USE ONLY)+C.LAB.BRZ ordered. [facility] 22:52 21:56 10/15/2020 21:56 Discharged to Home. Impression: Atypical facial pain; Essential vg1 (primary) hypertension; Type 2 diabetes mellitus. Condition is Stable. Discharge Instructions: Type 2 Diabetes Mellitus, Diagnosis, Adult, Hypertension, Hypertension, Kyiq-ro-Zqhu, Aspirin and Your Heart, Type 2 Diabetes Mellitus, Diagnosis, Adult, Msjq-fd-Ukcu. Prescriptions for gabapentin 100 mg Oral capsule - take 2 capsule by ORAL route 2 times per day; 80 capsule. and Forms are Medication Reconciliation Form, Thank You Letter, Antibiotic Education, Prescription Opioid Use. Follow up: Private Physician; When: 2 - 3 days; Reason: Recheck today's complaints, Continuance of care, Re-evaluation by your physician. Follow up: Roxy Gotti; When: 2 - 3 days; Reason: Recheck today's complaints, Re-evaluation by your physician. Problem is new. Symptoms have improved. nay
--- NOTE | 2020-10-15 21:58 | ER ---
Nurse's Notes [facility] Name: Carol Mclaughlin Age: 45 yrs Sex: Female : 1975 Arrival Date: 10/15/2020 Time: 14:32 Bed 17 Private MD: Diagnosis: Atypical facial pain;Essential (primary) hypertension;Type 2 diabetes mellitus Presentation: 10/15 14:36 Chief complaint: Patient states: Left sided ear/neck. CABALLERO for 1 month. Took antibiotics ll1 from [place]. Pain resolved while taking them. Pain returned real bad today. Also reports tooth pains. No fever. Coronavirus screen: Client denies travel out of the [place] in the last 14 days. At this time, the client does not indicate any symptoms associated with coronavirus-19. Ebola Screen: Patient denies travel to an Ebola-affected area in the 21 days before illness onset. Initial Sepsis Screen: Does the patient meet any 2 criteria? HR > 90 bpm. No. Patient's initial sepsis screen is negative. Does the patient have a suspected source of infection? No. Patient's initial sepsis screen is negative. Risk Assessment: Do you want to hurt yourself or someone else? Patient reports no desire to harm self or others. Onset of symptoms was September 13, 2020. 14:36 Method Of Arrival: Ambulatory 1 14:36 Acuity: GORGE 3 ll1 Historical: - Allergies: 14:39 No Known Allergies; ll1 - PMHx: 14:39 Diabetes - NIDDM; Hypertension; ll1 - PSHx: 14:39 Cholecystectomy; ; ankle/knee sx; ll1 - Immunization history:: Flu vaccine is not up to date. - Social history:: Smoking status: Patient denies any tobacco usage or history of. - Family history:: not pertinent. Screenin:00 Abuse screen: Denies threats or abuse. Nutritional screening: No deficits noted. vg1 Tuberculosis screening: No symptoms or risk factors identified. Fall Risk None identified. Assessment: 19:55 General: Appears in no apparent distress. ill, Behavior is calm, cooperative. vg1 19:55 Pain: Complains of pain in left ear and left side of neck Pain currently is 10 out of vg1 10 on a pain scale. Pain began for a month. Neuro: Level of Consciousness is awake, alert, obeys commands, Oriented to person, place, time, situation. Cardiovascular: Patient's skin is warm and dry. Respiratory: Airway is patent Respiratory effort is even, unlabored, Respiratory pattern is regular, symmetrical. GI: Reports vomiting, since this morning. : No signs and/or symptoms were reported regarding the genitourinary system. EENT: Reports pain in left ear. Derm: Skin is intact, is healthy with good turgor. Musculoskeletal: Circulation, motion, and sensation intact. 21:00 Reassessment: Patient appears in no apparent distress at this time. No changes from vg1 previously documented assessment. Patient is alert, oriented x 3, equal unlabored respirations, skin warm/dry/pink. 22:00 Reassessment: Patient appears in no apparent distress at this time. No changes from vg1 previously documented assessment. Patient is alert, oriented x 3, equal unlabored respirations, skin warm/dry/pink. Vital Signs: 14:36 BP 149 / 95; Pulse 92; Resp 17; Temp 98.3; Pulse Ox 96% ; Weight 58.97 kg; Height 5 ft. ll1 4 in. (162.56 cm); Pain 10/10; 20:00 BP 130 / 67; Pulse 90; Resp 18; Pulse Ox 100% on R/A; vg1 21:00 BP 135 / 74; Pulse 86; Resp 18; Pulse Ox 99% on R/A; vg1 22:00 BP 120 / 72; Pulse 85; Resp 16; Pulse Ox 100% on R/A; vg1 14:36 Body Mass Index 22.31 (58.97 kg, 162.56 cm) ll1 Colton Coma Score: 19:31 Eye Response: spontaneous(4). Verbal Response: oriented(5). Motor Response: obeys nay commands(6). Total: 15. 19:37 Eye Response: spontaneous(4). Verbal Response: oriented(5). Motor Response: obeys nay commands(6). Total: 15. ED Course: 14:32 Patient arrived in ED. ds1 14:36 Arm band placed on. ll1 14:39 Triage completed. ll1 19:19 Radha Quintero RN is Primary Nurse. vg1 19:20 Vicente Ratliff MD is Attending Physician. nay 19:42 Inserted saline lock: 22 gauge in left antecubital area, using aseptic technique. Blood vg1 collected. 20:00 Patient has correct armband on for positive identification. Bed in low position. Call vg1 light in reach. Side rails up X 1. 20:43 Primary Nurse role handed off by Radha Quintero RN 20:46 CT Head Brain wo Cont In Process Unspecified. EDMS 20:46 CT Soft Tissue Neck W/contr In Process Unspecified. EDMS 20:55 Radha Quintero RN is Primary Nurse. vg1 21:56 Roxy Gtoti MD is Referral Physician. [facility] 22:52 No provider procedures requiring assistance completed. IV discontinued, intact, vg1 bleeding controlled, No redness/swelling at site. Pressure dressing applied. Administered Medications: 20:10 Drug: NS 0.9% 1000 ml Route: IV; Rate: 1 bolus; Site: left antecubital; vg1 22:52 Follow up: IV Status: Completed infusion; IV Intake: 1000ml vg1 20:10 Drug: TORadol 30 mg Route: IVP; Site: left antecubital; vg1 22:39 Follow up: Response: No adverse reaction vg1 20:11 Drug: morphine 2 mg Route: IVP; Site: left antecubital; vg1 22:40 Follow up: Response: Pain is decreased vg1 20:11 Drug: Zofran (Ondansetron) 4 mg Route: IVP; Site: left antecubital; vg1 22:39 Follow up: Response: No adverse reaction vg1 21:01 Drug: Rocephin 1 grams Route: IV; Rate: per protocol; Site: left antecubital; vg1 22:39 Follow up: Response: No adverse reaction; IV Status: Completed infusion vg1 Intake: 22:52 IV: 1000ml; Total: 1000ml. vg1 Outcome: 21:56 Discharge ordered by . nay 22:51 Discharged to home ambulatory. vg1 22:51 Condition: stable 22:51 Discharge instructions given to patient, Instructed on discharge instructions, follow up and referral plans. medication usage, Demonstrated understanding of instructions, follow-up care, medications, Prescriptions given X 2. 22:52 Patient left the ED. vg1 Signatures: Dispatcher [employer] EDMS Mark Anand RN RN sg Vicente Ratliff MD MD cha Sanford, Demi ds1 Radha Quintero RN RN vg1 Dereck, Lynsay, RN RN ll1
[2020-10-15 23:16] VITALS: TEMP 98.3
[2020-10-15 23:20] VITALS: BP 120/72; O2SAT 100
== END 2020-10-15 22:52 | disposition home or self-care (01) ==
LOC: ER 14:30
DX: I10 Essential (primary) hypertension (principal); E11.9 Type 2 diabetes mellitus without complications
CPT/HCPCS: 36415; 70450; 70491; 80053; 84484; 85025; 85652; 93005; 96361; 96365; 96366; 96375; 99284; J0696; J2270; J2405; J7030; Q9967

== ENCOUNTER 2020-10-26 22:36 | Emergency (ER) | payer SELFPAY ==
--- OUTSIDE RECORDS SUMMARY | 2020-10-26 22:39 | XMS REPORT | Continuity of Care Document ---
:1975 Author Organization [facility] t Address [address] [place] [address] Dr. Lebron [address] [place] [id number] Care Team Providers Name Role Phone LOMBARDO Attending Clinician Unavailable LOMBARDO Admitting Clinician Unavailable Problems Condition Condition Condition Status Onset Resolution Last Treating Co mments Source Name Details Category Date Date Treatment Clinician Date Left sided Left sided Disease Active 2016-[address] numbness [facility]ness 2-02 [facility] 00 [place] Diabetes Diabetes Disease [facility] - type 2 in type 2 in 00:00: Medi juanito nonobese nonobese 00 [place] Essential Essential Disease Active 2016-[address] hypertensi hypertensi 2-02 L[facility] kes - on on 00:00: Medical 00 [place] Headache Headache Disease Active 2016[facility]10 [facility] 00 [place] Allergies, Adverse Reactions, Alerts This patient has no known allergies or adverse reactions. Social History Social Habit Start Date Stop Date Quantity Comments Source Sex Assigned At [facility] Smoking Status Start Date Stop Date Source Never smoker [facility] Medications Ordered Filled Start Stop Current [...] Reference Range Interpretation Comme nts POC-GLUCOSE METER ([facility]) (test 330 mg/dL 70-110 H TESTED AT [address] code = 1538) [facility] 7703 0 SCREEN, [id number] 11:13:00 Test Item Value Reference Range Interpretation Comments TEST URINE ([facility]) (test Negative code = 583) POCT-GLUCOSE [id number] 08:33:00 Test Item Value Reference Range Interpretation Comments POC-GLUCOSE METER 226 mg/dL 70-110 H TESTED AT [place] [address] ([facility]) (test code = JASMEET Zapata [facility] 1538) [id number] POCT-GLUCOSE [id number] 21:48:00 Test Item Value Reference Range Interpretation Comments POC-GLUCOSE METER 219 mg/dL 70-110 H TESTED AT [place] [address] ([facility]) (test code = JASMEET Zapata [facility] 1538) [id number] POCT-GLUCOSE [id number] 17:48:00 Test Item Value Reference Range Interpretation Comments POC-GLUCOSE METER 225 mg/dL 70-110 H TESTED AT [place] [address] ([facility]) (test code = JASMEET Zapata [facility] 1538) [address] [id number] 16:39:00 Test Item Value Reference Range Interpretation Comments RPR SCREEN ([facility]) (test code = Nonreactive Nonreactive 420) SEDIMENTATION [id number] 15:02:00 Test Item Value Reference Range Interpretation Comments SEDIMENTATION RATE, ERYTHROCYTE 25 mm/HR 0-20 H ([facility]) (test code = 766) POCT-GLUCOSE [id number] 12:40:00 Test Item Value Reference Range Interpretation Comments POC-GLUCOSE METER 188 mg/dL 70-110 H TESTED AT [facility] 6720 ([place]) (test code = [place] 1538) [address] HEMOGLOBIN [id number] 11:42:00 Test Item Value Reference Range Interpretation Comments HEMOGLOBIN A1C ([facility]) (test code = 8.2 % 4.3-6.1 H 368) MR, BRAIN, WITHOUT [id number] 11:17:00Reason for exam:->Ischemic Stroke EvaluationFINAL REPORT MRI [...] acute infarct, hemorrhage, or hydrocephalus. Signed: [facility] Verified Date/Time: 09/10/2017 11:17:54 Reading Location: [address] Neuro Reading Room MR, MRA, BRAIN, WITHOUT [id number] 11:16:00Reason for exam:->Ischemic Stroke EvaluationFINAL REPORT MRA head and neck without contrast INDICATION: Headache, left hemianesthesia, left sided weakness TECHNIQUE: 2-D and 3-D [id number] MRA images of the intra- and extracranial [...] branch occlusion or significant stenosis in the [place] vessels. There is no specific MRA evidence of saccular aneurysm. IMPRESSION: 1. No hemodynamically significant carotid stenosis by NASCET criteria. 2. No significant stenosis in the imaged cervical vertebral arteries. 3. No major branch occlusion, significant stenosis,or evident aneurysm in the [place] vessels. Signed: Mark Mathur [facility] Verified Date/Time: 09/10/2017 11:16:49 Reading Location: [address] Neuro Reading Room MR, MRA, NECK, WITHOUT IV [id number] 11:16:00Reason for exam:->Ischemic Stroke EvaluationFINAL REPORT MRA head and neck without contrast INDICATION: Headache, left hemianesthesia, left sided weakness TECHNIQUE: 2-D and 3-D [id number] MRA images of the intra- and extracranial [...] branch occlusion or significant stenosis in the [place] vessels. There is no specific MRA evidence of saccular aneurysm. IMPRESSION: 1. No hemodynamically significant carotid stenosis by NASCET criteria. 2. No significant stenosis in the imaged cervical vertebral arteries. 3. No major branch occlusion, significant stenosis,or evident aneurysm in the [place] vessels. Signed: Mark Mathur [facility] Verified Date/Time: 09/10/2017 11:16:49 Reading Location: [address] Neuro Reading Room /FREE T4 IF [id number] 09:44:00 Test Item Value Reference Range Interpretation Comments THYROID STIMULATING HORMONE 2.42 uIU/mL 0.35-4.94 (BEAKER) (test code = 772) VITAMIN B12 AND [id number] 09:44:00 Test Item Value Reference Range Interpretation Comments VITAMIN B12 (BEAKER) (test code = 413 pg/mL 213-816 774) FOLATE (BEAKER) (test code = 362) 14.8 ng/mL >=7.0 POCT-GLUCOSE [id number] 08:35:00 Test Item Value Reference Range Interpretation Comments POC-GLUCOSE METER 156 mg/dL 70-110 H TESTED AT [facility] 6720 (BEAKER) (test code = JASMEET Zap[place] 1538) [id number] 06:56:00 Test Item Value Reference Range Interpretation Comments HOMOCYSTEINE (BEAKER) (test code = 4.1 umol/L 5.1-15.4 L 642) BASIC METABOLIC [id number] 06:32:00 Test Item Value Reference Range Interpretation [...] DATA TO CALCULA TE ESTIMATED GFR. FastingLIPID [id number] 06:31:00 Test Item Value Reference Range Interpretation [...] 130-159 High 160-189 Very High >=190 FastingC-REACTIVE [id number] 06:31:00 Test Item Value Reference Range Interpretation Comments C-REACTIVE PROTEIN (BEAKER) (test 1.82 mg/dL 0.00-0.50 H code = 676) FastingTROPONIN [id number] 06:29:00 Test Item Value Reference Range Interpretation [...] and persistent tachyarrhythmia.FastingCBC W/PLT COUNT & AUTO [id number] 06:02:00 Test Item Value Reference Range Interpretation [...] % 0-1 PERCENT (BEAKER) (test code = 3674)
--- OUTSIDE RECORDS SUMMARY | 2020-10-26 22:39 | XMS REPORT | Clinical Summary ---
:1975 Author Organization [facility] Address [address] [place] [address] Care Team Providers Name Role Phone Unavailable [...] Not on file Results Not on fileafter 10/26/2019 Insurance Payer Benefit Plan / Subscriber ID Effective Dates Phone Addre ss Type Group [employer]ET[employer] - MGD CARE AETNA PPO [facility] [id number] 2017-Present PPO NAP Advance Directives For more information, please contact: [phone] Code Status Date Activated Date Inactivated Comments Full Code 09/10/2017 4:00 AM 09/11/2017 4:55 PM This code status was determined by: Patient
--- NOTE | 2020-10-26 23:06 | EDPHYS ---
Physician Documentation [facility] Name: Carol Mclaughlin Age: 45 yrs Sex: Female : 1975 Arrival Date: 10/26/2020 Time: 22:39 Bed 19 Private MD: ED Physician Marcin Blandon HPI: 10/26 23:04 This 45 yrs old Female presents to ER via Wheelchair with complaints of Ear kb Pain. 23:04 The patient presents with pain. The complaints affect the left ear. Onset: The kb symptoms/episode began/occurred 4 hour(s) ago. Modifying factors: The symptoms are alleviated by nothing, the symptoms are aggravated by nothing. Associated signs and symptoms: The patient has no apparent associated signs or symptoms. Severity of symptoms: At their worst the symptoms were moderate in the emergency department the symptoms are unchanged. The patient has not experienced similar symptoms in the past. The patient has not recently seen a physician. Pt reports left ear pain for a few hours. States pain radiates to upper teeth and neck. 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 - Social history:: Smoking status: Patient denies any tobacco usage or history of. ROS: 23:02 Constitutional: Negative for fever, chills, and weight loss, Cardiovascular: Negative kb for chest pain, palpitations, and edema, Respiratory: Negative for shortness of breath, cough, wheezing, and pleuritic chest pain, Abdomen/GI: Negative for abdominal pain, nausea, vomiting, diarrhea, and constipation, MS/Extremity: Negative for injury and deformity, Skin: Negative for injury, rash, and discoloration, Neuro: Negative for headache, weakness, numbness, tingling, and seizure. 23:02 ENT: Positive for ear pain. Exam: 23:02 Constitutional: This is a well developed, well nourished patient who is awake, alert, kb and in no acute distress. Chest/axilla: Normal chest wall appearance and motion. Nontender with no deformity. No lesions are appreciated. Cardiovascular: Regular rate and rhythm with a normal S1 and S2. No gallops, murmurs, or rubs. Normal PMI, no JVD. No pulse deficits. Respiratory: Lungs have equal breath sounds bilaterally, clear to auscultation and percussion. No rales, rhonchi or wheezes noted. No increased work of breathing, no retractions or nasal flaring. Abdomen/GI: Soft, non-tender, with normal bowel sounds. No distension or tympany. No guarding or rebound. No evidence of tenderness throughout. Skin: Warm, dry with normal turgor. Normal color with no rashes, no lesions, and no evidence of cellulitis. MS/ Extremity: Pulses equal, no cyanosis. Neurovascular intact. Full, normal range of motion. Neuro: Awake and alert, GCS 15, oriented to person, place, time, and situation. Cranial nerves II-XII grossly intact. Motor strength 5/5 in all extremities. Sensory grossly intact. Cerebellar exam normal. Normal gait. 23:02 ENT: External ear(s): are unremarkable, Ear canal(s): are normal, TM's: dullness, on the left, fluid levels, on the left. Vital Signs: 22:58 BP 143 / 80; Pulse 73; Resp 18; Temp 98.6(O); Pulse Ox 98% on R/A; Weight 58.97 kg (R); lp1 Height 5 ft. 4 in. (162.56 cm); Pain 8/10; 22:58 Body Mass Index 22.31 (58.97 kg, 162.56 cm) lp1 MDM: 22:51 Patient medically screened. kb 23:02 Data reviewed: vital signs, nurses notes. Data interpreted: Pulse oximetry: on room air kb is 98 %. Interpretation: normal. Counseling: I had a detailed discussion with the patient and/or guardian regarding: the historical points, exam findings, and any diagnostic results supporting the discharge/admit diagnosis, the need for outpatient follow up, a family practitioner, to return to the emergency department if symptoms worsen or persist or if there are any questions or concerns that arise at home. Administered Medications: 23:10 Drug: Augmentin 875 mg Route: PO; 23:21 Follow up: Response: No adverse reaction Disposition: 10/27 04:04 Co-signature as Attending Physician, Marcin Blandon MD. [email or web address] Disposition: 10/26/20 23:05 Discharged to Home. Impression: Otitis media, unspecified, left ear. - Condition is Stable. - Discharge Instructions: Otitis Media, Pediatric, [id number]. - Prescriptions for Amoxicillin 875 mg Oral Tablet - take 1 tablet by ORAL route every 12 hours for 10 days; 20 tablet. - Medication Reconciliation Form, Thank You Letter, Antibiotic Education, Prescription Opioid Use form. - Follow up: Emergency Department; When: As needed; Reason: Worsening of condition. Follow up: Private Physician; When: 2 - 3 days; Reason: Recheck today's complaints, Continuance of care, Re-evaluation by your physician. Signatures: Rizwana Young, BILL-C BILL-Marta Saravia RN RN [facility] Jeremy Macdonald RN RN Marcin Blandon MD MD [email or web address] Corrections: (The following items were deleted from the chart) 10/26 23:22 23:05 10/26/2020 23:05 Discharged to Home. Impression: Otitis media, unspecified, left wh ear. Condition is Stable. Forms are Medication Reconciliation Form, Thank You Letter, Antibiotic Education, Prescription Opioid Use. Follow up: Emergency Department; When: As needed; Reason: Worsening of condition. Follow up: Private Physician; When: 2 - 3 days; Reason: Recheck today's complaints, Continuance of care, Re-evaluation by your physician. kb
--- NOTE | 2020-10-26 23:06 | ER ---
Nurse's Notes [facility] Name: Carol Mclaughlin Age: 45 yrs Sex: Female : 1975 Arrival Date: 10/26/2020 Time: 22:39 Bed 19 Private MD: Diagnosis: Otitis media, unspecified, left ear Presentation: 10/26 22:58 Chief complaint: Patient states: Left ear pain radiating to left jaw and head, lp1 worsening the last 2-3 hours; Denies fever, any other symptoms. Coronavirus screen: Client denies travel out of the [place] in the last 14 days. At this time, the client does not indicate any symptoms associated with coronavirus-19. Ebola Screen: No symptoms or risks identified at this time. Initial Sepsis Screen: Does the patient meet any 2 criteria? No. Patient's initial sepsis screen is negative. Does the patient have a suspected source of infection? No. Patient's initial sepsis screen is negative. Risk Assessment: Do you want to hurt yourself or someone else? Patient reports no desire to harm self or others. Onset of symptoms was October 26, 2020. 22:58 Method Of Arrival: Wheelchair lp1 22:58 Acuity: GORGE 5 lp1 [employer]: 23:04 LMP 10/19/2020 lp1 Historical: - Allergies: 23:03 No Known Allergies; lp1 - Home Meds: 23:03 lisinopril 5 mg Oral tab 1 tab once daily [Active]; metformin 1,000 mg Oral tab 1 tab 2 lp1 times per day [Active]; - PMHx: 23:03 Diabetes - NIDDM; Hypertension; lp1 - PSHx: 23:03 Cholecystectomy; ; Ankle sx; lp1 - Immunization history:: Adult Immunizations up to date. - Social history:: Smoking status: Patient denies any tobacco usage or history of. Screenin:03 Abuse screen: Denies threats or abuse. Denies injuries from another. Nutritional lp1 screening: No deficits noted. Tuberculosis screening: No symptoms or risk factors identified. Fall Risk None identified. Assessment: 22:45 General: Appears in no apparent distress. Behavior is calm, cooperative, appropriate wh for age. Pain: Complains of pain in left ear Pain radiates to left jaw. Neuro: Level of Consciousness is awake, alert, obeys commands, Oriented to person, place, time, situation, Appropriate for age. Cardiovascular: Capillary refill < 3 seconds. Respiratory: Airway is patent Respiratory effort is even, unlabored, Respiratory pattern is regular, symmetrical. GI: Abdomen is flat, non-distended. : No signs and/or symptoms were reported regarding the genitourinary system. EENT: Reports pain. Derm: Skin is intact, is healthy with good turgor, Skin is pink, warm \T\ dry. normal. Musculoskeletal: Circulation, motion, and sensation intact. Vital Signs: 22:58 BP 143 / 80; Pulse 73; Resp 18; Temp 98.6(O); Pulse Ox 98% on R/A; Weight 58.97 kg (R); lp1 Height 5 ft. 4 in. (162.56 cm); Pain 8/10; 22:58 Body Mass Index 22.31 (58.97 kg, 162.56 cm) lp1 ED Course: 22:39 Patient arrived in ED. ag3 22:51 Rizwana Young FNP-C is [facility]. 22:51 Marcin Blandon MD is Attending Physician. kb 23:02 Triage completed. lp1 23:02 Jeremy Macdonald, RN is Primary Nurse. 23:02 Arm band placed on. lp1 23:04 Patient has correct armband on for positive identification. lp1 23:21 No provider procedures requiring assistance completed. Patient did not have IV access during this emergency room visit. Administered Medications: 23:10 Drug: Augmentin 875 mg Route: PO; 23:21 Follow up: Response: No adverse reaction Outcome: 23:05 Discharge ordered by . kb 23:21 Discharged to home ambulatory, with family. 23:21 Condition: stable 23:21 Discharge instructions given to patient, family, Instructed on discharge instructions, follow up and referral plans. medication usage, POC Demonstrated understanding of instructions, follow-up care, medications, POC Prescriptions given X 1. 23:22 Patient left the ED. Signatures: Rizwana Young FNP-C FNP-Ckb Pena, Laura, RN RN [facility] Jeremy Macdonald, MARTIN RN [facility] ag3
[2020-10-26] MEDS ORDERED: AMOX/K CLAV 875 MG TAB ONE (23:24)
[2020-10-26 23:38] VITALS: BP 143/80; TEMP 98.6; O2SAT 98
== END 2020-10-26 23:22 | disposition home or self-care (01) ==
LOC: ER 22:36
DX: H66.92 Otitis media, unspecified, left ear (principal); I10 Essential (primary) hypertension; E11.9 Type 2 diabetes mellitus without complications
CPT/HCPCS: 99283

== ENCOUNTER 2021-07-23 16:55 | Emergency (ER) | payer SELFPAY ==
[2021-07-23] MEDS ORDERED: CEFTRIAXONE 1000 MG/VIAL ONE (18:36)
[2021-07-23] MEDS ORDERED: ONDANSETRON 4 MG/2 ML VIAL ONE (18:36)
[2021-07-23] MEDS ORDERED: KETOROLAC 30 MG/ML INJ ONE (18:37)
[2021-07-23] MEDS ORDERED: NA CHLORIDE 0.9% 1,000 ML ONE (18:37)
[2021-07-23 18:41] LABS: Absolute Lymphocytes (CBC) 3.5 K/uL (0.7-4.9); Basophils % 0.5 % (0-1.3); Lymphocytes % 27.4 % (15.3-44.8); MPV 8.6 fL (7.6-11.3)
[2021-07-23 18:56] LABS: Albumin 3.8 g/dL (3.4-5.0); Bilirubin Total 0.3 mg/dL (0.2-1.0); Potassium 4.3 mmol/L (3.5-5.1); Protein, Total 7.8 g/dL (6.4-8.2)
[2021-07-23 19:11] LABS: Blood Morphology Comment NOT SEEN (NOT SEEN); Platelet Estimate ADEQ
--- NOTE | 2021-07-23 19:35 | ER ---
Nurse's Notes [facility] Name: Carol Mclaughlin Age: 46 yrs Sex: Female : 1975 Arrival Date: 07/23/2021 Time: 16:58 Bed DIS3 Private MD: Shelby Call Diagnosis: Dental caries, unspecified;Acute pharyngitis, unspecified;Type 2 diabetes mellitus with hyperglycemia Presentation: 07/23 17:09 Chief complaint: Patient states: that a couple weeks ago she had a pain in her ear that ap3 radiated to her throat, head and neck. Patient states that she still has the pain. She reports that she has been taking Motrin but then the pain comes back about six hours later. Coronavirus screen: At this time, the client does not indicate any symptoms associated with coronavirus-19. Ebola Screen: No symptoms or risks identified at this time. Initial Sepsis Screen: Does the patient meet any 2 criteria? No. Patient's initial sepsis screen is negative. Does the patient have a suspected source of infection? No. Patient's initial sepsis screen is negative. Risk Assessment: Do you want to hurt yourself or someone else? Patient reports no desire to harm self or others. Onset of symptoms was July 09, 2021. 17:09 Method Of Arrival: Ambulatory ap3 17:09 Acuity: GORGE 4 ap3 18:07 Acuity: GORGE 3 tw2 Triage Assessment: 17:12 General: Appears in no apparent distress. Behavior is calm, cooperative. Pain: ap3 Complains of pain in left ear Pain radiates to head and neck. EENT: Reports pain in left ear. Neuro: Level of Consciousness is awake, alert, obeys commands, Oriented to person, place, time, situation, Moves all extremities. Gait is steady, Speech is normal. Cardiovascular: Patient's skin is warm and dry. Respiratory: Airway is patent. 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 - Social history:: Smoking status: Patient denies any tobacco usage or history of. Screenin:15 Abuse screen: Denies threats or abuse. Nutritional screening: No deficits noted. ap3 Tuberculosis screening: No symptoms or risk factors identified. 18:34 Fall Risk None identified. tw2 Assessment: 18:25 General: Appears in no apparent distress. slender, well groomed, Behavior is calm, tw2 cooperative, appropriate for age. Pain: Complains of pain in left ear, left jaw, and under chin on the left. Neuro: Level of Consciousness is awake, alert, obeys commands, Oriented to person, place, time, situation. Cardiovascular: Patient's skin is warm and dry. Respiratory: Airway is patent Respiratory effort is even, unlabored, Respiratory pattern is regular, symmetrical. Musculoskeletal: Range of motion: intact in all extremities. Vital Signs: 17:13 BP 114 / 63 RA Sitting (auto/lg); Pulse 86; Resp 17; Temp 98.5(TE); Pulse Ox 100% on ap3 R/A; Weight 60.33 kg; Height 5 ft. 5 in. (165.10 cm); Pain 10/10; 19:58 BP 117 / 60; Pulse 81; Resp 16; Temp 98.2(O); Pulse Ox 100% on R/A; Pain 0/10; bc5 17:13 Body Mass Index 22.13 (60.33 kg, 165.10 cm) ap3 [place] Coma Score: 18:50 Eye Response: spontaneous(4). Verbal Response: oriented(5). Motor Response: obeys nay commands(6). Total: 15. ED Course: 16:58 Patient arrived in ED. mr 16:58 Shelby Call is Private Physician. mr 17:11 Triage completed. ap3 17:13 Arm band placed on left wrist. ap3 17:15 Patient has correct armband on for positive identification. ap3 17:45 Patient placed in an exam room, on a stretcher. ll1 17:48 Fran Trinidad, MARTIN is Primary Nurse. ch5 17:52 Vicente Ratliff MD is Attending Physician. nay 18:25 Inserted saline lock: 22 gauge in left forearm, using aseptic technique. Blood tw2 collected. 19:23 CT Head Brain wo Cont In Process Unspecified. EDMS 19:23 Soft Tissue Neck W/Contr CT In Process Unspecified. EDME 19:35 Shelby Call is Referral Physician. [facility] 19:35 Tonia Palomo MD is Referral Physician. [facility] 19:57 No provider procedures requiring assistance completed. IV discontinued, intact, bc5 bleeding controlled, No redness/swelling at site. Pressure dressing applied. Administered Medications: 18:25 Drug: NS 0.9% 1000 ml Route: IV; Rate: 1 bolus; Site: left forearm; tw2 19:59 Follow up: IV Status: Completed infusion; IV Intake: 1000ml bc5 18:25 Drug: Zofran (Ondansetron) 4 mg Route: IVP; Site: left forearm; tw2 19:16 Follow up: Response: No adverse reaction tw2 18:28 Drug: TORadol (ketorolac) 30 mg Route: IVP; Site: left forearm; tw2 19:16 Follow up: Response: No adverse reaction tw2 18:30 Drug: Rocephin (cefTRIAXone) 1 grams Route: IV; Rate: per protocol; Site: left forearm; tw2 19:17 Follow up: Response: No adverse reaction; IV Status: Completed infusion; IV Intake: 38ahpp9 20:04 Not Given (Patient Refused): Insulin Regular Human 5 units IVP once bc5 Intake: 19:17 IV: 10ml; Total: 10ml. tw2 19:59 IV: 1000ml; Total: 1010ml. bc5 Outcome: 19:35 Discharge ordered by . [facility] 19:57 Discharged to home ambulatory, with family. bc5 19:57 Condition: improved 19:57 Discharge instructions given to patient, Instructed on discharge instructions, follow up and referral plans. medication usage. 20:14 Patient left the ED. bc5 Signatures: Dispatcher [employer] EDMS Vicente Ratliff MD MD cha Rivera, Mary mr Arelis Chandra, RN RN tw2 Shiela Eden RN RN ap3 Ysabel Harden RN RN ll1 Fran Trinidad RN RN ch5 Katarina Fish RN RN bc5
--- NOTE | 2021-07-23 19:35 | EDPHYS ---
Physician Documentation [facility] Name: Carol Mclaughlin Age: 46 yrs Sex: Female : 1975 Arrival Date: 07/23/2021 Time: 16:58 Bed DIS3 Private MD: Shelby Call ED Physician Vicente Ratliff HPI: 07/23 18:46 This 46 yrs old Female presents to ER via Ambulatory with complaints of Ear nay Pain, Headache. 18:46 The patient presents with pain, tenderness. The complaints affect the left ear, left nay side of the back of head, left temporal area, left occipital area, left cheek and left mandible. Onset: The symptoms/episode began/occurred 5 day(s) ago. Modifying factors: The symptoms are alleviated by nothing, the symptoms are aggravated by pulling on ears, touching. Associated signs and symptoms: Pertinent positives: sore throat. Severity of symptoms: At their worst the symptoms were mild in the emergency department the symptoms are unchanged. The patient has not experienced similar symptoms in the past. 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 - Social history:: Smoking status: Patient denies any tobacco usage or history of. ROS: 18:48 Constitutional: Negative for fever, chills, and weight loss, Eyes: Negative for injury, nay pain, redness, and discharge, Neck: Negative for injury, pain, and swelling, Cardiovascular: Negative for chest pain, palpitations, and edema, Respiratory: Negative for shortness of breath, cough, wheezing, and pleuritic chest pain, Abdomen/GI: Negative for abdominal pain, nausea, vomiting, diarrhea, and constipation, Back: Negative for injury and pain, MS/Extremity: Negative for injury and deformity, Skin: Negative for injury, rash, and discoloration, Neuro: Negative for headache, weakness, numbness, tingling, and seizure, Psych: Negative for depression, anxiety, suicide ideation, homicidal ideation, and hallucinations, Allergy/Immunology: Negative for hives, rash, and allergies, Endocrine: Negative for neck swelling, polydipsia, polyuria, polyphagia, and marked weight changes, Hematologic/Lymphatic: Negative for swollen nodes, abnormal bleeding, and unusual bruising. 18:48 ENT: Positive for ear pain, rhinorrhea, sinus congestion, sore throat. 18:48 : Negative for injury or acute deformity, urinary symptoms. Exam: 18:48 Constitutional: This is a well developed, well nourished patient who is awake, alert, nay and in no acute distress. Head/Face: Normocephalic, atraumatic. Eyes: Pupils equal round and reactive to light, extra-ocular motions intact. Lids and lashes normal. Conjunctiva and sclera are non-icteric and not injected. Cornea within normal limits. Periorbital areas with no swelling, redness, or edema. Neck: Trachea midline, no thyromegaly or masses palpated, and no cervical lymphadenopathy. Supple, full range of motion without nuchal rigidity, or vertebral point tenderness. No Meningismus. Chest/axilla: Normal chest wall appearance and motion. Nontender with no deformity. No lesions are appreciated. Cardiovascular: Regular rate and rhythm with a normal S1 and S2. No gallops, murmurs, or rubs. Normal PMI, no JVD. No pulse deficits. Respiratory: Lungs have equal breath sounds bilaterally, clear to auscultation and percussion. No rales, rhonchi or wheezes noted. No increased work of breathing, no retractions or nasal flaring. Abdomen/GI: Soft, non-tender, with normal bowel sounds. No distension or tympany. No guarding or rebound. No evidence of tenderness throughout. Back: No spinal tenderness. No costovertebral tenderness. Full range of motion. Skin: Warm, dry with normal turgor. Normal color with no rashes, no lesions, and no evidence of cellulitis. MS/ Extremity: Pulses equal, no cyanosis. Neurovascular intact. Full, normal range of motion. Neuro: Awake and alert, GCS 15, oriented to person, place, time, and situation. Cranial nerves II-XII grossly intact. Motor strength 5/5 in all extremities. Sensory grossly intact. Cerebellar exam normal. Normal gait. 18:48 ENT: Posterior pharynx: Tonsils: are normal in appearance, Uvula: normal, midline, non-edematous, no erythema, swelling, is not appreciated, erythema, is not appreciated, exudate, is not appreciated. 18:48 Neck: External neck: is normal, no acute changes, C-spine: appears grossly normal, no acute changes, Thyroid: appears normal, no acute changes. 18:48 Chest/axilla: Exam negative for 18:48 Cardiovascular: Exam negative for 19:34 ECG was reviewed by the Attending Physician. [facility] Vital Signs: 17:13 BP 114 / 63 RA Sitting (auto/lg); Pulse 86; Resp 17; Temp 98.5(TE); Pulse Ox 100% on ap3 R/A; Weight 60.33 kg; Height 5 ft. 5 in. (165.10 cm); Pain 10/10; 19:58 BP 117 / 60; Pulse 81; Resp 16; Temp 98.2(O); Pulse Ox 100% on R/A; Pain 0/10; bc5 17:13 Body Mass Index 22.13 (60.33 kg, 165.10 cm) ap3 [place] Coma Score: 18:50 Eye Response: spontaneous(4). Verbal Response: oriented(5). Motor Response: obeys [facility] commands(6). Total: 15. MDM: 17:52 Patient medically screened. [facility] 18:50 Data reviewed: vital signs, nurses notes, lab test result(s), CBC, electrolytes, [facility] hepatic panel, radiologic studies, CT scan. Data interpreted: monitor worker: not applicable for this patient encounter. Pulse oximetry: on room air is 100 %. Counseling: I had a detailed discussion with the patient and/or guardian regarding: the historical points, exam findings, and any diagnostic results supporting the discharge/admit diagnosis, lab results, radiology results, the need for outpatient follow up, for definitive care, an ENT specialist, a family practitioner. 07/23 18:07 Order name: CBC with Manual Differential; Complete Time: 19:18 [facility] 07/23 18:07 Order name: Comprehensive Metabolic Panel; Complete Time: 19:18 [facility] 07/23 18:07 Order name: CT Head Brain wo Cont [facility] 07/23 18:07 Order name: Soft Tissue Neck W/Contr CT [facility] 07/23 18:08 Order name: IV Start; Complete Time: 18:33 tw2 07/23 19:20 Order name: EKG; Complete Time: 19:21 nay 07/23 19:20 Order name: EKG - Nurse/Tech; Complete Time: 19:55 nay EC:34 Rate is 78 beats/min. Rhythm is regular. QRS [place] is Normal. [place] interval is normal. QRS nay interval is normal. QT interval is normal. No Q waves. T waves are Normal. No ST changes noted. Clinical impression: NSR w/ Non-specific ST/T Changes and No evidence of ischemia. Interpreted by me. Reviewed by me. Administered Medications: 18:25 Drug: NS 0.9% 1000 ml Route: IV; Rate: 1 bolus; Site: left forearm; tw2 19:59 Follow up: IV Status: Completed infusion; IV Intake: 1000ml bc5 18:25 Drug: Zofran (Ondansetron) 4 mg Route: IVP; Site: left forearm; tw2 19:16 Follow up: Response: No adverse reaction tw2 18:28 Drug: TORadol (ketorolac) 30 mg Route: IVP; Site: left forearm; tw2 19:16 Follow up: Response: No adverse reaction tw2 18:30 Drug: Rocephin (cefTRIAXone) 1 grams Route: IV; Rate: per protocol; Site: left forearm; tw2 19:17 Follow up: Response: No adverse reaction; IV Status: Completed infusion; IV Intake: 10zyqx5 20:04 Not Given (Patient Refused): Insulin Regular Human 5 units IVP once bc5 Disposition Summary: 07/23/21 19:35 Discharge Ordered Location: Home nay Problem: new nay Symptoms: have improved nay Condition: Stable nay Diagnosis - Dental caries, unspecified nay - Acute pharyngitis, unspecified nay - Type 2 diabetes mellitus with hyperglycemia nay Followup: nay - With: Private Physician - When: 2 - 3 days - Reason: Recheck today's complaints, Continuance of care, Re-evaluation by your physician Followup: nay - With: - When: 2 - 3 days - Reason: Recheck today's complaints, Continuance of care, Re-evaluation by your physician Followup: nay - With: - When: 2 - 3 days - Reason: Recheck today's complaints, Re-evaluation by your physician Discharge Instructions: - Discharge Summary Sheet [facility] - Dental Caries, Adult [facility] - Dental Pain [facility] - Pharyngitis [facility] - Sore Throat [facility] - Type 2 Diabetes Mellitus, Diagnosis, Adult nay - Pharyngitis, Comk-iy-Atfc nay - Dental Pain, Gjvw-su-Guwo nay - Type 2 Diabetes Mellitus, Self Care, Adult nay - Type 2 Diabetes Mellitus, Self Care, Adult, Wowc-jy-Sksy [facility] Forms: - Medication Reconciliation Form [facility] - Thank You Letter [facility] - Antibiotic Education [facility] - Prescription Opioid Use [facility] Prescriptions: - Augmentin 875-125 mg Oral Tablet - take 1 tablet by ORAL route every 12 hours for 10 days; 20 tablet; Refills: 0, [facility] Product Selection Permitted - Tylenol-Codeine #3 300 mg-30 mg Oral - take 2 tablet by ORAL route every 6 hours; 15 tablet; Refills: 0, Product [facility] Selection Permitted - Motrin IB 200 mg Oral Tablet - take 2 tablet by ORAL route every 6 hours As needed as needed with food; 30 nay tablet; Refills: 0, Product Selection Permitted Signatures: Dispatcher [employer] Vicente Delacruz MD MD cha Wise, Tara RN RN tw2 Shiela Eden RN RN ap3 Katarina Fish RN bc5
--- NOTE | 2021-07-23 19:55 | RAD REPORT ---
EXAM DESCRIPTION: CT - Head Brain Wo Cont - 07/23/2021 7:23 pm CLINICAL HISTORY: PAIN Headache, drowsiness COMPARISON: Head Brain Wo Cont dated 10/15/2020; Head Brain Wo Cont dated 12/22/2018 TECHNIQUE: All CT scans are performed using dose optimization technique as appropriate and may inclu de automated exposure control or mA/KV adjustment according to patient size. FINDINGS: No intracranial hemorrhage, hydrocephalus or extra-axial fluid collection.No areas of brai n edema or evidence of midline shift. The paranasal sinuses and mastoids are clear. The calvarium is intact. IMPRESSION: No acute intracranial abnormality.
--- NOTE | 2021-07-23 20:02 | RAD REPORT ---
EXAM DESCRIPTION: CT - Soft Tissue Neck W/Contr CLINICAL HISTORY: FACIAL PAIN Neck pain and swelling COMPARISON: Soft Tissue Neck W/Contr dated 10/15/2020; Head C Spine Mpr Wo Con dated 06/20/2019; Soft T issue Neck W/Contr dated 02/06/2017; Head Brain Wo Cont dated 07/23/[address] scans are performed using dose optimization technique as appropriate and may includ e automated exposure control or mA/KV adjustment according to patient size. FINDINGS: Nasopharyngeal tissues are normal in appearance. Fossa Rosenmller are normal. Parapharyngeal fat triangles are symmetric. Tongue base structures are normal. [place] tonsils are m ildly enlarged, greater on the right. Epiglottis and aryepiglottic folds are normal. Piriform sinuses are well aerated. A few nonspecific l ymph nodes are seen along both jugular chains. The vocal cords are normal in appearance. Salivary glands are normal in appearance. Upper lung almodovar are clear. Included intracranial contents are unremarkable. IMPRESSION: Mild enlargement the palatine tonsils, greater on the right.
--- NOTE | 2021-07-25 11:46 | EKG ---
Test Date: 2021-07-23 Test Time: 19:30:17 [place] Operator: YARELIS MEASUREMENT RESULTS: Intervals: Rate: 78 SC: 148 QRSD: 80 QT: 324 QTc: 369 [place]: P: 75 SC: 148 QRS: 50 T: 78 INTERPRETIVE STATEMENTS: Normal sinus rhythm Normal ECG Compared to ECG 10/15/2020 19:57:21 ST (T wave) deviation no longer present Electronically Signed On 07-25-21 11:44:35 CDT by Carlos Alberto Cuadra
== END 2021-07-23 20:14 | disposition home or self-care (01) ==
LOC: ER 16:55
DX: K02.9 Dental caries, unspecified (principal); E11.65 Type 2 diabetes mellitus with hyperglycemia; J02.9 Acute pharyngitis, unspecified; I10 Essential (primary) hypertension
CPT/HCPCS: 36415; 70450; 70491; 80053; 82947; 85025; 93005; 96361; 96365; 96375; 99284; J2405; J7030; Q9967

== ENCOUNTER 2021-09-14 09:43 | Emergency (ER) | payer SELFPAY ==
--- OUTSIDE RECORDS SUMMARY | 2021-09-14 09:47 | XMS REPORT | Continuity of Care Document ---
:1975 Author Organization [facility] Address [address] [place] [address] Dr. Lebron [address] [place] [id number] Care Team Providers Name Role Phone LOMBARDO Attending Clinician Unavailable LOMBARDO Admitting Clinician Unavailable Problems This patient has no known problems. Allergies, Adverse Reactions, Alerts This patient has no known allergies or adverse reactions. Medications This patient has no known medications. Procedures This patient has no known procedures. Results Test Description Test Time Test Comments Results Result Comments Source POCT-GLUCOSE METER 2017-09-11 11:54:00 Test Item Value Reference Range Interpretation Comme nts POC-GLUCOSE METER ([employer] (test 330 mg/dL 70-110 H TESTED AT [facility] [address] code = 1538) [facility] 7703 0 SCREEN, [id number] 11:13:00 Test Item Value Reference Range Interpretation Comments TEST URINE ([employer] (test Negative code = 583) POCT-GLUCOSE [id number] 08:33:00 Test Item Value Reference Range Interpretation Comments POC-GLUCOSE METER 226 mg/dL 70-110 H TESTED AT [facility] [address] ([facility]) (test code = CRISTHIANALCON Zapata [facility] 1538) [id number] POCT-GLUCOSE [id number] 21:48:00 Test Item Value Reference Range Interpretation Comments POC-GLUCOSE METER 219 mg/dL 70-110 H TESTED AT [facility] [address] ([employer]) (test code = CRISTHIANALCON R [facility] 1538) [id number] POCT-GLUCOSE [id number] 17:48:00 Test Item Value Reference Range Interpretation Comments POC-GLUCOSE METER 225 mg/dL 70-110 H TESTED AT [facility] [address] ([facility] (test code = JASMEET Benny [facility] 1538) [id number] 16:39:00 Test Item Value Reference Range Interpretation Comments RPR SCREEN ([employer] (test code = Nonreactive Nonreactive 420) SEDIMENTATION [id number] 15:02:00 Test Item Value Reference Range Interpretation Comments SEDIMENTATION RATE, ERYTHROCYTE 25 mm/HR 0-20 H (AUGUSTINA) (test code = 766) POCT-GLUCOSE [id number] 12:40:00 Test Item Value Reference Range Interpretation Comments POC-GLUCOSE METER 188 mg/dL 70-110 H TESTED AT [facility] 67[address] (AUGUSTINA) (test code = JASMEET [place] 1538) [id number] HEMOGLOBIN [id number] 11:42:00 Test Item Value Reference Range Interpretation Comments HEMOGLOBIN A1C (AUGUSTINA) (test code = 8.2 % 4.3-6.1 H 368) MR, BRAIN, WITHOUT [id number] 11:17:00Reason for exam:->Ischemic Stroke EvaluationFINAL REPORT MRI [...] infarct, hemorrhage, or hydrocephalus. Signed: Mark Mathur [facility] Verified Date/Time: 09/10/2017 11:17:54 Reading Location: [address] Neuro Reading Room MR, MRA, BRAIN, WITHOUT [id number] 11:16:00Reason for exam:->Ischemic Stroke EvaluationFINAL REPORT MRA head and neck without contrast INDICATION: Headache, left hemianesthesia, left sided weakness TECHNIQUE: 2-D and 3-D [id number] MRA images of the intra- and extracranial [...] branch occlusion or significant stenosis in the [place] vessels. There is no specific MRA evidence of saccular aneurysm. IMPRESSION: 1. No hemodynamically significant carotid stenosis by NASCET criteria. 2. No significant stenosis in the imaged cervical vertebral arteries. 3. No major branch occlusion, significant stenosis,or evident aneurysm in the [place] vessels. Signed: Mark Mathur [facility] Verified Date/Time: 09/10/2017 11:16:49 Reading Location: [address] Neuro Reading Room MR, MRA, NECK, WITHOUT IV [id number] 11:16:00Reason for exam:->Ischemic Stroke EvaluationFINAL REPORT MRA head and neck without contrast INDICATION: Headache, left hemianesthesia, left sided weakness TECHNIQUE: 2-D and 3-D [id number] MRA images of the intra- and extracranial [...] branch occlusion or significant stenosis in the [place] vessels. There is no specific MRA evidence of saccular aneurysm. IMPRESSION: 1. No hemodynamically significant carotid stenosis by NASCET criteria. 2. No significant stenosis in the imaged cervical vertebral arteries. 3. No major branch occlusion, significant stenosis,or evident aneurysm in the [place] vessels. Signed: Mark Mathur [facility] Verified Date/Time: 09/10/2017 11:16:49 Reading Location: [address] Neuro Reading Room /FREE T4 IF [id number] 09:44:00 Test Item Value Reference Range Interpretation Comments THYROID STIMULATING HORMONE 2.42 uIU/mL 0.35-4.94 (BEAKER) (test code = 772) VITAMIN B12 AND [id number] 09:44:00 Test Item Value Reference Range Interpretation Comments VITAMIN B12 (BEAKER) (test code = 413 pg/mL 213-816 774) FOLATE (BEAKER) (test code = 362) 14.8 ng/mL >=7.0 POCT-GLUCOSE [id number] 08:35:00 Test Item Value Reference Range Interpretation Comments POC-GLUCOSE METER 156 mg/dL 70-110 H TESTED AT [facility] [address] (BEAKER) (test code = JASMEET [place] 1538) [address] [id number] 06:56:00 Test Item Value Reference Range Interpretation Comments HOMOCYSTEINE (BEAKER) (test code = 4.1 umol/L 5.1-15.4 L 642) BASIC METABOLIC [id number] 06:32:00 Test Item Value Reference Range Interpretation [...] DATA TO CALCULA TE ESTIMATED GFR. FastingLIPID [id number] 06:31:00 Test Item Value Reference Range Interpretation [...] 130-159 High 160-189 Very High >=190 FastingC-REACTIVE [id number] 06:31:00 Test Item Value Reference Range Interpretation Comments C-REACTIVE PROTEIN (BEAKER) (test 1.82 mg/dL 0.00-0.50 H code = 676) FastingTROPONIN [id number] 06:29:00 Test Item Value Reference Range Interpretation [...] and persistent tachyarrhythmia.FastingCBC W/PLT COUNT & AUTO [id number] 06:02:00 Test Item Value Reference Range Interpretation [...] % 0-1 PERCENT (BEAKER) (test code = 4761)
[2021-09-14] MEDS ORDERED: ONDANSETRON 4 MG/2 ML VIAL ONE (10:49)
[2021-09-14] MEDS ORDERED: KETOROLAC 30 MG/ML INJ ONE (10:50)
[2021-09-14] MEDS ORDERED: NA CHLORIDE 0.9% 1,000 ML ONE (10:50)
[2021-09-14 11:03] LABS: Absolute Lymphocytes (CBC) 3.4 K/uL (0.7-4.9); Basophils % 0.7 % (0-1.3); Hematocrit 36.7 % (36.0-45.0); Lymphocytes % 29.5 % (15.3-44.8); MPV 8.7 fL (7.6-11.3)
[2021-09-14 11:08] LABS: ALT/SGPT 23 U/L (12-78); AST/SGOT 8 U/L (15-37); Albumin 3.3 g/dL (3.4-5.0); Alkaline Phosphatase 85 U/L (45-117); BUN Blood Urea Nitrogen 19 mg/dL (7-18); Bicarbonate 28 mmol/L (21-32); Bilirubin Direct < 0.1 mg/dL (0-0.2); Bilirubin Total 0.3 mg/dL (0.2-1.0); Glucose Level 303 mg/dL (74-106); Lipase 192 U/L (73-393); Potassium 4.2 mmol/L (3.5-5.1); Protein, Total 7.5 g/dL (6.4-8.2); Sodium Level 137 mmol/L (136-145)
--- NOTE | 2021-09-14 11:13 | RAD REPORT ---
EXAM DESCRIPTION: CTAbdomen Pelvis W Contrast - 09/14/2021 11:07 am CLINICAL HISTORY: Abdominal pain. ABD PAIN COMPARISON: Abdomen Pelvis W Contrast dated 04/17/2019; Abdomen Pelvis W Contrast dated 11/17/2017 TECHNIQUE: Biphasic CT imaging of the abdomen and pelvis was performed with 100 ml non-ionic IV cont rast. All CT scans are performed using dose optimization technique as appropriate and may include automated exposure control or mA/KV adjustment according to patient size. FINDINGS: The lung bases are clear. The liver is diffusely fatty. Cholecystectomy clips. Spleen, pancreas, adrenal glands and kidneys are within normal limits. No bowel obstruction, free air, free fluid or abscess. The appendix is normal. No evidence of signi ficant lymphadenopathy. No suspicious bony findings. IMPRESSION: No acute intra-abdominal or pelvic finding. Prominent fatty liver.
[2021-09-14 12:10] LABS: Urine Blood Negative (Negative); Urine Glucose 3+ (Negative); Urine Protein Negative (Negative); Urine Specific Gravity <=1.005 (1.005-1.030); Urine pH 5.5 (5.0-7.0)
[2021-09-14] MEDS ORDERED: MORPHINE 4 MG/ML SYR ONE (12:25)
--- NOTE | 2021-09-14 12:25 | ER ---
Nurse's Notes [facility] Name: Carol Mclaughlin Age: 46 yrs Sex: Female : 1975 Arrival Date: 09/14/2021 Time: 09:45 Bed 10 Private MD: Shelby Call Diagnosis: Lower abdominal pain, unspecified Presentation: 09/14 10:19 Chief complaint: Patient states: RLQ pain x 1 hour ago, states nausea and headache, vg1 denies vomiting and diarrhea. Coronavirus screen: Vaccine status: Patient reports being unvaccinated. Ebola Screen: Patient negative for fever greater than or equal to 101.5 degrees Fahrenheit, and additional compatible Ebola Virus Disease symptoms. Initial Sepsis Screen: Does the patient meet any 2 criteria?. Initial Sepsis Screen: Does the patient meet any 2 criteria? No. Patient's initial sepsis screen is negative. Does the patient have a suspected source of infection? No. Patient's initial sepsis screen is negative. Risk Assessment: Do you want to hurt yourself or someone else? Patient reports no desire to harm self or others. Onset of symptoms was September 14, 2021. 10:19 Method Of Arrival: Ambulatory vg1 10:19 Acuity: GORGE 3 vg1 Triage Assessment: 10:20 General: Appears in no apparent distress. uncomfortable, Behavior is calm, cooperative. vg1 Pain: Complains of pain in right lower quadrant Pain currently is 10 out of 10 on a pain scale. GI: Abdomen is flat, Reports nausea. 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 - Social history:: Smoking status: Patient denies any tobacco usage or history of. Screenin:07 Abuse screen: Denies threats or abuse. Denies injuries from another. Nutritional iw screening: No deficits noted. Tuberculosis screening: No symptoms or risk factors identified. Fall Risk None identified. IV access (20 points). Assessment: 11:00 General: Appears in no apparent distress. Behavior is calm, cooperative. Pain: iw Complains of pain in abdomen and right lower quadrant. Neuro: Level of Consciousness is awake, alert, obeys commands, Oriented to person, place, time, situation, Moves all extremities. Full function. Cardiovascular: Patient's skin is warm and dry. Respiratory: Respiratory effort is even, unlabored, Respiratory pattern is regular, symmetrical. GI: Abdomen is non-distended, Bowel sounds present X 4 quads. Abd is soft and non tender X 4 quads. Abd is soft Reports upper abdominal pain, nausea. Derm: Skin is intact, is healthy with good turgor. Musculoskeletal: Range of motion: intact in all extremities. Vital Signs: 10:19 BP 125 / 61; Pulse 92; Resp 16; Temp 97.7; Pulse Ox 100% ; Weight 60.78 kg; Height 5 vg1 ft. 4 in. (162.56 cm); Pain 10/10; 10:19 Body Mass Index 23.00 (60.78 kg, 162.56 cm) vg1 ED Course: 09:45 Patient arrived in ED. am2 09:46 Shelby Call is Private Physician. am2 10:18 Rizwana [facility]C [facility]. kb 10:18 Vicente Ratliff MD is Attending Physician. kb 10:20 Triage completed. vg1 10:20 Arm band placed on. vg1 10:26 Initial lab(s) drawn, by ED staff, sent to lab. Inserted saline lock: 20 gauge in right vg1 forearm, using aseptic technique. ,using aseptic technique. completed by Yuliana HOU Blood collected. 10:37 Kaylan Beltran, RN is Primary Nurse. iw 11:07 CT Abd/Pelvis - IV Contrast Only In Process Unspecified. EDMS 12:32 Patient has correct armband on for positive identification. Bed in low position. Call ld1 light in reach. Side rails up X2. Pulse ox on. NIBP on. Door closed. Noise minimized. 12:32 No provider procedures requiring assistance completed. IV discontinued, intact, ld1 bleeding controlled, No redness/swelling at site. Administered Medications: 10:56 Drug: NS 0.9% 1000 ml Route: IV; Rate: 1000 ml; Site: right wrist; iw 12:00 Follow up: IV Status: Completed infusion iw 10:56 Drug: Zofran (Ondansetron) 4 mg Route: IVP; Site: right wrist; iw 11:30 Follow up: Response: No adverse reaction iw 10:56 Drug: Ketorolac 15 mg Route: IVP; Site: right wrist; iw 11:20 Follow up: Response: No adverse reaction iw 12:27 Drug: morphine 4 mg Route: IVP; Site: right wrist; ld1 12:27 Follow up: Response: No adverse reaction ld1 Outcome: 12:24 Discharge ordered by . kb 12:32 Discharged to home ambulatory. ld1 12:32 Condition: stable 12:32 Discharge instructions given to patient, Instructed on discharge instructions, follow up and referral plans. medication usage, Demonstrated understanding of instructions, follow-up care, medications, Prescriptions given X 2. 12:33 Patient left the ED. ld1 Signatures: Dispatcher [employer] EDMS Rizwana Young, BILL-C TURF KEEPER-CkKaylan Hernandez RN RN Shiela Oakes am2 Radha Quintero RN RN vg1 Marisabel Peck RN RN ld1
--- NOTE | 2021-09-14 12:33 | EDPHYS ---
Physician Documentation [facility] Name: Carol Mclaughlin Age: 46 yrs Sex: Female : 1975 Arrival Date: 09/14/2021 Time: 09:45 Bed 10 Private MD: Shelby Call ED Physician Vicente Ratliff HPI: 09/14 16:27 This 46 yrs old Female presents to ER via Ambulatory with complaints of kb Abdominal Pain - RLQ, Low Back Pain. 16:27 The patient presents with abdominal pain in the right upper quadrant, right lower kb quadrant. Onset: The symptoms/episode began/occurred just prior to arrival. The symptoms do not radiate. Associated signs and symptoms: Pertinent positives: nausea, Pertinent negatives: fever. The symptoms are described as constant. Modifying factors: The symptoms are alleviated by nothing, the symptoms are aggravated by nothing. Severity of pain: At its worst the pain was moderate in the emergency department the pain is unchanged. The patient has not experienced similar symptoms in the past. The patient has not recently seen a physician. 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 - Social history:: Smoking status: Patient denies any tobacco usage or history of. ROS: 12:29 Constitutional: Negative for fever, chills, and weight loss. kb 12:29 Abdomen/GI: Positive for abdominal pain, nausea, Negative for vomiting, diarrhea, constipation. 12:29 All other systems are negative. Exam: 12:30 Constitutional: This is a well developed, well nourished patient who is awake, alert, kb and in no acute distress. Head/Face: Normocephalic, atraumatic. ENT: Moist Mucous membranes Respiratory: Respirations even and unlabored. No increased work of breathing. Talking in full sentences Skin: Warm, dry with normal turgor. Normal color. MS/ Extremity: Pulses equal, no cyanosis. Neurovascular intact. Full, normal range of motion. Neuro: Awake and alert, GCS 15, oriented to person, place, time, and situation. Moves all extremities. Normal gait. Psych: Awake, alert, with orientation to person, place and time. Behavior, mood, and affect are within normal limits. 16:27 Abdomen/GI: Inspection: abdomen appears normal, Bowel sounds: normal, Palpation: soft, kb in all quadrants, mild abdominal tenderness, in the right upper quadrant and right lower quadrant. Vital Signs: 10:19 BP 125 / 61; Pulse 92; Resp 16; Temp 97.7; Pulse Ox 100% ; Weight 60.78 kg; Height 5 vg1 ft. 4 in. (162.56 cm); Pain 07/19; 10:19 Body Mass Index 23.00 (60.78 kg, 162.56 cm) vg1 MDM: 10:28 Patient medically screened. kb 12:27 Data reviewed: vital signs, nurses notes. Data interpreted: Pulse oximetry: on room air kb is 100 %. Interpretation: normal. Counseling: I had a detailed discussion with the patient and/or guardian regarding: the historical points, exam findings, and any diagnostic results supporting the discharge/admit diagnosis, lab results, radiology results, the need for outpatient follow up, a family practitioner, to return to the emergency department if symptoms worsen or persist or if there are any questions or concerns that arise at home. ED course: Pain//tenderness to middle abd. . 09/14 10:18 Order name: Basic Metabolic Panel; Complete Time: 11:18 kb 09/14 10:18 Order name: CBC with Diff; Complete Time: 11:18 kb 09/14 10:18 Order name: Hepatic Function; Complete Time: 11:18 kb 09/14 10:18 Order name: Lipase; Complete Time: 11:18 kb 09/14 11:27 Order name: CREATININE WHOLE BLOOD; Complete Time: 11:28 EDMS 09/14 12:10 Order name: Urine Dipstick-Ancillary; Complete Time: 12:11 EDMS 09/14 10:18 Order name: IV Saline Lock; Complete Time: 10:57 kb 09/14 10:18 Order name: Labs collected and sent; Complete Time: 10:57 kb 09/14 10:18 Order name: CT Abd/Pelvis - IV Contrast Only; Complete Time: 11:18 kb 09/14 11:31 Order name: Urine Dipstick-Ancillary (obtain specimen); Complete Time: 12:16 kb Administered Medications: 10:56 Drug: NS 0.9% 1000 ml Route: IV; Rate: 1000 ml; Site: right wrist; iw 12:00 Follow up: IV Status: Completed infusion iw 10:56 Drug: Zofran (Ondansetron) 4 mg Route: IVP; Site: right wrist; iw 11:30 Follow up: Response: No adverse reaction iw 10:56 Drug: Ketorolac 15 mg Route: IVP; Site: right wrist; iw 11:20 Follow up: Response: No adverse reaction iw 12:27 Drug: morphine 4 mg Route: IVP; Site: right wrist; ld1 12:27 Follow up: Response: No adverse reaction ld1 Disposition: 09/15 06:54 Co-signature as Attending Physician, Vicente Ratliff MD I agree with the assessment and nay plan of care. Disposition Summary: 09/14/21 12:24 Discharge Ordered Location: Home kb Condition: Stable kb Diagnosis - Lower abdominal pain, unspecified kb Followup: kb - With: Emergency Department - When: As needed - Reason: Worsening of condition Followup: kb - With: Private Physician - When: 2 - 3 days - Reason: Recheck today's complaints, Continuance of care, Re-evaluation by your physician Discharge Instructions: - Discharge Summary Sheet kb - Abdominal Pain, Adult, [id number] kb Forms: - Medication Reconciliation Form kb - Thank You Letter kb - Antibiotic Education kb - Prescription Opioid Use kb Prescriptions: - Zofran 4 mg Oral Tablet - take 1 tablet by ORAL route every 6 hours As needed; 20 tablet; Refills: 0, kb Product Selection Permitted - Diclofenac Sodium 75 mg Oral tablet,delayed release (DR/EC) - take 1 tablet by ORAL route 2 times per day As needed; 30 tablet; Refills: 0, kb Product Selection Permitted Signatures: Dispatcher [employer] Rizwana Valentino FNP-C FNP-Vicente Mccormick MD MD cha Williams, Irene RN RN iw Radha Quintero, RN RN vg1 Marisabel Peck RN RN ld1 Corrections: (The following items were deleted from the chart) 09/14 16:27 12:30 Constitutional: This is a well developed, well nourished patient who is awake, kb alert, and in no acute distress. kb
[2021-09-14 12:55] VITALS: BP 125/61; TEMP 97.7; O2SAT 100
== END 2021-09-14 12:33 | disposition home or self-care (01) ==
LOC: ER 09:43
DX: R10.31 Right lower quadrant pain (principal); E11.9 Type 2 diabetes mellitus without complications; I10 Essential (primary) hypertension
CPT/HCPCS: 36415; 74177; 80048; 80076; 81003; 82565; 83690; 85025; 96361; 96374; 96375; 99284; J2405; J7030; Q9967

== ENCOUNTER 2021-10-30 14:56 | Emergency (ER) | payer SELFPAY ==
--- OUTSIDE RECORDS SUMMARY | 2021-10-30 15:47 | XMS REPORT | Continuity of Care Document ---
:1975 Author Organization [facility] Address [address] [place] [address] [address] [place] [address] Care Team Providers Name Role Phone LOMBARDO [...] Reference Range Interpretation Comme nts POC-GLUCOSE METER ([employer]) (test 330 mg/dL 70-110 H TESTED AT [facility] [address] code = 1538) [place] [id number] 0 SCREEN, [id number] 11:13:00 Test Item Value Reference Range Interpretation Comments TEST URINE ([employer]) (test Negative code = 583) POCT-GLUCOSE [id number] 08:33:00 Test Item Value Reference Range Interpretation Comments POC-GLUCOSE METER 226 mg/dL 70-110 H TESTED AT [facility] [address] ([facility]) (test code = CRISTHIANALCON [place] [facility] 1538) [id number] POCT-GLUCOSE [id number] 21:48:00 Test Item Value Reference Range Interpretation Comments POC-GLUCOSE METER 219 mg/dL 70-110 H TESTED AT [facility] [address] ([facility]) (test code = CRISTHIANALCON [place] [facility] 1538) [id number] POCT-GLUCOSE [id number] 17:48:00 Test Item Value Reference Range Interpretation Comments POC-GLUCOSE METER 225 mg/dL 70-110 H TESTED AT [facility] [address] ([facility]) (test code = CRISTHIANALCON [place] [facility] 1538) [id number] 16:39:00 Test Item Value Reference Range Interpretation Comments RPR SCREEN ([employer]) (test code = Nonreactive Nonreactive 420) SEDIMENTATION [id number] 15:02:00 Test Item Value Reference Range Interpretation Comments SEDIMENTATION RATE, ERYTHROCYTE 25 mm/HR 0-20 H (AU[place]USTINA) (test code = 766) POCT-GLUCOSE [id number] 12:40:00 Test Item Value Reference Range Interpretation Comments POC-GLUCOSE METER 188 mg/dL 70-110 H TESTED AT [facility] [address] ([place]INA) (test code = [place] 1538) [id number] HEMOGLOBIN [id number] 11:42:00 Test Item Value Reference Range Interpretation Comments HEMOGLOBIN A1C ([facility]USTINA) (test code = 8.2 % 4.3-6.1 H 368) MR, BRAIN, WITHOUT [id number] 11:17:00Reason for exam:->Ischemic Stroke EvaluationFINAL REPORT MRI [...] infarct, hemorrhage, or hydrocephalus. Signed: Mark Mathur [facility] Verified Date/Time: 09/10/2017 11:17:54 Reading Location: [address] Neuro Reading Room MR, MRA, BRAIN, WITHOUT [id number] 11:16:00Reason for exam:->Ischemic Stroke EvaluationFINAL REPORT MRA head and neck without contrast INDICATION: Headache, left hemianesthesia, left sided weakness TECHNIQUE: 2-D and 3-D [id number] MRA images of the intra- and extracranial [...] branch occlusion or significant stenosis in the [place] vessels. There is no specific MRA evidence of saccular aneurysm. IMPRESSION: 1. No hemodynamically significant carotid stenosis by NASCET criteria. 2. No significant stenosis in the imaged cervical vertebral arteries. 3. No major branch occlusion, significant stenosis,or evident aneurysm in the [place] vessels. Signed: Mark Mathur [facility] Verified Date/Time: 09/10/2017 11:16:49 Reading Location: [address] Neuro Reading Room MR, MRA, NECK, WITHOUT IV [id number] 11:16:00Reason for exam:->Ischemic Stroke EvaluationFINAL REPORT MRA head and neck without contrast INDICATION: Headache, left hemianesthesia, left sided weakness TECHNIQUE: 2-D and 3-D [id number] MRA images of the intra- and extracranial [...] branch occlusion or significant stenosis in the [place] vessels. There is no specific MRA evidence of saccular aneurysm. IMPRESSION: 1. No hemodynamically significant carotid stenosis by NASCET criteria. 2. No significant stenosis in the imaged cervical vertebral arteries. 3. No major branch occlusion, significant stenosis,or evident aneurysm in the [place] vessels. Signed: Mark Mathur [facility] Verified Date/Time: 09/10/2017 11:16:49 Reading Location: [address] Neuro Reading Room /FREE T4 IF [id number] 09:44:00 Test Item Value Reference Range Interpretation Comments THYROID STIMULATING HORMONE 2.42 uIU/mL 0.35-4.94 (BEAKER) (test code = 772) VITAMIN B12 AND [id number] 09:44:00 Test Item Value Reference Range Interpretation Comments VITAMIN B12 (BEAKER) (test code = 413 pg/mL 213-816 774) FOLATE (BEAKER) (test code = 362) 14.8 ng/mL >=7.0 POCT-GLUCOSE [id number] 08:35:00 Test Item Value Reference Range Interpretation Comments POC-GLUCOSE METER 156 mg/dL 70-110 H TESTED AT [facility] 67[address] (BEAKER) (test code = [place] 1538) [id number] 06:56:00 Test Item Value Reference Range Interpretation Comments HOMOCYSTEINE (BEAKER) (test code = 4.1 umol/L 5.1-15.4 L 642) BASIC METABOLIC [id number] 06:32:00 Test Item Value Reference Range Interpretation [...] DATA TO CALCULA TE ESTIMATED GFR. FastingLIPID [id number] 06:31:00 Test Item Value Reference Range Interpretation [...] 130-159 High 160-189 Very High >=190 FastingC-REACTIVE [id number] 06:31:00 Test Item Value Reference Range Interpretation Comments C-REACTIVE PROTEIN (BEAKER) (test 1.82 mg/dL 0.00-0.50 H code = 676) FastingTROPONIN [id number] 06:29:00 Test Item Value Reference Range Interpretation [...] and persistent tachyarrhythmia.FastingCBC W/PLT COUNT & AUTO [id number] 06:02:00 Test Item Value Reference Range Interpretation [...]
[2021-10-30] MEDS ORDERED: METOCLOPRAMIDE 10 MG/2mL INJ ONE (16:43)
[2021-10-30] MEDS ORDERED: dexAMETHasone 10 MG/ML VIAL ONE (16:44)
[2021-10-30] MEDS ORDERED: ONDANSETRON 4 MG/2 ML VIAL ONE (16:44)
[2021-10-30] MEDS ORDERED: ACETAMINOPHEN 500 MG TAB ONE (16:44)
[2021-10-30] MEDS ORDERED: NA CHLORIDE 0.9% 500 ML ONE (16:44)
[2021-10-30] MEDS ORDERED: DIPHENHYDRAMINE 50 MG/ML VIAL ONE (16:44)
[2021-10-30 16:52] LABS: Absolute Lymphocytes (CBC) 3.2 K/uL (0.7-4.9); Lymphocytes % 33.7 % (15.3-44.8); MPV 8.3 fL (7.6-11.3); RBC Red Blood Cell Count 4.63 M/uL (3.86-4.86)
[2021-10-30 16:53] LABS: Protime INR 0.92
[2021-10-30 17:04] LABS: Urine Blood 1+ (Negative); Urine Glucose 3+ (Negative); Urine Protein Negative (Negative)
--- NOTE | 2021-10-30 17:07 | RAD REPORT ---
EXAM DESCRIPTION: RAD - Chest Single View - 10/30/2021 4:52 pm CLINICAL HISTORY: left arm pain COMPARISON: Chest Single View dated 08/31/2020; Chest Single View dated 06/20/2019; Abdomen Acute Ser ies dated 04/21/2019; Chest Single View dated 05/03/2018 FINDINGS: Lines: None. Lungs: No evidence of edema or pneumonia. Pleural: No significant pleural effusions or pneumothorax. Cardiac: The heart size is within normal limits. Bones: No acute fractures. Other: IMPRESSION: No acute cardiopulmonary disease.
[2021-10-30 17:11] LABS: ALT/SGPT 28 U/L (12-78); AST/SGOT 8 U/L (15-37); Albumin 3.7 g/dL (3.4-5.0); Alkaline Phosphatase 93 U/L (45-117); BUN Blood Urea Nitrogen 15 mg/dL (7-18); Bicarbonate 30 mmol/L (21-32); Bilirubin Direct < 0.1 mg/dL (0-0.2); Bilirubin Total 0.3 mg/dL (0.2-1.0); Glucose Level 305 mg/dL (74-106); Protein, Total 8.1 g/dL (6.4-8.2); Sodium Level 135 mmol/L (136-145)
--- NOTE | 2021-10-30 18:23 | RAD REPORT ---
EXAM DESCRIPTION: CT - Head Brain Wo Cont - 10/30/2021 6:09 pm CLINICAL HISTORY: HEADACHE COMPARISON: Head Brain Wo Cont dated 07/23/2021; Head Brain Wo Cont dated 10/15/2020 TECHNIQUE: All CT scans are performed using dose optimization technique as appropriate and may inclu de automated exposure control or mA/KV adjustment according to patient size. FINDINGS: No intracranial hemorrhage, hydrocephalus or extra-axial fluid collection.No areas of brai n edema or evidence of midline shift. The paranasal sinuses and mastoids are clear. The calvarium is intact. IMPRESSION: No acute intracranial abnormality.
[2021-10-30] MEDS ORDERED: INSULIN -REGULAR HUMAN 50 UNIT/0.5 ML ML ONE (18:54)
--- NOTE | 2021-10-30 20:37 | EDPHYS ---
Physician Documentation [facility] Name: Carol Mclaughlin Age: 46 yrs Sex: Female : 1975 Arrival Date: 10/30/2021 Time: 14:59 Bed 12 Private MD: RENNY Physician Vicente Ratliff HPI: 10/30 16:22 This 46 yrs old Female presents to ER via Ambulatory with complaints of cp Headache, Arm Pain. 16:22 Onset: The symptoms/episode began/occurred 1 week(s) ago. cp 16:22 Associated signs and symptoms: Pertinent positives: difficulty sleeping, left upper arm cp pain. 16:22 Severity of symptoms: in the emergency department the pain is unchanged, despite home cp interventions. Historical: - Allergies: 15:11 No Known Drug Allergies; ll1 - PMHx: 15:11 angina pectoris; Diabetes - NIDDM; Hypertension; ll1 - PSHx: 15:11 ankle SX, L leg; section; Cholecystectomy; ll1 - Immunization history:: Client reports receiving the 2nd dose of the Covid vaccine. - Social history:: Smoking status: Patient denies any tobacco usage or history of. ROS: 16:25 Constitutional: Negative for body aches, chills, fever, poor PO intake. cp 16:25 MS/extremity: Positive for pain, of the left upper arm. cp 16:25 Neuro: Positive for headache, Negative for altered mental status, numbness, syncope, tingling, weakness. Exam: 16:30 Constitutional: The patient appears in no acute distress, alert, awake, cp non-diaphoretic, non-toxic, well developed, well nourished, uncomfortable. 16:30 Head/Face: Normocephalic, atraumatic. cp 16:30 Eyes: Periorbital structures: appear normal, Pupils: equal, round, and reactive to light and accomodation, Extraocular movements: intact throughout, Conjunctiva: normal, no exudate, no injection, Sclera: no appreciated abnormality, Lids and lashes: appear normal, bilaterally. 16:30 ENT: External ear(s): are unremarkable, Nose: is normal, Mouth: Lips: moist, Oral mucosa: pink and intact, moist, Posterior pharynx: Airway: no evidence of obstruction, patent. 16:30 Neck: ROM/movement: is normal, is supple, without pain, no range of motions limitations, no meningismus, no nuchal rigidity. 16:30 Chest/axilla: Inspection: normal. 16:30 Cardiovascular: Rate: normal, Rhythm: regular, Edema: is not appreciated, JVD: is not appreciated. 16:30 Respiratory: the patient does not display signs of respiratory distress, Respirations: normal, no use of accessory muscles, no retractions, labored breathing, is not present, Breath sounds: are clear throughout, no decreased breath sounds, no stridor, no wheezing. 16:30 Abdomen/GI: Inspection: abdomen appears normal, Palpation: abdomen is soft and non-tender, in all quadrants. 16:30 Back: pain, is absent, ROM is normal. 16:30 Musculoskeletal/extremity: Extremities: grossly normal except: noted in the left upper arm: pain, There is no evidence of decreased ROM, deformity, tenderness, the left arm Sensation intact. 16:30 Neuro: Orientation: to person, place \T\ time. Mentation: is normal, Cerebellar function: is grossly normal, Motor: moves all fours, strength is normal, Sensation: is normal. 16:59 ECG was reviewed by the Attending Physician. Vital Signs: 15:10 BP 133 / 73; Pulse 84; Resp 16; Temp 97.3; Pulse Ox 99% ; Weight 60.78 kg; Height 5 ft. ll1 4 in. (162.56 cm); Pain 9/10; 17:37 BP 170 / 77; Pulse 63; Resp 18; Pulse Ox 99% on R/A; ic1 19:44 Pulse 94; Resp 14; Pulse Ox 96% ; tw5 20:54 Pulse 94; Resp 18; Pulse Ox 98% on R/A; tw5 15:10 Body Mass Index 23.00 (60.78 kg, 162.56 cm) ll1 MDM: 16:17 Patient medically screened. nay 16:31 Patient medically screened. nay 17:00 Differential diagnosis: hypertensive headache, meningitis, meningoencephalitis, cp migraine, neoplasm, tension headache. 18:47 Data reviewed: vital signs, nurses notes, lab test result(s), EKG, radiologic studies, cp CT scan, plain films. ED course: Patient reports headache markedly improved. 10/30 16:22 Order name: Basic Metabolic Panel; Complete Time: 18:08 cp 10/30 18:09 Interpretation: Normal except: NA 135; GLUC 305; GFR 78. cp 10/30 16:22 Order name: CBC with Diff; Complete Time: 16:57 cp 10/30 16:57 Interpretation: Normal except: HGB 11.9; MCV 77.7; MCH 25.7. cp 10/30 16:22 Order name: LFT's; Complete Time: 18:08 10/30 16:22 Order name: Magnesium; Complete Time: 18:08 cp 10/30 16:22 Order name: PT-INR; Complete Time: 16:57 cp 10/30 16:22 Order name: Troponin HS; Complete Time: 18:08 10/30 16:22 Order name: XRAY Chest (1 view); Complete Time: 18:08 10/30 16:58 Order name: CT Head Brain wo Cont: headache times 1 week; Complete Time: 18:35 10/30 18:36 Interpretation: Report reviewed. 10/30 17:03 Order name: Urine Dipstick-Ancillary; Complete Time: 18:08 EDAR 10/30 18:45 Interpretation: Normal except: UGLUC 3+; UKET Trace; UBLD 1+. 10/30 17:06 Order name: Urine --Ancillary (enter results); Complete Time: 18:08 10/30 19:14 Order name: Glucose, Ancillary Testing; Complete Time: 19:20 EDAR 10/30 19:20 Interpretation: Reviewed. 10/30 20:42 Order name: Glucose, Ancillary Testing; Complete Time: 20:49 EDAR 10/30 20:49 Interpretation: Reviewed. 10/30 16:22 Order name: Accucheck Blood Glucose; Complete Time: 19:23 10/30 16:22 Order name: Urine Dipstick-Ancillary (obtain specimen); Complete Time: 16:59 10/30 16:22 Order name: Urine Test (obtain specimen); Complete Time: 16:59 10/30 16:22 Order name: IV; Complete Time: 16:51 10/30 16:22 Order name: EKG; Complete Time: 16:23 cp 10/30 16:22 Order name: Cardiac monitoring; Complete Time: 16:51 cp 10/30 16:22 Order name: EKG - Nurse/Tech; Complete Time: 16:51 cp 10/30 16:22 Order name: IV Saline Lock; Complete Time: 16:51 cp 10/30 16:22 Order name: Labs collected and sent; Complete Time: 16:52 cp 10/30 16:22 Order name: O2 Per Protocol; Complete Time: 19:06 cp 10/30 16:22 Order name: O2 Sat Monitoring; Complete Time: 19:06 cp 10/30 19:52 Order name: Accucheck Blood Glucose; Complete Time: 20:31 cp EC:59 Rate is 86 beats/min. Rhythm is regular. WA interval is normal. QRS interval is normal. cp QT interval is normal. T waves are Inverted in lead aVR. Interpreted by me. Reviewed by me. Administered Medications: 16:58 Drug: Tylenol 1000 mg Route: PO; ic1 19:46 Follow up: Response: No adverse reaction tw5 16:58 Drug: Reglan (metoCLOPramide) 10 mg Route: IVP; Site: left antecubital; ic1 19:46 Follow up: Response: No adverse reaction tw5 16:58 Drug: Zofran (Ondansetron) 4 mg Route: IVP; Site: left antecubital; ic1 19:46 Follow up: Response: No adverse reaction tw5 16:58 Drug: Decadron - Dexamethasone 10 mg Route: IVP; Site: left antecubital; ic1 19:46 Follow up: Response: No adverse reaction tw5 16:59 Drug: Benadryl (diphenhydrAMINE) 25 mg Route: IVP; Site: left antecubital; ic1 19:45 Follow up: Response: No adverse reaction tw5 18:55 Drug: Insulin Regular Human 10 units {Co-Signature: ic1 (Angelita Yip RN).} Route: ss IVP; Site: left antecubital; 19:45 Follow up: Response: No adverse reaction tw5 Disposition: 20:45 Chart complete. cp Disposition Summary: 10/30/21 20:37 Discharge Ordered Location: Home cp Problem: new cp Symptoms: have improved cp Condition: Stable cp Diagnosis - Headache cp - Pain in left upper arm cp - Diabetes mellitus due to underlying condition with hyperglycemia cp Followup: cp - With: Private Physician - When: 2 - 3 days - Reason: Recheck today's complaints Discharge Instructions: - Discharge Summary Sheet cp - Migraine Headache cp - Hyperglycemia cp - Blood Glucose Monitoring, Adult cp - Diabetes Mellitus and Nutrition, Adult cp Forms: - Medication Reconciliation Form cp - Thank You Letter cp - Antibiotic Education cp - Prescription Opioid Use cp Prescriptions: - Fioricet 50-300-40 mg Oral capsule - take 1 capsule by ORAL route every 4 hours as needed; 20 capsule; Refills: 0, cp Product Selection Permitted - Ibuprofen 800 mg Oral Tablet - take 1 tablet by ORAL route every 8 hours As needed take with food; 30 tablet; cp Refills: 0, Product Selection Permitted Addendum: 11/01/2021 07:10 Co-signature as Attending Physician, Vicente Ratliff MD I agree with the assessment and c pop plan of care. Signatures: Dispatcher [employer] EDMS Vicente Ratliff MD MD cha Smirch, Shelby, RN RN ss Vicente Trotter, Ysabel Correa cp, RN RN ll1 Angelita Yip RN RN ic1 Ellie Sheldon [facility] Angelita Yip RN ic1
--- NOTE | 2021-10-30 20:37 | ER ---
Nurse's Notes [facility] Name: Carol Mclaughlin Age: 46 yrs Sex: Female : 1975 Arrival Date: 10/30/2021 Time: 14:59 Bed 12 Private MD: Diagnosis: Headache;Pain in left upper arm;Diabetes mellitus due to underlying condition with hyperglycemia Presentation: 10/30 15:10 Chief complaint: Patient states: Migraine CABALLERO for 1 week. Unable to sleep for 3 days. L ll1 arm and shoulder pain. Coronavirus screen: Vaccine status: Patient reports receiving the 2nd dose of the covid vaccine. Client denies travel out of the [place] in the last 14 days. At this time, the client does not indicate any symptoms associated with coronavirus-19. Ebola Screen: Patient denies travel to an Ebola-affected area in the 21 days before illness onset. Initial Sepsis Screen: Does the patient meet any 2 criteria? No. Patient's initial sepsis screen is negative. Does the patient have a suspected source of infection? Yes: S/S of meningitis or endocarditis. Risk Assessment: Do you want to hurt yourself or someone else? Patient reports no desire to harm self or others. Onset of symptoms was October 23, 2021. 15:10 Method Of Arrival: Ambulatory ll1 15:10 Acuity: GORGE 3 ll1 Triage Assessment: 20:54 Headache History: The patient has had previous headaches. General: Appears in no tw5 apparent distress. Pain: Pain began gradually, Also complains of no other associated symptoms. Historical: - Allergies: 15:11 No Known Drug Allergies; ll1 - PMHx: 15:11 angina pectoris; Diabetes - NIDDM; Hypertension; ll1 - PSHx: 15:11 ankle SX, L leg; section; Cholecystectomy; ll1 - Immunization history:: Client reports receiving the 2nd dose of the Covid vaccine. - Social history:: Smoking status: Patient denies any tobacco usage or history of. Screenin:06 Abuse screen: Denies threats or abuse. Denies injuries from another. Nutritional ic1 screening: No deficits noted. Tuberculosis screening: No symptoms or risk factors identified. Fall Risk None identified. Exposure risk/Travel Screening: None identified. Assessment: 17:06 General: Appears in no apparent distress. comfortable, Behavior is calm, cooperative. ic1 Pain: Complains of pain in face. Neuro: Reports headache Denies weakness blurred vision dizziness, photophobia. Cardiovascular: No deficits noted. Respiratory: No deficits noted. GI: No deficits noted. : No deficits noted. EENT: No deficits noted. Derm: No deficits noted. Musculoskeletal: No deficits noted. 18:18 Reassessment: Pt returned back to room from CT via stretcher. Patient denies pain at ic1 this time. Patient states feeling better. Patient states symptoms have improved. 19:44 General: Reports " I was feeling better after the medication, but now the pain is tw5 coming back.". Pain: Complains of pain in right side of forehead Pain currently is 9 out of 10 on a pain scale. 20:54 Reassessment: Patient and/or family updated on plan of care and expected duration. Pain tw5 level reassessed. Patient is alert, oriented x 3, equal unlabored respirations, skin warm/dry/pink. Vital Signs: 15:10 BP 133 / 73; Pulse 84; Resp 16; Temp 97.3; Pulse Ox 99% ; Weight 60.78 kg; Height 5 ft. ll1 4 in. (162.56 cm); Pain 9/10; 17:37 BP 170 / 77; Pulse 63; Resp 18; Pulse Ox 99% on R/A; ic1 19:44 Pulse 94; Resp 14; Pulse Ox 96% ; tw5 20:54 Pulse 94; Resp 18; Pulse Ox 98% on R/A; tw5 15:10 Body Mass Index 23.00 (60.78 kg, 162.56 cm) ll1 ED Course: 14:59 Patient arrived in ED. as 15:11 Triage completed. ll1 15:12 Arm band placed on. ll1 16:14 Vicente Trotter PA is PHCP. cp 16:14 Vicente Ratliff MD is Attending Physician. cp 16:52 XRAY Chest (1 view) In Process Unspecified. EDMS 16:52 EKG done, by ED staff, reviewed by Vicente THOMAS. Inserted saline lock: 20 gauge in mb7 left forearm, using aseptic technique. 17:04 Angelita Yip, RN is Primary Nurse. ic1 17:06 Patient has correct armband on for positive identification. Bed in low position. Call ic1 light in reach. Side rails up X2. 18:09 CT Head Brain wo Cont: headache times 1 week In Process Unspecified. EDMS 20:54 No provider procedures requiring assistance completed. IV discontinued, intact, tw5 bleeding controlled, No redness/swelling at site. Pressure dressing applied. Administered Medications: 16:58 Drug: Tylenol 1000 mg Route: PO; ic1 19:46 Follow up: Response: No adverse reaction tw5 16:58 Drug: Reglan (metoCLOPramide) 10 mg Route: IVP; Site: left antecubital; ic1 19:46 Follow up: Response: No adverse reaction tw5 16:58 Drug: Zofran (Ondansetron) 4 mg Route: IVP; Site: left antecubital; ic1 19:46 Follow up: Response: No adverse reaction tw5 16:58 Drug: Decadron - Dexamethasone 10 mg Route: IVP; Site: left antecubital; ic1 19:46 Follow up: Response: No adverse reaction tw5 16:59 Drug: Benadryl (diphenhydrAMINE) 25 mg Route: IVP; Site: left antecubital; ic1 19:45 Follow up: Response: No adverse reaction tw5 18:55 Drug: Insulin Regular Human 10 units {Co-Signature: ic1 (Angelita Yip RN).} Route: ss IVP; Site: left antecubital; 19:45 Follow up: Response: No adverse reaction tw5 Outcome: 18:48 Discharged to home ambulatory, with family. ic1 18:48 Condition: stable 18:48 Discharge instructions given to patient, Instructed on discharge instructions, follow up and referral plans. Demonstrated understanding of instructions, follow-up care, medications, Prescriptions given X 20:37 Discharge ordered by MD. cp 20:54 Prescriptions given X 3. tw5 20:55 Patient left the ED. tw5 Signatures: Dispatcher [employer] RENNYMS Ree Love Shelby, RN RN ss Vicente Trotter PA PA cp Lewis, Lynsay, RN RN ll1 Ellie Sheldon tw5 Leti Latham Iesha, RN RN ic1 Angelita Yip RN ic1 Corrections: (The following items were deleted from the chart) 17:36 17:31 BP 141 / 77; Pulse 63bpm; Resp 20bpm; Pulse Ox 100% RA; ic1 ic1 17:37 17:26 BP 128 / 63; Pulse 78bpm; Resp 16bpm; Pulse Ox 99% RA; ic1 ic1
[2021-10-30 21:10] VITALS: TEMP 97.3
[2021-10-30 21:12] VITALS: BP 170/77
[2021-10-30 21:15] VITALS: O2SAT 98
--- NOTE | 2021-11-02 08:07 | EKG ---
Test Date: 2021-10-31 Test Time: 00:57:40 Business Department Chair: HIRAM, MEASUREMENT RESULTS: Intervals: Rate: 101 AR: 158 QRSD: 82 QT: 320 QTc: 414 [place]: P: 74 AR: 158 QRS: 64 T: 71 INTERPRETIVE STATEMENTS: Sinus tachycardia Otherwise normal ECG Compared to ECG 07/23/2021 19:30:17 Sinus rhythm no longer present Electronically Signed On 11-02-21 08:03:20 TABLE HAND by Carlos Alberto Cuadra
== END 2021-10-30 20:55 | disposition home or self-care (01) ==
LOC: ER 14:56
DX: E11.65 Type 2 diabetes mellitus with hyperglycemia (principal); M79.622 Pain in left upper arm; I10 Essential (primary) hypertension
CPT/HCPCS: 36415; 70450; 71045; 80048; 80076; 81003; 81025; 82947; 83735; 84484; 85025; 85610; 93005; 96374; 96375; 99284; J1100; J1200; J2405; J2765; J7040

== ENCOUNTER 2021-10-31 00:01 | Emergency (ER) | payer SELFPAY ==
--- OUTSIDE RECORDS SUMMARY | 2021-10-31 00:04 | XMS REPORT | Continuity of Care Document ---
:1975 Author Organization [facility] Address [address] [place] [address] [address] [place] [address] Care Team Providers Name Role Phone LOMBARDO [...] Reference Range Interpretation Comme nts POC-GLUCOSE METER ([employer]) (test 330 mg/dL 70-110 H TESTED AT [facility] [address] code = 1538) [place] [id number] 0 SCREEN, [id number] 11:13:00 Test Item Value Reference Range Interpretation Comments TEST URINE ([employer]) (test Negative code = 583) POCT-GLUCOSE [id number] 08:33:00 Test Item Value Reference Range Interpretation Comments POC-GLUCOSE METER 226 mg/dL 70-110 H TESTED AT [facility] [address] ([facility]) (test code = CRISTHIANALCON [place] [facility] 1538) [id number] POCT-GLUCOSE [id number] 21:48:00 Test Item Value Reference Range Interpretation Comments POC-GLUCOSE METER 219 mg/dL 70-110 H TESTED AT [facility] [address] ([facility]) (test code = CRISTHIANALCON [place] [facility] 1538) [id number] POCT-GLUCOSE [id number] 17:48:00 Test Item Value Reference Range Interpretation Comments POC-GLUCOSE METER 225 mg/dL 70-110 H TESTED AT [facility] [address] ([facility]) (test code = CRISTHIANALCON [place] [facility] 1538) [id number] 16:39:00 Test Item Value Reference Range Interpretation Comments RPR SCREEN ([employer]) (test code = Nonreactive Nonreactive 420) SEDIMENTATION [id number] 15:02:00 Test Item Value Reference Range Interpretation Comments SEDIMENTATION RATE, ERYTHROCYTE 25 mm/HR 0-20 H ([facility]) (test code = 766) POCT-GLUCOSE [id number] 12:40:00 Test Item Value Reference Range Interpretation Comments POC-GLUCOSE METER 188 mg/dL 70-110 H TESTED AT [facility] 67[address] ([employer]) (test code = [place] 1538) [address] HEMOGLOBIN [id number] 11:42:00 Test Item Value Reference Range Interpretation Comments HEMOGLOBIN A1C ([employer]) (test code = 8.2 % 4.3-6.1 H 368) MR, BRAIN, WITHOUT [id number] 11:17:00Reason for exam:->Ischemic Stroke EvaluationFINAL REPORT MRI [...] infarct, hemorrhage, or hydrocephalus. Signed: Mark Mathur [facility] Verified Date/Time: 09/10/2017 11:17:54 Reading Location: [address] Neuro Reading Room MR, MRA, BRAIN, WITHOUT [id number] 11:16:00Reason for exam:->Ischemic Stroke EvaluationFINAL REPORT MRA head and neck without contrast INDICATION: Headache, left hemianesthesia, left sided weakness TECHNIQUE: 2-D and 3-D [id number] MRA images of the intra- and extracranial [...] occlusion, significant stenosis,or evident aneurysm in the mc[place]ath of [place] vessels. Signed: Mark Mathur [facility] Verified Date/Time: 09/10/2017 11:16:49 Reading Location: [address] Neuro Reading Room MR, MRA, NECK, WITHOUT IV [id number] 11:16:00Reason for exam:->Ischemic Stroke EvaluationFINAL REPORT MRA head and neck without contrast INDICATION: Headache, left hemianesthesia, left sided weakness TECHNIQUE: 2-D and 3-D [id number] MRA images of the intra- and extracranial [...] occlusion, significant stenosis,or evident aneurysm in the [place] of [place] vessels. Signed: Mark Mathur [facility] Verified Date/Time: 09/10/2017 11:16:49 Reading Location: [address] Neuro Reading Room /FREE T4 IF [id number] 09:44:00 Test Item Value Reference Range Interpretation Comments THYROID STIMULATING HORMONE 2.42 uIU/mL 0.35-4.94 (BEAKER) (test code = 772) VITAMIN B12 AND [id number] 09:44:00 Test Item Value Reference Range Interpretation Comments VITAMIN B12 (BEAKER) (test code = 413 pg/mL 213-816 774) FOLATE (BEAKER) (test code = 362) 14.8 ng/mL >=7.0 POCT-GLUCOSE [id number] 08:35:00 Test Item Value Reference Range Interpretation Comments POC-GLUCOSE METER 156 mg/dL 70-110 H TESTED AT [facility] 6720 (BEAKER) (test code = [place] 1538) [id number] 06:56:00 Test Item Value Reference Range Interpretation Comments HOMOCYSTEINE ([employer]AKER) (test code = 4.1 umol/L 5.1-15.4 L 642) BASIC METABOLIC [id number] 06:32:00 Test Item Value Reference Range Interpretation [...] DATA TO CALCULA TE ESTIMATED GFR. FastingLIPID [id number] 06:31:00 Test Item Value Reference Range Interpretation [...] 130-159 High 160-189 Very High >=190 FastingC-REACTIVE [id number] 06:31:00 Test Item Value Reference Range Interpretation Comments C-REACTIVE PROTEIN (BEAKER) (test 1.82 mg/dL 0.00-0.50 H code = 676) FastingTROPONIN [id number] 06:29:00 Test Item Value Reference Range Interpretation [...] and persistent tachyarrhythmia.FastingCBC W/PLT COUNT & AUTO [id number] 06:02:00 Test Item Value Reference Range Interpretation [...]
[2021-10-31] MEDS ORDERED: NA CHLORIDE 0.9% 1,000 ML ONE (00:47)
[2021-10-31] MEDS ORDERED: ACETAMINOPHEN 500 MG TAB ONE (00:47)
[2021-10-31] MEDS ORDERED: ONDANSETRON 4 MG/2 ML VIAL ONE (00:47)
[2021-10-31 01:25] LABS: Absolute Lymphocytes (CBC) 0.7 K/uL (0.7-4.9); Hematocrit 33.5 % (36.0-45.0); Lymphocytes % 9.1 % (15.3-44.8); MPV 8.8 fL (7.6-11.3); RBC Red Blood Cell Count 4.32 M/uL (3.86-4.86)
[2021-10-31 01:28] LABS: Protime INR 0.97
[2021-10-31 01:44] LABS: ALT/SGPT 25 U/L (12-78); AST/SGOT 9 U/L (15-37); Albumin 3.2 g/dL (3.4-5.0); Alkaline Phosphatase 74 U/L (45-117); BUN Blood Urea Nitrogen 18 mg/dL (7-18); Bicarbonate 26 mmol/L (21-32); Bilirubin Direct < 0.1 mg/dL (0-0.2); Bilirubin Total 0.4 mg/dL (0.2-1.0); Magnesium 1.9 mg/dL (1.8-2.4); NT PRO-BNP 39 pg/mL (<125); Potassium 4.9 mmol/L (3.5-5.1); Sodium Level 136 mmol/L (136-145)
[2021-10-31] MEDS ORDERED: INSULIN -REGULAR HUMAN 50 UNIT/0.5 ML ML ONE (01:49)
[2021-10-31 01:51] LABS: Glucose Level 433 mg/dL (74-106)
[2021-10-31] MEDS ORDERED: KETOROLAC 30 MG/ML INJ ONE (03:28)
--- NOTE | 2021-10-31 03:30 | ER ---
Nurse's Notes [facility] Name: Carol Mclaughlin Age: 46 yrs Sex: Female : 1975 Arrival Date: 10/31/2021 Time: 00:06 Bed 15 Private MD: Diagnosis: Contusion of other part of head, initial encounter;Diabetes mellitus due to underlying condition with hyperglycemia;Syncope Presentation: 10/31 00:16 Chief complaint: EMS states: States, patient arguing with family member then passed out tk1 and hit right posterior head. Patient discharged at approximately 1835 from ED for hyperglycemia. Coronavirus screen: Vaccine status: Patient reports receiving the 1st dose of the Covid vaccine. one week ago Client denies travel out of the [place] in the last 14 days. At this time, the client does not indicate any symptoms associated with coronavirus-19. Ebola Screen: Patient negative for fever greater than or equal to 101.5 degrees Fahrenheit, and additional compatible Ebola Virus Disease symptoms Patient denies exposure to infectious person. Patient denies travel to an Ebola-affected area in the 21 days before illness onset. No symptoms or risks identified at this time. Initial Sepsis Screen: Does the patient meet any 2 criteria? No. Patient's initial sepsis screen is negative. Initial Sepsis Screen: Does the patient meet any 2 criteria? Does the patient have a suspected source of infection? No. Patient's initial sepsis screen is negative. Risk Assessment: Do you want to hurt yourself or someone else? Patient reports no desire to harm self or others. Onset of symptoms. Care prior to arrival: IV to left forearm, NS 600ml infused. 00:16 Method Of Arrival: EMS tk1 00:16 Acuity: GORGE 3 tk1 Triage Assessment: 00:24 General: Appears comfortable, well groomed, well developed, well nourished, Behavior is tk1 cooperative, crying. Pain: Complains of pain in right parietal area Pain does not radiate. Pain currently is 5 out of 10 on a pain scale. Quality of pain is described as aching, Pain began 1 hour ago. Is continuous, Alleviated by Aggravated by. EENT: No deficits noted. Neuro: No deficits noted. Cardiovascular: No deficits noted. Rhythm is sinus tachycardia. Respiratory: No deficits noted. Breath sounds are clear bilaterally. GI: No deficits noted. : No deficits noted. Derm: No deficits noted. Musculoskeletal: No deficits noted. Injury Description: Head injury sustained to right parietal area is closed, had loss of consciousness. Historical: - Allergies: 00:24 No Known Allergies; tk1 - Home Meds: 00:24 lisinopril 5 mg Oral tab 1 tab once daily [Active]; metformin 1,000 mg Oral tab 1 tab 2 tk1 times per day [Active]; UNKNOWN HTN MEDICATION [Active]; - PMHx: 00:24 angina pectoris; Diabetes - NIDDM; Hypertension; tk1 - PSHx: 00:24 ankle SX, L leg; section; Cholecystectomy; tk1 - Immunization history:: Adult Immunizations unknown. - Social history:: Smoking status: Patient denies any tobacco usage or history of. Patient uses Patient/guardian denies using. Screenin:32 Abuse screen: Denies threats or abuse. Denies injuries from another. Nutritional tk1 screening: No deficits noted. Tuberculosis screening: No symptoms or risk factors identified. Fall Risk Fall in past 12 months (25 points). Secondary diagnosis (15 points) syncope episode.. IV access (20 points). Ambulatory Aid- None/Bed Rest/Nurse Assist (0 pts). Gait- Normal/Bed Rest/Wheelchair (0 pts) Mental Status- Oriented to own ability (0 pts). Total Barton Fall Scale indicates High Risk Score (45 or more points). Fall prevention measures have been instituted. Side Rails Up X 2 Placed Close to Nursing Station Frequent Obs/Assessments Occuring As available patient and family educated on Fall Prevention Program and Strategies. Assessment: 00:30 Reassessment: See triage assessment. tk1 01:42 Reassessment: Assisted patient to BS commode to void then back onto stretcher. tk1 Tolerated well. 02:30 Reassessment: No changes from previously documented assessment. Pain: Complains of pain tk1 in right parietal area Pain does not radiate. Pain currently is 5 out of 10 on a pain scale. Quality of pain is described as aching, Pain began Is continuous, intermittent. Vital Signs: 00:16 BP 117 / 62 LA Supine (auto/reg); Pulse 103 MON; Resp 16; Temp 98.1(O); Pulse Ox 100% tk1 on R/A; Weight 60.78 kg; Height 5 ft. 4 in. (162.56 cm); Pain 5/10; 02:00 BP 139 / 78 LA Supine (auto/reg); Pulse 98 MON; Resp 12; Pulse Ox 100% on R/A; Pain tk1 510; 03:00 BP 129 / 74 LA Supine (auto/reg); Pulse 96 MON; Resp 16 S; Pulse Ox 99% ; Pain 3/10; tk1 00:16 Body Mass Index 23.00 (60.78 kg, 162.56 cm) tk1 Vitals: 00:31 Cardiac Rhythm Assessment Regular Sinus tach. tk1 ED Course: 00:06 Patient arrived in ED. mw2 00:07 Vicente Trotter PA is PHCP. cp 00:07 Marcin Blandon MD is Attending Physician. cp 00:16 Briseida Juarez is Primary Nurse. tk1 00:24 Triage completed. tk1 00:32 IV is intact, with fluids not infusing freely. tk1 00:32 Patient has correct armband on for positive identification. Bed in low position. Call tk1 light in reach. Side rails up X2. media monitor on. Pulse ox on. NIBP on. 00:34 Arm band placed on left wrist. tk1 00:43 CT Head C Spine In Process Unspecified. EDMS 01:08 COVID-19 SARS RT PCR (Document "Date of Onset" if Symptomatic) Sent. tk1 01:09 Basic Metabolic Panel Sent. tk1 01:09 CBC with Diff Sent. tk1 01:09 LFT's Sent. tk1 01:09 Magnesium Sent. tk1 01:09 NT PRO-BNP Sent. tk1 01:09 PT-INR Sent. tk1 01:09 Troponin HS Sent. tk1 01:28 XRAY Chest (1 view) In Process Unspecified. EDMS 03:42 IV discontinued, intact, bleeding controlled, No redness/swelling at site. Pressure tk1 dressing applied. 03:43 No provider procedures requiring assistance completed. tk1 Administered Medications: 01:08 Drug: Tylenol 1000 mg Route: PO; tk1 01:08 Drug: Zofran (Ondansetron) 4 mg Route: IVP; Site: left forearm; tk1 01:08 Drug: NS 0.9% 1000 ml Route: IV; Rate: 1 bolus; Site: left forearm; tk1 01:52 Drug: Insulin Regular Human 10 units {Co-Signature: tw5 (Ellie Sheldon).} Route: IVP; tk1 Site: left forearm; 03:28 Drug: Ketorolac 15 mg Route: IVP; Site: left forearm; tk1 Intake: 01:42 IV: 1000ml (IV Fluid); Total: 1000ml. tk1 Output: 01:42 Urine: 250ml (Voided); Total: 250ml. tk1 Outcome: 03:29 Discharge ordered by . javy 03:42 Discharged to home via wheelchair. tk1 03:42 Condition: stable 03:42 Discharge instructions given to patient, Instructed on discharge instructions, follow up and referral plans. Demonstrated understanding of instructions, follow-up care. 03:56 Patient left the ED. tk1 Signatures: Dispatcher [employer] EDMS Vicente Trotter PA PA cp [place], MyKena mw2 Briseida Juarez tk1 Ellie Sheldon tw5
--- NOTE | 2021-10-31 03:30 | EDPHYS ---
Physician Documentation [facility] Name: Carol Mclaughlin Age: 46 yrs Sex: Female : 1975 Arrival Date: 10/31/2021 Time: 00:06 Bed 15 Private MD: ED Physician Marcin Blandon HPI: 10/31 00:09 This 46 yrs old Female presents to ER via Unassigned with complaints of Head cp Injury. 00:09 Patient is a 46-year-old female who returns to the emergency department after reported cp syncopal episode. EMS reports patient returned home after being seen earlier in the department for a headache and reportedly got into an argument with family, became upset, and had an episode where she passed out and hit head on the floor. Patient presents to the ER with complaints of a headache and numbness on the left side of the face. 00:10 The patient has experienced syncope, lost consciousness, after verbal argument with cp family member. 00:10 Associated injury: Head/face: forehead, right worship and left worship. Associated signs cp and symptoms: Pertinent negatives: abdominal pain, chest pain. Current symptoms: headache, numbness left side of head. Historical: - Allergies: 00:24 No Known Allergies; tk1 - Home Meds: 00:24 lisinopril 5 mg Oral tab 1 tab once daily [Active]; metformin 1,000 mg Oral tab 1 tab 2 tk1 times per day [Active]; UNKNOWN HTN MEDICATION [Active]; - PMHx: 00:24 angina pectoris; Diabetes - NIDDM; Hypertension; tk1 - PSHx: 00:24 ankle SX, L leg; section; Cholecystectomy; tk1 - Immunization history:: Adult Immunizations unknown. - Social history:: Smoking status: Patient denies any tobacco usage or history of. Patient uses Patient/guardian denies using. ROS: 00:12 Cardiovascular: Negative for chest pain. cp 00:12 Respiratory: Positive for shortness of breath, Negative for cough, wheezing. 00:12 Neuro: Positive for headache, numbness, syncope, Negative for altered mental status. 00:12 Constitutional: Negative for body aches, chills, fever, poor PO intake. cp 00:12 Eyes: Negative for injury, pain, redness, and discharge. cp 00:12 All other systems are negative. Exam: 00:15 Constitutional: The patient appears in no acute distress, alert, awake, cp non-diaphoretic, non-toxic, well developed, well nourished. 00:15 Head/face: Noted is swelling, that is mild, of the left side of forehead and left cp worship. 00:15 Eyes: Periorbital structures: appear normal, Pupils: equal, round, and reactive to light and accomodation, Extraocular movements: intact throughout, Conjunctiva: normal, no exudate, no injection, Sclera: no appreciated abnormality, Lids and lashes: appear normal, bilaterally. 00:15 ENT: External ear(s): are unremarkable, Ear canal(s): are normal, clear, TM's: dullness, bilaterally, Nose: is normal, Mouth: Lips: moist, Oral mucosa: moist, Posterior pharynx: Airway: no evidence of obstruction, patent. 00:15 Neck: C-spine: vertebral tenderness, is not appreciated, crepitus, is not appreciated. 00:15 Chest/axilla: Inspection: normal, Palpation: is normal, no crepitus, no tenderness. 00:15 Cardiovascular: Rate: tachycardic, Rhythm: regular, Edema: is not appreciated, JVD: is not appreciated. 00:15 Respiratory: the patient does not display signs of respiratory distress, Respirations: normal, no use of accessory muscles, no retractions, labored breathing, is not present, Breath sounds: are clear throughout, no decreased breath sounds, no stridor, no wheezing. 00:15 Abdomen/GI: Inspection: abdomen appears normal, Palpation: abdomen is soft and non-tender, in all quadrants. 00:15 Back: pain, is absent, ROM is normal. 00:15 Neuro: Orientation: to person, place \\T\\ time. Mentation: able to follow commands, Motor: moves all fours, strength is normal, Sensation: tingling, that is mild, of the left forehead. 01:05 ECG was reviewed by the Attending Physician. Vital Signs: 00:16 BP 117 / 62 LA Supine (auto/reg); Pulse 103 MON; Resp 16; Temp 98.1(O); Pulse Ox 100% tk1 on R/A; Weight 60.78 kg; Height 5 ft. 4 in. (162.56 cm); Pain 5/10; 02:00 BP 139 / 78 LA Supine (auto/reg); Pulse 98 MON; Resp 12; Pulse Ox 100% on R/A; Pain tk1 5/10; 03:00 BP 129 / 74 LA Supine (auto/reg); Pulse 96 MON; Resp 16 S; Pulse Ox 99% ; Pain 3/10; tk1 00:16 Body Mass Index 23.00 (60.78 kg, 162.56 cm) tk1 MDM: 00:14 Patient medically screened. cp 01:00 Differential Diagnosis: cardiac arrhythmia, cerebrovascular accident, emotional cp response, pseudo seizure, seizure, transient ischemic attack, vasovagal episode. 03:29 Data reviewed: vital signs, nurses notes, lab test result(s), EKG, radiologic studies, cp CT scan. 03:29 Test interpretation: by ED physician or midlevel provider: ECG. Counseling: I had a cp detailed discussion with the patient and/or guardian regarding: the historical points, exam findings, and any diagnostic results supporting the discharge/admit diagnosis, lab results, radiology results, the need for outpatient follow up, for definitive care, a family practitioner, to return to the emergency department if symptoms worsen or persist or if there are any questions or concerns that arise at home. Response to treatment: the patient's symptoms have markedly improved after treatment, VSS. Patient sleeping comfortably in exam room. Discussed continued elevated blood glucose and need for f/u with family physician. 10/31 00:09 Order name: Basic Metabolic Panel; Complete Time: cp 10/31 00:09 Order name: CBC with Diff; Complete Time: cp 10/31 00:58 Interpretation: Normal except: HGB 10.8; HCT 33.5; MCV 77.4; MCH 25.1; SUJATHA% 89.3; LYM% cp 9.1; MN% 1.4. 10/31 00:09 Order name: LFT's; Complete Time: cp 10/31 00:58 Interpretation: Normal except: AST 9; ALB 3.2; GLOB 3.8; A/G 0.8. cp 10/31 00:09 Order name: Magnesium; Complete Time: cp 10/31 00:09 Order name: NT PRO-BNP; Complete Time: :57 cp 10/31 00:09 Order name: PT-INR; Complete Time: : cp 10/31 00:09 Order name: Troponin HS; Complete Time: cp 10/31 00:09 Order name: XRAY Chest (1 view) cp 10/31 00:09 Order name: CT Head C Spine cp 10/31 00:14 Order name: COVID-19 SARS RT PCR (Document "Date of Onset" if Symptomatic); Complete cp Time: 10/31 00:55 Order name: Glucose, Ancillary Testing; Complete Time: EDMS 10/31 00:09 Order name: EKG; Complete Time: 00:10 cp 10/31 00:09 Order name: Cardiac monitoring; Complete Time: : cp 10/31 00:09 Order name: EKG - Nurse/Tech; Complete Time: 01: cp 10/31 00:09 Order name: IV Saline Lock; Complete Time: 01: cp 10/31 00:09 Order name: Labs collected and sent; Complete Time: : cp 10/31 00:09 Order name: O2 Per Protocol cp 10/31 00:09 Order name: O2 Sat Monitoring cp 10/31 00:31 Order name: Accucheck Blood Glucose; Complete Time: 00:44 cp EC:05 Rate is 101 beats/min. Rhythm is regular. SD interval is normal. QRS interval is cp normal. QT interval is normal. T waves are Inverted in lead aVR. Interpreted by me. Reviewed by me. Administered Medications: 01:08 Drug: Tylenol 1000 mg Route: PO; tk1 01:08 Drug: Zofran (Ondansetron) 4 mg Route: IVP; Site: left forearm; tk1 01:08 Drug: NS 0.9% 1000 ml Route: IV; Rate: 1 bolus; Site: left forearm; tk1 01:52 Drug: Insulin Regular Human 10 units {Co-Signature: tw5 (Ellie Sheldon).} Route: IVP; tk1 Site: left forearm; 03:28 Drug: Ketorolac 15 mg Route: IVP; Site: left forearm; tk1 Disposition: 03:45 Chart complete. cp 05:43 Co-signature as Attending Physician, Marcin Blandon MD. mh7 Disposition Summary: 10/31/21 03:29 Discharge Ordered Location: Home cp Problem: new cp Symptoms: have improved cp Condition: Stable cp Diagnosis - Contusion of other part of head, initial encounter cp - Diabetes mellitus due to underlying condition with hyperglycemia cp - Syncope cp Followup: cp - With: Private Physician - When: 2 - 3 days - Reason: recheck blood glucose Discharge Instructions: - Discharge Summary Sheet cp - Facial or Scalp Contusion cp - Hyperglycemia cp - Syncope cp - Form - Daily Diabetes Record cp - Blood Glucose Monitoring, Adult cp - Diabetes Mellitus and Nutrition, Adult cp - Aspirin and Your Heart cp Forms: - Medication Reconciliation Form cp - Thank You Letter cp - Antibiotic Education cp - Prescription Opioid Use cp - Family Work Release eb Signatures: Dispatcher [employer] EDMS Vicente Trotter PA PA cp Holmes, Maurice, MD MD mh7 Briseida Juarez tk1 Ellie Sheldon tw5
[2021-10-31 05:44] VITALS: TEMP 98.1
[2021-10-31 05:46] VITALS: BP 129/74; O2SAT 99
--- NOTE | 2021-10-31 09:02 | RAD REPORT ---
EXAM DESCRIPTION: Javier Single View10/31/2021 1:28 am CLINICAL HISTORY: sob COMPARISON: October 30, 2021 FINDINGS: The lungs appear clear of acute infiltrate. The heart is normal size IMPRESSION: No acute abnormalities displayed
--- NOTE | 2021-10-31 16:16 | RAD REPORT ---
EXAM DESCRIPTION: CT - Head C Spine Mpr Wo Con - 10/31/2021 4:41 am CLINICAL HISTORY: The patient is 46 years old and is Female; head injury TECHNIQUE: Axial computed tomography images of the head/brain and cervical spine without intravenous contrast. Sagittal and coronal reformatted images were created and reviewed. This CT exam was pe rformed using one or more of the following dose reduction techniques: automated exposure control, a djustment of the mA and/or kV according to patient size, and/or use of iterative reconstruction techn ique. DLP: 1038 mGy*cm COMPARISON: CT head without contrast dated 10/30/[address] cervical spine dated 06/20/2019. FINDINGS: BRAIN: Unremarkable. No hemorrhage. No significant white matter disease. No edema. VENTRICLES: Unremarkable. No ventriculomegaly. SKULL: No acute fracture. SINUSES: Unremarkable as visualized. No acute sinusitis. MASTOID AIR CELLS: Unremarkable as visualized. No mastoid effusion. VERTEBRAE: Straightening of cervical lordosis. No acute fracture. No subluxation. DISCS/SPINAL CANAL/NEURAL FORAMINA: Calcified disc herniation at C3-4. No spinal canal stenosis. Disc spaces are maintained. SOFT TISSUES: Unremarkable. IMPRESSION: 1. No acute intracranial abnormality. 2. No cervical spine fracture or subluxation. 3. Calcified disc herniation at C3-4. 4. Straightening of cervical lordosis. Findings related to muscle spasm. Electronically signed by: Carlos Matias DO 10/31/2021 12:56 AM [employer] Due to temporary technical issues with the PACS/Fluency reporting system, reports are being signed by the in house radiologists without review as a courtesy to insure prompt reporting. The interpreting radiologist is fully responsible for the content of the report.
== END 2021-10-31 03:56 | disposition home or self-care (01) ==
LOC: ER 00:01
DX: S00.83XA Contusion of other part of head, initial encounter (principal); E11.65 Type 2 diabetes mellitus with hyperglycemia; I10 Essential (primary) hypertension
CPT/HCPCS: 36415; 70450; 71045; 72125; 80048; 80076; 82947; 83735; 83880; 84484; 85025; 85610; 93005; 96374; 96375; 99284; J2405; J7030; U0003

== ENCOUNTER 2021-12-23 13:43 | Emergency (ER) | payer SELFPAY ==
--- OUTSIDE RECORDS SUMMARY | 2021-12-23 13:46 | XMS REPORT | Continuity of Care Document ---
:1975 Author Organization [facility] Address [address] [place] [address] [address] [place] [address] Care Team Providers Name Role Phone LOMBARDO [...] Reference Range Interpretation Comme nts POC-GLUCOSE METER (Modanisa) (test 330 mg/dL 70-110 H TESTED AT [facility] [address] code = 1538) [place] [id number] 0 SCREEN, [id number] 11:13:00 Test Item Value Reference Range Interpretation Comments TEST URINE (Modanisa) (test Negative code = 583) POCT-GLUCOSE [id number] 08:33:00 Test Item Value Reference Range Interpretation Comments POC-GLUCOSE METER 226 mg/dL 70-110 H TESTED AT [facility] [address] ([facility]) (test code = CRISTHIANALCON [place] [facility] 1538) [id number] POCT-GLUCOSE [id number] 21:48:00 Test Item Value Reference Range Interpretation Comments POC-GLUCOSE METER 219 mg/dL 70-110 H TESTED AT [facility] [address] ([facility]) (test code = CRISTHIANALCON [place] [facility] 1538) [id number] POCT-GLUCOSE [id number] 17:48:00 Test Item Value Reference Range Interpretation Comments POC-GLUCOSE METER 225 mg/dL 70-110 H TESTED AT [facility] [address] ([facility]) (test code = CRISTHIANALCON [place] [facility] 1538) [id number] 16:39:00 Test Item Value Reference Range Interpretation Comments RPR SCREEN (Modanisa) (test code = Nonreactive Nonreactive 420) SEDIMENTATION [id number] 15:02:00 Test Item Value Reference Range Interpretation Comments SEDIMENTATION RATE, ERYTHROCYTE 25 mm/HR 0-20 H (AUGUSTINA) (test code = 766) POCT-GLUCOSE [id number] 12:40:00 Test Item Value Reference Range Interpretation Comments POC-GLUCOSE METER 188 mg/dL 70-110 H TESTED AT [facility] 67[address] (AUGUSTINA) (test code = [place] 1538) [address] HEMOGLOBIN [id number] 11:42:00 Test Item Value Reference Range Interpretation Comments HEMOGLOBIN A1C (AUGUSTINA) (test code = 8.2 % 4.3-6.1 H 368) MR, BRAIN, WITHOUT [id number] 11:17:00Reason for exam:->Ischemic Stroke EvaluationFINAL REPORT MRI [...] infarct, hemorrhage, or hydrocephalus. Signed: Mark Mathur [facility] Verified Date/Time: 09/10/2017 11:17:54 Reading Location: [address] Neuro Reading Room MR, MRA, BRAIN, WITHOUT [id number] 11:16:00Reason for exam:->Ischemic Stroke EvaluationFINAL REPORT MRA head and neck without contrast INDICATION: Headache, left hemianesthesia, left sided weakness TECHNIQUE: 2-D and 3-D [id number] MRA images of the intra- and extracranial [...] branch occlusion or significant stenosis in the [place] vessels. There is no specific MRA evidence of saccular aneurysm. IMPRESSION: 1. No hemodynamically significant carotid stenosis by NASCET criteria. 2. No significant stenosis in the imaged cervical vertebral arteries. 3. No major branch occlusion, significant stenosis,or evident aneurysm in the [place] vessels. Signed: Mark Mathur [facility] Verified Date/Time: 09/10/2017 11:16:49 Reading Location: [address] Neuro Reading Room MR, MRA, NECK, WITHOUT IV [id number] 11:16:00Reason for exam:->Ischemic Stroke EvaluationFINAL REPORT MRA head and neck without contrast INDICATION: Headache, left hemianesthesia, left sided weakness TECHNIQUE: 2-D and 3-D [id number] MRA images of the intra- and extracranial [...] branch occlusion or significant stenosis in the [place] vessels. There is no specific MRA evidence of saccular aneurysm. IMPRESSION: 1. No hemodynamically significant carotid stenosis by NASCET criteria. 2. No significant stenosis in the imaged cervical vertebral arteries. 3. No major branch occlusion, significant stenosis,or evident aneurysm in the [place] vessels. Signed: Mark Mathur [facility] Verified Date/Time: 09/10/2017 11:16:49 Reading Location: [address] Neuro Reading Room /FREE T4 IF [id number] 09:44:00 Test Item Value Reference Range Interpretation Comments THYROID STIMULATING HORMONE 2.42 uIU/mL 0.35-4.94 (BEAKER) (test code = 772) VITAMIN B12 AND [id number] 09:44:00 Test Item Value Reference Range Interpretation Comments VITAMIN B12 (BEAKER) (test code = 413 pg/mL 213-816 774) FOLATE (BEAKER) (test code = 362) 14.8 ng/mL >=7.0 POCT-GLUCOSE [id number] 08:35:00 Test Item Value Reference Range Interpretation Comments POC-GLUCOSE METER 156 mg/dL 70-110 H TESTED AT [facility] 67[address] (BEAKER) (test code = [place] 1538) [address] [id number] 06:56:00 Test Item Value Reference Range Interpretation Comments HOMOCYSTEINE (BEAKER) (test code = 4.1 umol/L 5.1-15.4 L 642) BASIC METABOLIC [id number] 06:32:00 Test Item Value Reference Range Interpretation [...] DATA TO CALCULA TE ESTIMATED GFR. FastingLIPID [id number] 06:31:00 Test Item Value Reference Range Interpretation [...] 130-159 High 160-189 Very High >=190 FastingC-REACTIVE [id number] 06:31:00 Test Item Value Reference Range Interpretation Comments C-REACTIVE PROTEIN (BEAKER) (test 1.82 mg/dL 0.00-0.50 H code = 676) FastingTROPONIN [id number] 06:29:00 Test Item Value Reference Range Interpretation [...] and persistent tachyarrhythmia.FastingCBC W/PLT COUNT & AUTO [id number] 06:02:00 Test Item Value Reference Range Interpretation [...]
[2021-12-23] MEDS ORDERED: ONDANSETRON 4 MG/2 ML VIAL ONE (14:28)
[2021-12-23] MEDS ORDERED: NA CHLORIDE 0.9% 1,000 ML ONE (14:28)
[2021-12-23 14:37] LABS: Absolute Lymphocytes (CBC) 3.1 K/uL (0.7-4.9); Hematocrit 34.2 % (36.0-45.0); Lymphocytes % 28.9 % (15.3-44.8); MPV 8.2 fL (7.6-11.3); RBC Red Blood Cell Count 4.61 M/uL (3.86-4.86)
[2021-12-23 14:57] LABS: Albumin 3.7 g/dL (3.4-5.0); Bilirubin Total 0.3 mg/dL (0.2-1.0); Potassium 4.4 mmol/L (3.5-5.1); Protein, Total 7.7 g/dL (6.4-8.2)
--- NOTE | 2021-12-23 16:04 | RAD REPORT ---
EXAM DESCRIPTION: CT - Abdomen Pelvis W Contrast - 12/23/2021 3:32 pm CLINICAL HISTORY: Abdominal pain COMPARISON: 2020 TECHNIQUE: Computed axial tomography of the abdomen pelvis was obtained. 100 cc Isovue-300 was admin istered intravenously. Oral contrast was not requested which limits evaluation of bowel. All CT scans are performed using dose optimization technique as appropriate and may include automated exposure control or mA/KV adjustment according to patient size. FINDINGS: Ill-defined small hypodense area within the right lobe of the liver likely benign. Mild fa tty infiltration. Cholecystectomy Spleen, pancreas, adrenals and left kidney are unremarkable. Punctate nonobstructing left renal calcu amanda There is no evidence of diverticulitis. Spondylosis L5. 2.5 centimeter left ovarian cyst without significant free fluid IMPRESSION: 2.5 centimeter left ovarian cyst without significant free fluid
--- NOTE | 2021-12-23 16:14 | EDPHYS ---
Physician Documentation [facility] Name: Carol Mclaughlin Age: 46 yrs Sex: Female : 1975 Arrival Date: 12/23/2021 Time: 13:53 Bed 25 Private MD: Shelby Call ED Physician Anup Paz HPI: 12/23 15:41 This 46 yrs old Female presents to ER via Wheelchair with complaints of jr8 Vomiting, Decreased Appetite. 15:44 Onset: The symptoms/episode began/occurred gradually, 3 week(s) ago. Possible causes: jr8 unknown. The symptoms are aggravated by food , The symptoms are alleviated by nothing. Associated signs and symptoms: Pertinent positives: nausea, vomiting. Severity of symptoms: At their worst the symptoms were mild in the emergency department the symptoms are unchanged. It is unknown whether or not the patient has had similar symptoms in the past. The patient has not recently seen a physician. Historical: - Allergies: 14:10 No Known Allergies; ag7 - Home Meds: 14:10 lisinopril 5 mg Oral tab 1 tab once daily [Active]; metformin 1,000 mg Oral tab 1 tab 2 ag7 times per day [Active]; UNKNOWN HTN MEDICATION [Active]; - PMHx: 14:10 angina pectoris; Diabetes - NIDDM; Hypertension; ag7 - PSHx: 14:10 ankle SX, L leg; section; Cholecystectomy; left knee repair; ag7 - Immunization history:: Client reports receiving the 1st dose of the Covid vaccine, Flu vaccine is not up to date. Patient has never been vaccinated. - Social history:: Smoking status: Patient denies any tobacco usage or history of. ROS: 15:44 Eyes: Negative for injury, pain, redness, and discharge, ENT: Negative for injury, jr8 pain, and discharge, Neck: Negative for injury, pain, and swelling, Cardiovascular: Negative for chest pain, palpitations, and edema, Respiratory: Negative for shortness of breath, cough, wheezing, and pleuritic chest pain, Back: Negative for injury and pain, MS/Extremity: Negative for injury and deformity, Skin: Negative for injury, rash, and discoloration, Neuro: Negative for headache, weakness, numbness, tingling, and seizure. 15:44 Abdomen/GI: Positive for nausea and vomiting, Negative for abdominal pain, diarrhea, constipation, hematemesis, rectal pain, rectal bleeding, bowel incontinence, flatulence. Exam: 15:44 Constitutional: This is a well developed, well nourished patient who is awake, alert, jr8 and in no acute distress. Neck: Trachea midline, no thyromegaly or masses palpated, and no cervical lymphadenopathy. Supple, full range of motion without nuchal rigidity, or vertebral point tenderness. No Meningismus. Cardiovascular: Regular rate and rhythm with a normal S1 and S2. No gallops, murmurs, or rubs. Normal PMI, no JVD. No pulse deficits. Respiratory: Lungs have equal breath sounds bilaterally, clear to auscultation and percussion. No rales, rhonchi or wheezes noted. No increased work of breathing, no retractions or nasal flaring. Abdomen/GI: Soft, mild tenderness to epigastric region with normal bowel sounds. No distension or tympany. No guarding or rebound. Back: No spinal tenderness. No costovertebral tenderness. Full range of motion. Skin: Warm, dry with normal turgor. Normal color with no rashes, no lesions, and no evidence of cellulitis. MS/ Extremity: Pulses equal, no cyanosis. Neurovascular intact. Full, normal range of motion. Neuro: Awake and alert, GCS 15, oriented to person, place, time, and situation. Cranial nerves II-XII grossly intact. Motor strength 5/5 in all extremities. Sensory grossly intact. Vital Signs: 14:07 BP 99 / 68; Pulse 94; Resp 16 S; Temp 98.1(TE); Pulse Ox 100% on R/A; Weight 56.25 kg ag7 (R); Height 5 ft. 4 in. (162.56 cm) (R); 15:27 BP 100 / 60; Pulse 83; Resp 18; Pulse Ox 100% on R/A; ss7 16:18 BP 102 / 64; Pulse 85; Resp 18; Pulse Ox 98% on R/A; ss7 14:07 Body Mass Index 21.28 (56.25 kg, 162.56 cm) 7 MDM: 13:55 Patient medically screened. jr8 16:11 Data reviewed: vital signs, nurses notes, lab test result(s), radiologic studies, CT jr8 scan. Data interpreted: Pulse oximetry: on room air is 100 %. Interpretation: normal. Counseling: I had a detailed discussion with the patient and/or guardian regarding: the historical points, exam findings, and any diagnostic results supporting the discharge/admit diagnosis, lab results, radiology results, the need for outpatient follow up, a insurance customer service specialist, to return to the emergency department if symptoms worsen or persist or if there are any questions or concerns that arise at home. Response to treatment: the patient's symptoms have mildly improved after treatment, patient is well hydrated. ED course: Discussed with patient no acute physical exam findings or findings suggestive of any surgically emergent process on her CT scan and through blood work. Blood work did show mild dehydration which she has been hydrated via IV fluids at this time. Primary concern as is been going on for some time as gastritis versus esophagitis versus gastroparesis that she is diabetic. Needs to follow-up with gastroenterology for further work-up for this which she understands. For the meantime we will send her home on a PPI and Reglan. If she were to worsen a point time to come back for further reevaluation. Patient good with this plan at this time.. 12/23 14:18 Order name: CBC with Diff; Complete Time: 14:44 12/23 14:18 Order name: CMP; Complete Time: 15:27 12/23 14:18 Order name: Lipase; Complete Time: 15:27 12/23 14:18 Order name: CT Abd/Pelvis - IV Contrast Only; Complete Time: 16:06 12/23 14:18 Order name: IV Saline Lock; Complete Time: 14:36 12/23 14:18 Order name: Labs collected and sent; Complete Time: 14:36 jr Administered Medications: 14:36 Drug: NS 0.9% 1000 ml Route: IV; Rate: 1 bolus; Site: left antecubital; ss7 15:27 Follow up: Response: No adverse reaction; IV Status: Completed infusion ss7 15:30 Follow up: IV Status: Completed infusion ss7 14:37 Drug: Zofran (Ondansetron) 4 mg Route: IVP; Site: left antecubital; ss7 16:17 Follow up: Response: Nausea is decreased ss7 Disposition: 20:50 Co-signature as Attending Physician, Anup Paz DO I agree with the assessment and ms3 plan of care. Disposition Summary: 12/23/21 16:13 Discharge Ordered Location: Home jr8 Problem: new jr8 Symptoms: have improved jr8 Condition: Stable jr8 Diagnosis - Vomiting jr8 - Epigastric pain jr8 Followup: jr8 - With: Shelby Call - When: 2 - 3 days - Reason: Recheck today's complaints, Continuance of care, Re-evaluation by your physician Followup: jr8 - With: Skinny Borrego MD - When: 2 - 3 days - Reason: Recheck today's complaints, Continuance of care, Re-evaluation by your physician Discharge Instructions: - Discharge Summary Sheet jr8 - Abdominal Pain, Adult, [id number] jr8 - Vomiting, Adult jr8 Forms: - Medication Reconciliation Form jr8 - Thank You Letter jr8 - Antibiotic Education jr8 - Prescription Opioid Use jr8 Prescriptions: - omeprazole 40 mg Oral capsule,delayed release(DR/EC) - take 1 capsule by ORAL route once daily before a meal; 30 capsule; Refills: 0, jr8 Product Selection Permitted - Reglan 10 mg Oral Tablet - take 1 tablet by ORAL route every 6 hours take 30 minutes before meals and at jr8 bedtime; 120 tablet; Refills: 0, Product Selection Permitted Signatures: Dispatcher [employer] EDMS Shmuel Boswell PA PA jr8 Anup Paz DO DO ms3 Imani Lira, RN RN ss7 Maria Isabel Conde RN RN ag7
--- NOTE | 2021-12-23 16:14 | ER ---
Nurse's Notes [facility] Name: Carol Mclaughlin Age: 46 yrs Sex: Female : 1975 Arrival Date: 12/23/2021 Time: 13:53 Bed 25 Private MD: Shelby Call Diagnosis: Vomiting;Epigastric pain Presentation: 12/23 14:07 Chief complaint: Patient states: "x 3 weeks ago I stop eating, diarrhea, vomiting". ag7 Coronavirus screen: Client denies travel out of the [place] in the last 14 days. At this time, the client does not indicate any symptoms associated with coronavirus-19. Ebola Screen: No symptoms or risks identified at this time. Initial Sepsis Screen: Does the patient meet any 2 criteria? No. Patient's initial sepsis screen is negative. Does the patient have a suspected source of infection? No. Patient's initial sepsis screen is negative. Risk Assessment: Do you want to hurt yourself or someone else? Patient reports no desire to harm self or others. Onset of symptoms was December 02, 2021. 14:07 Method Of Arrival: Wheelchair ag7 14:07 Acuity: GORGE 3 ag7 Triage Assessment: 14:36 GI: Reports nausea, vomiting. ss7 Historical: - Allergies: 14:10 No Known Allergies; ag7 - Home Meds: 14:10 lisinopril 5 mg Oral tab 1 tab once daily [Active]; metformin 1,000 mg Oral tab 1 tab 2 ag7 times per day [Active]; UNKNOWN HTN MEDICATION [Active]; - PMHx: 14:10 angina pectoris; Diabetes - NIDDM; Hypertension; ag7 - PSHx: 14:10 ankle SX, L leg; section; Cholecystectomy; left knee repair; ag7 - Immunization history:: Client reports receiving the 1st dose of the Covid vaccine, Flu vaccine is not up to date. Patient has never been vaccinated. - Social history:: Smoking status: Patient denies any tobacco usage or history of. Screenin:35 Abuse screen: Denies threats or abuse. Nutritional screening: No deficits noted. ss7 Tuberculosis screening: No symptoms or risk factors identified. Fall Risk IV access (20 points). Assessment: 14:34 General: Appears in no apparent distress. ill, slender, Behavior is calm, cooperative, ss7 appropriate for age. Pain: Complains of pain in abdomen. Neuro: No deficits noted. Cardiovascular: Heart tones S1 S2. Respiratory: Breath sounds are clear bilaterally. GI: Abdomen is flat, non-distended, Bowel sounds present X 4 quads. Abd is soft and non tender X 4 quads. : No deficits noted. EENT: No deficits noted. Derm: No deficits noted. Vital Signs: 14:07 BP 99 / 68; Pulse 94; Resp 16 S; Temp 98.1(TE); Pulse Ox 100% on R/A; Weight 56.25 kg ag7 (R); Height 5 ft. 4 in. (162.56 cm) (R); 15:27 BP 100 / 60; Pulse 83; Resp 18; Pulse Ox 100% on R/A; ss7 16:18 BP 102 / 64; Pulse 85; Resp 18; Pulse Ox 98% on R/A; ss7 14:07 Body Mass Index 21.28 (56.25 kg, 162.56 cm) ag7 ED Course: 13:53 Patient arrived in ED. mr 13:54 Shelby Call is Private Physician. mr 13:55 [facility]el [facility]well [facility] jr8 13:55 Anup Paz DO is Attending Physician. jr8 14:08 Imani Lira, RN is Primary Nurse. ss7 14:10 Triage completed. ag7 14:11 Arm band placed on left wrist. ag7 14:35 Patient has correct armband on for positive identification. Bed in low position. Call ss7 light in reach. Warm blanket given. 14:36 No provider procedures requiring assistance completed. Inserted saline lock: 20 gauge ss7 in left antecubital area, using aseptic technique. 14:36 CBC with Diff Sent. ss7 14:36 CMP Sent. ss7 14:36 Lipase Sent. ss7 15:32 CT Abd/Pelvis - IV Contrast Only In Process Unspecified. EDMS 16:12 Shelby Call is Referral Physician. jr8 16:12 Skinny Borrego MD is Referral Physician. jr8 16:17 IV discontinued, intact. ss7 Administered Medications: 14:36 Drug: NS 0.9% 1000 ml Route: IV; Rate: 1 bolus; Site: left antecubital; ss7 15:27 Follow up: Response: No adverse reaction; IV Status: Completed infusion ss7 15:30 Follow up: IV Status: Completed infusion ss7 14:37 Drug: Zofran (Ondansetron) 4 mg Route: IVP; Site: left antecubital; ss7 16:17 Follow up: Response: Nausea is decreased ss7 Outcome: 16:13 Discharge ordered by MD. crenshaw 16:17 Discharged to home ambulatory. ss7 16:17 Condition: good 16:17 Discharge instructions given to patient, Instructed on discharge instructions, follow up and referral plans. Demonstrated understanding of instructions, follow-up care. 16:30 Patient left the ED. ss7 Signatures: Dispatcher [employer] EDMS Leti Amaral mr Shmuel Boswell PA PA jr8 Imani Lira, RN RN ss7 Maria Isabel Conde RN RN 7
[2021-12-23 16:43] VITALS: BP 102/64; O2SAT 98
[2021-12-23 16:46] VITALS: TEMP 98.1
== END 2021-12-23 16:30 | disposition home or self-care (01) ==
LOC: ER 13:43
DX: R11.10 Vomiting, unspecified (principal); R10.13 Epigastric pain; I10 Essential (primary) hypertension; E11.8 Type 2 diabetes mellitus with unspecified complications
CPT/HCPCS: 36415; 74177; 80053; 83690; 85025; 96361; 96374; 99284; J2405; J7030; Q9967

== ENCOUNTER 2022-04-18 21:48 | Emergency (ER) | payer SELFPAY ==
[2022-04-18 23:14] LABS: Absolute Lymphocytes (CBC) 2.5 K/uL (0.7-4.9); Hematocrit 37.6 % (36.0-45.0); Lymphocytes % 17.2 % (15.3-44.8); MCV 77.6 fL (80-100); MPV 8.4 fL (7.6-11.3); RBC Red Blood Cell Count 4.85 M/uL (3.86-4.86)
--- NOTE | 2022-04-18 23:14 | EDPHYS ---
Physician Documentation [facility] Name: Carol Mclaughlin Age: 46 yrs Sex: Female : 1975 Arrival Date: 04/18/2022 Time: 21:52 Bed 15 Private MD: ED Physician Vicente Ratliff HPI: 04/18 23:05 This 46 yrs old Female presents to ER via Ambulatory with complaints of nay Numbness. 23:05 The patient's problem is reported as paresthesias, weakness, in the left upper nay extremity, in the left lower extremity. Onset: The symptoms/episode began/occurred at 21:30. Duration: This was a single incident, The episode is continuous. Context: the episode(s) was witnessed, by family, symptoms became apparent at 21:30. The symptoms are alleviated by nothing. The symptoms are aggravated by nothing. Associated signs and symptoms: The patient has no apparent associated signs or symptoms. Severity of symptoms: At their worst the symptoms were mild in the emergency department the symptoms are unchanged. Patient's baseline: Neuro: alert and fully oriented. The patient has not experienced similar symptoms in the past. Historical: - Allergies: 22:20 No Known Allergies; jb4 - Home Meds: 22:20 metformin 1,000 mg Oral tab 1 tab 2 times per day [Active]; lisinopril 5 mg Oral tab 1 jb4 tab once daily [Active]; valsartan 80 mg oral tab 1 tab once daily [Active]; - PMHx: 22:20 angina pectoris; Diabetes - NIDDM; Hypertension; jb4 - PSHx: 22:20 ankle SX, L leg; section; Cholecystectomy; left knee repair; jb4 - Immunization history:: Adult Immunizations up to date. - Social history:: Smoking status: Patient denies any tobacco usage or history of. Patient/guardian denies using alcohol. - Family history:: not pertinent. ROS: 23:05 Constitutional: Negative for fever, chills, and weight loss, Eyes: Negative for injury, nay pain, redness, and discharge, ENT: Negative for injury, pain, and discharge, Neck: Negative for injury, pain, and swelling, Cardiovascular: Negative for chest pain, palpitations, and edema, Respiratory: Negative for shortness of breath, cough, wheezing, and pleuritic chest pain, Abdomen/GI: Negative for abdominal pain, nausea, vomiting, diarrhea, and constipation, Back: Negative for injury and pain, : Negative for injury, bleeding, discharge, and swelling, MS/Extremity: Negative for injury and deformity, Skin: Negative for injury, rash, and discoloration, Psych: Negative for depression, anxiety, suicide ideation, homicidal ideation, and hallucinations, Allergy/Immunology: Negative for hives, rash, and allergies, Endocrine: Negative for neck swelling, polydipsia, polyuria, polyphagia, and marked weight changes, Hematologic/Lymphatic: Negative for swollen nodes, abnormal bleeding, and unusual bruising. 23:05 Neuro: Positive for headache, numbness, weakness. Exam: 23:05 Radiologist reports: negative nay 23:05 Constitutional: This is a well developed, well nourished patient who is awake, alert, and in no acute distress. Head/Face: Normocephalic, atraumatic. Eyes: Pupils equal round and reactive to light, extra-ocular motions intact. Lids and lashes normal. Conjunctiva and sclera are non-icteric and not injected. Cornea within normal limits. Periorbital areas with no swelling, redness, or edema. ENT: Nares patent. No nasal discharge, no septal abnormalities noted. Tympanic membranes are normal and external auditory canals are clear. Oropharynx with no redness, swelling, or masses, exudates, or evidence of obstruction, uvula midline. Mucous membranes moist. Neck: Trachea midline, no thyromegaly or masses palpated, and no cervical lymphadenopathy. Supple, full range of motion without nuchal rigidity, or vertebral point tenderness. No Meningismus. Chest/axilla: Normal chest wall appearance and motion. Nontender with no deformity. No lesions are appreciated. Cardiovascular: Regular rate and rhythm with a normal S1 and S2. No gallops, murmurs, or rubs. Normal PMI, no JVD. No pulse deficits. Respiratory: Lungs have equal breath sounds bilaterally, clear to auscultation and percussion. No rales, rhonchi or wheezes noted. No increased work of breathing, no retractions or nasal flaring. Abdomen/GI: Soft, non-tender, with normal bowel sounds. No distension or tympany. No guarding or rebound. No evidence of tenderness throughout. Back: No spinal tenderness. No costovertebral tenderness. Full range of motion. Skin: Warm, dry with normal turgor. Normal color with no rashes, no lesions, and no evidence of cellulitis. MS/ Extremity: Pulses equal, no cyanosis. Neurovascular intact. Full, normal range of motion. Psych: Awake, alert, with orientation to person, place and time. Behavior, mood, and affect are within normal limits. 23:05 Neuro: Orientation: is normal, appropriate for stated age, Mentation: is normal, appropriate for stated age, Memory: appropriate for stated age, no acute changes, Cranial nerves: grossly normal, is grossly normal based on the patient's age, no acute changes, Cerebellar function: no acute changes, Motor: moves all fours, strength is 4/5 in the left arm and left leg, Sensation: light touch is decreased in the left arm and left leg, Gait: not tested. Deep tendon reflexes are 2+ (normal) in the bilateral brachioradialis, bicep, tricep and patellar and Achilles tendons, Babinski testing is normal, seizure activity, is not displayed by the patient. 23:13 ECG was reviewed by the Attending Physician. nay Vital Signs: 22:18 BP 124 / 68; Pulse 84; Resp 16; Temp 97.1(TE); Pulse Ox 100% on R/A; Weight 58.97 kg jb4 (R); Height 5 ft. 4 in. (162.56 cm); Pain 10/10; 23:11 Weight 59.7 kg (M); vc1 23:15 BP 119 / 66; Pulse 84; Resp 14; Pulse Ox 100% ; vc1 23:20 BP 123 / 70; Pulse 84; Resp 16; Pulse Ox 100% ; vc1 23:20 BP 132 / 68; Pulse 80; Resp 15; Pulse Ox 100% ; vc1 23:25 BP 124 / 62; Pulse 91; Resp 21; Pulse Ox 100% ; vc1 23:30 BP 138 / 50; Pulse 93; Resp 25; Pulse Ox 99% ; vc1 23:35 BP 118 / 62; Pulse 81; Resp 15; Pulse Ox 100% on R/A; vc1 23:40 BP 130 / 51; Pulse 79; Resp 16; Pulse Ox 100% ; vc1 23:45 BP 117 / 62; Pulse 78; Resp 14; Pulse Ox 100% on R/A; vc1 23:11 Body Mass Index 22.59 (59.70 kg, 162.56 cm) vc1 NIH Stroke Scale Scores: 23:10 NIHSS Score: 0 vc1 23:18 NIHSS Score: 2 nay MDM: 22:55 Patient medically screened. [facility] 23:05 Differential diagnosis: CVA, TIA, metabolic disorder. Data reviewed: vital signs, [facility] nurses notes, lab test result(s), EKG, radiologic studies, CT scan, plain films. 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 Test interpretation: by ED physician or midlevel provider: ECG, plain radiologic studies. Counseling: I had a detailed discussion with the patient and/or guardian regarding: the historical points, exam findings, and any diagnostic results supporting the discharge/admit diagnosis, lab results, radiology results, the need to transfer to another facility, for higher level of care, [facility] does not immediately have the required specialist. 04/18 22:49 Order name: Basic Metabolic Panel; Complete Time: 00:29 [facility] 04/18 22:49 Order name: CBC with Diff; Complete Time: 00:29 [facility] 04/18 22:49 Order name: Protime (+inr); Complete Time: 00:29 [facility] 04/18 22:49 Order name: Ptt, Activated; Complete Time: 00:29 [facility] 04/18 22:49 Order name: Sed Rate; Complete Time: 00:29 [facility] 04/18 22:49 Order name: CRP; Complete Time: 00:29 [facility] 04/18 22:49 Order name: CT Stroke Brain w/o Contrast [facility] 04/18 22:49 Order name: Stroke CXR 1 View [facility] 04/18 22:59 Order name: Glucose, Ancillary Testing; Complete Time: 00:29 [facility] 04/18 23:04 Order name: CT Head Angio [facility] 04/18 23:04 Order name: CT Neck Angio [facility] 04/18 23:11 Order name: SARS-COV-2 RT PCR (Document "Date of Onset" if Symptomatic) [facility] 04/18 22:49 Order name: EKG; Complete Time: 22:49 [facility] 04/18 22:49 Order name: Accucheck; Complete Time: 22:50 [facility] 04/18 22:49 Order name: Cardiac monitoring; Complete Time: 22:50 mw2 04/18 22:49 Order name: EKG - Nurse/Tech; Complete Time: 22:50 mw2 04/18 22:49 Order name: IV Saline Lock; Complete Time: 22:50 mw2 04/18 22:49 Order name: Labs collected and sent; Complete Time: 22:50 mw2 04/18 22:49 Order name: NPO; Complete Time: 22:50 mw2 04/18 22:49 Order name: O2 Per Protocol; Complete Time: 22:50 mw2 04/18 22:49 Order name: O2 Sat Monitoring; Complete Time: 22:50 mw2 04/18 22:49 Order name: Stroke Swallow Screen; Complete Time: 00:26 mw2 EC:13 Rate is 68 beats/min. Rhythm is regular. QRS Park is Normal. ME interval is normal. QRS nay interval is normal. QT interval is normal. No Q waves. T waves are Normal. No ST changes noted. Clinical impression: NSR w/ Non-specific ST/T Changes and No evidence of ischemia. Interpreted by me. Reviewed by me. Administered Medications: 23:17 Drug: TNK FOR STROKE - Tenecteplase 0.25 mg/kg {Co-Signature: jb4 (Jaskaran Lo vc1 RN).} {Note: 2.95 ml.} Route: IV; Rate: per protocol; Site: right forearm; 23:17 Follow up: IV Status: Completed infusion; IV Intake: 2.99ml vc1 23:18 Follow up: IV Status: Completed infusion; IV Intake: 2.99ml vc1 04/19 00:25 Follow up: Response: No adverse reaction; Marked relief of symptoms vc04/18 23:25 Drug: foLIC Acid 1 mg Route: IVPB; Site: right forearm; vc04/19 00:26 Follow up: IV Status: Completed infusion; IV Intake: 50ml vc1 04/18 23:25 Drug: Pepcid (famotidine) 20 mg Route: IVP; Site: right forearm; vc1 04/19 00:24 Follow up: Response: No adverse reaction; Marked relief of symptoms vc04/18 23:39 Drug: NS 0.9% 1000 ml Route: IV; Rate: 1 bolus; Site: left forearm; vc1 04/19 00:26 Follow up: IV Status: Completed infusion; IV Intake: 1000ml vc1 Point of Care Testing: Blood Glucose: 04/18 23:11 Blood Glucose: 170 mg/dL; vc1 Ranges: Critical Glucose Levels:Adult <50 mg/dl or >400 mg/dl <40 mg/dl or >180 mg/dl Disposition Summary: 04/18/22 23:13 Transfer Ordered Transfer Location: [facility] nay Reason: Higher level of care nay Condition: Fair nay Problem: new nay Symptoms: have improved nay Accepting Physician: stroke team(04/19/22 00:35) vc1 Diagnosis - Cerebral infarction, unspecified - acute ischemic nay Forms: - Medication Reconciliation Form nay - SBAR form nay NIH Stroke Scale - NIH Stroke Score Date: 04/18/2022 Time: 23:10 Total Score = 0 1a. Level of Consciousness (LOC) - 0(Alert) 1b. Level of Consciousness (LOC) (Month \\T\\ Age) - 0(Both) 1c. LOC Commands (Open \\T\\ Closes Eyes/Offal Baler) - 0(Both) 2. Best Gaze (Lateral Gaze Paresis) - 0(Normal) 3. Visual Field Loss - 0(No visual loss) 4. Facial Palsy - 0(Normal) 5a. Left Arm: Motor (10-second hold) - 0(No drift) 5b. Right Arm: Motor (10-second hold) - 0(No drift) 6a. Left Leg: Motor (5-second hold - always test supine) - 0(No drift) 6b. Right Leg: Motor (5-second hold - always test supine) - 0(No drift) 7. Limb Ataxia (finger/nose \\T\\ heel/darnell - test with eyes open) - 0(Absent) 8. Sensory Loss (pinprick arms/legs/face) - 0(Normal) 9. Best Language: Aphasia (description/naming/reading) - 0(No aphasia) 10. Dysarthria (speech clarity - read or repeat words) - 0(Normal) 11. Extinction and Inattention (visual/tactile/auditory/spatial/personal) - 0(No abnormality) Initials: vc1 NIH Stroke Scale - NIH Stroke Score Date: 04/18/2022 Time: 23:18 Total Score = 2 1a. Level of Consciousness (LOC) - 0(Alert) 1b. Level of Consciousness (LOC) (Month \\T\\ Age) - 0(Both) 1c. LOC Commands (Open \\T\\ Closes Eyes/Offal Baler) - 0(Both) 2. Best Gaze (Lateral Gaze Paresis) - 0(Normal) 3. Visual Field Loss - 0(No visual loss) 4. Facial Palsy - 0(Normal) 5a. Left Arm: Motor (10-second hold) - 0(No drift) 5b. Right Arm: Motor (10-second hold) - 0(No drift) 6a. Left Leg: Motor (5-second hold - always test supine) - 0(No drift) 6b. Right Leg: Motor (5-second hold - always test supine) - 0(No drift) 7. Limb Ataxia (finger/nose \\T\\ heel/darnell - test with eyes open) - 1(Present in one limb) 8. Sensory Loss (pinprick arms/legs/face) - 1(Mild to moderate loss) 9. Best Language: Aphasia (description/naming/reading) - 0(No aphasia) 10. Dysarthria (speech clarity - read or repeat words) - 0(Normal) 11. Extinction and Inattention (visual/tactile/auditory/spatial/personal) - 0(No abnormality) Initials: nay Signatures: Dispatcher [employer] Vicente Delacruz MD MD cha Bryson, James, RN RN jb4 Avani Aiken 2 Asya West RN RN vc1 Jaskaran Lo RN jb4 Corrections: (The following items were deleted from the chart) 04/19 00:35 04/18 23:13 stroke team nay aquino
--- NOTE | 2022-04-18 23:14 | ER ---
Nurse's Notes [facility] Name: Carol Mclaughlin Age: 46 yrs Sex: Female : 1975 Arrival Date: 04/18/2022 Time: 21:52 Bed 15 Private MD: Diagnosis: Cerebral infarction, unspecified-acute ischemic Presentation: 04/18 22:18 Chief complaint: Patient states: At 2130 tonight I started having a left sided jb4 headache, numbness over my whole body, left arm tingling, and I feel weak all over. I also have had chills, nausea, fatigued. Coronavirus screen: chills, fatigue, headache, nausea, Client presents with at least one sign or symptom that may indicate coronavirus-19. Standard/surgical mask placed on the client. Provider contacted for isolation considerations. Ebola Screen: No symptoms or risks identified at this time. Initial Sepsis Screen: Does the patient meet any 2 criteria? No. Patient's initial sepsis screen is negative. Does the patient have a suspected source of infection? No. Patient's initial sepsis screen is negative. Risk Assessment: Do you want to hurt yourself or someone else? Patient reports no desire to harm self or others. Onset of symptoms was April 18, 2022. Transition of care: patient was not received from another setting of care. 22:18 Method Of Arrival: Ambulatory jb4 22:18 Acuity: GORGE 3 jb4 22:30 An acute neurological deficit is present. The charge nurse has been notified. vc1 Triage Assessment: 22:30 The onset of the patients symptoms was April 18, 2022 at 21:30. General: Appears in no vc1 apparent distress. uncomfortable, Behavior is calm, cooperative, appropriate for age. Pain: Complains of pain in back of left side of head. Neuro: Level of Consciousness is awake, alert, obeys commands, Oriented to person, place, time, situation, Appropriate for age Reports headache in left occipital area, numbness. Cardiovascular: Capillary refill < 3 seconds Patient's skin is warm and dry. Respiratory: Airway is patent Respiratory effort is even, unlabored, Respiratory pattern is regular, symmetrical. GI: No deficits noted. : No deficits noted. Stroke Activation: Symptom onset < 3 hours Physician: Stroke Attending; Name: ; Notified At: ; Arrived At: Physician: Chief Stroke Resident; Name: ; Notified At: ; Arrived At: Physician: Stroke Resident; Name: ; Notified At: ; Arrived At: Physician: ED Attending; Name: ; Notified At: ; Arrived At: Physician: ED Resident; Name: ; Notified At: ; Arrived At: Historical: - Allergies: 22:20 No Known Allergies; jb4 - Home Meds: 22:20 metformin 1,000 mg Oral tab 1 tab 2 times per day [Active]; lisinopril 5 mg Oral tab 1 jb4 tab once daily [Active]; valsartan 80 mg oral tab 1 tab once daily [Active]; - PMHx: 22:20 angina pectoris; Diabetes - NIDDM; Hypertension; jb4 - PSHx: 22:20 ankle SX, L leg; section; Cholecystectomy; left knee repair; jb4 - Immunization history:: Adult Immunizations up to date. - Social history:: Smoking status: Patient denies any tobacco usage or history of. Patient/guardian denies using alcohol. - Family history:: not pertinent. Screenin:00 Abuse screen: Denies threats or abuse. Nutritional screening: No deficits noted. vc1 Tuberculosis screening: No symptoms or risk factors identified. Fall Risk None identified. Assessment: 22:30 VAN Scoring: Arm Drift: Patients demonstrates NO arm weakness. Patient is VAN Negative. jb4 Visual Disturbance: No visual disturbance noted. Aphasia: No aphasia noted. Neglect: No neglect noted. 23:10 Patient has been NPO before screening. The patient is alert, and able to follow vc1 commands. The patient does not exhibit slurred or garbled speech. The patient is not exhibiting difficulty speaking. The patient does not exhibit difficulty understanding words. The patient is able to swallow own secretions with no drooling or need for suction. Patient tolerated one teaspoon of water. No drooling, immediate coughing, gurgling, or clearing of the throat was noted. The patient tolerated 90mL of water. No drooling, immediate coughing, gurgling, or clearing of the throat was noted. The patient passed the bedside swallow screening. Oral medications may be given as ordered. Contact Physician for further diet orders. Provider notified of bedside swallow screening results: Vicente Ratliff MD. TNKase (Tenecteplase) Screening: Indications: Definite evidence of stroke, ischemic, embolic, or hypertensive: Yes. Treatment will start within 4.5 hours onset of symptoms: Yes. No evidence of intracranial hemorrhage or CT of head and no evidence of peripheral hemorrhage or recent CVA: Yes. Consent for thrombolytic therapy: Yes. 23:30 Pain: Complains of pain in left occipital area Pain does not radiate. Pain currently is vc1 7 out of 10 on a pain scale. 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 04/19 00:00 Reassessment: Patient and/or family updated on plan of care and expected duration. Pain vc1 level reassessed. Patient is alert, oriented x 3, equal unlabored respirations, skin warm/dry/pink. Patient states feeling better. Patient states symptoms have improved. Vital Signs: 04/18 22:18 BP 124 / 68; Pulse 84; Resp 16; Temp 97.1(TE); Pulse Ox 100% on R/A; Weight 58.97 kg jb4 (R); Height 5 ft. 4 in. (162.56 cm); Pain 10/10; 23:11 Weight 59.7 kg (M); vc1 23:15 BP 119 / 66; Pulse 84; Resp 14; Pulse Ox 100% ; vc1 23:20 BP 123 / 70; Pulse 84; Resp 16; Pulse Ox 100% ; vc1 23:20 BP 132 / 68; Pulse 80; Resp 15; Pulse Ox 100% ; vc1 23:25 BP 124 / 62; Pulse 91; Resp 21; Pulse Ox 100% ; vc1 23:30 BP 138 / 50; Pulse 93; Resp 25; Pulse Ox 99% ; vc1 23:35 BP 118 / 62; Pulse 81; Resp 15; Pulse Ox 100% on R/A; vc1 23:40 BP 130 / 51; Pulse 79; Resp 16; Pulse Ox 100% ; vc1 23:45 BP 117 / 62; Pulse 78; Resp 14; Pulse Ox 100% on R/A; vc1 23:11 Body Mass Index 22.59 (59.70 kg, 162.56 cm) vc1 NIH Stroke Scale Scores: 23:10 NIHSS Score: 0 vc1 23:18 NIHSS Score: 2 [facility] ED Course: 21:52 Patient arrived in ED. bp1 22:20 Triage completed. jb4 22:20 Arm band placed on right wrist. jb4 22:40 Patient has correct armband on for positive identification. Placed in gown. Bed in low vc1 position. Call light in reach. Side rails up X2. Client placed on continuous cardiac and pulse oximetry monitoring. NIBP monitoring applied. 22:49 Inserted saline lock: 20 gauge in right forearm, using aseptic technique. Blood vc1 collected. 22:52 CT Stroke Brain w/o Contrast In Process Unspecified. EDMS 22:55 Vicente Ratliff MD is Attending Physician. [facility] 23:12 initiated a transfer with Mariama from [facility] Transfer [place]. [facility] 23:15 Stroke CXR 1 View In Process Unspecified. EDMS 23:21 SARS-COV-2 RT PCR (Document "Date of Onset" if Symptomatic) Sent. 5 23:21 COVID swab sent to lab. [facility] 23:28 administrative approval given by Mariama Walsh/ patient has been accepted to [address] [place] [address] bed 11/ Dr. Jin accepted the patient in transfer/report to be called to [phone]. 04/19 00:10 SARS-COV-2 RT PCR (Document "Date of Onset" if Symptomatic) Sent. 00:15 Asya West, RN is Primary Nurse. vc1 00:28 CT Head Angio In Process Unspecified. EDMS 00:29 CT Neck Angio In Process Unspecified. EDMS 00:31 No provider procedures requiring assistance completed. Patient transferred, IV remains vc1 in place. Administered Medications: 04/18 23:17 Drug: TNK FOR STROKE - Tenecteplase 0.25 mg/kg {Co-Signature: pricila (Jaskaran Lo vc1 RN).} {Note: 2.95 ml.} Route: IV; Rate: per protocol; Site: right forearm; 23:17 Follow up: IV Status: Completed infusion; IV Intake: 2.99ml vc1 23:18 Follow up: IV Status: Completed infusion; IV Intake: 2.99ml vc1 04/19 00:25 Follow up: Response: No adverse reaction; Marked relief of symptoms vc1 04/18 23:25 Drug: foLIC Acid 1 mg Route: IVPB; Site: right forearm; vc1 04/19 00:26 Follow up: IV Status: Completed infusion; IV Intake: 50ml vc1 04/18 23:25 Drug: Pepcid (famotidine) 20 mg Route: IVP; Site: right forearm; vc1 04/19 00:24 Follow up: Response: No adverse reaction; Marked relief of symptoms vc1 04/18 23:39 Drug: NS 0.9% 1000 ml Route: IV; Rate: 1 bolus; Site: left forearm; vc1 04/19 00:26 Follow up: IV Status: Completed infusion; IV Intake: 1000ml vc1 Medication: 04/18 23:30 VIS not applicable for this client. vc1 Point of Care Testing: Blood Glucose: 23:11 Blood Glucose: 170 mg/dL; vc1 Ranges: Intake: 23:17 IV: 3ml; Total: 3ml. vc1 23:18 IV: 3ml; Total: 6ml. vc1 04/19 00:26 IV: 1000ml; Total: 1006ml. vc1 00:26 IV: 50ml; Total: 1056ml. vc1 Outcome: 04/18 23:13 ER care complete, transfer ordered by . [facility] 04/19 00:31 Transferred by ground EMS to [facility], Transfer form completed. vc1 X-rays sent w/ patient. Condition: good Instructed on the need for transfer. 00:35 Patient left the ED. vc1 NIH Stroke Scale - NIH Stroke Score Date: 04/18/2022 Time: 23:10 Total Score = 0 1a. Level of Consciousness (LOC) - 0(Alert) 1b. Level of Consciousness (LOC) (Month \\T\\ Age) - 0(Both) 1c. LOC Commands (Open \\T\\ Closes Eyes/Hairspring Fabrication Supervisor) - 0(Both) 2. Best Gaze (Lateral Gaze Paresis) - 0(Normal) 3. Visual Field Loss - 0(No visual loss) 4. Facial Palsy - 0(Normal) 5a. Left Arm: Motor (10-second hold) - 0(No drift) 5b. Right Arm: Motor (10-second hold) - 0(No drift) 6a. Left Leg: Motor (5-second hold - always test supine) - 0(No drift) 6b. Right Leg: Motor (5-second hold - always test supine) - 0(No drift) 7. Limb Ataxia (finger/nose \\T\\ heel/darnell - test with eyes open) - 0(Absent) 8. Sensory Loss (pinprick arms/legs/face) - 0(Normal) 9. Best Language: Aphasia (description/naming/reading) - 0(No aphasia) 10. Dysarthria (speech clarity - read or repeat words) - 0(Normal) 11. Extinction and Inattention (visual/tactile/auditory/spatial/personal) - 0(No abnormality) Initials: vc1 NIH Stroke Scale - NIH Stroke Score Date: 04/18/2022 Time: 23:18 Total Score = 2 1a. Level of Consciousness (LOC) - 0(Alert) 1b. Level of Consciousness (LOC) (Month \\T\\ Age) - 0(Both) 1c. LOC Commands (Open \\T\\ Closes Eyes/Hairspring Fabrication Supervisor) - 0(Both) 2. Best Gaze (Lateral Gaze Paresis) - 0(Normal) 3. Visual Field Loss - 0(No visual loss) 4. Facial Palsy - 0(Normal) 5a. Left Arm: Motor (10-second hold) - 0(No drift) 5b. Right Arm: Motor (10-second hold) - 0(No drift) 6a. Left Leg: Motor (5-second hold - always test supine) - 0(No drift) 6b. Right Leg: Motor (5-second hold - always test supine) - 0(No drift) 7. Limb Ataxia (finger/nose \\T\\ heel/darnell - test with eyes open) - 1(Present in one limb) 8. Sensory Loss (pinprick arms/legs/face) - 1(Mild to moderate loss) 9. Best Language: Aphasia (description/naming/reading) - 0(No aphasia) 10. Dysarthria (speech clarity - read or repeat words) - 0(Normal) 11. Extinction and Inattention (visual/tactile/auditory/spatial/personal) - 0(No abnormality) Initials: nay Signatures: Dispatcher [employer] Vicente Delacruz MD MD cha Bryson, James, MARTIN RN [email or web address] Louise Love 5 Avani Aiken 2 PaniaNuria wong Wendy wm Calcote, Vanessa, RN RN vc1 Jaskaran Lo RN jb4 Corrections: (The following items were deleted from the chart) 04/18 22:29 22:18 Chief complaint: Patient states: I started having a left sided headache, jb4 numbness over my whole body, left arm tingling, and I feel weak all over. I also have had chills, nausea, fatigued. jb4
[2022-04-18] MEDS ORDERED: TENECTEPLASE 50 MG/10 ML VIAL IV ONE (23:18)
[2022-04-18 23:22] LABS: C-Reactive Protein 6.87 mg/L (<3.00)
[2022-04-18] MEDS ORDERED: FAMOTIDINE 20 MG/2 ML VIAL IV ONE (23:25)
[2022-04-18] MEDS ORDERED: NA CHLORIDE 0.9% 1,000 ML ONE (23:25)
[2022-04-18] MEDS ORDERED: FOLIC ACID 5 MG/ML VIAL ONE (23:26)
[2022-04-18 23:30] LABS: Protime INR 1.04
[2022-04-19] MEDS ORDERED: ACETAMINOPHEN 500 MG TAB ONE (00:01)
[2022-04-19 01:26] VITALS: TEMP 97.1
[2022-04-19 01:35] VITALS: O2SAT 100
[2022-04-19 01:37] VITALS: BP 117/62
--- NOTE | 2022-04-19 13:46 | EKG ---
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
--- NOTE | 2022-04-19 13:51 | RAD REPORT ---
EXAM DESCRIPTION: Ct Stroke Brain Wo Cont CLINICAL HISTORY: 46 years Female Numbness/tingling TECHNIQUE: Axial noncontrast CT head with coronal and sagittal reformats. All CT scans at this [facility] use dose modulation, iterative reconstruction, and/or weight based dosing when appropriate to red uce radiation dose to as low as reasonably achievable. COMPARISON: 10/31/2021. FINDINGS: Brain: No obvious large acute territorial infarction. No intracranial hemorrhage, midline shift, mass or mass effect. Ventricles: No hydrocephalus. Orbits: Unremarkable. Sinuses: Visualized portions are clear. Mastoid: Clear. Osseous: Unremarkable. Soft tissues: Unremarkable. IMPRESSION: No acute CT abnormality. Electronically signed by: Ruiz Baer MD 04/18/2022 11:06 PM CDT THIS REPORT CONTAINS FINDINGS THAT MAY BE CRITICAL TO PATIENT CARE: The findings were verbally discu ssed via telephone conference with Vicente Ratliff MD on 04/18/2022 at 11:06 PM CDT. Due to temporary technical issues with the PACS/Fluency reporting system, reports are being signed by the in house radiologists without review as a courtesy to insure prompt reporting. The interpreting radiologist is fully responsible for the content of the report.
--- NOTE | 2022-04-19 14:55 | RAD REPORT ---
EXAM DESCRIPTION: Head angio (accession [id number]), Neck Angio (accession [id number]) 04/19/20 2:22 AM CDT CLINICAL HISTORY: 46 years, Female, Neuro deficit, acute, stroke suspected COMPARISON: Recent CT scan of the head performed 04/18/2022 10:44 PM. TECHNIQUE: Multiple transaxial tomograms from the aortic arch through the brain were performed after administration of large bolus of IV contrast for complete opacification of the carotid arteries and intracranial vessels. Subsequent 2-D and 3-D multiplanar reformats, volume rendering technique and maximum intensity projec tion images were generated and reviewed. Stenosis measurements were performed according to NASCET cri teria. This exam was performed according to our departmental dose-optimization protocol, which includes auto mated exposure control, adjustment of the mA and/or kV according to patient size and/or use of iterat elver reconstruction technique. FINDINGS: Ascending aorta: There is a normal branching pattern of the great vessels off the arch. There is slight right vertebral artery dominance with normal opacification of both vertebral arteri es. No great vessel origin stenosis is identified. Right carotid artery: Normal opacification is demonstrated within the right common carotid artery a nd at the carotid bifurcation the right carotid bulb demonstrate to be unremarkable. No focal areas o f significant stenosis. The proximal mid and distal portions of the right internal carotid artery dem onstrate to be unremarkable. Left carotid artery: Normal opacification is demonstrated within the left common carotid artery an d at the carotid bifurcation the left carotid bulb demonstrate to be unremarkable. No focal areas of significant stenosis. The proximal mid and distal portions of the left internal carotid artery demons trate to be unremarkable. Intracranial circulation: Intracranial portions of the internal carotid arteries the cavernous sinus portions demonstrates no focal areas of significant. There is absence/hypoplastic left A1 segment. Ot herwise the anterior cerebral arteries, middle cerebral arteries and its branches demonstrate normal opacification with no evidence for significant stenosis aneurysm and/or occlusion. There is normal ve nous drainage with no evidence for sinus vein thrombosis. Vertebrobasilar system: The posterior circulation demonstrate slight right vertebral artery dominance with no evidence for significant stenosis and/or evidence for significant dissection. The vertebroba silar system and TEACHER TUTOR demonstrate to be normal with no evidence for aneurysm and/or occlusion. Grossly the brain parenchyma demonstrate normal lion-white matter differentiation with no evidence fo r mass effect and/or midline shift. There is no evidence for abnormal parenchymal enhancement The skull base and intracranial structures demonstrate to be within normal limits. Lung apex: No gross abnormalities are noted within the apices. IMPRESSION: No evidence for significant stenosis and/or occlusion involving the major intracranial v essels. Absent/hypoplastic left A1 segment, most likely congenital. Slight right vertebral artery dominance. No evidence for significant stenosis and/or occlusion of the cervical carotid or vertebral arteries. Electronically signed by: Catrachito Díaz MD 04/19/2022 2:31 AM CDT Due to temporary technical issues with the PACS/Fluency reporting system, reports are being signed by the in house radiologists without review as a courtesy to insure Prompt reporting. The interpreting radiologist is fully responsible for the content of the report.
--- NOTE | 2022-04-19 14:58 | RAD REPORT ---
EXAM DESCRIPTION: Head angio (accession [id number]), Neck Angio (accession [id number]) 04/19/20 2:22 AM CDT CLINICAL HISTORY: 46 years, Female, Neuro deficit, acute, stroke suspected COMPARISON: Recent CT scan of the head performed 04/18/2022 10:44 PM. TECHNIQUE: Multiple transaxial tomograms from the aortic arch through the brain were performed after administration of large bolus of IV contrast for complete opacification of the carotid arteries and intracranial vessels. Subsequent 2-D and 3-D multiplanar reformats, volume rendering technique and maximum intensity projec tion images were generated and reviewed. Stenosis measurements were performed according to NASCET cri teria. This exam was performed according to our departmental dose-optimization protocol, which includes auto mated exposure control, adjustment of the mA and/or kV according to patient size and/or use of iterat elver reconstruction technique. FINDINGS: Ascending aorta: There is a normal branching pattern of the great vessels off the arch. There is slight right vertebral artery dominance with normal opacification of both vertebral arteri es. No great vessel origin stenosis is identified. Right carotid artery: Normal opacification is demonstrated within the right common carotid artery a nd at the carotid bifurcation the right carotid bulb demonstrate to be unremarkable. No focal areas o f significant stenosis. The proximal mid and distal portions of the right internal carotid artery dem onstrate to be unremarkable. Left carotid artery: Normal opacification is demonstrated within the left common carotid artery an d at the carotid bifurcation the left carotid bulb demonstrate to be unremarkable. No focal areas of significant stenosis. The proximal mid and distal portions of the left internal carotid artery demons trate to be unremarkable. Intracranial circulation: Intracranial portions of the internal carotid arteries the cavernous sinus portions demonstrates no focal areas of significant. There is absence/hypoplastic left A1 segment. Ot herwise the anterior cerebral arteries, middle cerebral arteries and its branches demonstrate normal opacification with no evidence for significant stenosis aneurysm and/or occlusion. There is normal ve nous drainage with no evidence for sinus vein thrombosis. Vertebrobasilar system: The posterior circulation demonstrate slight right vertebral artery dominance with no evidence for significant stenosis and/or evidence for significant dissection. The vertebroba silar system and CUTTING MACHINE OPERATOR demonstrate to be normal with no evidence for aneurysm and/or occlusion. Grossly the brain parenchyma demonstrate normal lion-white matter differentiation with no evidence fo r mass effect and/or midline shift. There is no evidence for abnormal parenchymal enhancement The skull base and intracranial structures demonstrate to be within normal limits. Lung apex: No gross abnormalities are noted within the apices. IMPRESSION: No evidence for significant stenosis and/or occlusion involving the major intracranial v essels. Absent/hypoplastic left A1 segment, most likely congenital. Slight right vertebral artery dominance. No evidence for significant stenosis and/or occlusion of the cervical carotid or vertebral arteries. Electronically signed by: Catrachito Díaz MD 04/19/2022 2:31 AM CDT Due to temporary technical issues with the PACS/Fluency reporting system, reports are being signed by the in house radiologists without review as a courtesy to insure Prompt reporting. The interpreting radiologist is fully responsible for the content of the report.
--- NOTE | 2022-04-19 16:23 | RAD REPORT ---
EXAM DESCRIPTION: Chest Radiography COMPARISON: None. CLINICAL HISTORY: HS MAIN code stroke FINDINGS: A single AP view of the chest demonstrates a normal cardiomediastinal silhouette. No pneumothorax or pleural effusion. No consolidation or pulmonary edema. Osseous structures are intact. IMPRESSION: No acute chest process. Electronically signed by: Brian Estrada MD 04/18/2022 11:56 PM CDT Due to temporary technical issues with the PACS/Fluency reporting system, reports are being signed by the in house radiologists without review as a courtesy to insure prompt reporting. The interpreting radiologist is fully responsible for the content of the report.
== END 2022-04-19 00:35 | disposition short-term general hospital (02) ==
LOC: ER 21:48
DX: I63.9 Cerebral infarction, unspecified (principal); R29.702 NIHSS score 2; I10 Essential (primary) hypertension; E11.9 Type 2 diabetes mellitus without complications; Z20.822 Contact with and (suspected) exposure to COVID-19
CPT/HCPCS: 36415; 70450; 70496; 70498; 71045; 80048; 82947; 85025; 85610; 85652; 85730; 86140; 92977; 93005; 96365; 96375; 99285; J3101; J3490; J7030; Q9967; U0003

== ENCOUNTER 2023-02-08 00:16 | Emergency (ER) | payer OTHER, SELFPAY ==
--- OUTSIDE RECORDS SUMMARY | 2023-02-08 00:20 | XMS REPORT | Continuity of Care Document ---
:1975 Author Organization [facility] t Address [address] [facility] [address] [place] [address] Care Team Providers Name Role Phone No, Pcp [facility] Primary Care Physician Unavailable Praveen Jin MD Attending Clinician [phone] Anthony Tolliver MD, I. Attending Clinician [phone] ANTHONY TOLLIVER I. Attending Clinician Unavailable SAÚL LOMBARDO Attending Clinician Unavailable PRAVEEN JIN Admitting Clinician Unavailable SAÚL LOMBARDO Admitting Clinician Unavailable Payers Payer Name Policy Type Policy Number Effective Date Expiration Date S ource Problems Condition Condition Condition Status Onset Resolution Last Treating Co mments Source Name Details Category Date Date Treatment Clinician Date Stroke Stroke Disease Recurre [facility] 00 [facility] Migraine Migraine Disease Active [facility] with aura with aura 00:00: Medi juanito 00 Center Hyponatrem Hyponatrem Disease Active [facility] 00:00: Medical 00 [facility] Diabetes Diabetes Disease Recurre 2016-[address] mellitus mellitus nce 2[facility]02 [facility] type 2 in type 2 in 00:00: Medi juanito nonobese nonobese 00 Mathews Left sided Left sided Disease Active 2016-[address] numbness numbness 2[facility]02 [facility] 00:00: Medical 00 [facility] Essential Essential Disease Active 2016-[address] hypertensi hypertensi 2-02 Lorie kes on on 00:00: Medical 00 Mathews Headache Headache Disease Active 2016-10 [facility] 00:[facility]: Medical 00 Center Allergies, Adverse Reactions, Alerts Allergy Allergy Status Severity Reaction(s) Onset Inactive Treating Comm ents Source Name Type Date Date Clinician NO KNOWN Allergy Active [facility] Social History Social Habit Start Date Stop Date Quantity Comments Source History [facility] Non-Med Medical Center History [facility] 2022-04-19 2022-04-[address] [facility] Housing Places 00:00:00 00:00:00 Medical Ce nter Lived History [facility] 2022-04-19 2022-04-[address] [employer] [facility] Homeless 00:00:00 00:00:00 Medical Center Last Year Alcohol intake 2022-04-19 2022-04-19 Ex-drinker [facility] 00:00:00 00:00:00 (finding) Medical Center History [facility] 2022-04-19 2022-04-[address] [facility] Transport Med 00:00:00 00:00:[address] [facility] [address] History [facility] 2022-04-19 2022-04-[address] [employer] [facility] Unable to 00:00:00 00:00:00 Medical Center Pay Sex Assigned At [birth year] [facility] 00:00:00 00:00:00 Medical Center Smoking Status Start Date Stop Date Source Never smoked tobacco [facility] Medications Ordered Filled Start Stop Current Ordering Indication Dosage Frequency Signature Comments Components Source Medication Medication Date Date Medication? Clinician (SIG) Name Name metFORMIN Yes 1000mg Take 1,[address] (GLUCOPHAGE 7-12 mg by [facility] ) 1000 MG 17:25: mouth 2 Medic al tablet 17 (two) Center times daily with breakfast and dinner. glyBURIDE Yes 1.25mg Take 1.[address] (DIABETA) 7-12 mg by [facility] 1.25 MG 17:25: mouth 2 Medical tablet 17 (two) Center times daily with breakfast and dinner. lisinopril Yes 10mg QD Take [address] (PRINIVIL,Z 7-12 by mouth Luke s ESTRIL) 10 17:25: daily. Medic al MG tablet 17 Center liraglutide Yes 1.5mg Inject 1.[address] 0.6 mg/0.1 7-12 mg [facility] mL (18 mg/3 17:25: subcutaneo Medical mL) PnIj 17 usly daily Cente r with breakfast. metFORMIN Yes 1000mg Take 1,[address] (GLUCOPHAGE 7-12 mg by [facility] ) 1000 MG 17:25: mouth 2 Medic al tablet 17 (two) Center times daily with breakfast and dinner. glyBURIDE Yes 1.25mg Take 1.[address] (DIABETA) 7-12 mg by [facility]ukes 1.25 MG 17:25: mouth 2 Medical tablet 17 (two) Center times daily with breakfast and dinner. lisinopril Yes 10mg QD Take [address] (PRINIVIL,Z 7-12 by mouth Luke s ESTRIL) 10 17:25: daily. Medic al MG tablet 17 Center liraglutide Yes 1.5mg Inject 1.[address] 0.6 mg/0.1 7-12 mg [facility]ukes mL (18 mg/3 17:25: subcutaneo Medical mL) PnIj 17 usly daily Cente r with breakfast. Vital Signs Vital Name Observation Time Observation Value Comments Source HEIGHT 2022-04-19 01:50:00 162.6 cm WEIGHT 2022-04-19 01:50:00 57.1 kg HEIGHT 2022-04-19 01:50:00 162.6 cm WEIGHT 2022-04-19 01:50:00 57.1 kg HEIGHT 2022-04-19 01:50:00 162.6 cm WEIGHT 2022-04-19 01:50:00 57.1 kg Systolic blood 2022-04-20 15:00:00 120 mm[Hg] [facility] Diastolic blood 2022-04-20 15:00:00 72 mm[Hg] [facility] S [facility] Heart rate 2022-04-20 15:00:00 85 /min [facility] Respiratory rate 2022-04-20 15:00:00 10 /min [facility] Oxygen saturation in 2022-04-20 15:00:00 98 /min [facility] Arterial blood by Medical Ce nter Pulse oximetry Body temperature 2022-04-20 12:00:00 36.78 Noemí [facility] Body height 2022-04-19 01:50:00 162.6 cm [facility] Body weight 2022-04-19 01:50:00 57.1 kg [facility] BMI 2022-04-19 01:50:00 21.61 kg/m2 [facility] Procedures Procedure Date / Time Performing Clinician Source Performed POCT-GLUCOSE METER 2022-04-20 11:07:00 Anthony Tolliver I. [facility] POCT-GLUCOSE METER 2022-04-20 07:27:00 Anthony Tolliver [facility] CBC (HEMOGRAM ONLY) 2022-04-20 03:16:00 [facility] BASIC METABOLIC PANEL 2022-04-20 03:16:00 [facility] MAGNESIUM 2022-04-20 03:16:00 [facility] PHOSPHORUS 2022-04-20 03:16:00 [facility] POCT-GLUCOSE METER 2022-04-19 22:54:00 Anthony Tolliver CH [facility] MR BRAIN WITHOUT IV 2022-04-19 21:43:00 Yolanda Delgado HI [facility] CONTRAST [facility] MRA HEAD WITHOUT IV 2022-04-19 21:43:00 Yolanda Delgado [facility] CONTRAST [facility] MRA NECK WITHOUT IV 2022-04-19 21:43:00 Yolanda Delgado [facility] CONTRAST [facility] POCT-GLUCOSE METER 2022-04-19 16:19:00 Anthony Tolliver I. [facility] POCT-GLUCOSE METER 2022-04-19 11:00:00 Anthony Tolliver I. [facility] 2D ECHO W/ DOPPLER 2022-04-19 09:36:00 Joan Khan CH I [facility] (CW/PW/COLOR) [facility] SCREEN, URINE 2022-04-19 07:57:00 [facility] SARS-COV2/RT-PCR ([facility] & 2022-04-19 05:37:00 Jerry Claudio [facility] REF LABS) Medical Mathews XR CHEST 1 VIEW PORTABLE 2022-04-19 04:27:00 Jerry Claudio [facility] / BEDSIDE Medical Center ECG 12-LEAD 2022-04-19 03:01:41 Pittavivek [facility] ECG 12-LEAD 2022-04-19 03:01:41 Unknown, Hl7 Doctor [facility] ECG 12-LEAD 2022-04-19 03:01:41 Unknown, Hl7 Doctor [facility] CBC W/PLT COUNT & AUTO 2022-04-19 02:37:00 [facility] COMPREHENSIVE METABOLIC 2022-04-19 02:37:[address] [facility] [facility] PANEL [facility] MAGNESIUM 2022-04-19 02:37[facility]OS[facility] 2022-04-19 02:37:00 [facility] TSH/FREE T4 IF INDICATED 2022-04-19 02:37:00 [facility] LIPID PANEL 2022-04-19 02:37:00 [facility] CALCIUM, IONIZED 2022-04-19 02:37:00 [facility] PROTHROMBIN TIME/INR 2022-04-19 02:37:00 [facility] APTT 2022-04-19 02:37:00 [facility] HIGH SENSITIVITY TROPONIN 2022-04-19 02:37:00 Joan Gray [facility] CBC W/PLT COUNT & AUTO 2022-04-19 02:37:[facility] 2022-04-19 00:00:00 Provider, Default [facility] Plan of Care Planned Activity Planned Date Details Comments Source Future Scheduled 2025-04-19 Lipid panel (procedure) [facility] Test 00:00:00 [code = 47983423] Medical Ce nter Future Scheduled 2025-04-19 Lipid panel (procedure) [facility] 00:00:00 [code = 33255786] Medical Ce nter Future Scheduled 2023-06-[address] [facility] Test 00:00:00 (Season Ended) [code = Medic al Center INFLUENZA VACCINE (Season Ended)] Future Scheduled 2023-06-[address] [facility] Test 00:00:00 (Season Ended) [code = [facility] Center INFLUENZA VACCINE (Season Ended)] Future Scheduled 2022-10-[address] [facility] Test 00:00:00 (12+) [code = [facility] DEPRESSION SCREENING (12+)] Future Scheduled 2022-10-[address] [facility] Test 00:00:00 (12+) [code = [facility] Center DEPRESSION SCREENING (12+)] Future Scheduled 2018-03-[address] [facility] Test 00:00:00 measurement (procedure) [facility] [code = 32295860] Future Scheduled 2018-03-[address] [facility] Test 00:00:00 measurement (procedure) [facility] [code = 36444647] Future Scheduled 1995 Screening for malignant [facility] Test 00:00:00 neoplasm of cervix Medical C enter (procedure) [code = 884374209] Future Scheduled 1995 Screening for malignant [facility] Test 00:00:00 neoplasm of cervix Medical C enter (procedure) [code = 601500241] Future Scheduled 1993 DTAP/TDAP/TD VACCINES [facility] 00:00:00 (1 - Tdap) [code = Medical C enter DTAP/TDAP/TD VACCINES (1 - Tdap)] Future Scheduled 1993 DTAP/TDAP/TD VACCINES [facility] 00:00:00 (1 - Tdap) [code = Medical C enter DTAP/TDAP/TD VACCINES (1 - Tdap)] Future Scheduled 1992 HEPATITIS C SCRE[facility]ING [facility] 00:00:00 [code = HEPATITIS C Medical Center SCREENING] Future Scheduled 1992 HEPATITIS C [facility]CRE[facility]ING [facility] 00:00:00 [code = HEPATITIS C Medical Center SCREENING] Future Scheduled [address] [facility] Test 00:00:00 Counseling and Medical Cente r Screening (12+) [code = Tobacco Cessation Counseling and Screening (12+)] Future Scheduled [address] [facility] Test 00:00:00 Counseling and Medical Cente r Screening (12+) [code = Tobacco Cessation Counseling and Screening (12+)] Future Scheduled 1984 DIABETIC EYE EXAM [code [facility] 00:00:00 = DIABETIC EYE EXAM] Medical Center Future Scheduled [address] [facility] Test 00:00:00 examination Medical Center (regime/therapy) [code = 921490866] Future Scheduled 1984 Urine screening for [facility] Test 00:00:00 protein (procedure) Medical Center [code = 952887905] Future Scheduled 1984 DIABETIC EYE EXAM [code [facility] 00:00:00 = DIABETIC EYE EXAM] Medical Center Future Scheduled [address] [facility] Test 00:00:00 examination Medical Center (regime/therapy) [code = 203918015] Future Scheduled 1984 Urine screening for [facility] Test 00:00:00 protein (procedure) Medical Center [code = 995729948] Future Scheduled [address] [facility] Test 00:00:00 0-64 YRS (1 - PCV) Medical C enter [code = PNEUMOCOCCAL VACCINE 0-64 YRS (1 - PCV)] Future Scheduled [address] [facility] Test 00:00:00 0-64 YRS (1 - PCV) Medical C enter [code = PNEUMOCOCCAL VACCINE 0-64 YRS (1 - PCV)] Future Scheduled 1974 COVID-19 VACCINE (#1) [facility] 00:00:00 [code = COVID-[address] VACCINE (#1)] Future Scheduled 1974 COVID-19 VACCINE (#1) [facility] 00:00:00 [code = COVID-[address] VACCINE (#1)] Future Scheduled 1975 Sigmoidoscopy [code = [facility] 00:00:00 Sigmoidoscopy] Medical Cente r Future Scheduled 1974 CT Colonography (combo) [facility] Test 00:00:00 [code = CT Colonography Medi juanito Center (combo)] Future Scheduled 1974 Screening for malignant [facility] Test 00:00:00 neoplasm of colon Medical Ce nter (procedure) [code = 500507679] Future Scheduled 1974 Screening for malignant [facility] Test 00:00:00 neoplasm of colon Medical Ce nter (procedure) [code = 665931295] Future Scheduled 1974 Screening for malignant [facility] Test 00:00:00 neoplasm of colon Medical Ce nter (procedure) [code = 398286771] Future Scheduled 1974 Screening for malignant [facility] Test 00:00:00 neoplasm of colon Medical Ce nter (procedure) [code = 948709080] Future Scheduled 1974 Sigmoidoscopy [code = [facility] 00:00:00 Sigmoidoscopy] Medical Cente r Future Scheduled 1974 CT Colonography (combo) [facility] Test 00:00:00 [code = CT Colonography Medi juanito Center (combo)] Future Scheduled 1974 Screening for malignant [facility] Test 00:00:00 neoplasm of colon Medical Ce nter (procedure) [code = 015399003] Future Scheduled 1974 Screening for malignant [facility] Test 00:00:00 neoplasm of colon Medical Ce nter (procedure) [code = 457129549] Future Scheduled 1974 Screening for malignant [facility] Test 00:00:00 neoplasm of colon Medical Ce nter (procedure) [code = 940195021] Future Scheduled 1974 Screening for malignant [facility] Test 00:00:00 neoplasm of colon Medical Ce nter (procedure) [code = 667679931] Encounters Start End Encounter Admission Attending Care Care Encounter Source Date/Time Date/Time Type Type Clinicians Facility Department ID 2022-04-19 2022-04-20 [facility] Praveen Jin [facility] [id number] [facility] 01[facility]37[facility]00 17:24[facility] 2022-04-19 2022-04-20 [facility] Praveen Jin [facility] [id number] [facility] 01:37[facility]00 17:24:00 [facility] 2022-04-19 2022-04-20 Inpatient ER JUNITO TOLLIVER Neurology [id number] [facility] 01:37:00 17:24:00 [facility] 2022-04-19 2022-04-19 Outpatient [facility] [id number] [facility] 00:00:00 23:59:00 Kesha damon of Medicin e 2022-04-19 2022-04-19 Orders [facility] [id number] 00:00:00 00:00:00 Only [facility] 2022-04-19 2022-04-19 Travel [facility] [id number] [facility] 00:[facility]00 00:00:00 [facility] 2022-04-19 2022-04-19 Orders [facility] [id number] 00:00:00 00:00:00 Only [facility] 2022-04-19 2022-04-19 Travel [facility] [id number] [facility] 00[facility]00 00:00:00 [facility] Results Test Description Test Time Test Comments Results Result Comments Source POC-Glucose meter 2022-04-20 11:29:42 Test Item Value Reference Range Interpretation Comme nts POC-Glucose Meter (test code = 183 mg/dL 70-110 H : TESTED AT [place] [address]) [facility], [facility] 30: Religious Leader/Techni adrien ID = [id number] for DARLING ESPITIA Lab Interpretation (test code = Abnormal 99387-9) [facility] [id number] 11:29:42 Test Item Value Reference Range Interpretation Comments POC-Glucose Meter (test 183 mg/dL 70-110 H : TE STED AT [facility] code = 1538) [address] [place] [address], 770 30: Religious Leader/Techni adrien ID = [id number] for DARLING ESPITIA Lab Interpretation (test Abnormal code = 64007-6) [facility] [id number] 11:29:42 Test Item Value Reference Range Interpretation Comments POC-GLUCOSE METER 183 mg/dL 70-110 H : TESTED A T [facility] 6720 (BEAKER) (test code = JASMEET Zapata [place], 1538) [address]: Religious Leader/Techni adrien ID = [id number] for DARLING REHMAN POCT-GLUCOSE [id number] 07:40:35 Test Item Value Reference Range Interpretation Comments POC-GLUCOSE METER 123 mg/dL 70-110 H : TESTED A T [facility] 67[address] (BEAKER) (test code = [facility] [place], 1538) [address]: Religious Leader/Techni adrien ID = [id number] for DARLING REHMAN [id number] 04:06:17 Test Item Value Reference Range Interpretation Comments PHOSPHORUS (BEAKER) (test code = 2.0 mg/dL 2.3-4.7 L 604) Religious Leader ID - RAY LBASIC METABOLIC [id number] 04:06:16 Test Item Value Reference Range Interpretation Comments SODIUM (BEAKER) 136 meq/L 136-145 (test code = 381) POTASSIUM (BEAKER) 4.7 meq/L 3.5-5.1 (test code = 379) CHLORIDE (BEAKER) 105 meq/L 98-107 (test code = 382) CO2 (BEAKER) (test 26 meq/L 22-29 code = 355) BLOOD UREA NITROGEN 10 mg/dL 7-21 (BEAKER) (test code = 354) CREATININE (BEAKER) 0.70 mg/dL 0.57-1.25 (test code = 358) GLUCOSE RANDOM 176 mg/dL 70-105 H (BEAKER) (test code = 652) CALCIUM (BEAKER) 8.8 mg/dL 8.4-10.2 (test code = 697) EGFR (BEAKER) (test 90 mL/min/1.73 ESTIMA DELPHINE GFR IS code = 1092) sq m NOT ACCURATE CREATININE CLEARANCE IN PREDICTING GLOMERULAR FILTRATION RATE . ESTIMATED GFR I S NOT APPLICABLE FOR DIALYSIS PATIEN TS. Religious Leader ID - RAY [id number] 04:06:16 Test Item Value Reference Range Interpretation Comments MAGNESIUM (BEAKER) (test code = 2.0 mg/dL 1.6-2.6 627) Religious Leader ID - PIAYA [id number] (HEMOGRAM ONLY)2022-04-20 03:44:53 Test Item Value Reference Range Interpretation Comments WHITE BLOOD CELL COUNT (BEAKER) 10.0 K/ L 3.5-10.5 (test code = 775) RED BLOOD CELL COUNT (BEAKER) 3.81 M/ L 3.93-5.22 L (test code = 761) HEMOGLOBIN (BEAKER) (test code = 10.3 GM/DL 11.2-15.7 L 410) HEMATOCRIT (BEAKER) (test code = 31.5 % 34.1-44.9 L 411) MEAN CORPUSCULAR VOLUME (BEAKER) 82.7 fL 79.4-94.8 (test code = 753) MEAN CORPUSCULAR HEMOGLOBIN 27.0 pg 25.6-32.2 (BEAKER) (test code = 751) MEAN CORPUSCULAR HEMOGLOBIN CONC 32.7 GM/DL 32.2-35.5 (BEAKER) (test code = 752) RED CELL DISTRIBUTION WIDTH 13.2 % 11.7-14.4 (BEAKER) (test code = 412) PLATELET COUNT (BEAKER) (test 253 K/CU MM 150-450 code = 756) MEAN PLATELET VOLUME (BEAKER) 10.4 fL 9.4-12.3 (test code = 754) NUCLEATED RED BLOOD CELLS 0 /100 WBC 0-0 (BEAKER) (test code = 413) POCT-GLUCOSE [id number] 23:05:05 Test Item Value Reference Range Interpretation Comments POC-GLUCOSE METER 125 mg/dL 70-110 H : TESTED A T [facility] 6720 (BEAKER) (test code = [place] U[place], 1538) [address]: Religious Leader/Techni adrien ID = [id number] for Berto Castillo MR, MRA, NECK, WITHOUT IV [id number] 22:34:00Unlisted Reason for Exam - Click Yes and Enter Reason Below->No [facility] : 1975 Sex: FFINAL REPORT MR ANGIOGRAM HEAD WITHOUT CONTRAST. History: Stroke workup. Comparison:No previous study available for comparison. Technique: MR angiographic imaging of the head performedusing 3-D ilzg-to-ewepgr. Findings: The intracranial internal carotid arteries, anterior cerebral arteries, middle cerebral arteries, anterior communicating artery, posterior cerebral arteries, vertebral arteries, basilar artery, cerebellar arteries are widely patent and there is no evidence of aneurysm. The RIGHT posterior communicating artery is widely pain. No visible LEFT posterior communicating artery. IMPRESSION: No evidence of acute arterial abnormality. MR angiogram neck with and without cont rast HISTORY: Stroke workup. TECHNIQUE: MR angiogram of the neck performed using 2-D [id number]-wb-rnajix and following the administration of contrast. NOTE: Estimation of internal carotid artery stenosis isbased on the [place] Symptomatic Carotid Endarterectomy Trial (NASCET) criteria. FINDINGS: Each common, internal and external carotid artery are widely patent. Bilateral vertebral arteries are widely patent. The brachiocephalic artery, LEFT subclavian artery and RIGHT subclavian artery are widely patent. no evidence of dissection. IMPRESSION: No evidence of arterial abnormality. Signed: Denise Hollingsworth [facility] Verified Date/Time: 04/19/2022 22:34:34 MR, BRAIN, WITHOUT CONTRAST 2022-04-19 22:22:00Unlisted Reason for Exam - Click Yes and Enter Reason Below->No[facility]INE : 1975 Sex: FFINAL REPORT MRI BRAIN WITHOUT CONTRAST. History: Stroke follow-up. Comparison: No prior study is currently available for comparison. Technique: Multiplanar, multisequence MR imaging ofthe brain was performed without contrast. Findings: There is no restricted diffusion to suggest acute infarct. There is no evidence of hemorrhage and no mass effect. Normal signal on T2 and FLAIR imaging. No orbital abnormalities and normal flow voids in the intracranial arteries. The paranasal sinuses and mastoid air cells are clear. IMPRESSION: No evidence of acute brain abnormality. Signed: Denise Hollingsworth MDReport Verified Date/Time: 04/19/2022 22:22:04 MR, MRA, BRAIN, WITHOUT CONTRAST 2022-04-19 22:19:00Unlisted Reason for Exam - Click Yes and Enter Reason Below->No[facility]NA FINE : 1975 Sex: FFINAL REPORT MR ANGIOGRAM HEAD WITHOUT CONTRAST. History: Stroke workup. Comparison:No previous study available for comparison. Technique: MR angiographic imaging of the head performedusing 3-D [id number]-oi-jcicsw. Findings: The intracranial internal carotid arteries, anterior cerebral arteries, middle cerebral arteries, anterior communicating artery, posterior cerebral arteries, vertebral arteries, basilar artery, cerebellar arteries are widely patent and there is no evidence of aneurysm. The RIGHT posterior communicating artery is widely pain. No visible LEFT posterior communicating artery. IMPRESSION: No evidence of acute arterial abnormality. MR angiogram neck with and without cont rast HISTORY: Stroke workup. TECHNIQUE: MR angiogram of the neck performed using 2-D dyya-us-zxbxzq and following the administration of contrast. NOTE: Estimation of internal carotid artery stenosis isbased on the [place] Symptomatic Carotid Endarterectomy Trial (NASCET) criteria. FINDINGS: Each common, internal and external carotid artery are widely patent. Bilateral vertebral arteries are widely patent. The brachiocephalic artery, LEFT subclavian artery and RIGHT subclavian artery are widely patent. no evidence of dissection. IMPRESSION: No evidence of arterial abnormality. Signed: Denise Hollingsworth MDReport Verified Date/Time: 04/19/2022 22:19:45 POCT-GLUCOSE [id number] 16:30:40 Test Item Value Reference Range Interpretation Comments POC-GLUCOSE METER 148 mg/dL 70-110 H : TESTED Karen Cervantes [facility] 6720 (AUGUSTINA) (test code = [place], 1538) [address]: Religious Leader/Techni adrien ID = [id number] for Lissett Corrales 2D Echo W/Doppler(CW/PW/Color)2022-04-19 12:36:31Ejection FractionSLEH ECHO HEARTLAB [facility]Do[facility](CW/PW/Color)2022-04-19 12:36:31Ejection FractionSLEH ECHO [facility]LAB [facility] (Asymptomatic ONLY[facility] 2022-04-19 11:12:54 Test Item Value Reference Range Interpretation Comments SARS-COV2/RT-PCR Negative Not Detected, (test code = Negative, See 55839-6) external report for linked test SARS-COV-2 [facility] TEA PERFORMING LAB (test code = 62436-5) CADY (test code = Negative result for this CADY) test determines that SARS-CoV-2 RNA was not present in the specimen above the Limit of Detection (LOD). However, Negative results do not preclude SARS-CoV-2 infection and should not be used as the sole basis for treatment or patient management decisions. Negative results must be combined with clinical observations, patient history, and epidemiological information. A false negative result may occur if a specimen is improperly collected, transported or handled. A false negative result should be considered if patient's recent exposures or clinical presentation indicate that COVID-19 (SARS-CoV-2) is likely and diagnostic tests for other causes of illness are negative. Re-testing should be considered in cases of suspected false negatives. The limit of detection for this assay is 800 copies/mL. This SARS CoV-2 test is a real-time RT-PCR test intended for the qualitative detection of nucleic acid from SARS-CoV-2 in a nasopharyngeal swab specimen collected from individuals suspected of COVID-19 by their healthcare provider. This test has not been Food and Drug Administration (FDA) cleared or approved. This is a modified version of an approved Emergency Use Authorization (EUA) and is in the process of review by the FDA. Once authorized by the FDA, the issued EUA will be effective until the declaration that circumstances exist justifying the authorization of the emergency use of in vitro diagnostic tests for detection and/or diagnosis of COVID-19 is terminated under Section 564(b)(2) of the Act or the EUA is revoked under Section 564(g) of the Act. Fact Sheet for Healthcare Providers:https://www.Enbridge/sites/default/f petra/product/documents/F act_Sheet_HC_Providers_L aql_YTSN-MtT-6.pdf Fact Sheet for Healthcare Patients:https://www.Piiku.Yorder/sites/default/fi les/product/documents/Fa ct_Sheet_Patients_Lyra_S ARS-CoV-2.pdf Performing Laboratory:[facility] [place] [address] [facility]2022-04-19 11:12:54 Test Item Value Reference Range Interpretation Comments SARS-COV2/RT-PCR Negative Not Detected, (test code = Negative, See 84861-3) external report for linked test SARS-COV-2 [facility] PERFORMING LAB (test code = 07168-1) CADY (test code = Negative result for this CADY) test determines that SARS-CoV-2 RNA was not present in the specimen above the Limit of Detection (LOD). However, Negative results do not preclude SARS-CoV-2 infection and should not be used as the sole basis for treatment or patient management decisions. Negative results must be combined with clinical observations, patient history, and epidemiological information. A false negative result may occur if a specimen is improperly collected, transported or handled. A false negative result should be considered if patient's recent exposures or clinical presentation indicate that COVID-19 (SARS-CoV-2) is likely and diagnostic tests for other causes of illness are negative. Re-testing should be considered in cases of suspected false negatives. The limit of detection for this assay is 800 copies/mL. This SARS CoV-2 test is a real-time RT-PCR test intended for the qualitative detection of nucleic acid from SARS-CoV-2 in a nasopharyngeal swab specimen collected from individuals suspected of COVID-19 by their healthcare provider. This test has not been Food and Drug Administration (FDA) cleared or approved. This is a modified version of an approved Emergency Use Authorization (EUA) and is in the process of review by the FDA. Once authorized by the FDA, the issued EUA will be effective until the declaration that circumstances exist justifying the authorization of the emergency use of in vitro diagnostic tests for detection and/or diagnosis of COVID-19 is terminated under Section 564(b)(2) of the Act or the EUA is revoked under Section 564(g) of the Act. Fact Sheet for Healthcare Providers:https://www.Tappx idel.Yorder/sites/default/f petra/product/documents/F act_Sheet_HC_Providers_L dqa_IPCX-NpI-2.pdf Fact Sheet for Healthcare Patients:https://www.charleen del.com/sites/default/fi les/product/documents/Fa ct_Sheet_Patients_Lyra_S ARS-CoV-2.pdf Performing Laboratory:[facility] [place] [address] [facility])2022-04-19 11:12:54 Test Item Value Reference Range Interpretation Comments SARS-COV2/RT-PCR (test Negative Not Detected, Negative, code = 3746837) See external report for linked test SARS-COV-2 PERFORMING LAB [facility] (test code = 9643946) Negative result for this test determines that SARS-CoV-2 RNA was not present in the specimen above the Limit of Detection (LOD). However, Negative results do not preclude SARS-CoV-2 infection and should not be used as the sole basis for treatment or patient management decisions. Negative results must be combined with clinical observations, patient history, and epidemiological information. A false negative result may occur if a specimen is improperly collected, transported or handled. A false negative result should be considered if patient's recent exposures or clinical presentation indicate that COVID-19 (SARS-CoV-2) is likely and diagnostic tests for other causes of illness are negative. Re-testing should be considered in cases of suspected false negatives.The limit of detection for this assay is 800 copies/mL.This SARS CoV-2 test is a real-time RT-PCR test intended for the qualitative detection of nucleic acid from SARS-CoV-2 in a nasopharyngeal swab specimen collected from individuals suspected of COVID-19 by their healthcare provider.This test has not been Food and Drug Administration (FDA) cleared or approved. This is a modified version of an approved Emergency Use Authorization (EUA) and is in the process of review by the FDA. Once authorized by the FDA, the issued EUA will be effective until the declaration that circumstances exist justifying the authorization of the emergency use of in vitro diagnostic tests for detection and/or diagnosis of COVID-19 is terminated under Section 564(b)(2) of the Act or the EUA is revoked under Section 564(g) of the Act.Fact Sheet for Healthcare Pro viders:https://www.Element Robot.com/sites/default/files/product/documents/Fact_Sheet_H V_Usipqydoi_Vnmk_LDGM-MpI-8.pdfFact Sheet for Healthcare Patients:https://www.Element Robot.com/sites/default/files/product/docum ents/Dlgx_Tshri_Eclqojyy_Kncd_VMYB-QeY-2.pdfPerforming Laboratory:[address] [id number] METER 2022-04-19 11:11:50 Test Item Value Reference Range Interpretation Comments POC-GLUCOSE METER 118 mg/dL 70-110 H : TESTED A T [facility] 6720 (BEAKER) (test code = [place], 1538) [address]: Religious Leader/Techni adrien ID = [id number] for Lissett [place] Screen, [id number] 08:24:04 Test Item Value Reference Range Interpretation Comments Preg Test, Ur (test code = 2111-1) Negative Negative Lab Interpretation (test code = Normal 10363-0) [facility] [id number] 08:24:04 Test Item Value Reference Range Interpretation Comments Preg Test, Ur (test code = 2111-1) Negative Negative Lab Interpretation (test code = Normal 14697-3) [facility], [id number] 08:24:04 Test Item Value Reference Range Interpretation Comments TEST URINE (BEAKER) (test Negative Negative code = 583) RAD, CHEST, 1 VIEW, NON [id number] 05:08:00Reason for exam:- >leukocytosisShould this be performed at the bedside?->Yes [facility] : 1975 Sex: FFINAL REPORT PORTABLE AP CHEST ORDERED AT 04/19/2022 4:49 AM HISTORY: Leukocytosis. COMPARISON: No priors available. IMPRESSION: Heart size is normal. There is no consolidation, effusionor pneumothorax. No evidence of acute osseous abnormality. No evidence of pulmonary edema. Signed: Denise Hollingsworth Verified Date/Time: 04/19/2022 05:08:29 [id number] 03:24:24 Test Item Value Reference Range Interpretation Comments MAGNESIUM (BEAKER) (test code = 1.5 mg/dL 1.6-2.6 L 627) Religious Leader ID - FLORENTINO [id number] 03:24:24 Test Item Value Reference Range Interpretation Comments PHOSPHORUS (BEAKER) (test code = 2.3 mg/dL 2.3-4.7 604) Religious Leader ID - FLORENTINO WLIPID [id number] 03:24:24 Test Item Value Reference Range Interpretation Comments TRIGLYCERIDES (BEAKER) (test code = 215 mg/dL 540) CHOLESTEROL (BEAKER) (test code = 118 mg/dL 631) HDL CHOLESTEROL (BEAKER) (test code 29 mg/dL = 976) LDL CHOLESTEROL CALCULATED (BEAKER) 46 mg/dL (test code = 633) Triglyceride Reference Range: Low Risk <150 Borderline 150-199 High Risk 200- 499 Very High Risk >=500Cholesterol Reference Range: Low Risk <200 Borderline 200-239 High Risk >240HDL Cholesterol Reference Range: Low Risk >=60 High Risk <40LDL Cholesterol Reference Range: Optimal <100 Near Optimal 100-129 Borderline 130-159 High 160-189 Very High >=190 Religious Leader ID Danna GOOD WCOMPREHENSIVE METABOLIC [id number] 03:24:23 Test Item Value Reference Range Interpretation Comments TOTAL PROTEIN 6.8 gm/dL 6.0-8.3 (BEAKER) (test code = 770) ALBUMIN (BEAKER) 3.8 g/dL 3.5-5.0 (test code = 1145) ALKALINE PHOSPHATASE 66 U/L 40-150 (BEAKER) (test code = 346) BILIRUBIN TOTAL 0.2 mg/dL 0.2-1.2 (BEAKER) (test code = 377) SODIUM (BEAKER) (test 130 meq/L 136-145 L code = 381) POTASSIUM (BEAKER) 4.9 meq/L 3.5-5.1 (test code = 379) CHLORIDE (BEAKER) 102 meq/L 98-107 (test code = 382) CO2 (BEAKER) (test 22 meq/L 22-29 code = 355) BLOOD UREA NITROGEN 10 mg/dL 7-21 (BEAKER) (test code = 354) CREATININE (BEAKER) 0.73 mg/dL 0.57-1.25 (test code = 358) GLUCOSE RANDOM 130 mg/dL 70-105 H (BEAKER) (test code = 652) CALCIUM (BEAKER) 8.8 mg/dL 8.4-10.2 (test code = 697) AST (SGOT) (BEAKER) 8 U/L 5-34 (test code = 353) ALT (SGPT) (BEAKER) 14 U/L 6-55 (test code = 347) EGFR (BEAKER) (test 85 mL/min/1.73 ESTIMA DELPHINE GFR IS code = 1092) sq m NOT ACCURATE CREATININE CLEARANCE IN PREDICTING GLOMERULAR FILTRATION RATE . ESTIMATED GFR I S NOT APPLICABLE FOR DIALYSIS PATIEN TS. Religious Leader ID - FLORENTINO WTSH/FREE T4 IF [id number] 03:21:46 Test Item Value Reference Range Interpretation Comments THYROID STIMULATING HORMONE 1.198 uIU/mL 0.350-4.940 (BEAKER) (test code = 772) Religious Leader ID - FLORENTINO AVENDAÑOIGH SENSITIVITY TROPONIN [id number] 03:07:00 Test Item Value Reference Range Interpretation Comments HIGH SENSITIVITY < pg/ml See_Comment [Automated message] TROPONIN I (test code = The system which [id number]) generated this result transmitted ref erence range: <=17. Th e reference range was not used to interpr et this result as normal/abnormal . Religious Leader ID - FLORENTINO WHELANhe HOUSEKEEPING LAUNDRY WORKER STAT High Sensitivity Troponin-I results should be used in conjunction with other diagnostic information such as ECG, clinical observations and information, and patient symptoms to aid in the diagnosis of IN.[id number] 02:54:35 Test Item Value Reference Range Interpretation Comments PARTIAL THROMBOPLASTIN TIME 28.7 seconds 22.5-36.0 (BEAKER) (test code = 760) CALCIUM, [id number] 02:53:58 Test Item Value Reference Range Interpretation Comments CALCIUM IONIZED (BEAKER) (test 1.17 mmol/L 1.12-1.27 code = 698) PH, BLOOD (BEAKER) (test code = 7.32 1810) PROTHROMBIN TIME/[id number] 02:53:57 Test Item Value Reference Range Interpretation Comments PROTIME (BEAKER) 14.0 seconds 11.9-14.2 (test code = 759) INR (BEAKER) (test 1.09 See_Comment [Automat ed message] code = 370) The system [employer] generated this result transmitted ref erence range: <=5.90. The reference range was not used to int erpret this result as normal/abnormal . RECOMMENDED COUMADIN/WARFARIN INR THERAPY RANGESSTANDARD DOSE: 2.0 - 3.0 Includes: PROPHYLAXIS for venous thrombosis, systemic embolization; TREATMENT for venous thrombosis and/or pulmonary embolus.HIGH RISK: Target INR is 2.5-3.5 for patients with mechanical heart valves.CBC W/PLT COUNT & AUTO [id number] 02:48:26 Test Item Value Reference Range Interpretation Comments WHITE BLOOD CELL COUNT (BEAKER) 11.4 K/ L 3.5-10.5 H (test code = 775) RED BLOOD CELL COUNT (BEAKER) 4.45 M/ L 3.93-5.22 (test code = 761) HEMOGLOBIN (BEAKER) (test code = 11.8 GM/DL 11.2-15.7 410) HEMATOCRIT (BEAKER) (test code = 36.0 % 34.1-44.9 411) MEAN CORPUSCULAR VOLUME (BEAKER) 80.9 fL 79.4-94.8 (test code = 753) MEAN CORPUSCULAR HEMOGLOBIN 26.5 pg 25.6-32.2 (BEAKER) (test code = 751) MEAN CORPUSCULAR HEMOGLOBIN CONC 32.8 GM/DL 32.2-35.5 (BEAKER) (test code = 752) RED CELL DISTRIBUTION WIDTH 13.1 % 11.7-14.4 (BEAKER) (test code = 412) PLATELET COUNT (BEAKER) (test 298 K/CU MM 150-450 code = 756) MEAN PLATELET VOLUME (BEAKER) 10.2 fL 9.4-12.3 (test code = 754) NUCLEATED RED BLOOD CELLS 0 /100 WBC 0-0 (BEAKER) (test code = 413) NEUTROPHILS RELATIVE PERCENT 70 % (BEAKER) (test code = 429) LYMPHOCYTES RELATIVE PERCENT 25 % (BEAKER) (test code = 430) MONOCYTES RELATIVE PERCENT 4 % (BEAKER) (test code = 431) EOSINOPHILS RELATIVE PERCENT 1 % (BEAKER) (test code = 432) BASOPHILS RELATIVE PERCENT 0 % (BEAKER) (test code = 437) NEUTROPHILS ABSOLUTE COUNT 8.01 K/ L 1.56-6.13 H (BEAKER) (test code = 670) LYMPHOCYTES ABSOLUTE COUNT 2.79 K/ L 1.18-3.74 (BEAKER) (test code = 414) MONOCYTES ABSOLUTE COUNT (BEAKER) 0.45 K/ L 0.24-0.36 H (test code = 415) EOSINOPHILS ABSOLUTE COUNT 0.09 K/ L 0.04-0.36 (BEAKER) (test code = 416) BASOPHILS ABSOLUTE COUNT (BEAKER) 0.03 K/ L 0.01-0.08 (test code = 417) IMMATURE GRANULOCYTES-RELATIVE 0 % 0-1 PERCENT (BEAKER) (test code = 2801) POCT-GLUCOSE [id number] 11:54:00 Test Item Value Reference Range Interpretation Comments POC-GLUCOSE METER 330 mg/dL 70-110 H TESTED AT [place] [address] ([facility]) (test code = JASMEET Zapata [facility] 1538) [address] SCREEN, [id number] 11:13:00 Test Item Value Reference Range Interpretation Comments TEST URINE ([facility]) (test Negative code = 583) POCT-GLUCOSE [id number] 08:33:00 Test Item Value Reference Range Interpretation Comments POC-GLUCOSE METER 226 mg/dL 70-110 H TESTED AT [place] [address] ([facility]) (test code = JASMEET [place] 1538) [address] POCT-GLUCOSE [id number] 21:48:00 Test Item Value Reference Range Interpretation Comments POC-GLUCOSE METER 219 mg/dL 70-110 H TESTED AT [place] [address] ([facility]) (test code = [place] 1538) [address] POCT-GLUCOSE [id number] 17:48:00 Test Item Value Reference Range Interpretation Comments POC-GLUCOSE METER 225 mg/dL 70-110 H TESTED AT [place] [address] ([facility]) (test code = [place] 1538) [address] [id number] 16:39:00 Test Item Value Reference Range Interpretation Comments RPR SCREEN (AUGUSTINA) (test code = Nonreactive Nonreactive 420) SEDIMENTATION [id number] 15:02:00 Test Item Value Reference Range Interpretation Comments SEDIMENTATION RATE, ERYTHROCYTE 25 mm/HR 0-20 H (AUGUSTINA) (test code = 766) POCT-GLUCOSE [id number] 12:40:00 Test Item Value Reference Range Interpretation Comments POC-GLUCOSE METER 188 mg/dL 70-110 H TESTED AT [facility] 6720 (AUGUSTINA) (test code = [place] 1538) [address] HEMOGLOBIN [id number] 11:42:00 Test Item Value Reference Range Interpretation Comments HEMOGLOBIN A1C (AUGUSTINA) (test code = 8.2 % 4.3-6.1 H 368) MR, BRAIN, WITHOUT [id number] 11:17:00Reason for exam:->Ischemic Stroke EvaluationFINAL REPORT MRI brain without contrast INDICATION: Acute onset headache and left hemiparesis, hemianesthesia. TECHNIQUE: Multiplanar, multisequence MR imaging of the brain was performed utilizing the following imaging sequences: Axial T2, FLAIR, GRE, and DWI; sagittal and coronalT1 COMPARISON: None available FINDINGS:There is no acute infarct, hematoma, extra axial collection, hydrocephalus, or mass effect. No suspicious white matter disease pattern is evident. The left CLARITZA R3muymcfk is likely hypoplastic. The major vascular flow voids are otherwise maintained. The sella andcraniocervical junction are unremarkable. There is minimal chronic sinus mucosal disease with well aerated mastoid air cells. Anterior globe region artifacts suggest cosmetics. Diminished marrow T1 signal likely reflects red marrow reconversion. IMPRESSION: No evidence of acute infarct, hemorrhage, or hydrocephalus. Signed: Mark Mathur MDReport Verified Date/Time: 09/10/2017 11:17:54 ReadingLocation: [facility] B1 C013V Neuro Reading Room MR, MRA, BRAIN, WITHOUT [id number] 11:16:00Reason for exam:->Ischemic Stroke EvaluationFINAL REPORT MRA head and neck without contrast INDICATION: Headache, left hemianesthesia, left sided weakness TECHNIQUE: 2-D and 3-D [id number] MRA images of the intra- and extracranial carotid and vertebral artery circulations were obtained, from which maximal intensity projection reconstructions were generated. COMPARISON: None available FINDINGS: MRA neck:The common and internal carotid arteries demonstrate no significant stenosis. Specifically, no measurable cervical ICA stenosis is seen by NASCET criteria. There is antegrade flow in the cervical vertebral arteries without flow limitation. The proximal common carotid and vertebral arteries are not imaged. MRA [place]:The left CLARITZA A1 segment is hypoplastic. There is no major branch occlusion or significant stenosis in the [place] vessels. There is no specific MRA evidence of saccular aneurysm. IMPRESSION: 1. No hemodynamically significant carotid stenosis by NASCET criteria. 2. No significant stenosis in the imaged cervical vertebral arteries. 3. No major branch occlusion, significant stenosis, orevident aneurysm in the [place] vessels. Signed: Mark Mathur MDRthe [facility] [place] Verified Date/Time: 09/10/2017 11:16:49 Reading Location: [address] Neuro Reading Room MR, MRA, NECK, WITHOUT IV [id number] 11:16:00Reason for exam:->Ischemic Stroke EvaluationFINAL REPORT MRA head and neck without contrast INDICATION: Headache, left hemianesthesia, left sided weakness TECHNIQUE: 2-D and 3-D [id number] MRA images of the intra- and extracranial carotid and vertebral artery circulations were obtained, from which maximal intensity projection reconstructions were generated. COMPARISON: None available FINDINGS: MRA neck:The common and internal carotid arteries demonstrate no significant stenosis. Specifically, no measurable cervical ICA stenosis is seen by NASCET criteria. There is antegrade flow in the cervical vertebral arteries without flow limitation. The proximal common carotid and vertebral arteries are not imaged. MRA [place]:The left CLARITZA A1 segment is hypoplastic. There is no major branch occlusion or significant stenosis in the [place] vessels. There is no specific MRA evidence of saccular aneurysm. IMPRESSION: 1. No hemodynamically significant carotid stenosis by NASCET criteria. 2. No significant stenosis in the imaged cervical vertebral arteries. 3. No major branch occlusion, significant stenosis, orevident aneurysm in the [place] vessels. Signed: Mark Mathur MDReport Verified Date/Time: 09/10/2017 11:16:49 Reading Location: [facility] C013V Neuro Reading Room /FREE T4 IF [id number] 09:44:00 Test Item Value Reference Range Interpretation Comments THYROID STIMULATING HORMONE 2.42 uIU/mL 0.35-4.94 (BEAKER) (test code = 772) VITAMIN B12 AND [id number] 09:44:00 Test Item Value Reference Range Interpretation Comments VITAMIN B12 (BEAKER) (test code = 413 pg/mL 213-816 774) FOLATE (BEAKER) (test code = 362) 14.8 ng/mL >=7.0 POCT-GLUCOSE [id number] 08:35:00 Test Item Value Reference Range Interpretation Comments POC-GLUCOSE METER 156 mg/dL 70-110 H TESTED AT [facility] 6720 (BEAKER) (test code = JASMEET Zapata [facility] 1538) [address] [id number] 06:56:00 Test Item Value Reference Range Interpretation Comments HOMOCYSTEINE (BEAKER) (test code = 4.1 umol/L 5.1-15.4 L 642) BASIC METABOLIC [id number] 06:32:00 Test Item Value Reference Range Interpretation [...] DATA TO CALCULA TE ESTIMATED GFR. FastingLIPID [id number] 06:31:00 Test Item Value Reference Range Interpretation Comments TRIGLYCERIDES (BEAKER) (test code = 116 mg/dL 540) CHOLESTEROL (BEAKER) (test code = 99 mg/dL 631) HDL CHOLESTEROL (BEAKER) (test code 25 mg/dL = 976) LDL CHOLESTEROL CALCULATED (BEAKER) 51 mg/dL (test code = 633) Triglyceride Reference Range: Low Risk <150 Borderline 150-199 High Risk 200- 499 Very High Risk >=500Cholesterol Reference Range: Low Risk <200 Borderline 200-239 High Risk >240HDL Cholesterol Reference Range: Low Risk >=60 High Risk <40LDL Cholesterol Reference Range: Optimal <100 Near Optimal 100-129 Borderline 130-159 High 160-189 Very High >=190 FastingC- REACTIVE [id number] 06:31:00 Test Item Value Reference Range Interpretation Comments C-REACTIVE PROTEIN (BEAKER) (test 1.82 mg/dL 0.00-0.50 H code = 676) FastingTROPONIN [id number] 06:29:00 Test Item Value Reference Range Interpretation [...] and persistent tachyarrhythmia.FastingCBC W/PLT COUNT & AUTO [id number] 06:02:00 Test Item Value Reference Range Interpretation [...] % 0-1 PERCENT (BEAKER) (test code = 2141)
[2023-02-08 01:40] LABS: Absolute Lymphocytes (CBC) 2.1 K/uL (0.7-4.9); Hematocrit 33.8 % (36.0-45.0); Lymphocytes % 22.4 % (15.3-44.8); MCV 78.9 fL (80-100); MPV 8.3 fL (7.6-11.3); RBC Red Blood Cell Count 4.28 M/uL (3.86-4.86)
[2023-02-08 01:59] LABS: Albumin 3.3 g/dL (3.4-5.0); Bilirubin Total 0.1 mg/dL (0.2-1.0); Potassium 3.9 mEq/L (3.5-5.1); Protein, Total 7.3 g/dL (6.4-8.2); Troponin High Sensitivity 4.6 pg/mL (<58.9)
[2023-02-08] MEDS ORDERED: DIPHENHYDRAMINE 50 MG/ML VIAL ONE (02:07)
[2023-02-08] MEDS ORDERED: NA CHLORIDE 0.9% 1,000 ML ONE (02:07)
[2023-02-08] MEDS ORDERED: METOCLOPRAMIDE 10 MG/2mL INJ ONE (02:07)
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
[2023-02-08 04:00] VITALS: TEMP 98.7; O2SAT 99
[2023-02-08 04:03] VITALS: BP 126/57
--- NOTE | 2023-02-08 14:03 | RAD REPORT ---
EXAM DESCRIPTION: RAD - Chest Single View - 02/08/2023 1:43 am CLINICAL HISTORY: The patient is 47 years old and is Female; DYSPNEA TECHNIQUE: Frontal view of the chest. COMPARISON: No relevant prior studies available. FINDINGS: Lungs: Unremarkable. No consolidation. Pleural space: Unremarkable. No pneumothorax. Heart: Unremarkable. Mediastinum: Unremarkable. Bones/joints: Unremarkable. IMPRESSION: No acute findings in the chest. Electronically signed by: Sreekanth Hdez MD 02/08/2023 1:59 AM CDT Due to temporary technical issues with the PACS/Fluency reporting system, reports are being signed by the in house radiologists without review as a courtesy to insure prompt reporting. The interpreting radiologist is fully responsible for the content of the report.
--- NOTE | 2023-02-08 16:06 | EKG ---
Test Date: 2023-02-08 Test Time: 01:16:09 Web Retailer: KARTHIK MEASUREMENT RESULTS: Intervals: Rate: 79 NH: 150 QRSD: 84 QT: 366 QTc: 419 [place]: P: NH: 150 QRS: 141 T: 123 INTERPRETIVE STATEMENTS: Suspect arm lead reversal, interpretation assumes no reversal Age and gender specific ECG analysis Normal sinus rhythm Lateral infarct, age undetermined Inferior injury pattern ACUTE OK / STEMI Consider right ventricular involvement in acute inferior infarct Abnormal ECG Compared to ECG 04/18/2022 22:49:44 Myocardial infarct finding now present ST (T wave) deviation no longer present Possible ischemia no longer present Electronically Signed On 02-08-23 16:04:40 CDT by Carlos Alberto Cuadra
--- NOTE | 2023-02-09 14:10 | EKG ---
Test Date: 2023-02-08 Test Time: 01:40:04 Steel Finisher: KARTHIK MEASUREMENT RESULTS: Intervals: Rate: 84 [place]: 154 QRSD: 80 QT: 332 QTc: 392 [place]: P: 67 W[place]: 154 QRS: 68 T: 74 INTERPRETIVE STATEMENTS: Normal sinus rhythm Normal ECG Compared to ECG 02/08/2023 01:16:09 Myocardial infarct finding no longer present Electronically Signed On 02-09-23 14:08:27 CDT by Reynold Pulliam
== END 2023-02-08 03:55 | disposition home or self-care (01) ==
LOC: ER 00:16
DX: R06.00 Dyspnea, unspecified (principal); R51.9 Headache, unspecified; E11.9 Type 2 diabetes mellitus without complications; I10 Essential (primary) hypertension
CPT/HCPCS: 96361; 93005 ×2; 85025; 36415; 82010; 84484; 80053; 83880; 71045; 96375; 96374; 99285; J2765; J1200; J7030

== ENCOUNTER → 2023-12-29 | Emergency (ER) | payer OTHER ==
[~2023-12-29] MED LIST: FLEET ENEMA ADULT PR ONE; MAGNESIUM CITRATE 300 ML BOT ONE
--- NOTE | 2023-12-29 12:09 | RAD REPORT ---
EXAM DESCRIPTION: RAD - Abdomen Single View - 12/29/2023 11:55 am CLINICAL HISTORY: CONSTIPATION COMPARISON: Abdomen Pelvis W Contrast dated 12/23/2021 FINDINGS: Nonobstructive bowel gas pattern. No acute osseous abnormality.Visualized lungs are unrema rkable.No abnormal calcifications. Large volume of stool in the rectum. Mild to moderate formed stool elsewhere in the colon . IMPRESSION: Large rectal stool burden consistent with given history of constipation.
--- NOTE | 2023-12-29 12:26 | EDPHYS ---
Physician Documentation [facility] Name: Carol Mclaughlin Age: 48 yrs Sex: Female : 1975 Arrival Date: 12/29/2023 Time: 10:52 Bed 12 Private MD: ED Physician Parviz Miranda HPI: 12/28 11:52 This 48 yrs old Female presents to ER via Wheelchair with complaints of sp3 Constipation. 11:52 48-year-old female with history of diabetes and hypertension presents with chief sp3 complaint constipation with last bowel movement approximately 1 week ago. Patient feels the urge but cannot go. She tried [id number] suppository which has not helped. She denies any other symptoms including fever, headache, vomiting, abdominal pain, back pain, syncope, near syncope, bleeding, or any other signs or symptoms on ROS at this time.. Historical: - Allergies: 11:14 No Known Allergies; mb9 - PMHx: 11:14 angina pectoris; Diabetes - NIDDM; Hypertension; mb9 - PSHx: 11:14 ankle SX; ankle SX; ankle SX; section; ankle SX; Cholecystectomy; left knee mb9 repair; - Immunization history:: Adult Immunizations up to date. - Social history:: Smoking status: Patient denies any tobacco usage or history of. ROS: 11:53 Constitutional: Negative for fever, chills, and weight loss, Eyes: Negative for injury, sp3 pain, redness, and discharge, ENT: Negative for injury, pain, and discharge, Neck: Negative for injury, pain, and swelling, Cardiovascular: Negative for chest pain, palpitations, and edema, Respiratory: Negative for shortness of breath, cough, wheezing, and pleuritic chest pain, Back: Negative for injury and pain, MS/Extremity: Negative for injury and deformity, Skin: Negative for injury, rash, and discoloration, Neuro: Negative for headache, weakness, numbness, tingling, and seizure, Psych: Negative for depression, anxiety, suicide ideation, homicidal ideation, and hallucinations, Allergy/Immunology: Negative for hives, rash, and allergies, Endocrine: Negative for neck swelling, polydipsia, polyuria, polyphagia, and marked weight changes, 11:53 All other systems are negative, Exam: 11:53 Constitutional: This is a well developed, well nourished patient who is awake, alert, sp3 and in no acute distress. Head/Face: Normocephalic, atraumatic. Eyes: Pupils equal round and reactive to light, extra-ocular motions intact. Lids and lashes normal. Conjunctiva and sclera are non-icteric and not injected. Cornea within normal limits. Periorbital areas with no swelling, redness, or edema. ENT: Nares patent. No nasal discharge, no septal abnormalities noted. External auditory canals are clear. Oropharynx with no redness, swelling, or masses, exudates, or evidence of obstruction, uvula midline. Mucous membranes moist. Neck: Trachea midline, no thyromegaly or masses palpated, and no cervical lymphadenopathy. Supple, full range of motion without nuchal rigidity, or vertebral point tenderness. No Meningismus. Chest/axilla: Normal chest wall appearance and motion. Nontender with no deformity. No lesions are appreciated. Cardiovascular: Regular rate and rhythm with a normal S1 and S2. No gallops, murmurs, or rubs. Normal PMI, no JVD. No pulse deficits. Respiratory: Lungs have equal breath sounds bilaterally, clear to auscultation and percussion. No rales, rhonchi or wheezes noted. No increased work of breathing, no retractions or nasal flaring. Back: No spinal tenderness. No costovertebral tenderness. Full range of motion. Skin: Warm, dry with normal turgor. Normal color with no rashes, no lesions, and no evidence of cellulitis. MS/ Extremity: Pulses equal, no cyanosis. Neurovascular intact. Full, normal range of motion. Neuro: Awake and alert, GCS 15, oriented to person, place, time, and situation. Cranial nerves II-XII grossly intact. Motor strength 5/5 in all extremities. Sensory grossly intact. Cerebellar exam normal. Normal gait. Psych: Awake, alert, with orientation to person, place and time. Behavior, mood, and affect are within normal limits. 11:53 Abdomen/GI: Abdomen soft nontender with no peritoneal signs. No signs of distention., Vital Signs: 11:13 BP 162 / 86; Pulse 89; Resp 18; Temp 97.5; Pulse Ox 100% ; Weight 58.97 kg; Height 5 mb9 ft. 4 in. ; Pain 0/10; 12:30 BP 154 / 88; Pulse 79; Resp 16; Pulse Ox 99% on R/A; kd3 11:13 Body Mass Index 22.31 (58.97 kg, 162.56 cm) mb9 11:13 Pain Scale: Adult mb9 MDM: 11:10 Patient medically screened. sp3 11:54 Data reviewed: vital signs, nurses notes, old medical records, radiologic studies. ED sp3 course: 48-year-old female with constipation. Consider constipation versus ileus versus obstruction. Clinically abdomen is soft with no peritoneal signs. Will obtain abdominal x-ray as well as administer magnesium citrate and fleets enema. Disposition probable discharge.. 12:25 ED course: Patient with successful bowel movement in the ED we will safely discharged sp3 home at this time.. 12/28 11:26 Order name: Abdomen 1 View XRAY; Complete Time: 12:11 sp3 Administered Medications: 12:03 Drug: Magnesium Citrate PO Liquid 300 ml PO once Route: PO; mb9 12:31 Follow up: Response: No adverse reaction kd3 12:03 Drug: Fleet Enema [place] 133 ml [place] once Route: [place]; mb9 12:31 Follow up: Response: No adverse reaction kd3 Disposition Summary: 12/29/23 12:25 Discharge Ordered Notes: Location: Home sp3 Condition: Stable sp3 Diagnosis - Constipation sp3 Followup: sp3 - With: Private Physician - When: Upon discharge from the Emergency Department - Reason: Continuance of care Discharge Instructions: - Discharge Summary Sheet sp3 - Constipation, Adult sp3 Forms: - Medication Reconciliation Form sp3 - Thank You Letter sp3 - Antibiotic Education sp3 - Prescription Opioid Use sp3 - Patient Portal Instructions sp3 - Leadership Thank You Letter sp3 Signatures: Dispatcher [employer] Parviz Oliver MD MD sp3 Leti Latham RN RN mb9 Ellie Mcfarlane RN kd3
--- NOTE | 2023-12-29 12:26 | ER ---
Nurse's Notes [facility] Name: Carol Mclaughlin Age: 48 yrs Sex: Female : 1975 Arrival Date: 12/29/2023 Time: 10:52 Bed 12 Private MD: Diagnosis: Constipation Presentation: 12/28 11:13 Chief complaint: Patient states: "I haven't had a BM in 1 week. There is pressure and mb9 when I try to use the restroom, noting comes out. I feel like I'm going to throw up.". Coronavirus screen: Vaccine status: Patient reports receiving the 2nd dose of the covid vaccine. Ebola Screen: No symptoms or risks identified at this time. Initial Sepsis Screen: Does the patient meet any 2 criteria? No. Patient's initial sepsis screen is negative. Does the patient have a suspected source of infection? No. Patient's initial sepsis screen is negative. Risk Assessment: Do you want to hurt yourself or someone else? Patient reports no desire to harm self or others. Onset of symptoms was December 29, 2023. 11:13 Method Of Arrival: Wheelchair mb9 11:13 Acuity: GORGE 3 mb9 Triage Assessment: 11:14 General: Appears uncomfortable, Behavior is cooperative. Pain: Denies pain. EENT: No mb9 deficits noted. Neuro: Connors Agitation-Sedation Scale (RASS): 0 - Alert and Calm Level of Consciousness is awake, alert, obeys commands, Oriented to person, place, time, situation, Appropriate for age. Cardiovascular: Patient's skin is warm and dry. Respiratory: Airway is patent Respiratory effort is even, unlabored, Respiratory pattern is regular, symmetrical. GI: Abdomen is round Abd is soft Abdomen is tender to palpation in right lower quadrant and left lower quadrant Reports lower abdominal pain, constipation, nausea. : No signs and/or symptoms were reported regarding the genitourinary system. Derm: Skin is pink, warm \\T\\ dry. Musculoskeletal: Range of motion: intact in all extremities. Historical: - Allergies: 11:14 No Known Allergies; mb9 - PMHx: 11:14 angina pectoris; Diabetes - NIDDM; Hypertension; mb9 - PSHx: 11:14 ankle SX; ankle SX; ankle SX; section; ankle SX; Cholecystectomy; left knee mb9 repair; - Immunization history:: Adult Immunizations up to date. - Social history:: Smoking status: Patient denies any tobacco usage or history of. Screenin:52 [facility] ED Fall Risk Assessment (Adult) History of falling in the last 3 months, mb9 including since admission No falls in past 3 months (0 pts) Confusion or Disorientation No (0 pts) Intoxicated or Sedated No (0 pts) Impaired Gait No (0 pts) Mobility Assist Device Used No (0 pt) Altered Elimination No (0 pt) Score/Fall Risk Level 0 - 2 = Low Risk Oriented to surroundings. Abuse screen: Denies threats or abuse. Denies injuries from another. Nutritional screening: No deficits noted. Tuberculosis screening: No symptoms or risk factors identified. Assessment: 11:52 General: Appears in no apparent distress. Behavior is calm, cooperative. Neuro: Level mb9 of Consciousness is awake, alert, obeys commands, Oriented to person, place, time, situation. Respiratory: Airway is patent Trachea midline Respiratory effort is even, unlabored, Respiratory pattern is regular, symmetrical. GI: Bowel sounds present X 4 quads. 12:14 General: Pt independently ambulatory to the restroom after fleet enema administration kd3 and Mag Citrate. . 12:22 General: Pt reports having a large BM after enema administration. . kd3 Vital Signs: 11:13 BP 162 / 86; Pulse 89; Resp 18; Temp 97.5; Pulse Ox 100% ; Weight 58.97 kg; Height 5 mb9 ft. 4 in. ; Pain 0/10; 12:30 BP 154 / 88; Pulse 79; Resp 16; Pulse Ox 99% on R/A; kd3 11:13 Body Mass Index 22.31 (58.97 kg, 162.56 cm) mb9 11:13 Pain Scale: Adult mb9 ED Course: 10:54 Patient arrived in ED. im 10:56 Parviz Miranda MD is Attending Physician. sp3 11:14 Triage completed. mb9 11:14 Arm band placed on. mb9 11:52 Leti Latham, RN is Primary Nurse. mb9 11:56 Abdomen 1 View XRAY In Process Unspecified. EDMS 12:30 Ellie Mcfarlane, RN is Primary Nurse. kd3 12:30 No provider procedures requiring assistance completed. Patient did not have IV access kd3 during this emergency room visit. 12:31 Patient has correct armband on for positive identification. Provided Education on: kd3 fleet enema . Administered Medications: 12:03 Drug: Magnesium Citrate PO Liquid 300 ml PO once Route: PO; mb9 12:31 Follow up: Response: No adverse reaction kd3 12:03 Drug: Fleet Enema IN 133 ml IN once Route: IN; mb9 12:31 Follow up: Response: No adverse reaction kd3 Medication: 11:52 VIS not applicable for this client. mb9 Outcome: 12:25 Discharge ordered by . sp3 12:30 Discharged to home ambulatory, kd3 12:30 Condition: stable 12:30 Discharge instructions given to patient, Instructed on discharge instructions, follow up and referral plans. Demonstrated understanding of instructions, follow-up care, 12:32 Patient left the ED. kd3 Signatures: Dispatcher [employer] EDMS Parviz Miranda MD MD sp3 Ellie Mcfarlane RN RN kd3 Leti Latham RN RN mb9 Isabel Stevens
[2023-12-29 12:53] VITALS: BP 154/88; TEMP 97.5; O2SAT 99
== END ==
LOC: ER 10:52
DX: K59.00 Constipation, unspecified (principal)
CPT/HCPCS: 74018; 99283

== ENCOUNTER 2024-03-27 20:45 | Emergency (ER) | payer SELFPAY ==
[2024-03-27 21:37] LABS: Absolute Basophils 0.1 K/uL (0-0.5); Absolute Eosinophils 0.1 K/uL (0-0.5); Absolute Lymphocytes (CBC) 3.6 K/uL (0.7-4.9); Absolute Monocytes 0.5 K/uL (0.1-1.3); Absolute Neutrophil 8.6 K/uL (1.8-8.0); Basophils % 0.6 % (0-1.3); Eosinophils % 0.9 % (0-4.4); Hematocrit 39.2 % (36.0-45.0); Hemoglobin 13.3 g/dL (12.0-15.0); Lymphocytes % 28.1 % (15.3-44.8); MCH 27.2 pg (27.0-35.0); MCHC 33.8 g/dL (32.0-36.0); MCV 80.6 fL (80-100); MPV 8.7 fL (7.6-11.3); Monocytes % 3.6 % (3.3-12.3); Neutrophils % 66.8 % (41.7-73.7); Nucleated Red Blood Cells % 0.1 % (0-0); Platelets 245 thou/uL (152-406); RBC Red Blood Cell Count 4.87 M/uL (3.86-4.86); Red Cell Distribution Width 13.5 % (12.1-15.2)
--- NOTE | 2024-03-27 21:47 | RAD REPORT ---
EXAM DESCRIPTION: RAD - Abdomen 1 View (KUB) - 03/27/2024 9:24 pm CLINICAL HISTORY: CONSTIPATION Pain COMPARISON: <Comparisons> FINDINGS: The bowel gas pattern is non-obstructive. No evidence of free air or pneumatosis. No suspi cious calcifications. No significant bony findings. Cholecystectomy. There is a large amount of stool in the colon. IMPRESSION: Significant constipation is present.
[2024-03-27] MEDS ORDERED: MAGNESIUM CITRATE 300 ML BOT ONE (22:02)
[2024-03-27] MEDS ORDERED: FLEET ENEMA ADULT PR ONE (22:02)
[2024-03-27 22:03] LABS: ALT/SGPT 40 U/L (13-56); Albumin 3.7 g/dL (3.4-5.0); Albumin/Globulin Ratio 0.8 (1.1-1.8); Alkaline Phosphatase 141 U/L (45-117); Anion Gap 11.6 mEq/L (5.0-15.0); BUN Blood Urea Nitrogen 35 mg/dL (7-18); Bicarbonate 31 mEq/L (21-32); Bilirubin Total 0.4 mg/dL (0.2-1.0); Globulin 4.5 g/dL (2.3-3.5); Glomerular Filtration Rate 48 ml/min (=/>90); Lipase 427 U/L (13-75); Potassium 3.6 mEq/L (3.5-5.1); Protein, Total 8.2 g/dL (6.4-8.2); Sodium Level 129 mEq/L (136-145)
[2024-03-27 22:04] LABS: AST/SGOT < 10 U/L (15-37)
[2024-03-27 22:06] LABS: Glucose Level 620 mg/dL (74-106)
--- NOTE | 2024-03-27 23:42 | EDPHYS ---
Physician Documentation [facility] Name: Carol Mclaughlin Age: 48 yrs Sex: Female : 1975 Arrival Date: 03/27/2024 Time: 20:45 Bed 5 Private MD: ED Physician Rogelio Ruby HPI: 03/27 23:17 This 48 yrs old Female presents to ER via Ambulatory with complaints of kb Constipation. 23:17 Pt is a 48 year old female who presents for constipation that started 2 days ago. kb States last BM was 3 days ago. States she feels the need to have a BM, but is unable to do it. States she has had exact same feeling in the past, came here and was given medications that helped her. Denies fever, nausea, vomiting. . PUMPMAN: 21:08 unknown rg5 Historical: - Allergies: 21:06 No Known Allergies; rg5 - Home Meds: 21:06 lisinopril 5 mg Oral tab 1 tab once daily [Active]; metformin 1 Oral tab 1 tab 2 times rg5 per day [Active]; - PMHx: 21:08 angina pectoris; Diabetes - NIDDM; Hypertension; rg5 - PSHx: 21:08 ankle SX; ankle SX; section; Cholecystectomy; left knee repair; rg5 - Immunization history:: Adult Immunizations up to date. - Infectious Disease History:: Denies. - Social history:: Smoking status: Patient denies any tobacco usage or history of. ROS: 23:16 Constitutional: As per HPI kb Exam: 23:16 Constitutional: This is a well developed, well nourished patient who is awake, alert, kb and in no acute distress. Head/Face: Normocephalic, atraumatic. ENT: Moist Mucous membranes Cardiovascular: Regular rate Respiratory: Respirations even and unlabored. No increased work of breathing. Talking in full sentences Skin: Warm, dry with normal turgor. Normal color. MS/ Extremity: Pulses equal, no cyanosis. Neurovascular intact. Full, normal range of motion. Neuro: Awake and alert, GCS 15, oriented to person, place, time, and situation. Moves all extremities. Normal gait. 23:16 Abdomen/GI: Inspection: distension, that is mild, Bowel sounds: normal, Palpation: soft, in all quadrants, mild abdominal tenderness, in all quadrants, Vital Signs: 21:01 BP 171 / 78; Pulse 94; Resp 18; Temp 97.7; Pulse Ox 100% on R/A; Weight 58.97 kg; rg5 Height 5 ft. 4 in. ; Pain 10/10; 22:00 BP 169 / 77; Pulse 90; Resp 17 S; Pulse Ox 99% on R/A; ha1 23:00 BP 161 / 79; Pulse 95; Resp 16 S; Pulse Ox 100% on R/A; ha1 03/28 00:00 BP 158 / 78; Pulse 94; Resp 16 S; Pulse Ox 99% on R/A; ha1 01:00 BP 147 / 71; Pulse 90; Resp 16 S; Pulse Ox 99% on R/A; ha1 02:10 BP 144 / 72; Pulse 89; Resp 16 S; Pulse Ox 100% on R/A; ha1 03/27 21:01 Body Mass Index 22.31 (58.97 kg, 162.56 cm) rg5 03/27 21:01 Pain Scale: Adult rg5 MDM: 03/27 20:49 Patient medically screened. kb 23:16 Differential diagnosis: constipation, bowel obstruction. Data reviewed: vital signs, kb nurses notes. 23:42 Consideration of Admission/Observation Escalation of care including kb admission/observation considered. pt will be transferred due to capacity. Counseling: I had a detailed discussion with the patient and/or guardian regarding the historical points, exam findings, and any diagnostic results supporting the discharge/admit diagnosis, lab results, radiology results, the need to transfer to another facility, capacity. 03/28 00:40 Management of patient was discussed with the following: Dr Mcclure, Hospitalist at [facility] accepts pt for transfer. 03/27 20:54 Order name: CBC with Diff; Complete Time: 21:57 kb 03/27 20:54 Order name: CMP; Complete Time: 22:09 kb 03/27 20:54 Order name: Lipase; Complete Time: 22:09 kb 03/28 00:43 Order name: Glucose, Ancillary Testing; Complete Time: 00:43 EDMS 03/27 20:55 Order name: Abdomen 1 View (KUB) XRAY; Complete Time: 21:50 kb 03/27 22:10 Order name: CT Abd/Pelvis - IV Contrast Only 03/28 00:03 Order name: Blood Glucose Level; Complete Time: 00:35 kb Administered Medications: 03/27 22:15 Drug: Fleet Enema UT 133 ml UT once; may repeat once Route: UT; ha1 23:00 Follow up: Response: No adverse reaction ha1 22:15 Drug: Magnesium Citrate PO Liquid 300 ml PO once Route: PO; ha1 23:00 Follow up: Response: No adverse reaction ha1 22:52 Drug: NS 0.9% IV 1000 ml IV at 1000 ml once Route: IV; Rate: 1000 ml; Site: left lc8 antecubital; 23:50 Follow up: Response: No adverse reaction; IV Status: Completed infusion; IV Intake: ha1 1000ml 22:53 Drug: Insulin Regular Human IVP 10 units IVP once {Co-Signature: rg5 (Lico Simpson8 RN).} Route: IVP; Site: left antecubital; 03/28 00:10 Follow up: Response: No adverse reaction; Blood sugar is lowered ha1 Disposition: 03:59 Co-signature as Attending Physician, Rogelio Ruby MD I agree with the assessment sp4 and plan of care. I reviewed the patient's care provided by the Advanced Practice Provider and agree with the diagnosis and treatment plan. Disposition Summary: 03/27/24 23:41 Transfer Ordered Notes: Transfer Location: [facility] kb Reason: Higher level of care kb Condition: Stable kb Problem: new kb Symptoms: are unchanged kb Accepting Physician: Dr Mcclure(03/28/24 03:05) ha1 Diagnosis - Other acute pancreatitis without necrosis or infection kb - Hyperglycemia, unspecified kb - Acute kidney failure, unspecified kb - Constipation kb Forms: - Medication Reconciliation Form kb - SBAR form kb Signatures: Dispatcher [employer] Rizwana Valentino FNP-C FNP-Suzi Ortiz RN RN ha1 Rogelio Ruby MD MD sp4 Lico Simpson RN RN rg5 Migel Worrell RN RN lc8 Lico Simpson RN rg5 Corrections: (The following items were deleted from the chart) 03/27 20:55 20:54 IV Saline Lock ordered. kb kb 20:55 20:54 Labs collected and sent ordered. kb kb 20:55 20:54 CBC+H.LAB.BRZ ordered. EDMS EDMS 20:55 20:54 COMPREHENSIVE METABOLIC PANEL+C.LAB.BRZ ordered. EDMS EDMS 20:55 20:54 LIPASE+C.LAB.BRZ ordered. EDMS EDMS 20:55 20:54 Urinalysis+U.LAB.BRZ ordered. EDMS EDMS 21: 21:06 Home Meds: valsartan 80 mg Oral tab 1 tab once daily; rg5 rg5 21: 21:06 Home Meds: UNKNOWN HTN MEDICATION; rg5 rg5 21: 21:06 Home Meds: Ozempic 0.25 mg or 0.5 mg(2 mg/1.5 mL) subcutaneous Pen Injector 0.25 rg5 mg daily; rg5 21: 21:08 PSHx: ankle SX, L leg; rg5 rg5 22:11 22:11 Abdomen Pelvis W Con+CT.RAD.BRZ ordered. EDMS EDMS 22:14 20:54 Abdomen Pelvis W Con+CT.RAD.BRZ ordered. EDMS EDMS 23:41 23:41 Dr houston kb 03/28 00:57 00:40 Management of patient was discussed with the following: Hospitalist at [facility] rosemarie [facility] accepts pt for transfer. rosemarie 00:57 03/27 23:41 Dr rosemarie houston 03/28 03:05 00:57 Dr Kami houston ha1
--- NOTE | 2024-03-27 23:42 | ER ---
Nurse's Notes [facility] Name: Carol Mclaughlin Age: 48 yrs Sex: Female : 1975 Arrival Date: 03/27/2024 Time: 20:45 Bed 5 Private MD: Diagnosis: Other acute pancreatitis without necrosis or infection;Hyperglycemia, unspecified;Acute kidney failure, unspecified;Constipation Presentation: 03/27 21:01 Chief complaint: Patient states: has not BM for 3 days and pain on abdomen scale of rg5 10/10. Coronavirus screen: Vaccine status: Patient reports receiving the 1st dose of the Covid vaccine. Client denies travel out of the [place] in the last 14 days. Ebola Screen: Patient denies travel to an Ebola-affected area in the 21 days before illness onset. Initial Sepsis Screen: Does the patient meet any 2 criteria? No. Patient's initial sepsis screen is negative. Does the patient have a suspected source of infection? No. Patient's initial sepsis screen is negative. Risk Assessment: Do you want to hurt yourself or someone else? Patient reports no desire to harm self or others. Onset of symptoms was March 24, 2024. 21:01 Method Of Arrival: Ambulatory rg5 21:01 Acuity: GORGE 3 rg5 Triage Assessment: 21:08 General: Appears uncomfortable, Behavior is calm, cooperative, restless. Pain: rg5 Complains of pain in abdomen Pain currently is 10 out of 10 on a pain scale. GI: Abdomen is distended, Mass noted in umbilical area, right upper quadrant and left upper quadrant Reports constipation. DIRECTOR OF LOSS PREVENTION: 21:08 unknown rg5 Historical: - Allergies: 21:06 No Known Allergies; rg5 - Home Meds: 21:06 lisinopril 5 mg Oral tab 1 tab once daily [Active]; metformin 1 Oral tab 1 tab 2 times rg5 per day [Active]; - PMHx: 21:08 angina pectoris; Diabetes - NIDDM; Hypertension; rg5 - PSHx: 21:08 ankle SX; ankle SX; section; Cholecystectomy; left knee repair; rg5 - Immunization history:: Adult Immunizations up to date. - Infectious Disease History:: Denies. - Social history:: Smoking status: Patient denies any tobacco usage or history of. Screenin:15 Abuse screen: Denies threats or abuse. Denies injuries from another. Nutritional lc8 screening: No deficits noted. 21:15 Tuberculosis screening: No symptoms or risk factors identified. lc8 21:22 [facility] ED Fall Risk Assessment (Adult) History of falling in the last 3 months, bm8 including since admission No falls in past 3 months (0 pts) Confusion or Disorientation No (0 pts) Intoxicated or Sedated No (0 pts) Impaired Gait No (0 pts) Mobility Assist Device Used No (0 pt) Altered Elimination No (0 pt) Score/Fall Risk Level 0 - 2 = Low Risk Oriented to surroundings, Maintained a safe environment, Educated pt \T\ family on fall prevention, incl call for assistance when getting out of bed, Assessed \T\ reinforced patient's understanding of fall precautions. Assessment: 21:15 General: Appears in no apparent distress. Behavior is calm, cooperative, appropriate lc8 for age. 21:15 Neuro: Level of Consciousness is awake, alert, obeys commands, Oriented to person, lc8 place, time, situation. Cardiovascular: Denies Capillary refill < 3 seconds Patient's skin is warm and dry. Respiratory: Airway is patent Respiratory effort is even, unlabored, Respiratory pattern is regular, symmetrical. GI: Bowel sounds present X 4 quads. Abdomen is tender to palpation Reports constipation. : Denies. EENT: Denies. 21:15 Pain: Complains of pain in abdomen Pain began 2-3 days ago. Is continuous, Also lc8 complains of constipation. 22:00 General: Appears uncomfortable, Behavior is calm, cooperative. Pain: Complains of pain ha1 in abdomen Pain does not radiate. Pain currently is 6 out of 10 on a pain scale. Quality of pain is described as crampy. Neuro: Level of Consciousness is awake, alert, obeys commands, Oriented to person, place, time, situation. Cardiovascular: Capillary refill < 3 seconds Patient's skin is warm and dry. Respiratory: Airway is patent. GI: Abdomen is round non-distended, Reports constipation. 23:00 Reassessment: Patient and/or family updated on plan of care and expected duration. Pain ha1 level reassessed. Patient is alert, oriented x 3, equal unlabored respirations, skin warm/dry/pink. 03/28 00:00 Reassessment: Patient and/or family updated on plan of care and expected duration. Pain ha1 level reassessed. Patient is alert, oriented x 3, equal unlabored respirations, skin warm/dry/pink. assisted patient to the bathroom. 00:40 Reassessment: pt. reports having a bowel movement. Respiratory: Airway is patent ha1 Respiratory effort is even, unlabored, Respiratory pattern is regular, symmetrical. 01:40 Reassessment: Patient and/or family updated on plan of care and expected duration. Pain ha1 level reassessed. Patient is alert, oriented x 3, equal unlabored respirations, skin warm/dry/pink. 02:45 Reassessment: Patient and/or family updated on plan of care and expected duration. Pain ha1 level reassessed. Patient is alert, oriented x 3, equal unlabored respirations, skin warm/dry/pink. Vital Signs: 03/27 21:01 BP 171 / 78; Pulse 94; Resp 18; Temp 97.7; Pulse Ox 100% on R/A; Weight 58.97 kg; rg5 Height 5 ft. 4 in. ; Pain 10/10; 22:00 BP 169 / 77; Pulse 90; Resp 17 S; Pulse Ox 99% on R/A; ha1 23:00 BP 161 / 79; Pulse 95; Resp 16 S; Pulse Ox 100% on R/A; ha1 03/28 00:00 BP 158 / 78; Pulse 94; Resp 16 S; Pulse Ox 99% on R/A; ha1 01:00 BP 147 / 71; Pulse 90; Resp 16 S; Pulse Ox 99% on R/A; ha1 02:10 BP 144 / 72; Pulse 89; Resp 16 S; Pulse Ox 100% on R/A; ha1 03/27 21:01 Body Mass Index 22.31 (58.97 kg, 162.56 cm) rg5 03/27 21:01 Pain Scale: Adult rg5 ED Course: 03/27 20:48 Patient arrived in ED. mr 20:49 Rizwana Young FNP-C is [facility]. kb 20:52 Rogelio Ruby MD is Attending Physician. sp4 21:06 Triage completed. rg5 21:08 Arm band placed on right wrist. rg5 21:15 Patient has correct armband on for positive identification. Bed in low position. Call lc8 light in reach. Side rails up X 1. 21:15 Client placed on continuous cardiac and pulse oximetry monitoring. NIBP monitoring lc8 applied. 21:20 Inserted saline lock: 20 gauge in left antecubital area, using aseptic technique. Blood lc8 collected. 21:26 Abdomen 1 View (KUB) XRAY In Process Unspecified. EDMS 21:32 CBC with Diff Sent. lc8 21:32 CMP Sent. lc8 21:32 Lipase Sent. lc8 21:38 Migel Worrell, RN is Primary Nurse. lc8 22:40 Provided Education on: medication administration . ha1 22:52 CT Abd/Pelvis - IV Contrast Only In Process Unspecified. EDMS 23:58 [facility] called for patient transfer, spoke with. ty 03/28 01:53 [facility] called ETA 1.5 Hours. [facility] called for PT transport, ETA 20 ty min. 03:04 No provider procedures requiring assistance completed. Patient transferred, IV remains ha1 in place. Administered Medications: 03/27 22:15 Drug: Fleet Enema LA 133 ml LA once; may repeat once Route: LA; ha1 23:00 Follow up: Response: No adverse reaction ha1 22:15 Drug: Magnesium Citrate PO Liquid 300 ml PO once Route: PO; ha1 23:00 Follow up: Response: No adverse reaction ha1 22:52 Drug: NS 0.9% IV 1000 ml IV at 1000 ml once Route: IV; Rate: 1000 ml; Site: left lc8 antecubital; 23:50 Follow up: Response: No adverse reaction; IV Status: Completed infusion; IV Intake: ha1 1000ml 22:53 Drug: Insulin Regular Human IVP 10 units IVP once {Co-Signature: rg5 (Lico Simpson RN).} Route: IVP; Site: left antecubital; 03/28 00:10 Follow up: Response: No adverse reaction; Blood sugar is lowered ha1 Medication: 03/27 21:15 VIS not applicable for this client. lc8 Intake: 23:50 IV: 1000ml; Total: 1000ml. ha1 Outcome: 23:41 ER care complete, transfer ordered by MD. houston 03/28 03:04 Transferred by ground EMS to [facility], Transfer form completed. ha1 X-rays sent w/ patient. Condition: stable Instructed on the need for transfer, Demonstrated understanding of instructions, 03:05 Patient left the ED. ha1 Signatures: Dispatcher [employer] EDMS Rizwana Young, ELEMENTARY MATH TUTOR-C ELEMENTARY MATH TUTOR-Ckchandra Munir Leti, Reg Reg mr Tariq Suzi, RN RN ha1 Rogelio Ruby MD MD sp4 Angel Dumont Brad, RN RN bm8 Lico Simpson RN RN rg5 Migel Worrell RN RN 8 Lico Simpson RN rg5 Corrections: (The following items were deleted from the chart) 03/27 21:09 21:06 Home Meds: valsartan 80 mg Oral tab 1 tab once daily; rg5 rg5 : 21:06 Home Meds: UNKNOWN HTN MEDICATION; rg5 rg5 : 21:06 Home Meds: Ozempic 0.25 mg or 0.5 mg(2 mg/1.5 mL) subcutaneous Pen Injector 0.25 rg5 mg daily; rg5 : 21:08 PSHx: ankle SX, L leg; rg5 rg5
[2024-03-28 03:42] VITALS: BP 144/72; TEMP 97.7; O2SAT 100
--- NOTE | 2024-03-29 09:35 | RAD REPORT ---
EXAM DESCRIPTION: Abdomen Pelvis W Contrast RadLex: CT ABDOMEN PELVIS WITH IV CONTRAST CLINICAL HISTORY: 48 years Female; Abd pain;Constipation; IV ONLY Bed Name: 5 TECHNIQUE: CT of the abdomen and pelvis with intravenous contrast. All CT scans at this facility use dose modulation, iterative reconstruction, and/or weight based dosi ng when appropriate to reduce radiation dose to as low as reasonably achievable. COMPARISON: CT abdomen pelvis 12/23/2021 FINDINGS: Lower thorax: Mild bibasilar atelectasis. Abdomen: Stomach: Within normal limits Liver: No focal lesions. Enlarged. Hepatic steatosis. No intrahepatic ductal distention. Gallbladder: Surgically absent. Pancreas: Within normal limits Spleen: Within normal limits Right kidney: No hydronephrosis. No focal lesion. Left kidney: No hydronephrosis. No focal lesion. Adrenal glands: Within normal limits Vascular structures: Within normal limits Nodes: No lymphadenopathy by size criteria Pelvis: Small bowel: No significant distention. Appendix: Within normal limits Colon: Large colonic stool burden. Peritoneum: No free intraperitoneal fluid or air. Bones: No acute bone findings. Bilateral L5 pars defects. Bladder: Mild diffuse wall thickening, could be secondary to underdistention. Reproductive organs: No acute findings. IMPRESSION: 1. Large colonic stool burden. 2. Hepatomegaly with hepatic steatosis. 3. Mild diffuse bladder wall thickening, could be secondary to underdistention. Correlate with urin alysis for evidence of cystitis. Electronically signed by: Rad Pink MD 03/27/2024 11:11 PM CDT RP Z9 Due to temporary technical issues with the PACS/Fluency reporting system, reports are being signed by the in house radiologist without review as a courtesy to ensure prompt reporting. The interpreting r adiologist is fully responsible for the content of the report.
== END 2024-03-28 03:05 | disposition short-term general hospital (02) ==
LOC: ER 20:45
DX: K85.80 Other acute pancreatitis without necrosis or infection (principal); E11.65 Type 2 diabetes mellitus with hyperglycemia; K59.00 Constipation, unspecified; N17.9 Acute kidney failure, unspecified
CPT/HCPCS: 36415; 74018; 74177; 80053; 82947; 83690; 85025; Q9967

== ENCOUNTER 2024-05-28 14:07 | Emergency (ER) | payer OTHER ==
[2024-05-28 15:52] LABS: Hematocrit 37.9 % (36.0-45.0); Hemoglobin 12.9 g/dL (12.0-15.0); MCH 27.4 pg (27.0-35.0); MCHC 34.1 g/dL (32.0-36.0); MCV 80.3 fL (80-100); MPV 8.5 fL (7.6-11.3); Platelets 192 thou/uL (152-406); RBC Red Blood Cell Count 4.72 M/uL (3.86-4.86); Red Cell Distribution Width 13.7 % (12.1-15.2)
--- NOTE | 2024-05-28 15:54 | RAD REPORT ---
EXAM DESCRIPTION: CT - Head Brain Wo Cont - 05/28/2024 3:46 pm CLINICAL HISTORY: PAIN COMPARISON: Head angio dated 04/19/2022; Ct Stroke Brain Wo Cont dated 04/18/2022 TECHNIQUE: Noncontrast head CT images were obtained without IV contrast. Multiplanar reformats were generated and reviewed. All CT scans are performed using dose optimization technique as appropriate and may include automated exposure control or mA/KV adjustment according to patient size. FINDINGS: No intracranial hemorrhage, mass, or edema. Midline structures are unremarkable. Normal ventricular caliber for age. Ames-white matter differentiation is preserved, without evidence of acute infarct. No abnormal extra- axial fluid collections. Mastoid air cells and visualized portions of the paranasal sinuses are clear. No acute bony findings. IMPRESSION: No evidence of an acute intracranial process.
[2024-05-28 16:22] LABS: Albumin 3.4 g/dL (3.4-5.0); Albumin/Globulin Ratio 0.9 (1.1-1.8); Anion Gap 13.4 mEq/L (5.0-15.0); Bilirubin Total 0.2 mg/dL (0.2-1.0); Globulin 3.9 g/dL (2.3-3.5); Potassium 4.4 mEq/L (3.5-5.1); Protein, Total 7.3 g/dL (6.4-8.2)
[2024-05-28] MEDS ORDERED: KETOROLAC 30 MG/ML INJ ONE (16:22)
[2024-05-28] MEDS ORDERED: HYDROCODONE/APAP 5/325 MG TAB ONE (16:25)
--- NOTE | 2024-05-28 16:57 | EDPHYS ---
Physician Documentation [facility] Name: Carol Mclaughlin Age: 49 yrs Sex: Female : 1975 Arrival Date: 05/28/2024 Time: 14:07 Bed 13 Private MD: ED Physician Keyanna Foley HPI: 05/28 16:49 This 49 yrs old Female presents to ER via Ambulatory with complaints of gb1 Redness of Eye, Eye Pain, Headache. 16:49 49-year-old female with history of poorly controlled diabetes that she is noncompliant gb1 with her medications here with left eye redness and tearing for 3 days. Patient states that she has never had this happen to her before. She denies any draining from the eye or any fever. She states that she has a headache on the left side.. 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 - Infectious Disease History:: Denies. - Social history:: Smoking status: Patient denies any tobacco usage or history of. Patient/guardian denies using alcohol. Exam: 16:49 Visual Acuity: Visual acuity is within normal limits. gb1 16:49 Constitutional: This is a well developed, well nourished patient who is awake, alert, and in no acute distress. Head/Face: Normocephalic, atraumatic. Eyes: Pupils equal round and reactive to light, extra-ocular motions intact. Lids and lashes normal. LT no conjunctiva and sclera are non-icteric and injected. Left corneal injection periorbital areas with mild swelling, redness, and edema.. Neck: Trachea midline, no thyromegaly or masses palpated, and no cervical lymphadenopathy. Supple, full range of motion without nuchal rigidity, or vertebral point tenderness. No Meningismus. Chest/axilla: Normal chest wall appearance and motion. Nontender with no deformity. No lesions are appreciated. Cardiovascular: Regular rate and rhythm with a normal S1 and S2. No gallops, murmurs, or rubs. Normal PMI, no JVD. No pulse deficits. Respiratory: Lungs have equal breath sounds bilaterally, clear to auscultation and percussion. No rales, rhonchi or wheezes noted. No increased work of breathing, no retractions or nasal flaring. Abdomen/GI: Soft, non-tender, with normal bowel sounds. No distension or tympany. No guarding or rebound. No evidence of tenderness throughout. Back: No spinal tenderness. No costovertebral tenderness. Full range of motion. Skin: Warm, dry with normal turgor. Normal color with no rashes, no lesions, and no evidence of cellulitis. MS/ Extremity: Pulses equal, no cyanosis. Neurovascular intact. Full, normal range of motion. Vital Signs: 14:30 BP 205 / 94; Pulse 93; Resp 19; Temp 98.7; Pulse Ox 98% on R/A; Weight 60.78 kg; Height tm6 5 ft. 4 in. ; Pain 10/10; 16:18 BP 179 / 91; Pulse 80; Resp 17; Pulse Ox 98% on R/A; rs5 14:30 Body Mass Index 23.00 (60.78 kg, 162.56 cm) tm6 14:30 Pain Scale: Adult tm6 MDM: 14:37 Patient medically screened. gb1 16:49 Data reviewed: vital signs, nurses notes, lab test result(s), CBC, electrolytes, gb1 sodium, potassium, chloride, serum bicarbonate, BUN, creatinine, serum glucose. 16:49 ED course: 49-year-old female with poorly controlled shq-dtprryi-zjcoerlcg diabetes gb1 mellitus, hypertension and hyperlipidemia here with left scleral injection with concern for diabetic retinopathy versus glaucoma. Patient has normal visual acuity bilaterally however she does need a good outpatient outcome logical exam. I have discussed the case with Dr. Slade and he has agreed to see the patient tomorrow at 1030. I will give the patient his contact information for his office and have the patient follow-up as an outpatient. I was unable to obtain a Rishi-Pen pressure reading of the patient's affected eye. However, the eye is not extremely hardend.. 05/28 15:16 Order name: CBC w/o diff; Complete Time: 16:09 gb1 05/28 15:16 Order name: CMP; Complete Time: 16:46 gb1 05/28 15:16 Order name: CT Head Brain wo Cont; Complete Time: 15:55 gb1 Administered Medications: 16:30 Drug: HYDROcodone-acetaminophen PO 5 mg-325 mg 1 tabs PO once Route: PO; rs5 16:30 Drug: Ketorolac IVP 30 mg IVP once Route: IVP; Site: left antecubital; rs5 Disposition Summary: 05/28/24 16:56 Discharge Ordered Condition: Stable gb1 Problem: new gb1 Symptoms: are unchanged gb1 Diagnosis - Hypertensive retinopathy, left eye gb1 - Type 2 diabetes mellitus with hyperglycemia gb1 - Patient's other noncompliance with medication regimen gb1 Followup: gb1 - With: Maxime Slade MD - When: Tomorrow - Reason: Discharge Instructions: - Discharge Summary Sheet gb1 - Diabetic Retinopathy gb1 - Hyperglycemia gb1 Forms: - Medication Reconciliation Form gb1 - Antibiotic Education gb1 - Prescription Opioid Use gb1 - Patient Portal Instructions gb1 - Leadership Thank You Letter gb1 Signatures: Dispatcher [employer] EDMS Myke Sebastian, RN RN rs5 Keyanna Foley MD MD gb1 Evan Guerrero RN RN tm6 Corrections: (The following items were deleted from the chart) 15:16 15:16 CBC without Diff+H.LAB.BRZ ordered. EDMS EDMS 15:16 15:16 COMPREHENSIVE METABOLIC PANEL+C.LAB.BRZ ordered. EDMS EDMS
--- NOTE | 2024-05-28 16:57 | ER ---
Nurse's Notes [facility] Name: Carol Mclaughlin Age: 49 yrs Sex: Female : 1975 Arrival Date: 05/28/2024 Time: 14:07 Bed 13 Private MD: Diagnosis: Hypertensive retinopathy, left eye;Type 2 diabetes mellitus with hyperglycemia;Patient's other noncompliance with medication regimen Presentation: 05/28 14:32 Chief complaint: Patient states: headache x3 days. Eye pain cannot see well x 3 days. tm6 Chest pain starting today, feels like pressure. Coronavirus screen: Vaccine status: Patient reports receiving the 2nd dose of the covid vaccine. Ebola Screen: Patient negative for fever greater than or equal to 101.5 degrees Fahrenheit, and additional compatible Ebola Virus Disease symptoms Patient denies exposure to infectious person. Patient denies travel to an Ebola-affected area in the 21 days before illness onset. No symptoms or risks identified at this time. Mechanism of Injury: No Mechanism of Injury. The patient reports a positive loss of vision. The patient's loss of vision began 2-3 days ago. Initial Sepsis Screen: Does the patient meet any 2 criteria? No. Patient's initial sepsis screen is negative. Does the patient have a suspected source of infection? No. Patient's initial sepsis screen is negative. Risk Assessment: Do you want to hurt yourself or someone else? Patient reports no desire to harm self or others. Onset of symptoms was May 25, 2024. 14:32 Method Of Arrival: Ambulatory tm6 14:32 Acuity: GORGE 3 tm6 Triage Assessment: 14:33 General: Appears uncomfortable, Behavior is cooperative. Pain: Complains of pain in tm6 face, left eye and chest Pain currently is 10 out of 10 on a pain scale. Quality of pain is described as aching, pressure, Pain began 2-3 days ago. EENT: Eyes Sclera/Cornea are reddened in left eyebrow, left upper eyelid, inner aspect of conjunctiva of left eye, left lower eyelid and left eye Reports pain in left eye. Neuro: Level of Consciousness is awake, alert, obeys commands, Oriented to person, place, time, situation, Reports headache since 3 days ago. Cardiovascular: Reports chest pain, Chest pain is described as vague. Respiratory: Airway is patent Respiratory effort is even, unlabored, Respiratory pattern is regular, symmetrical. GI: No signs and/or symptoms were reported involving the gastrointestinal system. Abdomen is flat, non-distended. : No signs and/or symptoms were reported regarding the genitourinary system. Derm: No signs and/or symptoms reported regarding the dermatologic system. Musculoskeletal: No signs and/or symptoms reported regarding the musculoskeletal system. 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 - Infectious Disease History:: Denies. - Social history:: Smoking status: Patient denies any tobacco usage or history of. Patient/guardian denies using alcohol. Vital Signs: 14:30 BP 205 / 94; Pulse 93; Resp 19; Temp 98.7; Pulse Ox 98% on R/A; Weight 60.78 kg; Height tm6 5 ft. 4 in. ; Pain 10/10; 16:18 BP 179 / 91; Pulse 80; Resp 17; Pulse Ox 98% on R/A; rs5 14:30 Body Mass Index 23.00 (60.78 kg, 162.56 cm) tm6 14:30 Pain Scale: Adult tm6 ED Course: 14:09 Patient arrived in ED. mr 14:29 Keyanna Foley MD is Attending Physician. gb1 14:31 Arm band placed on left wrist. tm6 14:33 Triage completed. tm6 14:40 Ysabel Harden, MARTIN is Primary Nurse. ll1 15:48 CT Head Brain wo Cont In Process Unspecified. EDMS 16:54 Maxime Slade MD is Referral Physician. gb1 Administered Medications: 16:30 Drug: HYDROcodone-acetaminophen PO 5 mg-325 mg 1 tabs PO once Route: PO; rs5 16:30 Drug: Ketorolac IVP 30 mg IVP once Route: IVP; Site: left antecubital; rs5 Outcome: 16:56 Discharge ordered by . gb1 17:15 Patient left the ED. rs5 Signatures: Dispatcher [employer] EDMS Amaral, Leti, Reg Reg mr Ysabel Harden, RN RN ll1 Myke Sebastian RN RN rs5 Keyanna Foley MD MD gb1 Evan Guerrero RN RN tm6
[2024-05-28 17:19] VITALS: TEMP 98.7; O2SAT 98
[2024-05-28 17:21] VITALS: BP 179/91
== END 2024-05-28 17:15 | disposition home or self-care (01) ==
LOC: ER 14:07
DX: H35.032 Hypertensive retinopathy, left eye (principal); E11.65 Type 2 diabetes mellitus with hyperglycemia; Z91.148 Patient's other noncompliance with medication regimen for other reason; I10 Essential (primary) hypertension; R51.9 Headache, unspecified
CPT/HCPCS: 36415; 70450; 80053; 85027

== ENCOUNTER 2025-02-06 09:47 | Emergency (ER) | payer OTHER ==
[2025-02-06 10:40] LABS: Absolute Basophils 0.1 K/uL (0-0.5); Absolute Eosinophils 0.2 K/uL (0-0.5); Absolute Lymphocytes (CBC) 2.6 K/uL (0.7-4.9); Absolute Monocytes 0.4 K/uL (0.1-1.3); Absolute Neutrophil 6.5 K/uL (1.8-8.0); Basophils % 0.7 % (0-1.3); Hematocrit 42.6 % (36.0-45.0); Hemoglobin 14.8 g/dL (12.0-15.0); Lymphocytes % 26.2 % (15.3-44.8); MCH 27.6 pg (27.0-35.0); MCHC 34.7 g/dL (32.0-36.0); MCV 79.7 fL (80-100); MPV 8.6 fL (7.6-11.3); Monocytes % 4.6 % (3.3-12.3); Neutrophils % 66.5 % (41.7-73.7); Platelets 244 thou/uL (152-406); RBC Red Blood Cell Count 5.35 M/uL (3.86-4.86); Red Cell Distribution Width 13.6 % (12.1-15.2)
[2025-02-06] MEDS ORDERED: FENTANYL CITR 100 MCG/2 ML ONE (10:54)
[2025-02-06] MEDS ORDERED: ONDANSETRON 4 MG/2 ML VIAL ONE (10:54)
[2025-02-06] MEDS ORDERED: KETOROLAC 30 MG/ML INJ ONE (10:54)
[2025-02-06] MEDS ORDERED: NA CHLORIDE 0.9% 1,000 ML ONE (10:55)
[2025-02-06 10:57] LABS: ALT/SGPT 50 U/L (13-56); AST/SGOT 28 U/L (15-37); Albumin 3.5 g/dL (3.4-5.0); Albumin/Globulin Ratio 0.9 (1.1-1.8); Alkaline Phosphatase 98 U/L (45-117); Anion Gap 10.9 mEq/L (5.0-15.0); BUN Blood Urea Nitrogen 13 mg/dL (7-18); Bicarbonate 28 mEq/L (21-32); Bilirubin Total 0.4 mg/dL (0.2-1.0); Glomerular Filtration Rate 79 ml/min (=/>90); Glucose Level 292 mg/dL (74-106); Lipase 38 U/L (13-75); Potassium 3.9 mEq/L (3.5-5.1); Protein, Total 7.5 g/dL (6.4-8.2); Sodium Level 136 mEq/L (136-145)
[2025-02-06 11:19] LABS: Bilirubin Direct < 0.2 mg/dL (0-0.2); Bilirubin Indirect, Calculated 0.2 mg/dL (0.2-0.8)
--- NOTE | 2025-02-06 12:05 | RAD REPORT ---
EXAMINATION: Head C Spine Mpr Wo Con CLINICAL INDICATION: Female, 49 years old. PAIN TECHNIQUE: Axial CT images from the skull base to the vertex without intravenous contrast. Axial CT i mages through the cervical spine were obtained without intravenous contrast. Sagittal and coronal reformatted images were created from the data set. Coronal and sagittal reformatted images were creat ed from the data set. One or more of the following dose reduction techniques were used: Automated exposure control, adjustment of the mA and/or kV according to patient size, and/or iterative reconstr uction. Unless otherwise specified, incidental findings do not require dedicated imaging follow-up. [id number]. COMPARISON: No prior exam. FINDINGS: Head: INTRACRANIAL: No acute intracranial hemorrhage. No hydrocephalus. No mass effect or midline shift. No significant white matter disease. VASCULATURE: No visualized abnormalities in the arteries or dural venous sinuses. SCALP/SKULL: No calvarial fracture identified. No acute soft tissue abnormality. SINUSES: The visualized paranasal sinuses are mostly clear. No significant mastoid fluid. Cervical spine: ALIGNMENT: The cervical spine has normal alignment without scoliosis or spondylolisthesis. BONE: Vertebral body heights are maintained. No aggressive osseous lesions. DEGENERATIVE: No significant focal degenerative changes. SOFT TISSUE: No significant abnormalities in the soft tissue of the neck. The visualized lung apices are clear. IMPRESSION: No acute intracranial abnormality. No acute fracture or traumatic malalignment of the cervical spine.
--- NOTE | 2025-02-06 12:12 | RAD REPORT ---
EXAM: Chest Abdomen Pelvis W Cont CLINICAL INDICATION: Female, 49 years PAIN TECHNIQUE: CT chest, abdomen and pelvis was performed, with IV contrast, as per department protocol. Axial, sagittal and coronal reconstructions were obtained. One or more of the following dose reduction techniques were used: Automated exposure control, adjustment of the mA and/or kV according to the patient size, and/or iterative reconstruction. Unless otherwise specified, incidental findings do not require dedicated imaging follow-up. [id number]. COMPARISON: 03/27/2024 FINDINGS: ---THORAX--- LOWER NECK AND CHEST WALL: Visualized thyroid gland and soft tissues are normal. LUNGS AND AIRWAYS: Airways are clear. No evidence of airspace or interstitial process.No dominant or clearly suspicious nodule identified. PLEURA: No pleural effusion. No pneumothorax. MEDIASTINUM AND LYMPH NODES: No mediastinal mass or fluid collection. Normal size mediastinal, hilar, and axillary lymph nodes. Mild distal esophageal thickening. THORACIC AORTA: No thoracic aortic aneurysm. PULMONARY ARTERIES: Caliber is within normal limits. HEART: Normal heart size. No coronary calcifications.No significant pericardial effusion. ---ABDOMEN/PELVIS--- UPPER GI: No significant abnormality. LIVER: No significant focal abnormality. GALLBLADDER/BILE DUCTS: Cholecystectomy. Mild extra-hepatic biliary ductal dilatation is likely relat ed to the post-cholecystectomy state. Consider correlating with LFT's.? PANCREAS: No mass, ductal dilation, or [place]-pancreatic fluid. SPLEEN: Unremarkable. ADRENALS: No adrenal masses. KIDNEYS AND URETERS: No hydronephrosis.No suspicious renal mass. ABDOMINAL AORTA AND OTHER VESSELS: Normal caliber aorta and IVC. PERITONEUM: No abnormal free fluid. No free air. LYMPH NODES: No pathologic lymphadenopathy. ABDOMINAL WALL: Unremarkable SMALL BOWEL/COLON: Small bowel has normal course and caliber. No colonic wall thickening or pericolon ic inflammatory changes.Normal appendix. URINARY BLADDER: Nonspecific circumferential bladder wall thickening. REPRODUCTIVE ORGANS: No pathologic process. ---COMBINED--- MUSCULOSKELETAL: No acute or suspicious osseous abnormality. ADDITIONAL FINDINGS: None. IMPRESSION: No evidence of significant trauma to the chest, abdomen, or pelvis.
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
[2025-02-06 13:54] VITALS: BP 148/73; TEMP 98.2; O2SAT 98
== END 2025-02-06 13:05 | disposition home or self-care (01) ==
LOC: ER 09:47
DX: S29.012A Strain of muscle and tendon of back wall of thorax, initial encounter (principal); S29.011A Strain of muscle and tendon of front wall of thorax, initial encounter; E11.65 Type 2 diabetes mellitus with hyperglycemia; V49.49XA Driver injured in collision with other motor vehicles in traffic accident, initial encounter
CPT/HCPCS: 36415; 70450; 71260; 72125; 74177; 80048; 80076; 83690; 85025; 86850; 86900; 86901; J2405; J3010; J7030; Q9967

== ENCOUNTER 2025-02-28 13:20 | Emergency (ER) | payer OTHER ==
[2025-02-28] MEDS ORDERED: DIPHENHYDRAMINE 50 MG/ML VIAL ONE (15:53)
[2025-02-28] MEDS ORDERED: NA CHLORIDE 0.9% 1,000 ML ONE (15:53)
[2025-02-28] MEDS ORDERED: METOCLOPRAMIDE 10 MG/2mL INJ ONE (15:53)
[2025-02-28] MEDS ORDERED: KETOROLAC 30 MG/ML INJ ONE (15:53)
--- NOTE | 2025-02-28 15:56 | RAD REPORT ---
EXAM: CT brain without contrast HISTORY: HEADACHE COMPARISON: None TECHNIQUE: Multiple contiguous axial images were obtained and a CT of the brain without contrast. Sag ittal and coronal reformats were performed. One or more of the following dose reduction techniques were used: Automated exposure control, adjust ment of the mA and/or kV according to patient size, and/or iterative reconstruction. FINDINGS: No evidence of hydrocephalus, intracranial hemorrhage, or extra-axial fluid collection. The brain is normal in morphology. No evidence of midline shift or areas of brain edema. The calvarium is intact. The visualized paranasal sinuses and mastoid air cells are essentially clear . IMPRESSION: No evidence of acute intracranial abnormality.
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
[2025-02-28 18:18] VITALS: O2SAT 98
[2025-02-28 18:20] VITALS: BP 158/80; TEMP 97.3
== END 2025-02-28 17:22 | disposition home or self-care (01) ==
LOC: ER 13:20
DX: G44.319 Acute post-traumatic headache, not intractable (principal); I10 Essential (primary) hypertension; E11.9 Type 2 diabetes mellitus without complications
CPT/HCPCS: 96361; 70450; 96375; 96374; 99284; J2765; J1200; J7030